=== PATIENT | male | born 1955 | race Caucasian/White ===

== ENCOUNTER 2016-06-25 13:34 | Emergency (ER) | payer MEDICAID, OTHER ==
[~2016-06-25] VITALS: Ht 162.6 cm; Wt 82.0 kg
[~2016-06-25 13:34] MED LIST: BENZ1TAB PO; BISA10SU3 RECTAL; FLEEENE3 RECTAL; LEVE500 PO; LEXA10TA PO; MAGN30S PO; METO25 PO; REST30CA PO; RISP2TAB2 PO; RISP3TAB23 PO; TRAZ50TA4 PO
[2016-06-25 13:39] VITALS: BP 120/62; PULSE 83; RESP 16; TEMP 98.2; O2SAT 96
[2016-06-25] MEDS ORDERED: TEMA30CA PO (14:02)
[2016-06-25] MEDS ORDERED: BENZ0.5T PO (14:02)
[2016-06-25] MEDS ORDERED: RISP2TAB2 PO (14:02)
[2016-06-25] MEDS ORDERED: VITATAB56 PO (14:02)
[2016-06-25] MEDS ORDERED: RISP3TAB2 PO (14:02)
[2016-06-25] MEDS ORDERED: LEXA20TA PO (14:02)
[2016-06-25] MEDS ORDERED: LEVE500 PO (14:02)
[2016-06-25] MEDS ORDERED: DIVA250T3 PO (14:02)
[2016-06-25] MEDS ORDERED: SODIUM CHLORIDE 0.9% FLUSH 10 ML FLUSH IVF PRN (14:15)
[2016-06-25] MEDS ORDERED: MECLIZINE HCL 25 MG TAB PO ONE (14:15)
[2016-06-25] MEDS ORDERED: SODIUM CHLORID 0.9% 500 ML INJ 500 ML IV ONE (14:15)
--- NOTE | 2016-06-25 14:29 | RADRPT ---
EXAM DATE/TIME: 06/25/2016 14:07 [facility] COMPARISON: No previous studies available for comparison. INDICATIONS : Chest discomfort; fall today. MEDICAL HISTORY : None. SURGICAL HISTORY : None. ENCOUNTER: Initial ACUITY: 1 day PAIN SCORE: 03/03 LOCATION: Bilateral chest FINDINGS: Portable AP view of the chest demonstrates a normal-sized cardiac silhouette. There are mild linear o pacities at the lung bases characteristic of atelectasis. No pleural effusion, airspace consolidation , or pneumothorax is visualized. There are old healed right rib fractures and there are signs of old trauma at the distal right clavicle. The bones demonstrate no acute finding. CONCLUSION: Atelectasis at the lung bases. No acute finding is identified. Reymundo Vega MD on June 25, 2016 at 14:25 Board Certified Radiologist. This report was verified electronically.
--- NOTE | 2016-06-25 14:37 | RADRPT ---
EXAM DATE/TIME: 06/25/2016 14:25 [facility] COMPARISON: CT BRAIN W/O CONTRAST, May 18, 2012, 12:04. INDICATIONS : Altered mental status. RADIATION DOSE: 33.51 CTDIvol (mGy) MEDICAL HISTORY : None SURGICAL HISTORY : Left eye surgery. ENCOUNTER: Initial ACUITY: 1 day PAIN SCALE: 0/10 LOCATION: cranial TECHNIQUE: Multiple contiguous axial images were obtained of the head. Using automated exposure control and adj ustment of the mA and/or kV according to patient size, radiation dose was kept as low as reasonably a chievable to obtain optimal diagnostic quality images. FINDINGS: Atrophy. Mild periventricular low attenuation change involving both cerebral hemispheres. Area of enc ephalomalacia involving the left frontal lobe. No hemorrhage, acute infarction, or mass. Mucosal thic kening is seen involving ethmoid air cells and maxillary sinuses bilaterally. No air-fluid levels. Ma stoid air cells are clear. CONCLUSION: 1. No acute intracranial abnormality. 2. Area of encephalomalacia involving the left frontal lobe. This can be seen in prior infarctions as well as prior trauma. 3. Chronic small vessel ischemic change. 4. Chronic paranasal sinus disease. Douglas Valera Jr., MD on June 25, 2016 at 14:32 Board Certified Radiologist. This report was verified electronically.
[2016-06-25 15:04] LABS: AUTOMATED NEUTROPHIL # 1.7 TH/MM3 (1.8-7.7); BASOPHIL % 0.2 % (0.0-2.0); EOSINOPHIL # 0.1 TH/MM3 (0-0.4); EOSINOPHIL % 3.1 % (0.0-4.0); LYMPH % 27.9 % (9.0-44.0); LYMPHOCYTE # 0.8 TH/MM3 (1.0-4.8); MEAN CELL VOLUME 87.7 FL (80.0-100.0); MEAN CORPUSCULAR HEMOGLOBIN 29.7 PG (27.0-34.0); MEAN CORPUSCULAR HGB CONC 33.9 % (32.0-36.0); MONO % 11.1 % (0.0-8.0); NEUT % 57.7 % (16.0-70.0); PLATELET COUNT 71 TH/MM3 (150-450); RED BLOOD COUNT 4.45 MIL/MM3 (4.50-5.90); RED CELL DISTRIBUTION WIDTH 13.8 % (11.6-17.2); WHITE BLOOD COUNT 2.9 TH/MM3 (4.0-11.0)
[2016-06-25 15:09] LABS: HEMO FLAGS AUTO DIFF
[2016-06-25 15:20] LABS: ALT (GPT) 18 U/L (12-78); ANION GAP 7 MEQ/L (5-15); AST (GOT) 25 U/L (15-37); BICARBONATE 31.3 MEQ/L (21.0-32.0); BLOOD UREA NITROGEN 12 MG/DL (7-18); CHLORIDE 107 MEQ/L (98-107); GLOMERULAR FILTRATION RATE 106 ML/MIN (>89); POTASSIUM 3.9 MEQ/L (3.5-5.1); SODIUM (NA) 145 MEQ/L (136-145)
[2016-06-25 15:24] LABS: ALKALINE PHOSPHATASE 82 U/L (45-117); CREATINE KINASE 173 U/L (39-308); TOTAL BILIRUBIN ADULT 0.3 MG/DL (0.2-1.0)
[2016-06-25 15:31] LABS: APTT (PATIENT) 27.4 SEC (24.3-30.1)
[2016-06-25 15:36] LABS: CKMB 1.9 NG/ML (0.5-3.6)
[2016-06-25 15:45] LABS: PLATELET ESTIMATE SMEAR LOW (NORMAL); PLATELET MORPHOLOGY NORMAL (NORMAL); SCAN/DIFF AUTO DIFF CONFIRMED
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
[2016-06-25 16:47] LABS: BLOOD, URINE NEG (NEG); COMMENT (UR) CULT NOT INDICATED; CULTURE IF INDICATED CULT NOT INDICATED; GLUCOSE,URINE NEG (NEG); KETONE, URINE NEG (NEG); NITRITE,URINE NEG (NEG); PH, URINE 6.5 (5.0-8.5); URINE COLOR YELLOW (YELLW/STRAW)
--- NOTE | 2016-06-26 15:43 | EKG ---
Date Performed: 06/25/2016 Time Performed: 14:55:58 PTAGE: 60 years EKG: Sinus rhythm LOW QRS VOLTAGE IN EXTREMITY LEADS BORDERLINE ECG PREVIOUS TRACING : 06/25/2016 14.41 DOCTOR: Carlos Caballeor Interpretating Date/Time 06/26/2016 15:36:36
--- NOTE | 2016-06-26 15:44 | EKG ---
Date Performed: 06/25/2016 Time Performed: 14:41:33 PTAGE: 60 years EKG: Sinus rhythm LOW QRS VOLTAGE IN EXTREMITY LEADS ST ELEVATION, CONSIDER INFERIOR INJURY ACUTE MA NO PREVIOUS TRACING DOCTOR: Carlos Caballero Interpretating Date/Time 06/26/2016 15:36:52
== END 2016-06-25 17:34 | disposition home or self-care (01) ==
LOC: NEPD 13:34
DX: R42 Dizziness and giddiness (principal); Z91.81 History of falling; R94.31 Abnormal electrocardiogram [ECG] [EKG]; Z72.0 Tobacco use
CPT/HCPCS: 70450; 71010; 80053; 80164; 81001; 82550; 82552; 84484; 85025; 85610; 85730; 93005; 96360; 99284; J7040

== ENCOUNTER 2016-07-09 10:34 | Emergency (ER) | payer MEDICAID, OTHER ==
[~2016-07-09] VITALS: Ht 162.6 cm; Wt 70.0 kg
[~2016-07-09 10:34] MED LIST changes: +BENZ0.5T PO; -BENZ1TAB PO; -BISA10SU3 RECTAL; +DIVA250T3 PO; -FLEEENE3 RECTAL; -LEXA10TA PO; +LEXA20TA PO; -MAGN30S PO; -METO25 PO; -REST30CA PO; +RISP3TAB2 PO; -RISP3TAB23 PO; +TEMA30CA PO; -TRAZ50TA4 PO; +VITATAB56 PO
[2016-07-09 10:37] VITALS: BP 116/70; PULSE 89; RESP 18; TEMP 97.6; O2SAT 98
[2016-07-09] MEDS ORDERED: SODIUM CHLORIDE 0.9% FLUSH 10 ML FLUSH IVF PRN (11:15)
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
--- NOTE | 2016-07-09 11:35 | RADRPT ---
EXAM DATE/TIME: 07/09/2016 11:04 [facility] COMPARISON: CHEST SINGLE AP, June 25, 2016, 14:07. INDICATIONS : Right anterior chest pain, fell MEDICAL HISTORY : None. SURGICAL HISTORY : None. ENCOUNTER: Initial ACUITY: 2 days PAIN SCORE: 8/10 LOCATION: Right chest FINDINGS: A single view of the chest demonstrates the lungs to be symmetrically aerated without evidence of mas s, infiltrate or effusion. The cardiomediastinal contours are unremarkable. Osseous structures are intact with underspurring of the lateral right clavicle. CONCLUSION: Normal examination. Luis Alberto Coy MD on July 09, 2016 at 11:33 Board Certified Radiologist. This report was verified electronically.
[2016-07-09 12:03] LABS: AUTOMATED NEUTROPHIL # 3.1 TH/MM3 (1.8-7.7); BASOPHIL % 0.5 % (0.0-2.0); EOSINOPHIL # 0.1 TH/MM3 (0-0.4); EOSINOPHIL % 1.4 % (0.0-4.0); HEMATOCRIT 39.4 % (39.0-51.0); HEMO FLAGS DIFF FINAL; LYMPH % 20.6 % (9.0-44.0); MEAN CELL VOLUME 87.6 FL (80.0-100.0); MEAN CORPUSCULAR HEMOGLOBIN 29.8 PG (27.0-34.0); MONO % 10.5 % (0.0-8.0); PLATELET COUNT 120 TH/MM3 (150-450); RED BLOOD COUNT 4.49 MIL/MM3 (4.50-5.90); RED CELL DISTRIBUTION WIDTH 13.7 % (11.6-17.2); WHITE BLOOD COUNT 4.6 TH/MM3 (4.0-11.0)
[2016-07-09 12:19] LABS: APTT (PATIENT) 25.8 SEC (24.3-30.1); INTERNATIONAL NORMALIZED RATIO 1.1 RATIO; PROTHROMBIN TIME - PATIENT 12.3 SEC (9.8-11.6)
[2016-07-09 12:23] VITALS: PULSE 62; O2SAT 96
[2016-07-09 12:32] LABS: ALT (GPT) 17 U/L (12-78); ANION GAP 7 MEQ/L (5-15); AST (GOT) 20 U/L (15-37); BICARBONATE 28.1 MEQ/L (21.0-32.0); BLOOD UREA NITROGEN 11 MG/DL (7-18); CHLORIDE 107 MEQ/L (98-107); GLOMERULAR FILTRATION RATE 110 ML/MIN (>89); SODIUM (NA) 142 MEQ/L (136-145)
[2016-07-09 12:34] LABS: ALKALINE PHOSPHATASE 110 U/L (45-117); TOTAL BILIRUBIN ADULT 0.5 MG/DL (0.2-1.0)
[2016-07-09] MEDS ORDERED: IOHEXOL 350 MG/ML 10 ML VIAL (for RAD DIAG) IV ONE (13:49)
--- NOTE | 2016-07-09 13:52 | RADRPT ---
EXAM DATE/TIME: 07/09/2016 13:16 [facility] COMPARISON: No previous studies available for comparison. INDICATIONS : Trauma, head pain. RADIATION DOSE: 56.35 CTDIvol (mGy) MEDICAL HISTORY : Arthritis. SURGICAL HISTORY : Cholecystectomy. ENCOUNTER: Initial ACUITY: 1 day PAIN SCALE: 3/10 LOCATION: cranial TECHNIQUE: Multiple contiguous axial images were obtained of the head. Using automated exposure control and adj ustment of the mA and/or kV according to patient size, radiation dose was kept as low as reasonably a chievable to obtain optimal diagnostic quality images. FINDINGS: Non-contrast head CT demonstrates there is some areas of encephalomalacia left frontal lobe. There i s diffuse atrophy. No subarachnoid or subdural hematomas identified. No large vessel stroke is noticed. Glob es are unremarkable. Sinuses are clear. Bone windows are unremarkable. 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 Diffuse atrophy. No evidence of acute hemorrhage or edema. No interval ch fran since 06/25/16. Luis Alberto Coy MD on July 09, 2016 at 13:28 Board Certified Radiologist. This report was verified electronically.
--- NOTE | 2016-07-09 14:01 | RADRPT ---
EXAM DATE/TIME: 07/09/2016 13:22 [facility] COMPARISON: CT ABDOMEN & PELVIS W CONTRAST, April 26, 2012, 20:10. INDICATIONS : Fell down stairlast night,right upper abdomen pain. IV CONTRAST: 95 cc Omnipaque 350 (iohexol) IV ; Cumulative dose for multiple exams. ORAL CONTRAST: No oral contrast ingested. RADIATION DOSE: 5.17 CTDIvol (mGy) ; Combined studies - Thorax/Abdomen/Pelvis MEDICAL HISTORY : Arthritis. SURGICAL HISTORY : Cholecystectomy. ENCOUNTER: Initial ACUITY: 1 day PAIN SCALE: 3/10 LOCATION: Abdomen TECHNIQUE: Volumetric scanning of the abdomen and pelvis was performed. Using automated exposure control and ad justment of the mA and/or kV according to patient size, radiation dose was kept as low as reasonably achievable to obtain optimal diagnostic quality images. FINDINGS: LOWER LUNGS: Minimal atelectasis in the left lung base. Lung bases are otherwise clear LIVER: Liver is small and nodular suggesting some degree of cirrhosis. Perihepatic varicosities were present previously but are more numerous on the current exam and has been interval cavernous transformation of the main portal vein with developing splenomegaly measuring 15.7 cm in greatest SI dimension. No f ocal mass lesion.. SPLEEN: Enlarged without lesion.. PANCREAS: Within normal limits. KIDNEYS: Normal in size and shape. There is no mass, stone or hydronephrosis. ADRENAL GLANDS: Within normal limits. VASCULAR: There is no aortic aneurysm. BOWEL/MESENTERY: Iverticular disease of the sigmoid colitis. Small hiatal hernia. ABDOMINAL WALL: Within normal limits. RETROPERITONEUM: There is no lymphadenopathy. BLADDER: No wall thickening or mass. REPRODUCTIVE: Prostate is prominent at 4.6 cm. INGUINAL: Small 2.7 cm left inguinal hernia which only contains fat. MUSCULOSKELETAL: Old healed right posterior 10th rib fracture. Otherwise intact. CONCLUSION: 1. CT findings characteristic of progressive cirrhosis with small nodular liver, cavernous transforma tion of the portal vein, splenomegaly and multiple varicosities emanating from the rocco hepatis. 2. Old healed rib fracture in the posterior right 10th rib. No acute injury. 3. Small hiatal hernia. Diverticular disease of the sigmoid without diverticulitis. 4. Small left inguinal hernia measuring 2.7 cm in diameter and only contains fat. Yomi Richard MD on July 09, 2016 at 13:46 Board Certified Radiologist. This report was verified electronically.
--- NOTE | 2016-07-09 14:07 | RADRPT ---
EXAM DATE/TIME: 07/09/2016 13:26 [facility] COMPARISON: No previous studies available for comparison. INDICATIONS : Abdominal pain, chest pain IV CONTRAST: 95 cc Omnipaque 350 (iohexol) IV ; Cumulative dose for multiple exams. RADIATION DOSE: 5.17 CTDIvol (mGy) ; Combined studies - Thorax/Abdomen/Pelvis MEDICAL HISTORY : Arthritis. SURGICAL HISTORY : Cholecystectomy. ENCOUNTER: Initial ACUITY: 1 day PAIN SCALE: 3/10 LOCATION: Chest TECHNIQUE: Volumetric scanning of the chest was performed. Using automated exposure control and adjustment of t he mA and/or kV according to patient size, radiation dose was kept as low as reasonably achievable to obtain optimal diagnostic quality images. FINDINGS: CT of the chest is unremarkable with clear lungs and an unremarkable mediastinum. The portal vein ho wever is clearly thrombosed. The liver is not especially cirrhotic. There is cavernous transformation of the portal vein. The adrenals glands, kidneys are unremarkable. Spleen is mildly prominent in size. Pancreas is atro phic. There is a small lymph node in the celiac axis and the portal caval region. CONCLUSION: Unusual thrombosis of the portal vein new since the 2013 exam. Lungs are clear without concerning in filtrate or mass. Small mesenteric lymph node. The portal vein thrombosis is new since 2013 exam. Luis Alberto Coy MD on July 09, 2016 at 13:52 Board Certified Radiologist. This report was verified electronically.
--- NOTE | 2016-07-09 14:08 | RADRPT ---
EXAM DATE/TIME: 07/09/2016 13:19 [facility] COMPARISON: No previous studies available for comparison. INDICATIONS : Fell down stairs last night RADIATION DOSE: 34.55 CTDIvol (mGy) MEDICAL HISTORY : Arthritis. SURGICAL HISTORY : Cholecystectomy. ENCOUNTER: Initial ACUITY: 1 day PAIN SCALE: 3/10 LOCATION: neck TECHNIQUE: Volumetric scanning of the cervical spine was performed. Multiplanar reconstructions in the sagittal, coronal and oblique axial planes were performed. Using automated exposure control and adjustment o f the mA and/or kV according to patient size, radiation dose was kept as low as reasonably achievable to obtain optimal diagnostic quality images. FINDINGS: VERTEBRAE: Normal vertebral body height. ALIGNMENT: No evidence of subluxation. C2-C3: The bony spinal canal is normal in size. No evidence of disc bulge or herniation. The neural forami na are bilaterally patent. C3-C4: The bony spinal canal is normal in size. No evidence of disc bulge or herniation. The neural forami na are bilaterally patent. C4-C5: The bony spinal canal is normal in size. No evidence of disc bulge or herniation. The neural forami na are bilaterally patent. C5-C6: The bony spinal canal is normal in size. No evidence of disc bulge or herniation. The neural forami na are bilaterally patent. C6-C7: The bony spinal canal is normal in size. No evidence of disc bulge or herniation. The neural forami na are bilaterally patent. C7-T1: The bony spinal canal is normal in size. No evidence of disc bulge or herniation. The neural forami na are bilaterally patent. CONCLUSION: Normal examination. Luis Alberto Coy MD on July 09, 2016 at 14:06 Board Certified Radiologist. This report was verified electronically.
[2016-07-09 14:34] VITALS: BP 156/70; PULSE 80; RESP 16; O2SAT 97
== END 2016-07-09 15:53 | disposition home or self-care (01) ==
LOC: NEPD 10:34 → NEDAMB 15:53
DX: I81 Portal vein thrombosis (principal); R07.81 Pleurodynia; R10.11 Right upper quadrant pain; F17.200 Nicotine dependence, unspecified, uncomplicated; Z87.39 Personal history of other diseases of the musculoskeletal system and connective tissue; W10.9XXA Fall (on) (from) unspecified stairs and steps, initial encounter
CPT/HCPCS: 70450; 71010; 71260; 72125; 74177; 80053; 80164; 80307; 85025; 85610; 85730; 99284; Q9967

== ENCOUNTER 2016-09-04 02:05 | Emergency (ER) | payer MEDICAID ==
[~2016-09-04] VITALS: Ht 167.6 cm; Wt 70.0 kg
[2016-09-04 02:23] VITALS: BP 117/69; PULSE 82; RESP 16; TEMP 98.9; O2SAT 98
--- NOTE | 2016-09-04 04:24 | PD ---
HPI Chief Complaint: Injury Time Seen by Provider: 04:22 Travel History International Travel<30 days: No Contact w/Intl Traveler<30days: No Traveled to known affect area: No History of Present Illness HPI 61-year-old white male from the [facility] presents to emergency department by EMS for evaluation of left knee pain from a fall. The patient has a gait disturbance and has frequent falls. He comes in with them planes of left knee pain. An ice pack has been applied prior to arrival. The patient also complains of an abrasion to his right palm. Patient states that he is up-to-date with immunizations. He denies any injury to his head, neck or back. He denies any chest pain or shortness of breath. No nausea vomiting. Pain is moderate. Worse with movement and palpation. PFSH Past Medical History Narrative Medical Chronic cirrhosis with varices and portal hypertension, seizure disorder, psych , arthritis, left eye injury Arthritis: Yes Cancer: No Cardiovascular Problems: No Endocrine: No Gastrointestinal Disorders: No Genitourinary: No Immune Disorder: No Implanted Vascular Access Dvce: No Musculoskeletal: No Neurologic: No Reproductive: No Respiratory: No Tetanus Vaccination: > 5 Years Past Surgical History Abdominal Surgery: Yes Cholecystectomy: Yes Eye Surgery: Yes (as child) Neurologic Surgery: No Other Surgery: Yes (Lt eye surgery) Social History Alcohol Use: No Tobacco Use: Yes (02/23/) Substance Use: No Allergies-Medications (Allergen,Severity, Reaction): Coded Allergies: [place] Flour (Verified Allergy, Mild, rash, 09/04/16) Reported Meds & Prescriptions Reported Meds & Active Scripts Active Reported Benztropine (Benztropine Mesylate) 0.5 Mg Tab 0.5 Mg PO BID Divalproex ER (Divalproex Sodium) 250 Mg Garret 125 Mg PO BID Lexapro (Escitalopram Oxalate) 20 Mg Tab 20 Mg PO DAILY Keppra (Levetiracetam) 500 Mg Tab 500 Mg PO BID Risperidone 2 Mg Tab 2 Mg PO DAILY Risperidone 3 Mg Tab 3 Mg PO HS Temazepam 30 Mg Cap 30 Mg PO HS PRN Vitamin D-400 (Cholecalciferol) 400 Unit Tab 400 Units PO DAILY Review of Systems Except as stated in HPI: all other systems reviewed are Neg General / Constitutional: No: Fever, Chills Eyes: No: Diploplia, Drainage HENT: No: Neck Stiffness, Neck Pain Cardiovascular: No: Chest Pain or Discomfort, Palpitations Respiratory: No: Cough, Shortness of Breath Gastrointestinal: No: Nausea, Vomiting Genitourinary: No: Dysuria, Hematuria Musculoskeletal: Positive: Myalgias, Arthralgias, Limited ROM, Weakness (with chronic falls), Edema, Pain Skin: Positive Rash (abrasions to the right palm, history of easy bruising) Neurologic: No: Headache, Paresthesia Physical Exam Narrative GENERAL: Well-developed, well-nourished in no apparent distress. Nontoxic appearing. HEAD: Normocephalic, atraumatic. EYES: Pupils equal round and reactive. Extraocular motions intact. No scleral icterus. No injection or drainage. ENT: Nose clear. Throat without erythema, tonsillar hypertrophy or exudate. Uvula midline. Airway patent. NECK: Trachea midline. Supple, nontender, moves head freely. No central bony tenderness or spasm. CARDIOVASCULAR: Regular rate and rhythm without murmurs, gallops, or rubs. RESPIRATORY: Clear to auscultation. Breath sounds equal bilaterally. No wheezes , rales, or rhonchi. GASTROINTESTINAL: Abdomen soft, non-tender, nondistended. No hepato-splenomegaly , or palpable masses. No guarding. EXTREMITIES: No clubbing, cyanosis. Examination of the left lower extremity reveals a large icepack is on the knee. This is removed and there is notable swelling in the knee with ecchymosis to the ER for knee and proximal lower leg. The skin is intact. Patient has soft tissue tenderness in the knee. Patient has mild medial lateral collateral ligament laxity but firm endpoint. No anterior posterior draw. No pain in the hip, ankle or foot. The right lower leg is without localizing bony tenderness or deformity. The right upper extremity has a soft tissue abrasion to the palm with mild tenderness. No pain in the fingers, wrist, elbow or shoulder. The left upper extremities unremarkable for trauma. BACK: Nontender without deformity. No flank tenderness. NEUROLOGICAL: Awake, alert and oriented x 3 .Cranial nerves grossly intact. Motor and sensory grossly within normal limits. Normal speech. Data Data Last Documented VS Vital Signs Date Time Temp Pulse Resp B/P Pulse Ox O2 Delivery O2 Flow Rate FiO2 09/04/16 04:11 18 98 09/04/16 02:23 98.9 82 117/69 Room Air Orders Knee, Complete (4vws) (09/04/16 04:18) Ice/Cold Pack (09/04/16 04:18) Acetamin-Hydrocod 325-5 Mg (Amorita 5-325 (09/04/16 04:30) MDM Medical Decision Making Medical Screen Exam Complete: Yes Emergency Medical Condition: Yes Medical Record Reviewed: Yes Interpretation(s) Left knee: Negative for fracture. Differential Diagnosis MDM: High Differential diagnoses: Fracture, sprain, strain, dislocation, contusion, neurovascular injury Narrative Course X-rays are negative for bony injury. Patient's given one Lortab 5 milligram by mouth. Delfin wrap applied. Ice pack. This is left knee and lower leg contusion, left pretibial hematoma Diagnosis Primary Impression: Contusion of left knee and lower leg Qualified Code: S80.02XA - Contusion of left knee and lower leg, initial encounter Additional Impression: Posttraumatic pretibial hematoma of left lower extremity Qualified Code: S80.12XA - Posttraumatic pretibial hematoma of left lower extremity, initial encounter Patient Instructions: General Instructions Additional Instructions: Rest. Elevation. Ice packs for the next 3 days. Delfin wrap and patient to use a walker. Limited weight-bearing as tolerated. Tylenol for pain Follow-up with an orthopedist or your doctor in one week. Return to the ER if any problems Med/Other Pt SpecificInfo: No Meds Exist/No RX given, Wound Care Disposition: 01 DISCHARGE HOME Condition: Stable Abdirizak Tan Sep 04, 2016 04:24
[2016-09-04] MEDS ORDERED: ACETAMINOPHEN/HYDROcodone 325 MG/5 MG TAB PO ONE (04:30)
--- NOTE | 2016-09-04 05:38 | RADRPT ---
EXAM DATE/TIME: 09/04/2016 05:04 [facility] COMPARISON: No previous studies available for comparison. INDICATIONS : Patient fell last night. MEDICAL HISTORY : None. SURGICAL HISTORY : None. ENCOUNTER: Initial ACUITY: 2 days PAIN SCORE: 5/10 LOCATION: Left Knee. FINDINGS: Four view examination of the left knee demonstrates no evidence of fracture or dislocation. Bony min eralization is normal. The articular surfaces are intact. The suprapatellar soft tissues have a nor mal configuration. CONCLUSION: No acute disease. Tyler Jackson MD on September 04, 2016 at 5:36 Board Certified Radiologist. This report was verified electronically.
[2016-09-04 07:35] VITALS: BP 115/74
== END 2016-09-04 07:20 | disposition home or self-care (01) ==
LOC: NEPD 02:05
DX: S80.02XA Contusion of left knee, initial encounter (principal); S80.12XA Contusion of left lower leg, initial encounter; W19.XXXA Unspecified fall, initial encounter
CPT/HCPCS: 73564; 99283

== ENCOUNTER 2016-09-07 07:19 | Emergency (ER) | payer MEDICAID ==
[~2016-09-07] VITALS: Ht 162.6 cm; Wt 75.0 kg
[2016-09-07 07:20] VITALS: BP 109/64; PULSE 84; RESP 15; TEMP 98.5; O2SAT 99
--- NOTE | 2016-09-07 08:25 | PD ---
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 Patient reports bilateral knee pain. The patient has multiple bruises over his body that are of varying ages. Patient also has a hematoma and abrasion to his right upper eyelid. The patient denies any head or face pain. He states that he has fallen multiple times. He denies any loss of consciousness. He denies any seizures or urinary incontinence. PFSH Past Medical History Arthritis: Yes Cancer: No Cardiovascular Problems: No Endocrine: No Gastrointestinal Disorders: No Genitourinary: No Immune Disorder: No Implanted Vascular Access Dvce: No Musculoskeletal: No Neurologic: No Reproductive: No Respiratory: No Seizures: Yes (Pt states he does not have seizures but is currently on keppra) Past Surgical History Abdominal Surgery: Yes Cholecystectomy: Yes Eye Surgery: Yes (as child) Neurologic Surgery: No Other Surgery: Yes (Lt eye surgery) Social History Alcohol Use: No Tobacco Use: Yes () Substance Use: No Allergies-Medications (Allergen,Severity, Reaction): Coded Allergies: [place] Flour (Verified Allergy, Mild, rash, 09/04/16) Reported Meds & Prescriptions Reported Meds & Active Scripts Active Reported Benztropine (Benztropine Mesylate) 0.5 Mg Tab 0.5 Mg PO BID Divalproex ER (Divalproex Sodium) 250 Mg Garret 125 Mg PO BID Lexapro (Escitalopram Oxalate) 20 Mg Tab 20 Mg PO DAILY Keppra (Levetiracetam) 500 Mg Tab 500 Mg PO BID Risperidone 2 Mg Tab 2 Mg PO DAILY Risperidone 3 Mg Tab 3 Mg PO HS Temazepam 30 Mg Cap 30 Mg PO HS PRN Vitamin D-400 (Cholecalciferol) 400 Unit Tab 400 Units PO DAILY Review of Systems Except as stated in HPI: all other systems reviewed are Neg Eyes: Positive: Other (bruising to the right periorbital area. Patient also has a bruise to his nasal bridge.), No: Blurred Vision, Drainage HENT: No: Headaches, Neck Pain Cardiovascular: No: Chest Pain or Discomfort, Palpitations Respiratory: No: Shortness of Breath Gastrointestinal: No: Nausea, Vomiting Genitourinary: No: Incontinence, Pelvic Pain Musculoskeletal: Positive: Edema (left knee where there is a bruise), Pain ( bilateral knee pain.), No: Weakness Neurologic: No: Weakness, Syncope, Headache, Change in Mentation, Incontinence , Seizures (none reported) Physical Exam Narrative GENERAL: Well-developed well-nourished gentleman with obvious right eye periorbital hematoma. Patient also has a bruise to the bridge of his nose. SKIN: Focused skin assessment warm/dry. HEAD: Atraumatic. Normocephalic. EYES: No scleral icterus. No injection or drainage. Right periorbital bruising. There is an abrasion to the right eye brow. No laceration noted. ENT: No nasal bleeding or discharge. The patient does have a hematoma to the bridge of his nose. Mucous membranes pink and moist. NECK: Trachea midline. Supple. No posterior spinous process tenderness. CARDIOVASCULAR: Regular rate and rhythm. No murmur appreciated. RESPIRATORY: No accessory muscle use. Clear to auscultation. Breath sounds equal bilaterally. GASTROINTESTINAL: Abdomen soft, non-tender, nondistended. No rebound or guarding. MUSCULOSKELETAL: No obvious deformities. Bilateral knees with varying ages of bruising. He does have full range of motion. There is edema to the left medial knee. Patient also has bruising to his bilateral shins. No deformity noted. NEUROLOGICAL: Awake and alert. No obvious cranial nerve deficits. Motor grossly within normal limits. Data Data Last Documented VS Vital Signs Date Time Temp Pulse Resp B/P Pulse Ox O2 Delivery O2 Flow Rate FiO2 09/07/16 07:34 78 18 98 Room Air 09/07/16 07:20 98.5 109/64 Orders Urinalysis - C+S If Indicated (09/07/16 07:38) Ct Brain W/O Iv Contrast(Rout) (09/07/16 07:38) Ct Cerv Spine W/O Contrast (09/07/16 07:38) Ct Facial Bones W/O Iv Cont (09/07/16 07:38) Knee, Ltd (1 Or 2vws) (09/07/16 07:38) Knee, Ltd (1 Or 2vws) (09/07/16 07:44) Tibia/Fibula (Ap/Lat) (09/07/16 07:44) Tibia/Fibula (Ap/Lat) (09/07/16 08:10) Case Management Consult (09/07/16 ) Labs Laboratory Tests Test 09/07/16 10:29 Urine Color YELLOW Urine Turbidity CLEAR Urine pH 7.0 Urine Specific [place] 1.013 Urine Protein NEG mg/dL Urine Glucose (UA) NEG mg/dL Urine Ketones 10 mg/dL Urine Occult Blood NEG Urine Nitrite NEG Urine Bilirubin NEG Urine Urobilinogen 4.0 MG/DL Urine Leukocyte Esterase NEG Urine RBC LESS THAN 1 /hpf Urine WBC 1 /hpf Urine Squamous Epithelial <1 /hpf Cells Urine Mucus FEW /lpf Microscopic Urinalysis Comment CULT NOT INDICATED MDM Medical Decision Making Medical Screen Exam Complete: Yes Emergency Medical Condition: Yes Differential Diagnosis Intracranial injury versus facial fracture versus knee fracture versus tib-fib fracture Narrative Course 61-year-old male sent from the [facility] for evaluation of bilateral knee pain. The patient also has ecchymosis to the right paravertebral area. He states his tetanus shot is up-to-date. The patient is able to answer questions appropriately and is in no acute distress. Urinalysis reveals no evidence of acute infection. The be [facility] back to [facility]. He' ll instructed to use ice and Motrin. Diagnosis Primary Impression: bilateral knee and lower extremity contusions. Additional Impressions: Closed head injury Facial contusion Additional Instructions: Ice 24-36 hours. Motrin as needed. Disposition: 01 DISCHARGE HOME Condition: Stable Garo Douglas MD Sep 07, 2016 08:25
--- NOTE | 2016-09-07 08:44 | RADRPT ---
EXAM DATE/TIME: 09/07/2016 08:09 [facility] COMPARISON: CT BRAIN W/O CONTRAST, July 09, 2016, 13:16. INDICATIONS : Seizue with fall RADIATION DOSE: 30.01 CTDIvol (mGy) MEDICAL HISTORY : Seizures. SURGICAL HISTORY : None. ENCOUNTER: Initial ACUITY: 1 day PAIN SCALE: 0/10 LOCATION: cranial TECHNIQUE: Multiple contiguous axial images were obtained of the head. Using automated exposure control and adj ustment of the mA and/or kV according to patient size, radiation dose was kept as low as reasonably a chievable to obtain optimal diagnostic quality images. DICOM format image data is available electro nically for review and comparison. 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 The ventricles are normal for age. No evidence of midline shift, mass lesion, hemorrhage or acute infarction. No extra-axial fluid collections are seen. POSTERIOR FOSSA: The cerebellum and brainstem are intact. The 4th ventricle is midline. The cerebellopontine angle i s unremarkable. EXTRACRANIAL: The visualized portion of the orbits is intact. SKULL: The calvaria is intact. No evidence of skull fracture. CONCLUSION: 1. Remote bifrontal infarcts. No change. 2. No acute hemorrhage or midline shift. Anderson Scherer MD on September 07, 2016 at 8:41 Board Certified Radiologist. This report was verified electronically.
--- NOTE | 2016-09-07 08:47 | RADRPT ---
EXAM DATE/TIME: 09/07/2016 08:09 [facility] COMPARISON: CT CERVICAL SPINE W/O CONTRAST, July 09, 2016, 13:19. INDICATIONS : Seizure with fall RADIATION DOSE: 20.01 CTDIvol (mGy) MEDICAL HISTORY : Seizures. SURGICAL HISTORY : None. ENCOUNTER: Initial ACUITY: 1 day PAIN SCALE: 0/10 LOCATION: neck TECHNIQUE: Volumetric scanning of the cervical spine was performed. Multiplanar reconstructions in the sagittal, coronal and oblique axial planes were performed. Using automated exposure control and adjustment o f the mA and/or kV according to patient size, radiation dose was kept as low as reasonably achievable to obtain optimal diagnostic quality images. DICOM format image data is available electronically f or review and comparison. FINDINGS: VERTEBRAE: Normal vertebral body height. No fracture. Mild degenerative changes. ALIGNMENT: No evidence of subluxation. C2-C3: The bony spinal canal is normal in size. No evidence of disc bulge or herniation. The neural forami na are bilaterally patent. C3-C4: The bony spinal canal is normal in size. No evidence of disc bulge or herniation. The neural forami na are bilaterally patent. C4-C5: The bony spinal canal is normal in size. No evidence of disc bulge or herniation. The neural forami na are bilaterally patent. C5-C6: The bony spinal canal is normal in size. No evidence of disc bulge or herniation. The neural forami na are bilaterally patent. C6-C7: The bony spinal canal is normal in size. No evidence of disc bulge or herniation. The neural forami na are bilaterally patent. C7-T1: The bony spinal canal is normal in size. No evidence of disc bulge or herniation. The neural forami na are bilaterally patent. CONCLUSION: No fracture or subluxation. Anderson Scherer MD on September 07, 2016 at 8:43 Board Certified Radiologist. This report was verified electronically.
--- NOTE | 2016-09-07 08:50 | RADRPT ---
EXAM DATE/TIME: 09/07/2016 08:09 [facility] COMPARISON: No previous studies available for comparison. INDICATIONS : Seizure with fall RADIATION DOSE: 60.48 CTDIvol (mGy) MEDICAL HISTORY : Seizures. SURGICAL HISTORY : None. ENCOUNTER: Initial ACUITY: 1 day PAIN SCORE: 0/10 LOCATION: facial TECHNIQUE: Volumetric scanning of the facial bones was performed. Using automated exposure control and adjustme nt of the mA and/or kV according to patient size, radiation dose was kept as low as reasonably achiev able to obtain optimal diagnostic quality images. DICOM format image data is available electronicall y for review and comparison. FINDINGS: ORBITS: The orbital and infraorbital osseous structures are intact. The retroconal structures have a normal configuration. No radiopaque foreign bodies are seen. NASAL BONE: The nasal bone and maxillary spine are intact ZYGOMATIC ARCHES: Symmetric without evidence of fracture. SINUSES: The maxillary, ethmoid and frontal sinuses are intact. No air-fluid levels seen. NASAL CAVITY: The nasal septum is deviated to the left. Minimal vinnie bullosa bilaterally. The lacrimal ducts are intact. SOFT TISSUES: No radiopaque foreign bodies seen. Facial soft-tissue swelling is seen, greatest in the right periorb ital region. INTRACRANIAL: No intracranial air seen. CRIBIFORM PLATE: Grossly intact. CONCLUSION: 1. No facial fractures. 2. Facial soft tissue swelling. Anderson Scherer MD on September 07, 2016 at 8:45 Board Certified Radiologist. This report was verified electronically.
--- NOTE | 2016-09-07 08:54 | RADRPT ---
EXAM DATE/TIME: 09/07/2016 07:58 [facility] COMPARISON: No previous studies available for comparison. INDICATIONS : Fall. Bilateral knee pain. MEDICAL HISTORY : Arthritis. SURGICAL HISTORY : Cholecystectomy. Right tib/fib fracture repair. ENCOUNTER: Subsequent ACUITY: 2 days PAIN SCORE: 6/10 LOCATION: Bilateral knees FINDINGS: Two view examination of the left tibia demonstrates no evidence of fracture or dislocation. Bony min eralization is normal. The soft tissue structures are intact. CONCLUSION: No fracture or subluxation. Anderson Scherer MD on September 07, 2016 at 8:52 Board Certified Radiologist. This report was verified electronically.
--- NOTE | 2016-09-07 08:56 | RADRPT ---
EXAM DATE/TIME: 09/07/2016 08:00 [facility] COMPARISON: No previous studies available for comparison. INDICATIONS : Fall. Bilateral knee pain. MEDICAL HISTORY : Arthritis. SURGICAL HISTORY : Cholecystectomy. Right tib/fib fracture repair. ENCOUNTER: Subsequent ACUITY: 2 days PAIN SCORE: 6/10 LOCATION: Bilateral knees FINDINGS: Two view examination of the right tibia demonstrates no evidence of acute fracture or dislocation. O ld fractures of the distal shaft of the tibia and fibula. Intramedullary mamta within the tibia. Bony m ineralization is normal. The soft tissue structures are intact. CONCLUSION: 1. Previous internal fixation of old tibial fracture. 2. Old fibular fracture. Anderson Scherer MD on September 07, 2016 at 8:53 Board Certified Radiologist. This report was verified electronically.
--- NOTE | 2016-09-07 08:57 | RADRPT ---
EXAM DATE/TIME: 09/07/2016 08:00 [facility] COMPARISON: No previous studies available for comparison. INDICATIONS : Fall. Bilateral knee pain. MEDICAL HISTORY : Arthritis. SURGICAL HISTORY : Cholecystectomy. Right tib/fib fracture repair. ENCOUNTER: Subsequent ACUITY: 2 days PAIN SCORE: 6/10 LOCATION: Bilateral knees FINDINGS: Two view examination of the right knee demonstrates no evidence of fracture or dislocation. Bony min eralization is normal. The suprapatellar soft tissues have a normal configuration. Soft tissue swell ing. CONCLUSION: 1. There is soft tissue swelling without fracture. Anderson Scherer MD on September 07, 2016 at 8:54 Board Certified Radiologist. This report was verified electronically.
--- NOTE | 2016-09-07 08:58 | RADRPT ---
EXAM DATE/TIME: 09/07/2016 08:00 [facility] COMPARISON: No previous studies available for comparison. INDICATIONS : Fall. Bilateral knee pain. MEDICAL HISTORY : Arthritis. SURGICAL HISTORY : Cholecystectomy. Right tib/fib fracture repair. ENCOUNTER: Subsequent ACUITY: 2 days PAIN SCORE: 6/10 LOCATION: Bilateral knees FINDINGS: Two view examination of the left knee demonstrates no evidence of fracture or dislocation. Mild osteo arthritis. Soft tissue swelling . Bony mineralization is normal. Vascular calcifications. The suprapa tellar soft tissues have a normal configuration. CONCLUSION: 1. Soft tissue swelling without fracture. Anderson Scherer MD on September 07, 2016 at 8:56 Board Certified Radiologist. This report was verified electronically.
[2016-09-07 11:00] LABS: BLOOD, URINE NEG (NEG); COMMENT (UR) CULT NOT INDICATED; CULTURE IF INDICATED CULT NOT INDICATED; GLUCOSE,URINE NEG (NEG); KETONE, URINE 10 mg/dL (NEG); MUCUS URINE FEW /lpf (OCC); NITRITE,URINE NEG (NEG); SQUAMOUS EPITHELIAL CELL URINE <1 /hpf (0-5); URINE COLOR YELLOW (YELLW/STRAW)
== END 2016-09-07 14:00 ==
LOC: NEPC 07:19
DX: S80.02XA Contusion of left knee, initial encounter (principal); S80.01XA Contusion of right knee, initial encounter; S80.12XA Contusion of left lower leg, initial encounter; S80.11XA Contusion of right lower leg, initial encounter; S00.83XA Contusion of other part of head, initial encounter; S09.90XA Unspecified injury of head, initial encounter; S00.211A Abrasion of right eyelid and periocular area, initial encounter; F17.200 Nicotine dependence, unspecified, uncomplicated; W19.XXXA Unspecified fall, initial encounter; Z91.81 History of falling; Z86.69 Personal history of other diseases of the nervous system and sense organs; Z87.39 Personal history of other diseases of the musculoskeletal system and connective tissue
CPT/HCPCS: 70450; 70486; 72125; 73560; 73590; 81001; 99285

== ENCOUNTER 2016-09-12 15:20 | Emergency (ER) | payer MEDICAID ==
[~2016-09-12] VITALS: Ht 170.2 cm; Wt 70.0 kg
[2016-09-12 15:24] VITALS: BP 135/72; PULSE 81; RESP 20; TEMP 98.3; O2SAT 98
--- NOTE | 2016-09-12 15:41 | PD ---
HPI Chief Complaint: Fall Time Seen by Provider: 15:27 Travel History International Travel<30 days: No Contact w/Intl Traveler<30days: No Traveled to known affect area: No History of Present Illness HPI 61-year-old male complains of left knee pain and right hand pain. Patient is not sure how he injured his right hand. Patient does not know how long he has pain on the right hand. Patient states that he fell today and injured his left knee. Patient has been to the emergency room recently for knee injury. X-ray of both knees recently was negative for acute fracture. Patient states that he fell again today on his left knee. Patient denies any head injury. Patient denies any headache. Patient denies any facial pain. Patient denies any neck pain. Patient denies any chest pain or shortness of breath. Patient denies abdominal pain. Patient denies any back pain. Patient states that he has sharp pain localized to left knee and right hand. PFSH Past Medical History Arthritis: Yes Cancer: No Cardiovascular Problems: No Endocrine: No Gastrointestinal Disorders: No Genitourinary: No Immune Disorder: No Implanted Vascular Access Dvce: No Musculoskeletal: No Neurologic: No Reproductive: No Respiratory: No Seizures: Yes (Pt states he does not have seizures but is currently on keppra) Past Surgical History Abdominal Surgery: Yes Cholecystectomy: Yes Eye Surgery: Yes (as child) Neurologic Surgery: No Other Surgery: Yes (Lt eye surgery) Social History Alcohol Use: No Tobacco Use: Yes () Substance Use: No Allergies-Medications (Allergen,Severity, Reaction): Coded Allergies: [place] Flour (Verified Allergy, Mild, rash, 09/12/16) Reported Meds & Prescriptions Reported Meds & Active Scripts Active Reported Benztropine (Benztropine Mesylate) 0.5 Mg Tab 0.5 Mg PO BID Divalproex ER (Divalproex Sodium) 250 Mg Garret 125 Mg PO BID Lexapro (Escitalopram Oxalate) 20 Mg Tab 20 Mg PO DAILY Keppra (Levetiracetam) 500 Mg Tab 500 Mg PO BID Risperidone 2 Mg Tab 2 Mg PO DAILY Risperidone 3 Mg Tab 3 Mg PO HS Temazepam 30 Mg Cap 30 Mg PO HS PRN Vitamin D-400 (Cholecalciferol) 400 Unit Tab 400 Units PO DAILY Review of Systems General / Constitutional: No: Fever Eyes: No: Visual changes HENT: No: Headaches Cardiovascular: No: Chest Pain or Discomfort Respiratory: No: Shortness of Breath Gastrointestinal: No: Abdominal Pain Genitourinary: No: Dysuria Musculoskeletal: Positive: Pain Skin: No Rash Neurologic: No: Weakness Psychiatric: No: Depression Endocrine: No: Polydipsia Hematologic/Lymphatic: No: Easy Bruising Physical Exam Narrative GENERAL: Well-nourished, well-developed patient. SKIN: Focused skin assessment warm/dry. HEAD: Normocephalic. EYES: No scleral icterus. No injection or drainage. NECK: Supple, trachea midline. No JVD or lymphadenopathy. CARDIOVASCULAR: Regular rate and rhythm without murmurs, gallops, or rubs. RESPIRATORY: Breath sounds equal bilaterally. No accessory muscle use. GASTROINTESTINAL: Abdomen soft, non-tender, nondistended. MUSCULOSKELETAL: No cyanosis, or edema. BACK: Nontender without obvious deformity. No CVA tenderness. Patient has ecchymosis swelling tenderness diffuse over the right hand. Full range of motion of the fingers. Patient has diffuse ecchymosis swelling tenderness over the left knee. Limited range motion of left knee. Knee joints stable. Data Data Last Documented VS Vital Signs Date Time Temp Pulse Resp B/P Pulse Ox O2 Delivery O2 Flow Rate FiO2 09/12/16 15:38 Room Air 09/12/16 15:24 98.3 81 20 135/72 98 Orders Hand, Complete ([id number]) (09/12/16 15:36) Knee, Complete (4vws) (09/12/16 15:36) Splint Or Brace Apply/Monitor (09/12/16 16:33) MDM Medical Decision Making Medical Screen Exam Complete: Yes Emergency Medical Condition: Yes Interpretation(s) Last Impressions Knee X-Ray 09/12/161535 Signed Impressions: Service Date/Time: Monday, September 12, 2016 15:45 - CONCLUSION: 1. Soft tissue swelling without fracture. Anderson Scherer MD Hand X-Ray 09/12/161535 Signed Impressions: Service Date/Time: Monday, September 12, 2016 15:50 - CONCLUSION: 1. Slightly comminuted fracture distal shaft fifth metacarpal. 2. Mildly displaced fracture with intra-articular extension of the base of the proximal phalanx fourth digit Anderson Scherer MD Differential Diagnosis Differential diagnosis including contusion, fracture, dislocation. Narrative Course 61-year-old male with right hand injury and left knee injury. Ulnar gutter splint right hand Diagnosis Primary Impression: Fracture of fifth metacarpal bone of right hand Qualified Code: S62.356A - Closed nondisplaced fracture of shaft of fifth metacarpal bone of right hand, initial encounter Additional Impressions: Fracture of finger of right hand Qualified Code: S62.644A - Closed nondisplaced fracture of proximal phalanx of right ring finger, initial encounter Contusion of left knee and lower leg Qualified Code: S80.02XA - Contusion of left knee and lower leg, initial encounter Patient Instructions: General Instructions Additional Instructions: Advil Tylenol for pain. Follow-up with hand surgeon. Med/Other Pt SpecificInfo: No Change to Meds Disposition: 01 DISCHARGE HOME Condition: Stable David Euceda MD Sep 12, 2016 15:41
--- NOTE | 2016-09-12 16:04 | RADRPT ---
EXAM DATE/TIME: 09/12/2016 15:45 [facility] COMPARISON: No previous studies available for comparison. INDICATIONS : Left knee pain after recent fall. MEDICAL HISTORY : None. SURGICAL HISTORY : None. ENCOUNTER: Initial ACUITY: 2 days PAIN SCORE: 5/10 LOCATION: Left knee. FINDINGS: Four view examination of the left knee demonstrates no evidence of fracture or dislocation. Bony min eralization is normal. The articular surfaces are intact. Soft tissue swelling. Vascular calcificati ons. CONCLUSION: 1. Soft tissue swelling without fracture. Anderson Scherer MD on September 12, 2016 at 16:02 Board Certified Radiologist. This report was verified electronically.
--- NOTE | 2016-09-12 16:05 | RADRPT ---
EXAM DATE/TIME: 09/12/2016 15:50 [facility] COMPARISON: No previous studies available for comparison. INDICATIONS : Right hand pain after recent fall. MEDICAL HISTORY : None. SURGICAL HISTORY : None. ENCOUNTER: Initial ACUITY: 2 days PAIN SCORE: 5/10 LOCATION: Right hand. FINDINGS: Three view examination of the right hand demonstrates slightly comminuted fracture distal shaft of th e fifth metacarpal. There is also fracture at the base of the proximal phalanx fourth digit with intr a-articular extension. Soft tissue swelling. Bony mineralization is normal. CONCLUSION: 1. Slightly comminuted fracture distal shaft fifth metacarpal. 2. Mildly displaced fracture with intra-articular extension of the base of the proximal phalanx fourt h digit Anderson Scherer MD on September 12, 2016 at 16:03 Board Certified Radiologist. This report was verified electronically.
[2016-09-12 18:33] VITALS: BP 125/78; PULSE 85; RESP 20; O2SAT 98
== END 2016-09-12 18:34 | disposition home or self-care (01) ==
LOC: NEPE 15:20
DX: S62.356A Nondisplaced fracture of shaft of fifth metacarpal bone, right hand, initial encounter for closed fracture (principal); S62.644A Nondisplaced fracture of proximal phalanx of right ring finger, initial encounter for closed fracture; S80.02XA Contusion of left knee, initial encounter; W19.XXXA Unspecified fall, initial encounter
CPT/HCPCS: 29125; 73130; 73564

== ENCOUNTER 2016-09-20 09:29 | Emergency (ER) | payer MEDICAID ==
[~2016-09-20] VITALS: Ht 162.6 cm; Wt 73.0 kg
[2016-09-20 09:38] VITALS: BP 115/71; PULSE 81; RESP 17; TEMP 98.1; O2SAT 97
[2016-09-20 09:45] VITALS: BP 115/71; PULSE 80; RESP 17; O2SAT 96
[2016-09-20] MEDS ORDERED: RISP1TAB2 PO ×2 (10:14)
[2016-09-20] MEDS ORDERED: DIVA250T3 PO (10:14)
[2016-09-20] MEDS ORDERED: DONE5TAB7 PO (10:14)
[2016-09-20 10:29] LABS: AUTOMATED NEUTROPHIL # 2.6 TH/MM3 (1.8-7.7); BASOPHIL % 0.8 % (0.0-2.0); EOSINOPHIL % 1.2 % (0.0-4.0); HEMATOCRIT 36.5 % (39.0-51.0); HEMO FLAGS DIFF FINAL; LYMPH % 11.4 % (9.0-44.0); LYMPHOCYTE # 0.4 TH/MM3 (1.0-4.8); MEAN CELL VOLUME 90.4 FL (80.0-100.0); MEAN CORPUSCULAR HEMOGLOBIN 29.2 PG (27.0-34.0); MEAN CORPUSCULAR HGB CONC 32.3 % (32.0-36.0); MONO % 12.2 % (0.0-8.0); NEUT % 74.4 % (16.0-70.0); PLATELET COUNT 144 TH/MM3 (150-450); RED BLOOD COUNT 4.03 MIL/MM3 (4.50-5.90); WHITE BLOOD COUNT 3.4 TH/MM3 (4.0-11.0)
--- NOTE | 2016-09-20 10:33 | PD ---
HPI Chief Complaint: Fall Time Seen by Provider: 09:56 Travel History International Travel<30 days: No Contact w/Intl Traveler<30days: No Traveled to known affect area: No History of Present Illness HPI This patient lives at an assisted living facility and is falling frequently. Reportedly fell 8 times today. He says he struck his forehead. He also hit his left knee. He complains of headache and left knee pain. Reportedly has a right hand fracture from recent fall. Symptoms severity is moderate. No alleviating factors. Duration is several weeks. Denies seizure activity or LOC. Patient does not use walker or wheelchair despite having poor gait and frequent falls for weeks. PFSH Past Medical History Arthritis: Yes Cancer: No Cardiovascular Problems: No Diminished Hearing: No Endocrine: No Gastrointestinal Disorders: No Genitourinary: No Immune Disorder: No Implanted Vascular Access Dvce: No Musculoskeletal: No Neurologic: No Psychiatric: Yes Reproductive: No Respiratory: No Seizures: Yes Past Surgical History Abdominal Surgery: Yes Cholecystectomy: Yes Eye Surgery: Yes Neurologic Surgery: No Other Surgery: Yes (Lt eye surgery) Social History Alcohol Use: No Tobacco Use: No Substance Use: No Allergies-Medications (Allergen,Severity, Reaction): Coded Allergies: [place] Flour (Verified Allergy, Mild, rash, 09/20/16) Reported Meds & Prescriptions Reported Meds & Active Scripts Active Reported Donepezil 5 Mg Tab 5 Mg PO HS Divalproex ER (Divalproex Sodium) 250 Mg Garret 250 Mg PO BID TAKE AT 8AM AND 4PM Risperidone 1 Mg Tab 1 Mg PO DAILY Risperidone 1 Mg Tab 1 Mg PO HS Benztropine (Benztropine Mesylate) 0.5 Mg Tab 0.5 Mg PO BID Lexapro (Escitalopram Oxalate) 20 Mg Tab 20 Mg PO DAILY Keppra (Levetiracetam) 500 Mg Tab 500 Mg PO BID Temazepam 30 Mg Cap 30 Mg PO HS Vitamin D-400 (Cholecalciferol) 400 Unit Tab 400 Units PO DAILY Review of Systems General / Constitutional: No: Fever Eyes: No: Visual changes HENT: Positive: Headaches Cardiovascular: No: Chest Pain or Discomfort Respiratory: No: Shortness of Breath Gastrointestinal: No: Abdominal Pain Genitourinary: No: Dysuria Musculoskeletal: Positive: Pain Skin: No Rash Neurologic: Positive: Ataxia, Headache, No: Weakness Psychiatric: No: Depression Endocrine: No: Polydipsia Hematologic/Lymphatic: No: Easy Bruising Physical Exam Narrative GENERAL: Well-nourished, well-developed patient in no apparent distress. SKIN: Focused skin assessment reveals no rash and nodules. Skin is Warm and dry. HEAD: Prior craniotomy to the right side of his skull. EYES: Pupils equal and round. No scleral icterus. No injection or drainage. ENT: No nasal bleeding or discharge. Mucous membranes pink and moist. NECK: Trachea midline. No JVD. No midline tenderness CARDIOVASCULAR: Regular rate and rhythm. No murmur appreciated. RESPIRATORY: No accessory muscle use. Clear to auscultation. Breath sounds equal bilaterally. GASTROINTESTINAL: Abdomen soft, non-tender, nondistended. Hepatic and splenic margins not palpable. MUSCULOSKELETAL: Has some tenderness and bruising at the left knee. No clubbing. No cyanosis. No edema. There are a variety of bruises throughout the extremities. NEUROLOGICAL: Awake and alert. No obvious cranial nerve deficits. Motor grossly within normal limits. Normal speech. PSYCHIATRIC: Very flat mood and affect; insight and judgment reduced . Data Data Last Documented VS Vital Signs Date Time Temp Pulse Resp B/P Pulse Ox O2 Delivery O2 Flow Rate FiO2 09/20/16 12:00 68 21 123/70 98 Room Air 09/20/16 09:38 98.1 Orders Iv Access Insert/Monitor (09/20/16 10:05) Complete Blood Count With Diff (09/20/16 10:05) Basic Metabolic Panel (Bmp) (09/20/16 10:05) Ct Brain W/O Iv Contrast(Rout) (09/20/16 ) Urinalysis - C+S If Indicated (09/20/16 10:05) Valproic Acid (Depakene) (09/20/16 10:05) Knee, Complete (4vws) (09/20/16 ) Electrocardiogram (09/20/16 09:43) Diet Regular Basic (09/20/16 Lunch) Labs Laboratory Tests Test 09/20/16 09/20/16 10:00 11:15 White Blood Count 3.4 TH/MM3 Red Blood Count 4.03 MIL/MM3 Hemoglobin 11.8 GM/DL Hematocrit 36.5 % Mean Corpuscular Volume 90.4 FL Mean Corpuscular Hemoglobin 29.2 PG Mean Corpuscular Hemoglobin 32.3 % Concent Red Cell Distribution Width 15.0 % Platelet Count 144 TH/MM3 Mean Platelet Volume 7.8 FL Neutrophils (%) (Auto) 74.4 % Lymphocytes (%) (Auto) 11.4 % Monocytes (%) (Auto) 12.2 % Eosinophils (%) (Auto) 1.2 % Basophils (%) (Auto) 0.8 % Neutrophils # (Auto) 2.6 TH/MM3 Lymphocytes # (Auto) 0.4 TH/MM3 Monocytes # (Auto) 0.4 TH/MM3 Eosinophils # (Auto) 0.0 TH/MM3 Basophils # (Auto) 0.0 TH/MM3 CBC Comment DIFF FINAL Differential Comment Sodium Level 138 MEQ/L Potassium Level 4.3 MEQ/L Chloride Level 104 MEQ/L Carbon Dioxide Level 27.4 MEQ/L Anion Gap 7 MEQ/L Blood Urea Nitrogen 12 MG/DL Creatinine 0.75 MG/DL Estimat Glomerular Filtration 106 ML/MIN Rate Random Glucose 211 MG/DL Calcium Level 8.3 MG/DL Valproic Acid (Depakene) Level 47 MCG/ML Urine Color ORANGE Urine Turbidity CLEAR Urine pH 6.5 Urine Specific [place] 1.022 Urine Protein TRACE mg/dL Urine Glucose (UA) NEG mg/dL Urine Ketones 10 mg/dL Urine Occult Blood NEG Urine Nitrite NEG Urine Bilirubin NEG Urine Urobilinogen 8.0 MG/DL Urine Leukocyte Esterase NEG Urine RBC 1 /hpf Urine WBC 1 /hpf Urine Mucus MANY /lpf Microscopic Urinalysis Comment CULT NOT INDICATED MDM Medical Decision Making Medical Screen Exam Complete: Yes Emergency Medical Condition: Yes Medical Record Reviewed: Yes Differential Diagnosis Intracranial hemorrhage, Depakote toxicity, chronic ataxia Narrative Course I have reviewed the patient's electronic medical record. Patient was here couple weeks ago and had CT and x-ray imaging firm injuries for fall IV placed CBC is normal Metabolic profile is normal Depakote level is [address] brain shows chronic changes but no acute finding I reviewed his left knee x-rays which show no fracture or dislocation ER workup here is negative. He does have chronic gait problems and falls frequently. I wanted to review this with the primary physician who is Dr. Luis Finney according to the paperwork. We been calling out for 2 full hours without response. We left multiple messages. At this point I'm not going to hold the patient here any longer. I don't think he requires acute hospitalization but I wanted to discuss walker/wheelchair/physical therapy with his physician. We will put on the instructions and send him back Diagnosis Primary Impression: Frequent falls Additional Impressions: Head injury due to trauma Qualified Code: S09.90XA - Head injury due to trauma, initial encounter Contusion of left knee and lower leg Qualified Code: S80.02XA - Contusion of left knee and lower leg, initial encounter Additional Instructions: Follow-up with primary physician Have him consider physical therapy or walker or wheelchair Med/Other Pt SpecificInfo: Other Disposition: 01 DISCHARGE HOME Condition: Stable Edmund Leal MD Sep 20, 2016 10:33
--- NOTE | 2016-09-20 10:40 | RADRPT ---
EXAM DATE/TIME: 09/20/2016 10:21 [facility] COMPARISON: CT BRAIN W/O CONTRAST, September 07, 2016, 8:09. INDICATIONS : Trauma, multiple falls today. RADIATION DOSE: 30.15 CTDIvol (mGy) MEDICAL HISTORY : Seizures. SURGICAL HISTORY : left eye surgery ENCOUNTER: Initial ACUITY: 1 day PAIN SCALE: 0/10 LOCATION: Bilateral head TECHNIQUE: Multiple contiguous axial images were obtained of the head. Using automated exposure control and adj ustment of the mA and/or kV according to patient size, radiation dose was kept as low as reasonably a chievable to obtain optimal diagnostic quality images. DICOM format image data is available electro nically for review and comparison. FINDINGS: There is bifrontal atrophy with dilatation of the ventricular and sulcal spaces. There is no parench ymal hemorrhage, mass effect or acute infarction. There are no extra-axial fluid collections appreci ated. Posterior fossa is unremarkable. CONCLUSION: 1. Bifrontal atrophic changes, negative for an acute process. Dharmesh Nunn MD FACR on September 20, 2016 at 10:38 Board Certified Radiologist. This report was verified electronically.
[2016-09-20 10:45] VITALS: BP 124/75; PULSE 74; RESP 16; O2SAT 99
[2016-09-20 10:48] LABS: BICARBONATE 27.4 MEQ/L (21.0-32.0); POTASSIUM 4.3 MEQ/L (3.5-5.1)
[2016-09-20 11:00] VITALS: BP 114/76; PULSE 76; RESP 14; O2SAT 100
--- NOTE | 2016-09-20 11:25 | RADRPT ---
EXAM DATE/TIME: 09/20/2016 10:54 [facility] COMPARISON: KNEE LEFT COMPLETE (4VWS), September 12, 2016, 15:45. INDICATIONS : Left knee pain and swelling, no injury. MEDICAL HISTORY : None. SURGICAL HISTORY : None. ENCOUNTER: Initial ACUITY: 3 days PAIN SCORE: 7/10 LOCATION: Left anterior knee FINDINGS: Four view examination of the left knee demonstrates no evidence of fracture or dislocation. Bony min eralization is normal. The articular surfaces are intact. The suprapatellar soft tissues have a nor mal configuration. CONCLUSION: Negative for acute process. Dharmesh Nunn MD FACR on September 20, 2016 at 11:23 Board Certified Radiologist. This report was verified electronically.
[2016-09-20 11:48] LABS: BLOOD, URINE NEG (NEG); COMMENT (UR) CULT NOT INDICATED; CULTURE IF INDICATED CULT NOT INDICATED; GLUCOSE,URINE NEG (NEG); KETONE, URINE 10 mg/dL (NEG); MUCUS URINE MANY /lpf (OCC); NITRITE,URINE NEG (NEG); PH, URINE 6.5 (5.0-8.5)
[2016-09-20 11:55] LABS: URINE COLOR ORANGE (YELLW/STRAW)
[2016-09-20 12:00] VITALS: BP 123/70; PULSE 68; RESP 21; O2SAT 98
--- NOTE | 2016-09-20 14:40 | EKG ---
Date Performed: 09/20/2016 Time Performed: 09:43:33 PTAGE: 61 years EKG: Slight J-point elevation, which is diffuse and most likely due to early repolarization Sinc e PREVIOUS TRACING , no significant change, except previous tracing showed some T-wave inve rsions in lead V2, which is no longer present. PREVIOUS TRACIN06/25/2016 14.55 DOCTOR: Froylan Davey Interpretating Date/Time 09/20/2016 14:40:14
== END 2016-09-20 15:45 | disposition home or self-care (01) ==
LOC: NEPC 09:29
DX: S09.90XA Unspecified injury of head, initial encounter (principal); S80.02XA Contusion of left knee, initial encounter; R29.6 Repeated falls; R56.9 Unspecified convulsions; W19.XXXA Unspecified fall, initial encounter; Y92.099 Unspecified place in other non-institutional residence as the place of occurrence of the external cause; Z79.899 Other long term (current) drug therapy
CPT/HCPCS: 70450; 73564; 80048; 80164; 81001; 85025; 93005

== ENCOUNTER 2016-09-21 15:03 | Emergency (ER) | payer MEDICAID ==
[~2016-09-21] VITALS: Ht 170.2 cm; Wt 60.0 kg
[~2016-09-21 15:03] MED LIST changes: +DONE5TAB7 PO; +RISP1TAB2 PO
[2016-09-21 15:34] VITALS: BP 102/59; PULSE 88; RESP 18; TEMP 98.4; O2SAT 98
--- NOTE | 2016-09-21 16:00 | PD ---
HPI Chief Complaint: Fall Time Seen by Provider: 15:35 Travel History International Travel<30 days: No Contact w/Intl Traveler<30days: No Traveled to known affect area: No History of Present Illness HPI Is a 61-year-old male who lives in an [facility] who presents to the emergency department having been sent due to frequent falls. The patient reports that he falls often. He doesn't use a walker or wheelchair and doesn't receive physical therapy. He was here yesterday in the emergency department with a similar complaint. He says he fell again this morning. His knee hurts a little diabetes able to walk on it. He didn't hit his head and denies any other injuries. He says he didn't want to come to the emergency department but his [facility] asked him to. I asked him if he wanted to be switched to a different facility and he said no he likes where he is. PFSH Past Medical History Arthritis: Yes Cancer: No Cardiovascular Problems: No Diminished Hearing: No Endocrine: No Gastrointestinal Disorders: No Genitourinary: No Immune Disorder: No Implanted Vascular Access Dvce: No Musculoskeletal: No Neurologic: No Psychiatric: Yes Reproductive: No Respiratory: No Seizures: Yes ?: Not Past Surgical History Abdominal Surgery: Yes Cholecystectomy: Yes Eye Surgery: Yes Neurologic Surgery: No Other Surgery: Yes (Lt eye surgery) Social History Alcohol Use: No Tobacco Use: No Substance Use: No Allergies-Medications (Allergen,Severity, Reaction): Coded Allergies: [place] Flour (Verified Allergy, Mild, rash, 09/20/16) Reported Meds & Prescriptions Reported Meds & Active Scripts Active Reported Donepezil 5 Mg Tab 5 Mg PO HS Divalproex ER (Divalproex Sodium) 250 Mg Garret 250 Mg PO BID TAKE AT 8AM AND 4PM Risperidone 1 Mg Tab 1 Mg PO DAILY Risperidone 1 Mg Tab 1 Mg PO HS Benztropine (Benztropine Mesylate) 0.5 Mg Tab 0.5 Mg PO BID Lexapro (Escitalopram Oxalate) 20 Mg Tab 20 Mg PO DAILY Keppra (Levetiracetam) 500 Mg Tab 500 Mg PO BID Temazepam 30 Mg Cap 30 Mg PO HS Vitamin D-400 (Cholecalciferol) 400 Unit Tab 400 Units PO DAILY Review of Systems Except as stated in HPI: all other systems reviewed are Neg Physical Exam Narrative GENERAL:Well appearing, no acute distress SKIN: Old ecchymoses on both knees. HEAD: Atraumatic. Normocephalic. EYES: Pupils equal and round. No injection or drainage. ENT: Moist mucous membranes NECK: Trachea midline. No cervical spine tenderness. CARDIOVASCULAR: Regular rate and rhythm. No murmur appreciated. RESPIRATORY: Clear to auscultation. Breath sounds equal bilaterally. GASTROINTESTINAL: Abdomen soft, non-tender, nondistended. MUSCULOSKELETAL: Mild effusion of the left knee, full painless range of motion of both knees NEUROLOGICAL: Awake and alert. No obvious cranial nerve deficits. Moving all extremities. PSYCHIATRIC: Somewhat confused but appears to have intact insight and judgment. Data Data Last Documented VS Vital Signs Date Time Temp Pulse Resp B/P Pulse Ox O2 Delivery O2 Flow Rate FiO2 09/21/16 15:34 98.4 88 18 102/59 98 Room Air MDM Medical Decision Making Medical Screen Exam Complete: Yes Emergency Medical Condition: Yes Interpretation(s) Afebrile, no tachycardia, normotensive Differential Diagnosis Knee contusion, and her cranial hemorrhage, cervical spine fracture Narrative Course This is a 61-year-old male who presents the emergency department with frequent falls sent by his assisted living facility. He says he fell this morning. He has a normal exam with some bruising on his left knee. I don't suspect an acute fracture based on his exam. He had labs which were done yesterday which were all reassuring including a normal urinalysis and a normal CT of the head. I don't think any additional diagnostics are warranted. This is his fifth visit to the emergency department in August in the setting of frequent falls. It seems like his D[facility] is sending him but the patient doesn't really want to be here in the patient doesn't desire any new placement. I can't keep him against his will and I don't see any reason to do any further testing. I did ask case management touch base with his DANIELLA and get more information. Otherwise the patient will be discharged back. Diagnosis Primary Impression: Frequent falls Patient Instructions: General Instructions Additional Instructions: If you develop severe worsening headache, persistent vomiting, numbness, weakness, difficulty walking or difficulty talking return to the emergency department immediately. Med/Other Pt SpecificInfo: No Change to Meds Disposition: 01 DISCHARGE HOME Condition: Stable Kim Novoa MD Sep 21, 2016 16:00
[2016-09-22] MEDS ORDERED: WALKER WHEELS/F1 MIS (21:02)
== END 2016-09-21 16:30 | disposition home or self-care (01) ==
LOC: NEPE 15:03
DX: R29.6 Repeated falls (principal); E11.9 Type 2 diabetes mellitus without complications
CPT/HCPCS: 99283

== ENCOUNTER 2016-09-22 07:54 | Emergency (ER) | payer MEDICAID ==
[~2016-09-22 07:54] MED LIST changes: -RISP2TAB2 PO; -RISP3TAB2 PO
[2016-09-22 07:58] VITALS: BP 109/61; PULSE 90; RESP 18; TEMP 97.4; O2SAT 99
[2016-09-22] MEDS ORDERED: SODIUM CHLORIDE 0.9% FLUSH 10 ML FLUSH IVF PRN (08:30)
--- NOTE | 2016-09-22 08:44 | PD ---
HPI Chief Complaint: Fall Time Seen by Provider: 08:11 Travel History International Travel<30 days: No Contact w/Intl Traveler<30days: No Traveled to known affect area: No History of Present Illness HPI Patient 61-year-old male presents emergency Department from [facility] living [facility] for evaluation of frequent falls. Patient states that he fell last night. He is coming by an aid to does not know the patient very well but states that over the past month he has been falling multiple times per day. The patient has been instructed use a walker and is not doing so. Patient states he fell last night after leaving this emergency department when he was getting out of the vehicle back to the assisted-living facility. Does not recall any single episode and denies any chest pain shortness of breath abdominal pain. Review the records shows that he does have a broken right wrist /hand from fall. He was here yesterday and had a CAT scan of his head then. Does have some dried blood at the nose. PFSH Past Medical History Arthritis: Yes Cancer: No Cardiovascular Problems: No Diminished Hearing: No Endocrine: No Gastrointestinal Disorders: No Genitourinary: No Immune Disorder: No Implanted Vascular Access Dvce: No Musculoskeletal: No Neurologic: No Psychiatric: Yes Reproductive: No Respiratory: No Seizures: Yes Past Surgical History Abdominal Surgery: Yes Cholecystectomy: Yes Eye Surgery: Yes Neurologic Surgery: No Other Surgery: Yes (Lt eye surgery) Social History Alcohol Use: No Tobacco Use: No Substance Use: No Allergies-Medications (Allergen,Severity, Reaction): Coded Allergies: [place] Flour (Verified Allergy, Mild, rash, 09/22/16) Reported Meds & Prescriptions Reported Meds & Active Scripts Active Walker with Front Wheels (Device) 1 Mis Mis 1 Ea .ROUTE DIRECTED Reported Donepezil 5 Mg Tab 5 Mg PO HS Divalproex ER (Divalproex Sodium) 250 Mg Garret 250 Mg PO BID TAKE AT 8AM AND 4PM Risperidone 1 Mg Tab 1 Mg PO DAILY Risperidone 1 Mg Tab 1 Mg PO HS Benztropine (Benztropine Mesylate) 0.5 Mg Tab 0.5 Mg PO BID Lexapro (Escitalopram Oxalate) 20 Mg Tab 20 Mg PO DAILY Keppra (Levetiracetam) 500 Mg Tab 500 Mg PO BID Temazepam 30 Mg Cap 30 Mg PO HS Vitamin D-400 (Cholecalciferol) 400 Unit Tab 400 Units PO DAILY Review of Systems Except as stated in HPI: all other systems reviewed are Neg Physical Exam Narrative GENERAL: Well-developed well-nourished, dried blood at the nares, some mild nasal swelling. No obvious distress. SKIN: Focused skin assessment warm/dry. HEAD: Atraumatic. Normocephalic. Vital signs no raccoons eyes. EYES: Pupils equal and round. No scleral icterus. No injection or drainage. ENT: No nasal bleeding or discharge. Mucous membranes pink and moist. No septal hematoma. TMs clear bilaterally. NECK: Trachea midline. No JVD. CARDIOVASCULAR: Regular rate and rhythm. No murmur appreciated. RESPIRATORY: No accessory muscle use. Clear to auscultation. Breath sounds equal bilaterally. GASTROINTESTINAL: Abdomen soft, non-tender, nondistended. Hepatic and splenic margins not palpable. MUSCULOSKELETAL: No obvious deformities. No clubbing. No cyanosis. No edema. NEUROLOGICAL: Awake and alert and oriented 4.. No obvious cranial nerve deficits. Motor grossly within normal limits. Normal speech. PSYCHIATRIC: Appropriate mood and affect; insight and judgment normal. Data Data Last Documented VS Vital Signs Date Time Temp Pulse Resp B/P Pulse Ox O2 Delivery O2 Flow Rate FiO2 09/22/16 11:02 78 15 122/69 99 09/22/16 07:58 97.4 Orders Electrocardiogram (09/22/16 08:25) Ckmb (Isoenzyme) Profile (09/22/16 08:25) Complete Blood Count With Diff (09/22/16 08:25) Comprehensive Metabolic Panel (09/22/16 08:25) Magnesium (Mg) (09/22/16 08:25) Prothrombin Time / Inr (Pt) (09/22/16 08:25) Act Partial Throm Time (Ptt) (09/22/16 08:25) Troponin I (09/22/16 08:25) Chest, Single Ap (09/22/16 08:25) Ecg Monitoring (09/22/16 08:25) Iv Access Insert/Monitor (09/22/16 08:25) Oximetry (09/22/16 08:25) Oxygen Administration (09/22/16 08:25) Sodium Chloride 0.9% Flush (Ns Flush) (09/22/16 08:30) Ct Brain W/O Iv Contrast(Rout) (09/22/16 ) Ct Cerv Spine W/O Contrast (09/22/16 ) Ct Facial Bones W/O Iv Cont (09/22/16 ) Valproic Acid (Depakene) (09/22/16 08:27) CKMB (09/22/16 09:12) CKMB% (09/22/16 09:12) Labs Laboratory Tests Test 09/22/16 09:12 White Blood Count 3.6 TH/MM3 Red Blood Count 3.84 MIL/MM3 Hemoglobin 11.6 GM/DL Hematocrit 34.0 % Mean Corpuscular Volume 88.6 FL Mean Corpuscular Hemoglobin 30.3 PG Mean Corpuscular Hemoglobin 34.2 % Concent Red Cell Distribution Width 15.1 % Platelet Count 138 TH/MM3 Mean Platelet Volume 8.1 FL Neutrophils (%) (Auto) 73.1 % Lymphocytes (%) (Auto) 12.4 % Monocytes (%) (Auto) 12.2 % Eosinophils (%) (Auto) 1.6 % Basophils (%) (Auto) 0.7 % Neutrophils # (Auto) 2.6 TH/MM3 Lymphocytes # (Auto) 0.4 TH/MM3 Monocytes # (Auto) 0.4 TH/MM3 Eosinophils # (Auto) 0.1 TH/MM3 Basophils # (Auto) 0.0 TH/MM3 CBC Comment DIFF FINAL Differential Comment Prothrombin Time 12.0 SEC Prothromb Time International 1.1 RATIO Ratio Activated Partial 25.7 SEC Thromboplast Time Sodium Level 140 MEQ/L Potassium Level 4.1 MEQ/L Chloride Level 104 MEQ/L Carbon Dioxide Level 28.2 MEQ/L Anion Gap 8 MEQ/L Blood Urea Nitrogen 12 MG/DL Creatinine 0.59 MG/DL Estimat Glomerular Filtration 140 ML/MIN Rate Random Glucose 134 MG/DL Calcium Level 8.3 MG/DL Magnesium Level 2.3 MG/DL Total Bilirubin 1.4 MG/DL Aspartate Amino Transf 55 U/L (AST/SGOT) Alanine Aminotransferase 33 U/L (ALT/SGPT) Alkaline Phosphatase 267 U/L Total Creatine Kinase 144 U/L Creatine Kinase MB 0.8 NG/ML Troponin I LESS THAN 0.02 NG/ML Total Protein 6.5 GM/DL Albumin 2.7 GM/DL Valproic Acid (Depakene) Level 37 MCG/ML MDM Medical Decision Making Medical Screen Exam Complete: Yes Emergency Medical Condition: Yes Interpretation(s) EKG shows sinus rhythm rate of 74, intervals within normal limits. Normal axis normal R-wave progression. No concerning ST segment changes. This normal EKG. Differential Diagnosis Frequent falls, closed head injury, facial fracture. Narrative Course Patient counseled, he was recommended for higher level of care i.e. SNF. he refused. He is aaox4 and understands his care. Stable for discharge otherwise there is no indication to remove his decision making capacity from him and place him against his will. Stable for discharge. Diagnosis Primary Impression: Closed head injury Qualified Code: S09.90XA - Closed head injury, initial encounter Additional Impressions: Frequent falls Nasal bone fracture Referrals: Manpreet Torres DMD Patient Instructions: Fall Prevention (DC), General Instructions Additional Instructions: use your walker at all times. Disposition: 01 DISCHARGE HOME Condition: Stable Charlie Fitzgerald MD Sep 22, 2016 08:44
--- NOTE | 2016-09-22 09:11 | RADRPT ---
EXAM DATE/TIME: 09/22/2016 08:40 [facility] COMPARISON: CT BRAIN W/O CONTRAST, September 20, 2016, 10:21. INDICATIONS : Trauma. Fell yesterday. Multiple falls. RADIATION DOSE: 56.39 CTDIvol (mGy) MEDICAL HISTORY : Seizures. SURGICAL HISTORY : None. ENCOUNTER: Initial ACUITY: 1 day PAIN SCALE: Non-responsive LOCATION: cranial TECHNIQUE: Multiple contiguous axial images were obtained of the head. Using automated exposure control and adj ustment of the mA and/or kV according to patient size, radiation dose was kept as low as reasonably a chievable to obtain optimal diagnostic quality images. DICOM format image data is available electro nically for review and comparison. FINDINGS: Compare September 20. Again seen is encephalomalacia in the frontal lobes bilaterally. White matter ischem ic changes present. No new mass, hemorrhage or midline shift. No hydrocephalus. CONCLUSION: 1. No acute findings. Stable encephalomalacia of frontal lobes. Abdirizak Martin MD on September 22, 2016 at 9:07 Board Certified Radiologist. This report was verified electronically.
--- NOTE | 2016-09-22 09:14 | RADRPT ---
EXAM DATE/TIME: 09/22/2016 08:41 [facility] COMPARISON: CT CERVICAL SPINE W/O CONTRAST, September 07, 2016, 8:09. INDICATIONS : Trauma. Fell yesterday. Multiple falls. RADIATION DOSE: 22.28 CTDIvol (mGy) MEDICAL HISTORY : Seizures. SURGICAL HISTORY : None. ENCOUNTER: Initial ACUITY: 1 day PAIN SCALE: Non-responsive LOCATION: neck TECHNIQUE: Volumetric scanning of the cervical spine was performed. Multiplanar reconstructions in the sagittal, coronal and oblique axial planes were performed. Using automated exposure control and adjustment o f the mA and/or kV according to patient size, radiation dose was kept as low as reasonably achievable to obtain optimal diagnostic quality images. DICOM format image data is available electronically f or review and comparison. FINDINGS: VERTEBRAE: Normal vertebral body height. ALIGNMENT: No evidence of subluxation. C2-C3: The bony spinal canal is normal in size. No evidence of disc bulge or herniation. The neural forami na are bilaterally patent. C3-C4: The bony spinal canal is normal in size. No evidence of disc bulge or herniation. The neural forami na are bilaterally patent. C4-C5: The bony spinal canal is normal in size. No evidence of disc bulge or herniation. The neural forami na are bilaterally patent. C5-C6: The bony spinal canal is normal in size. No evidence of disc bulge or herniation. The neural forami na are bilaterally patent. C6-C7: The bony spinal canal is normal in size. No evidence of disc bulge or herniation. The neural forami na are bilaterally patent. C7-T1: The bony spinal canal is normal in size. No evidence of disc bulge or herniation. The neural forami na are bilaterally patent. CONCLUSION: Normal examination for a patient of this age. No significant change has occurred. Abdirizak Martin MD on September 22, 2016 at 9:09 Board Certified Radiologist. This report was verified electronically.
--- NOTE | 2016-09-22 09:17 | RADRPT ---
EXAM DATE/TIME: 09/22/2016 08:42 [facility] COMPARISON: No previous studies available for comparison. INDICATIONS : Trauma. Fell yesterday. Multiple falls. RADIATION DOSE: 26.36 CTDIvol (mGy) MEDICAL HISTORY : Seizures. SURGICAL HISTORY : None. ENCOUNTER: Initial ACUITY: 1 day PAIN SCORE: Non-responsive LOCATION: facial TECHNIQUE: Volumetric scanning of the facial bones was performed. Using automated exposure control and adjustme nt of the mA and/or kV according to patient size, radiation dose was kept as low as reasonably achiev able to obtain optimal diagnostic quality images. DICOM format image data is available electronicRockwell Collins y for review and comparison. FINDINGS: There is a mildly displaced left nasal bone fracture. No other facial bone fractures are identified. Paranasal sinuses are clear. Extensive dental caries. CONCLUSION: 1. Mildly displaced left nasal bone fracture. No other facial bone fractures identified. Abdirizak Martin MD on September 22, 2016 at 9:12 Board Certified Radiologist. This report was verified electronically.
--- NOTE | 2016-09-22 09:19 | RADRPT ---
EXAM DATE/TIME: 09/22/2016 09:08 [facility] COMPARISON: CHEST SINGLE AP, July 09, 2016, 11:04. INDICATIONS : Chest pain post fall. MEDICAL HISTORY : None. SURGICAL HISTORY : None. ENCOUNTER: Initial ACUITY: 1 day PAIN SCORE: 5/10 LOCATION: Bilateral chest FINDINGS: Underinflated AP view of the chest demonstrates a normal-sized cardiac silhouette. There is atelectas is at the lung bases. No pleural effusion, airspace consolidation, or pneumothorax is visualized. Bon es and soft tissues demonstrate no acute finding. There are old healed right rib fractures and there are signs of old trauma at the distal right clavicle. CONCLUSION: Underinflation and mild atelectasis at the lung bases. Otherwise, no acute finding is identified. Reymundo Vega MD on September 22, 2016 at 9:17 Board Certified Radiologist. This report was verified electronically.
[2016-09-22 09:25] LABS: AUTOMATED NEUTROPHIL # 2.6 TH/MM3 (1.8-7.7); BASOPHIL % 0.7 % (0.0-2.0); EOSINOPHIL # 0.1 TH/MM3 (0-0.4); EOSINOPHIL % 1.6 % (0.0-4.0); HEMO FLAGS DIFF FINAL; LYMPH % 12.4 % (9.0-44.0); LYMPHOCYTE # 0.4 TH/MM3 (1.0-4.8); MEAN CELL VOLUME 88.6 FL (80.0-100.0); MEAN CORPUSCULAR HEMOGLOBIN 30.3 PG (27.0-34.0); MEAN CORPUSCULAR HGB CONC 34.2 % (32.0-36.0); MONO % 12.2 % (0.0-8.0); NEUT % 73.1 % (16.0-70.0); PLATELET COUNT 138 TH/MM3 (150-450); RED BLOOD COUNT 3.84 MIL/MM3 (4.50-5.90); RED CELL DISTRIBUTION WIDTH 15.1 % (11.6-17.2); WHITE BLOOD COUNT 3.6 TH/MM3 (4.0-11.0)
[2016-09-22 09:38] LABS: APTT (PATIENT) 25.7 SEC (24.3-30.1); INTERNATIONAL NORMALIZED RATIO 1.1 RATIO
[2016-09-22 09:57] LABS: ANION GAP 8 MEQ/L (5-15); AST (GOT) 55 U/L (15-37); BICARBONATE 28.2 MEQ/L (21.0-32.0); BLOOD UREA NITROGEN 12 MG/DL (7-18); CHLORIDE 104 MEQ/L (98-107); GLOMERULAR FILTRATION RATE 140 ML/MIN (>89); MAGNESIUM 2.3 MG/DL (1.5-2.5); POTASSIUM 4.1 MEQ/L (3.5-5.1); SODIUM (NA) 140 MEQ/L (136-145)
[2016-09-22 09:59] LABS: ALT (GPT) 33 U/L (12-78)
[2016-09-22 10:02] LABS: ALKALINE PHOSPHATASE 267 U/L (45-117); CREATINE KINASE 144 U/L (39-308); TOTAL BILIRUBIN ADULT 1.4 MG/DL (0.2-1.0)
[2016-09-22 11:02] VITALS: BP 122/69
[2016-09-22 11:03] LABS: CKMB 0.8 NG/ML (0.5-3.6)
[2016-09-22] MEDS ORDERED: WALKER WHEELS/F1 MIS (21:02)
--- NOTE | 2016-09-23 11:51 | EKG ---
Date Performed: 09/22/2016 Time Performed: 09:19:29 PTAGE: 61 years EKG: Sinus rhythm NORMAL ECG PREVIOUS TRACING : 09/20/2016 09.43 DOCTOR: Luis Alberto Pride Interpretating Date/Time 09/23/2016 11:50:12
== END 2016-09-22 11:05 | disposition home or self-care (01) ==
LOC: NEPC 07:54
DX: S09.90XA Unspecified injury of head, initial encounter (principal); S02.2XXA Fracture of nasal bones, initial encounter for closed fracture; Z91.81 History of falling; Z79.899 Other long term (current) drug therapy; Z87.39 Personal history of other diseases of the musculoskeletal system and connective tissue; Z86.59 Personal history of other mental and behavioral disorders; W19.XXXA Unspecified fall, initial encounter
CPT/HCPCS: 70450; 70486; 71010; 72125; 80053; 80164; 82550; 82552; 83735; 84484; 85025; 85610; 85730; 93005; 99285

== ENCOUNTER 2016-09-22 18:31 | Emergency (ER) | payer MEDICAID ==
[~2016-09-22] VITALS: Ht 172.7 cm; Wt 75.0 kg
[2016-09-22 18:33] VITALS: BP 113/58; PULSE 100; RESP 18; TEMP 98.4; O2SAT 96
[2016-09-22 20:36] VITALS: BP 120/61; PULSE 89; RESP 18; O2SAT 93
[2016-09-22] MEDS ORDERED: WALKER WHEELS/F1 MIS (21:02)
--- NOTE | 2016-09-22 21:17 | PD ---
HPI Chief Complaint: Fall Time Seen by Provider: 20:33 Travel History International Travel<30 days: No Contact w/Intl Traveler<30days: No Traveled to known affect area: No History of Present Illness HPI 61-year-old male was brought in by his brother for evaluation of frequent fall. Patient lives at local self-care facility. Patient has frequent fall. Patient has been to the emergency room multiple times recently for recent fall. Patient fell last name was evaluated this morning and was found to have visible fracture. Patient has history of recent fracture right hand. Patient had CTs and blood test done this morning and was discharged home. Patient was brought back his brother for evaluation for possible placement. Patient has no complaint now. Patient wants to go back to the place where he lives now. Patient does not want to be placed. PFSH Past Medical History Arthritis: Yes Cancer: No Cardiovascular Problems: No Diminished Hearing: No Endocrine: No Gastrointestinal Disorders: No Genitourinary: No Immune Disorder: No Implanted Vascular Access Dvce: No Musculoskeletal: No Neurologic: No Psychiatric: Yes Reproductive: No Respiratory: No Seizures: Yes Past Surgical History Abdominal Surgery: Yes Cholecystectomy: Yes Eye Surgery: Yes Neurologic Surgery: No Other Surgery: Yes (Lt eye surgery) Social History Alcohol Use: No Tobacco Use: Yes (1 PPD) Substance Use: No Allergies-Medications (Allergen,Severity, Reaction): Coded Allergies: [place] Flour (Verified Allergy, Mild, rash, 09/22/16) Reported Meds & Prescriptions Reported Meds & Active Scripts Active Walker with Front Wheels (Device) 1 Mis Mis 1 Ea .ROUTE DIRECTED Reported Donepezil 5 Mg Tab 5 Mg PO HS Divalproex ER (Divalproex Sodium) 250 Mg Garret 250 Mg PO BID TAKE AT 8AM AND 4PM Risperidone 1 Mg Tab 1 Mg PO DAILY Risperidone 1 Mg Tab 1 Mg PO HS Benztropine (Benztropine Mesylate) 0.5 Mg Tab 0.5 Mg PO BID Lexapro (Escitalopram Oxalate) 20 Mg Tab 20 Mg PO DAILY Keppra (Levetiracetam) 500 Mg Tab 500 Mg PO BID Temazepam 30 Mg Cap 30 Mg PO HS Vitamin D-400 (Cholecalciferol) 400 Unit Tab 400 Units PO DAILY Review of Systems General / Constitutional: No: Fever Eyes: No: Visual changes HENT: No: Headaches Cardiovascular: No: Chest Pain or Discomfort Respiratory: No: Shortness of Breath Gastrointestinal: No: Abdominal Pain Genitourinary: No: Dysuria Musculoskeletal: No: Pain Skin: No Rash Neurologic: No: Weakness Psychiatric: No: Depression Endocrine: No: Polydipsia Hematologic/Lymphatic: No: Easy Bruising Physical Exam Narrative GENERAL: Well-nourished, well-developed patient. SKIN: Focused skin assessment warm/dry. HEAD: Normocephalic. EYES: No scleral icterus. No injection or drainage. NECK: Supple, trachea midline. No JVD or lymphadenopathy. CARDIOVASCULAR: Regular rate and rhythm without murmurs, gallops, or rubs. RESPIRATORY: Breath sounds equal bilaterally. No accessory muscle use. GASTROINTESTINAL: Abdomen soft, non-tender, nondistended. MUSCULOSKELETAL: No cyanosis, or edema. Ulnar gutter splint in place right hand. Patient has multiple ecchymosis areas on extremity. BACK: Nontender without obvious deformity. No CVA tenderness. Neurologic exam: Patient is awake and lying in bed in open eyes and follow commands. Patient moves all extremity. No obvious focal neurological deficit. Data Data Last Documented VS Vital Signs Date Time Temp Pulse Resp B/P Pulse Ox O2 Delivery O2 Flow Rate FiO2 09/22/16 20:36 89 18 120/61 93 Room Air 09/22/16 18:33 98.4 MDM Medical Decision Making Medical Screen Exam Complete: Yes Emergency Medical Condition: Yes Medical Record Reviewed: Yes Differential Diagnosis Differential diagnosis including multiple contusion, right hand fracture, nasal bone fracture. Narrative Course 61-year-old male with multiple falls. Patient has history of nasal bone fracture and fracture right hand. administration manager came to see the patient. Patient refused to be placed. Patient was to go back to where he lives. Prescription given for walker. Diagnosis Primary Impression: Frequent falls Additional Impressions: Nasal bone fracture Qualified Code: S02.2XXD - Closed fracture of nasal bone with routine healing , subsequent encounter Fracture of fifth metacarpal bone of right hand Qualified Code: S62.356D - Closed nondisplaced fracture of shaft of fifth metacarpal bone of right hand with routine healing, subsequent encounter Patient Instructions: General Instructions Additional Instructions: Advised patient to use a walker. Follow-up with local physician. Return as needed. Med/Other Pt SpecificInfo: No Change to Meds Scripts Walker with Front Wheels 1 Mis Mis #1 EA .ROUTE DIRECTED Ref 0 Prov:David Euceda MD 09/22/16 Disposition: 01 DISCHARGE HOME Condition: Stable David Euceda MD Sep 22, 2016 21:17
[2016-09-23 02:31] VITALS: BP 102/64; PULSE 78; RESP 18; O2SAT 98
== END 2016-09-23 14:09 | disposition home or self-care (01) ==
LOC: NEPC 18:31 → NEDAMB 09-23 14:09
DX: S02.2XXD Fracture of nasal bones, subsequent encounter for fracture with routine healing (principal); S62.356D Nondisplaced fracture of shaft of fifth metacarpal bone, right hand, subsequent encounter for fracture with routine healing; Z91.81 History of falling; F17.200 Nicotine dependence, unspecified, uncomplicated; Z87.39 Personal history of other diseases of the musculoskeletal system and connective tissue; Z86.59 Personal history of other mental and behavioral disorders; Z86.69 Personal history of other diseases of the nervous system and sense organs; W19.XXXD Unspecified fall, subsequent encounter
CPT/HCPCS: 99283

== ENCOUNTER 2016-10-04 11:16 | Observation (INO) | payer MEDICAID ==
[~2016-10-04 11:16] MED LIST changes: +WALKER WHEELS/F1 MIS
[2016-10-04 11:19] VITALS: BP 125/64; PULSE 109; RESP 24; O2SAT 97
--- NOTE | 2016-10-04 11:30 | PD ---
HPI Chief Complaint: Fall Time Seen by Provider: 11:29 Travel History International Travel<30 days: No Contact w/Intl Traveler<30days: No Traveled to known affect area: No History of Present Illness HPI 61-year-old male with history of dementia, seizure disorder, bipolar schizoaffective disorder seen multiple times in the emergency department for falls, presents again today following a fall for evaluation a left arm pain. Patient lives at [facility]. Per report from the facility to nursing staff , he is not allowed to have a walker or cane for assistance due to potential for weapon use. Patient has been seen multiple times in the Emergency department for falls and his brother has been attempting to get him placed in another facility, however the patient states he likes it at [facility]. Patient states he did not strike his head. Denies loss of consciousness. He has been recently ill with a "cold." Denies any nausea vomiting. No abdominal pain. No acute focal deficits weakness. Patient has no other symptoms to report. PFSH Past Medical History Arthritis: Yes Cancer: No Cardiovascular Problems: No Diminished Hearing: No Endocrine: No Gastrointestinal Disorders: No Genitourinary: No Immune Disorder: No Implanted Vascular Access Dvce: No Musculoskeletal: No Neurologic: No Psychiatric: Yes Reproductive: No Respiratory: No Seizures: Yes Past Surgical History Abdominal Surgery: Yes Cholecystectomy: Yes Eye Surgery: Yes Neurologic Surgery: No Other Surgery: Yes (Lt eye surgery) Social History Alcohol Use: No Tobacco Use: Yes (1 PPD) Substance Use: No Allergies-Medications (Allergen,Severity, Reaction): Coded Allergies: [place] Flour (Verified Allergy, Mild, rash, 09/22/16) Reported Meds & Prescriptions Reported Meds & Active Scripts Active Walker with Front Wheels (Device) 1 Mis Mis 1 Ea .ROUTE DIRECTED Reported Donepezil 5 Mg Tab 5 Mg PO HS Divalproex ER (Divalproex Sodium) 250 Mg Garret 250 Mg PO BID TAKE AT 8AM AND 4PM Risperidone 1 Mg Tab 1 Mg PO DAILY Risperidone 1 Mg Tab 1 Mg PO HS Benztropine (Benztropine Mesylate) 0.5 Mg Tab 0.5 Mg PO BID Lexapro (Escitalopram Oxalate) 20 Mg Tab 20 Mg PO DAILY Keppra (Levetiracetam) 500 Mg Tab 500 Mg PO BID Temazepam 30 Mg Cap 30 Mg PO HS Vitamin D-400 (Cholecalciferol) 400 Unit Tab 400 Units PO DAILY Review of Systems ROS Limitations: Poor Historian Except as stated in HPI: all other systems reviewed are Neg Physical Exam Narrative GENERAL: Well-nourished male patient, with flat affect, lying on the stretcher, in no acute distress. SKIN: Focused skin assessment warm/dry. Multiple scattered areas of ecchymosis , varying in size and healing stage. HEAD: Normocephalic. EYES: Misshapen and misplaced left pupil, chronic following a surgical procedure. Bilateral eye drainage with crusting in the eyelashes. No scleral icterus ENT: No nasal bleeding or discharge. Mucous membranes pink and moderately dry.. NECK: Trachea midline. No JVD. CARDIOVASCULAR: Tachycardic rate and rhythm. No murmur appreciated. RESPIRATORY: No accessory muscle use. Clear to auscultation. Breath sounds equal bilaterally. GASTROINTESTINAL: Abdomen soft, non-tender, nondistended. Hepatic and splenic margins not palpable. MUSCULOSKELETAL: No obvious deformities. No clubbing. No cyanosis. Edema of the left elbow. There is bruising over the left upper extremity. No obvious deformity however patient is reluctant to move the left upper extremity. States he is unable to lift it at the shoulder. NEUROLOGICAL: Awake and alert. No obvious cranial nerve deficits. Motor grossly within normal limits. Normal speech. Data Data Last Documented VS Vital Signs Date Time Temp Pulse Resp B/P Pulse Ox O2 Delivery O2 Flow Rate FiO2 10/04/16 11:46 90 10/04/16 11:19 24 125/64 97 Room Air Orders Iv Access Insert/Monitor (10/04/16 11:34) Complete Blood Count With Diff (10/04/16 11:34) Basic Metabolic Panel (Bmp) (10/04/16 11:34) Shoulder, Limited(2vws) (10/04/16 ) Elbow, Limited (Ap&Lat) (10/04/16 ) Chest, Single Ap (10/04/16 ) Electrocardiogram (10/04/16 ) Urinalysis - C+S If Indicated (10/04/16 11:34) Polymyxin/Trimethop Opht Soln (Polytrim (10/04/16 11:45) Sodium Chlor 0.9% 1000 Ml Inj (Ns 1000 M (10/04/16 11:45) Support Splint (10/04/16 12:42) Admit Order (Ed Use Only) (10/04/16 12:50) Labs Laboratory Tests Test 10/04/16 12:00 White Blood Count 5.3 TH/MM3 Red Blood Count 3.65 MIL/MM3 Hemoglobin 10.8 GM/DL Hematocrit 32.7 % Mean Corpuscular Volume 89.5 FL Mean Corpuscular Hemoglobin 29.6 PG Mean Corpuscular Hemoglobin 33.0 % Concent Red Cell Distribution Width 15.0 % Platelet Count 109 TH/MM3 Mean Platelet Volume 8.0 FL Neutrophils (%) (Auto) 80.3 % Lymphocytes (%) (Auto) 7.7 % Monocytes (%) (Auto) 11.4 % Eosinophils (%) (Auto) 0.3 % Basophils (%) (Auto) 0.3 % Neutrophils # (Auto) 4.3 TH/MM3 Lymphocytes # (Auto) 0.4 TH/MM3 Monocytes # (Auto) 0.6 TH/MM3 Eosinophils # (Auto) 0.0 TH/MM3 Basophils # (Auto) 0.0 TH/MM3 CBC Comment DIFF FINAL Differential Comment Sodium Level 134 MEQ/L Potassium Level 3.7 MEQ/L Chloride Level 99 MEQ/L Carbon Dioxide Level 27.4 MEQ/L Anion Gap 8 MEQ/L Blood Urea Nitrogen 13 MG/DL Creatinine 0.57 MG/DL Estimat Glomerular Filtration 145 ML/MIN Rate Random Glucose 133 MG/DL Calcium Level 8.1 MG/DL MDM Medical Decision Making Medical Screen Exam Complete: Yes Emergency Medical Condition: Yes Medical Record Reviewed: Yes Differential Diagnosis Fracture versus contusion versus dislocation versus frequent fall versus electrolyte abnormality versus UTI versus medication side effect Narrative Course 61-year-old male presents to the emergency department for evaluation left arm pain following a fall. Patient has frequent falls. He also appears to have bilateral conjunctivitis. Patient has scattered ecchymosis of varying healing stages. X-ray of the left upper extremity shows an oblique proximal nondisplaced humeral fracture. Patient was placed in a sling. I discussed the patient's my attending. Due to multiple falls and no inability to use his walking device at the facility, it is in the patient's best interest to be admitted for further evaluation and possible replacement. Plan is discussed with the patient. He is in agreement with this plan of care. Diagnosis Primary Impression: Proximal humerus fracture Qualified Code: S42.295A - Other closed nondisplaced fracture of proximal end of left humerus, initial encounter Additional Impressions: Multiple falls Bilateral conjunctivitis Qualified Code: H10.9 - Conjunctivitis of both eyes, unspecified conjunctivitis type Viral syndrome Generalized weakness Admitting Information Admitting Physician Requests: Observation Condition: Stable Lakeisha Morgan Oct 04, 2016 11:30
[2016-10-04] MEDS ORDERED: POLYMYXIN/TRIMETHOPRIM OPHT SOLN 10 ML BTL EACH EYE ONE (11:45)
[2016-10-04] MEDS ORDERED: SODIUM CHLOR 0.9% 1000 ML INJ 1,000 ML IV ONE (11:45)
[2016-10-04 12:26] LABS: AUTOMATED NEUTROPHIL # 4.3 TH/MM3 (1.8-7.7); BASOPHIL % 0.3 % (0.0-2.0); EOSINOPHIL % 0.3 % (0.0-4.0); HEMATOCRIT 32.7 % (39.0-51.0); HEMO FLAGS DIFF FINAL; LYMPH % 7.7 % (9.0-44.0); LYMPHOCYTE # 0.4 TH/MM3 (1.0-4.8); MEAN CELL VOLUME 89.5 FL (80.0-100.0); MEAN CORPUSCULAR HEMOGLOBIN 29.6 PG (27.0-34.0); MONO % 11.4 % (0.0-8.0); NEUT % 80.3 % (16.0-70.0); PLATELET COUNT 109 TH/MM3 (150-450); RED BLOOD COUNT 3.65 MIL/MM3 (4.50-5.90); WHITE BLOOD COUNT 5.3 TH/MM3 (4.0-11.0)
--- NOTE | 2016-10-04 12:26 | RADRPT ---
EXAM DATE/TIME: 10/04/2016 11:40 [facility] COMPARISON: CHEST SINGLE AP, September 22, 2016, 9:08. INDICATIONS : Fall. Left sided chest pain. MEDICAL HISTORY : None. SURGICAL HISTORY : None. ENCOUNTER: Initial ACUITY: 1 day PAIN SCORE: 5/10 LOCATION: Left chest FINDINGS: A single view of the chest demonstrates the lungs to be symmetrically aerated without evidence of mas s, infiltrate or effusion. The cardiomediastinal contours are unremarkable. A nondisplaced fracture involving the left proximal humerus. CONCLUSION: 1. Nondisplaced fracture involving the left proximal humerus. 2. No acute cardiac pulmonary disease. Cas Mendez MD on October 04, 2016 at 12:22 Board Certified Radiologist. This report was verified electronically.
--- NOTE | 2016-10-04 12:27 | RADRPT ---
EXAM DATE/TIME: 10/04/2016 11:43 [facility] COMPARISON: No previous studies available for comparison. INDICATIONS : Fall. Left shoulder pain. MEDICAL HISTORY : None. SURGICAL HISTORY : None. ENCOUNTER: Initial ACUITY: 1 day PAIN SCORE: 5/10 LOCATION: Left scapular FINDINGS: AP and Y. views of the left shoulder were obtained and demonstrate a nondisplaced oblique fracture in volving the proximal left humerus. There is overlying soft tissue swelling. There is mild osteopenia. The glenohumeral joint and acromioclavicular joints are intact. CONCLUSION: Nondisplaced oblique fracture through the proximal left humerus. Cas Mendez MD on October 04, 2016 at 12:25 Board Certified Radiologist. This report was verified electronically.
--- NOTE | 2016-10-04 12:28 | RADRPT ---
EXAM DATE/TIME: 10/04/2016 11:48 [facility] COMPARISON: No previous studies available for comparison. INDICATIONS : Fall. Left elbow pain. MEDICAL HISTORY : None. SURGICAL HISTORY : None. ENCOUNTER: Initial ACUITY: 1 day PAIN SCORE: 6/10 LOCATION: Left upper extremity FINDINGS: A limited two-view examination of the left elbow was obtained and not a standard 4 view trauma series limiting the sensitivity. This demonstrates no soft tissue swelling, joint effusion, fracture or dis location. Remote postoperative changes are noted with screw plate fixation device along the mid radi us. There is mild osteopenia. CONCLUSION: Negative limited 2 view study. Cas Mendez MD on October 04, 2016 at 12:26 Board Certified Radiologist. This report was verified electronically.
[2016-10-04 12:36] LABS: BICARBONATE 27.4 MEQ/L (21.0-32.0); POTASSIUM 3.7 MEQ/L (3.5-5.1)
--- NOTE | 2016-10-04 12:44 | PD ---
Data Data Last Documented VS Vital Signs Date Time Temp Pulse Resp B/P Pulse Ox O2 Delivery O2 Flow Rate FiO2 10/04/16 11:46 90 10/04/16 11:19 24 125/64 97 Room Air Orders Iv Access Insert/Monitor (10/04/16 11:34) Complete Blood Count With Diff (10/04/16 11:34) Basic Metabolic Panel (Bmp) (10/04/16 11:34) Shoulder, Limited(2vws) (10/04/16 ) Elbow, Limited (Ap&Lat) (10/04/16 ) Chest, Single Ap (10/04/16 ) Electrocardiogram (10/04/16 ) Urinalysis - C+S If Indicated (10/04/16 11:34) Polymyxin/Trimethop Opht Soln (Polytrim (10/04/16 11:45) Sodium Chlor 0.9% 1000 Ml Inj (Ns 1000 M (10/04/16 11:45) Labs Laboratory Tests Test 10/04/16 12:00 White Blood Count 5.3 TH/MM3 Red Blood Count 3.65 MIL/MM3 Hemoglobin 10.8 GM/DL Hematocrit 32.7 % Mean Corpuscular Volume 89.5 FL Mean Corpuscular Hemoglobin 29.6 PG Mean Corpuscular Hemoglobin 33.0 % Concent Red Cell Distribution Width 15.0 % Platelet Count 109 TH/MM3 Mean Platelet Volume 8.0 FL Neutrophils (%) (Auto) 80.3 % Lymphocytes (%) (Auto) 7.7 % Monocytes (%) (Auto) 11.4 % Eosinophils (%) (Auto) 0.3 % Basophils (%) (Auto) 0.3 % Neutrophils # (Auto) 4.3 TH/MM3 Lymphocytes # (Auto) 0.4 TH/MM3 Monocytes # (Auto) 0.6 TH/MM3 Eosinophils # (Auto) 0.0 TH/MM3 Basophils # (Auto) 0.0 TH/MM3 CBC Comment DIFF FINAL Differential Comment Sodium Level 134 MEQ/L Potassium Level 3.7 MEQ/L Chloride Level 99 MEQ/L Carbon Dioxide Level 27.4 MEQ/L Anion Gap 8 MEQ/L Blood Urea Nitrogen 13 MG/DL Creatinine 0.57 MG/DL Estimat Glomerular Filtration 145 ML/MIN Rate Random Glucose 133 MG/DL Calcium Level 8.1 MG/DL [facility] Supervised Visit with FAMILIA: Yes Narrative Course The history, exam, and medical decision-making in the associated mid-level provider note were completed with my assistance. I reviewed and agree with the findings presented. I attest that I had a [id number] encounter with the patient on the same day, and personally performed and documented my assessment and findings in the medical record. *My assessment and Findings: This 61-year-old man who presents to the emergency department frequent falls. He apparently resides at [facility]. He's had a history of recent frequent falls. He was prescribed a walker recently. He apparently is not allowed to have a cane or walker because he is in a long-term mental health facility. He is followed again. Sclerae left arm pain. His a fracture in the left proximal humerus. We'll plan on admission for evaluation by physical therapy, and for better disposition planning. Luis Alberto Cuenca MD Oct 04, 2016 12:44
[2016-10-04] MEDS ORDERED: PROPOFOL 200 MG/20 ML AMP IV PUSH ONE (12:52)
[2016-10-04] MEDS ORDERED: LACTULOSE SYRUP 20 GM/30 ML CUP PO PRN (13:00)
[2016-10-04] MEDS ORDERED: ONDANSETRON HCL 4 MG/2 ML VIAL IVP PRN (13:00)
[2016-10-04] MEDS ORDERED: SODIUM CHLORIDE 0.9% FLUSH 10 ML FLUSH IV FLUSH PRN (13:00)
[2016-10-04] MEDS ORDERED: NALOXONE HCL 0.4 MG/ML AMP IV PRN (13:00)
[2016-10-04] MEDS ORDERED: SENNOSIDES 8.6 MG TAB PO PRN (13:00)
[2016-10-04] MEDS ORDERED: BISACODYL 10 MG SUPP RECTAL PRN (13:00)
[2016-10-04] MEDS ORDERED: MAGNESIUM HYDROXIDE SUSP 30 ML CUP PO PRN (13:00)
[2016-10-04] MEDS ORDERED: PILL SPLITTER OTHER PRN (13:15)
[2016-10-04] MEDS ORDERED: PROPOFOL 200 MG/20 ML AMP IV ONE (14:15)
--- NOTE | 2016-10-04 14:17 | HHI.PR ---
Objective Objective Results - Vital Signs Date Time Temp Pulse Resp B/P Pulse Ox O2 Delivery O2 Flow Rate FiO2 10/04/16 11:46 90 10/04/16 11:19 109 24 125/64 97 Room Air Result Diagram: 10/04/16 1200 10/04/16 1200 A/P Assessment and Plan [id number] lt. proximal humerous fx. Falls Bipolar schizoaffective disorder History of seizure disorder Bi lateral conjunctivitis Constanza Lucero Oct 04, 2016 14:16 gallops or rubs. LUNGS: Clear to auscultation bilaterally. [] wheeze, [] rhonchi or [] rale. No use of accessory muscles on inspiration or expiration. ABDOMEN: Soft, nontender, no organomegaly or masses. Bowel sounds are heard in all four quadrants. No rebound. No guarding. EXTREMITIES: [] edema. Pulses equal bilateral. [] cyanosis. NEUROLOGICAL: Patient mood and affect appropriate. No focal deficit SKIN:Warm and moist A/P Assessment and Plan [id number] lt. proximal humerous fx. Falls Bipolar schizoaffective disorder History of seizure disorder Bi lateral conjunctivitis Constanza Lucero Oct 04, 2016 14:16
--- NOTE | 2016-10-04 15:00 | MH ---
cc: LUIS FERNANDO ZENG MD DATE OF ADMISSION: 10/04/2016 CHIEF COMPLAINT: Fall. Fracture left humerus. TRAVEL IN THE LAST THIRTY DAYS: None. HISTORY OF PRESENT ILLNESS: This is a 61-year-old white male who currently lives at the [facility]. He states that he got dizzy and fell. He also notes that he has fallen three times this week. He started having pain in his left arm and was brought in for evaluation. The patient is noted to have dementia, bipolar, schizoaffective disorder, and has been seen, according to the record, in the emergency room for several falls in the past. The patient is a poor historian. He does give some random information. Both his eyes have drainage, serous to creamy drainage and dried and crusted areas but he states they do not hurt and do not burn. He does note that he has recently had a cold but denies any nausea or vomiting and denies any chest pain or shortness of breath. PAST MEDICAL HISTORY: His medical history includes: 1. Arthritis. 2. Seizure disorder. 3. Psychiatric disorder with noted bipolar and schizoaffective disorder. 4. Multiple falls. 5. Anxiety. PAST SURGICAL HISTORY: 1. Left eye surgery. 2. Abdominal surgery. 3. Cholecystectomy. ALLERGIES: 1. RYE FLOUR. MEDICATIONS REPORTED: 1. Donepezil. 2. Divalproex. 3. Risperidone. 4. Lexapro. 5. Keppra. 6. Temazepam. 7. Vitamin D. 8. Benztropine. 9. The patient does use a walker with wheels. SOCIAL HISTORY: Smoker approximately a pack a day. No alcohol. No other illicit drugs. He is single. He lives in an assisted living facility. REVIEW OF SYSTEMS: Limited information from the patient. Positives noted are frequent falls, both eyes draining serous and creamy drainage. Denies any pain or itch. Urticaria. He is a poor historian. Denies any nausea or vomiting. Denies any chest pain. Other systems negative or unremarkable for now. PHYSICAL EXAMINATION: VITAL SIGNS: Pulse was 109 on admission and now 90. Respirations 24 and now 20. Blood pressure 125/64. 02 saturation 97 currently on room air. GENERAL: A slim white male looks to be at least his stated age resting in the bed. His eyes are open. His speech is mildly slurred but understandable most of the time. HEAD, EYES, EARS, NOSE, THROAT: Normocephalic and atraumatic. 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 Bilateral eye drainage. Crusting in the eyelashes, serous, with some mild creaminess noted at the corner. No scleral icterus. The mucous membranes are pale-pink and dry. NECK: The neck is supple. CARDIOVASCULAR: S1 and S2. No murmurs, rubs or gallops audible. He has no edema in his lower extremities. His feet are warm to touch. RESPIRATORY: The lungs are essentially clear anteriorly and posteriorly with no wheezes or rhonchi heard. ABDOMEN: The abdomen is soft, nontender and nondistended. Bowel sounds are active. MUSCULOSKELETAL: No obvious deformities. Edema in the left elbow and bruising in the left upper extremity mild. Guarding his left arm to minimal movement. Other extremities moved with purpose. NEUROLOGICAL EXAMINATION: He is awake, alert. Speech is mildly slurred or garbled but it is understandable. He does track and follow me with his eyes. PSYCHIATRIC: Currently affect is appropriate and not anxious. DIAGNOSTIC DATA: White blood cell count 5.3, hemoglobin 10.8, hematocrit 32.7, platelet count 109,000. The differential shows elevated neutrophil count percentage at 80.3, lymphocytes 7.7, monocytes 11.4. Chemistries: Sodium 134, potassium 3.7, chloride 99, carbon dioxide 27.4, BUN 13, creatinine 0.57, random glucose 133, calcium 8.1. IMAGING STUDIES: Chest x-ray essentially clear but it does show a nondisplaced fracture in the left proximal humerus. Elbow x-ray is negative for any fractures. Shoulder x-ray shows nondisplaced oblique fracture of the proximal left humerus. ASSESSMENT: 1. Nondisplaced oblique fracture of the proximal left humerus. 2. Bilateral conjunctivitis. 3. Multiple falls. 4. History of seizure disorder. 5. History of dementia with bipolar. 6. Schizoaffective disorder. PLAN: 1. Admit inpatient status. 2. The patient was given eye drops in the emergency room, labs were reviewed, IV access was obtained as well as his x-rays. It is noted he is positive for a fracture left proximal humerus. 3. Will monitor his vital signs every four hours. 4. Out of bed activity only with assistance. 5. Will maintain him on a air sampling and monitoring. 6. Place him on a regular diet. 7. He will get PRN medications for bowel regimen, nausea, pain. 8. He will get a sling to secure his left arm. 9. Reconcile his medications. 10. The patient is also scheduled for an EEG study. To my knowledge, he is full code and full aggressive care. We will continue to monitor. Dictated by PREETI Champion. MD JESSENIA Pisano/ROSALBA /2:04 PM /2:39 PM seen, examined by myself, Dr Zeng, today Discussed with patient, he is confused, likely similar to baseline Discussed with nurse Discussed with emergency physician Admitted with left humerus fracture, recurrent falls Bilateral conjunctivitis Check orthostatics 6 PM cortisol Discussed with mid level provider The exam, history, and the medical decision-making described in the above note were completed with the assistance of the mid-level provider. I reviewed the findings presented. I attest that I had a [id number] encounter with the patient on the same day, and personally performed and documented my assessment and findings in the medical record. 35 minutes MTDD
[2016-10-04 15:05] LABS: BLOOD, URINE NEG (NEG); COMMENT (UR) CULT NOT INDICATED; CULTURE IF INDICATED CULT NOT INDICATED; GLUCOSE,URINE NEG (NEG); HYALINE CAST, URINE 2 /lpf (RARE); KETONE, URINE 10 mg/dL (NEG); MUCUS URINE FEW /lpf (OCC); NITRITE,URINE NEG (NEG); SQUAMOUS EPITHELIAL CELL URINE <1 /hpf (0-5)
[2016-10-04 15:12] LABS: URINE COLOR BROWN (YELLW/STRAW)
[2016-10-04 16:09] VITALS: BP 109/56; PULSE 89; RESP 17; TEMP 97.5; O2SAT 96
--- NOTE | 2016-10-04 18:07 | MB ---
cc: MAXWELL DA SILVA DATE OF CONSULTATION 10/04/2016 REASON FOR CONSULTATION Left humerus fracture. HISTORY OF THE PRESENT ILLNESS The patient is a 61-year-old man who lives over at [facility]. The patient has had multiple falls recently. He got dizzy and fell today. He noticed pain about the left shoulder. He was brought to [facility]. He is found to have a nondisplaced proximal humerus shaft fracture. The patient was placed in a sling and swath and he was placed I believe on observation. He does have a history of dementia, bipolar and schizoaffective disorder. PAST MEDICAL HISTORY Positive for: 1. Arthritis. 2. Seizure disorder. 3. Mental problems as above. 4. Multiple falls. 5. Anxiety. 6. Left eye surgery. 7. Abdominal surgery. 8. Cholecystectomy. ALLERGIES INCLUDE RYE FLOUR. MEDICATIONS See the chart. SOCIAL HISTORY The patient smokes approximately a pack per day. Does not drink alcohol. REVIEW OF SYSTEMS A 12 point review of systems was tried to be obtained but patient is very poor historian and so not able to get a good review of systems. PHYSICAL EXAMINATION VITAL SIGNS: The patient's vitals show temperature 97.5, pulse is 89, respirations 17, blood pressure 109/56. GENERAL: The patient is awake and alert. He is able to provide some of information but then seems to get confused at other times. HEENT: The patient's head is atraumatic. Oropharynx shows very poor dentition with dry oropharynx. Speech is somewhat slurred. Right eyelid droops. Extraocular muscles are intact. Has some drainage about the bilateral eyes. NECK: Supple. HEART: Regular rate and rhythm. LUNGS: Clear to auscultation bilaterally. ABDOMEN: Soft, nontender, nondistended. EXTREMITIES: Left upper extremity is currently in a sling. He has a little bit of swelling about the upper arm. He is able to move the fingers well on the left hand. He has brisk capillary refill distally about the fingertips. Bilateral lower extremities show no wounds. No swelling about the bilateral knees or ankles. Good active range of motion and brisk capillary refill distally. LABORATORY DATA Shows white cell count of 5.3, hematocrit 32.7, platelets of 109. Chemistries creatinine is 0.57. IMAGING X-raysm, I reviewed the report and the images of the left humerus, shows a nondisplaced proximal third humeral shaft fracture. IMPRESSION 1. Left proximal humerus shaft fracture, nondisplaced. 2. A history of schizoaffective disorder, depression and bipolar. MEDICAL DECISION-MAKING Based on the fracture pattern I have recommended nonoperative management. The patient does already have sling and swath. The patient does need to be followed closely because if the patient were to have displacement of fracture it is possible surgical management could be considered. We did start talking about healing time but the patient seemed somewhat confused about this. He should follow up in the office in approximately a week or so and we can take some further x-rays of the left humerus AP and lateral. All questions have been answered. MD ALEKSANDRA Olvera/MISTY /5:21 PM /5:52 PM
[2016-10-04] MEDS: HEPARIN SODIUM - SQ 10,000 UNITS/ML VIAL SQ SCH (18:08)
[2016-10-04] MEDS: POLYMYXIN/TRIMETHOPRIM OPHT SOLN 10 ML BTL EACH EYE SCH (18:09)
[2016-10-04 18:23] LABS: CREATINE KINASE 147 U/L (39-308)
[2016-10-04 19:21] LABS: CREATINE KINASE 124 U/L (39-308)
[2016-10-04 20:14] VITALS: BP_SYST 105; BP_SYST 109; BP_SYST 90; BP_DIAS 52; BP_DIAS 57; BP_DIAS 58; PULSE 92; RESP 18; TEMP 98.1; O2SAT 95
[2016-10-04] MEDS: DONEPEZIL HCL 5 MG TAB PO SCH (20:59)
[2016-10-04] MEDS: DOCUSATE SODIUM 50 MG/SENNA 8.6 MG TAB PO SCH (21:00)
[2016-10-04] MEDS: SODIUM CHLORIDE 0.9% FLUSH 10 ML FLUSH IV FLUSH SCH (21:00)
[2016-10-04] MEDS: BENZTROPINE MESYLATE 1 MG TAB PO SCH (21:00)
[2016-10-04] MEDS: DIVALPROEX SODIUM E.R. 250 MG TAB PO SCH (21:00)
[2016-10-04] MEDS: risperiDONE 1 MG TAB PO SCH (21:00)
[2016-10-04] MEDS: levETIRAcetam 500 MG TAB PO SCH ×2 (21:00→21:01)
[2016-10-04] MEDS: TEMAZEPAM 15 MG CAP PO SCH (21:00)
[2016-10-05] MEDS: HEPARIN SODIUM - SQ 10,000 UNITS/ML VIAL SQ SCH ×2 (04:27→14:22)
[2016-10-05] MEDS: ESCITALOPRAM OXALATE 20 MG TAB PO SCH (04:28)
[2016-10-05] MEDS: POLYMYXIN/TRIMETHOPRIM OPHT SOLN 10 ML BTL EACH EYE SCH ×5 (05:44→23:54)
--- NOTE | 2016-10-05 08:50 | HHI.PR ---
Subjective Remarks Resting in the bed able to lie flat Left arm and shoulder sling on Afebrile Affect is calm (Constanza Lucero) Objective Objective Results - Vital Signs Date Time Temp Pulse Resp B/P Pulse Ox O2 Delivery O2 Flow Rate FiO2 10/04/16 20:14 98.1 92 18 109/58 95 105/57 90/52 10/04/16 16:09 97.5 89 17 109/56 96 10/04/16 11:46 90 10/04/16 11:19 109 24 125/64 97 Room Air I/O 10/04/16 10/04/16 10/04/16 10/05/16 10/05/16 10/05/16 06:59 14:59 22:59 06:59 14:59 22:59 Intake Total 200 ml 200 ml 200 ml Balance 200 ml 200 ml 200 ml Intake Oral 200 ml 200 ml 200 ml # Voids 1 (Constanza Lucero) Result Diagram: 10/04/16 1200 10/04/16 1200 ROS General: Weakness (mild secondary to his left shoulder and left arm), Other ( 10 point ROS done positives noted) Neuro/MS: Other (new left humerus nondisplaced fracture) (Constanza Lucero ) Physical Exam Physical Exam PHYSICAL EXAMINATION GENERAL: This is a slim male who appears to be in no acute distress. He is awake HEAD: Normocephalic, bilateral conjunctivitis Facial features appear symmetric. OROPHARYNGEAL: Oropharynx clear NECK: Supple. Trachea midline without deviation. CARDIAC: Regular rhythm, regular rate, S1 and S2 are heard. LUNGS: Clear, no shortness of breath no rhonchi ABDOMEN: Soft, nontender, no organomegaly or masses. Bowel sounds are active EXTREMITIES: No LE edema. NEUROLOGICAL: Patient mood and affect appropriate. Speech is mildly slurred at times SKIN:Warm and dry, (Constanza Lucero) A/P Assessment and Plan Vital signs reviewed, BP 109/58, 90/52 orthostatics, maintain IV fluids for now Labs reviewed, anemia mild probable secondary to chronic disease Bowel regimen to be monitored 1. Nondisplaced oblique fracture of the proximal left humerus. Orthopedic consult, plan at this time for conservative management, maintain sling on, currently fracture is nondisplaced 2. Bilateral conjunctivitis. Eyedrops ordered, patient denies any itching 3. Multiple falls. Currently lives in an [facility], monitoring his orthostatic blood pressures which do show some mild difference in his systolic number 4. History of seizure disorder. Medical management monitor for any seizures 5. History of dementia with bipolar. 6. Schizoaffective disorder. Medical management monitor for any behavioral disturbances, currently patient has been calm and rested fairly well last night Discussed with nurse Discussed briefly with patient Discussed with Dr. Hill, seen on his behalf Case management consult for discharge planning in the near future when patient is deemed medically stable Physical therapy to eval for balance and mobility (Constanza Lucero) Assessment and Plan seen, examined by myself, Dr Hill, today Discussed with patient Physical therapy evaluation Discharge to rehabilitation if accepted Discussed with mid level provider The exam, history, and the medical decision-making described in the above note were completed with the assistance of the mid-level provider. I reviewed the findings presented. I attest that I had a [id number] encounter with the patient on the same day, and personally performed and documented my assessment and findings in the medical record. (Annamaria Hill MD) Constanza Lucero Oct 05, 2016 08:50 Annamaria Hill MD Oct 05, 2016 21:06
[2016-10-05 09:00] VITALS: PULSE 87
[2016-10-05] MEDS: SODIUM CHLORIDE 0.9% FLUSH 10 ML FLUSH IV FLUSH SCH ×2 (09:10→19:59)
[2016-10-05] MEDS: risperiDONE 1 MG TAB PO SCH ×2 (09:10→20:00)
[2016-10-05] MEDS: DIVALPROEX SODIUM E.R. 250 MG TAB PO SCH ×2 (09:12→19:58)
[2016-10-05] MEDS: DOCUSATE SODIUM 50 MG/SENNA 8.6 MG TAB PO SCH (09:12)
[2016-10-05] MEDS: BENZTROPINE MESYLATE 1 MG TAB PO SCH ×2 (09:12→19:55)
[2016-10-05] MEDS: CHOLECALCIFEROL (VIT D3) 400 UNIT TAB PO SCH (09:13)
[2016-10-05 10:10] VITALS: BP 112/62; PULSE 85; RESP 22; TEMP 97.4; O2SAT 93
[2016-10-05 12:29] VITALS: BP 110/59; PULSE 92; RESP 20; TEMP 97.5; O2SAT 94
[2016-10-05 12:53] LABS: BASOPHIL % 0.3 % (0.0-2.0); EOSINOPHIL % 0.9 % (0.0-4.0); HEMATOCRIT 29.2 % (39.0-51.0); LYMPH % 17.9 % (9.0-44.0); LYMPHOCYTE # 0.5 TH/MM3 (1.0-4.8); MEAN CELL VOLUME 88.6 FL (80.0-100.0); MEAN CORPUSCULAR HEMOGLOBIN 29.8 PG (27.0-34.0); MEAN CORPUSCULAR HGB CONC 33.7 % (32.0-36.0); MONO % 12.6 % (0.0-8.0); NEUT % 68.3 % (16.0-70.0); PLATELET COUNT 97 TH/MM3 (150-450); RED BLOOD COUNT 3.29 MIL/MM3 (4.50-5.90); RED CELL DISTRIBUTION WIDTH 15.1 % (11.6-17.2); WHITE BLOOD COUNT 2.9 TH/MM3 (4.0-11.0)
[2016-10-05 13:00] LABS: HEMO FLAGS AUTO DIFF
[2016-10-05 13:37] LABS: POTASSIUM 3.6 MEQ/L (3.5-5.1)
[2016-10-05 14:49] LABS: PLATELET ESTIMATE SMEAR LOW (NORMAL); PLATELET MORPHOLOGY NORMAL (NORMAL); SCAN/DIFF AUTO DIFF CONFIRMED
--- NOTE | 2016-10-05 16:18 | MG ---
cc: JOANNA VERDUGO M.D. Lab No: Date: 10/04/2016 Age: Sex: M Race: REQUESTING PHYSICIAN Dr. Sandy. INDICATION EEG was obtained on this 61-year-old patient being evaluated for seizures and dementia. DESCRIPTION The patient is described as awake. The EEG shows some 10-12 per second rhythms in the central and posterior head regions but there is some intermixed theta and delta activity when the patient appears awake. The patient drowses and there are more theta and delta rhythms at times showing a shifting type of appearance. Photic stimulation showed no significant change. INTERPRETATION Abnormal EEG because of intermittent slowing bilaterally, possibly left more than right. The findings suggest mild abnormalities with questionable focal features on the left. No epileptiform features present. Joanna Verdugo MD OFC/KK /3:45 PM /4:06 PM
--- NOTE | 2016-10-05 16:47 | EKG ---
Date Performed: 10/04/2016 Time Performed: 11:49:44 PTAGE: 61 years EKG: Sinus rhythm NORMAL ECG INTERPRETATION BASED ON A DEFAULT AGE OF 40 YEARS PREVIOUS TRACING : 09/22/2016 09.19 Compared to prior tracing no significant change DOCTOR: Deepak Paulson Interpretating Date/Time 10/05/2016 16:44:47
[2016-10-05 17:08] LABS: INDIRECT BILIRUBIN 0.4 MG/DL (0.0-0.8)
[2016-10-05 17:20] VITALS: BP 115/63; PULSE 95; RESP 22; TEMP 98.4; O2SAT 95
[2016-10-05] MEDS: TEMAZEPAM 15 MG CAP PO SCH (19:57)
[2016-10-05] MEDS: DONEPEZIL HCL 5 MG TAB PO SCH (19:58)
[2016-10-05] MEDS: levETIRAcetam 500 MG TAB PO SCH (20:01)
[2016-10-06 00:56] VITALS: BP 115/61; PULSE 88; TEMP 98.2; O2SAT 90
[2016-10-06] MEDS: HEPARIN SODIUM - SQ 10,000 UNITS/ML VIAL SQ SCH ×2 (01:16→13:14)
[2016-10-06] MEDS: POLYMYXIN/TRIMETHOPRIM OPHT SOLN 10 ML BTL EACH EYE SCH ×3 (06:00→17:57)
[2016-10-06 08:01] VITALS: BP 123/73; PULSE 87; RESP 18; TEMP 97.6; O2SAT 97
[2016-10-06] MEDS: levETIRAcetam 500 MG TAB PO SCH ×2 (09:00→21:27)
[2016-10-06] MEDS: SODIUM CHLORIDE 0.9% FLUSH 10 ML FLUSH IV FLUSH SCH ×2 (09:00→21:27)
[2016-10-06] MEDS: risperiDONE 1 MG TAB PO SCH ×2 (09:00→21:26)
[2016-10-06] MEDS: CHOLECALCIFEROL (VIT D3) 400 UNIT TAB PO SCH (09:00)
[2016-10-06] MEDS: BENZTROPINE MESYLATE 1 MG TAB PO SCH ×2 (09:00→21:26)
[2016-10-06] MEDS: DIVALPROEX SODIUM E.R. 250 MG TAB PO SCH ×2 (09:00→21:26)
[2016-10-06] MEDS: ESCITALOPRAM OXALATE 20 MG TAB PO SCH (09:00)
--- NOTE | 2016-10-06 09:42 | HHI.FF ---
Face to Face Verification Diagnosis: (1) History of seizure disorder (2) Multiple falls (3) Proximal humerus fracture (4) Bilateral conjunctivitis Home Health Nursing Order: Medical education Nursing assessment with vital signs I have seen patient Drake Jones on 10/06/16. My clinical findings support the need for the requested home health care services because: Limited ability to care for self Need for psychosocial assistance Impaired cognition/judgement I certify that my clinical findings support that this patient is homebound because: Impaired cognitive ability/safety Unsafe to leave home unassisted Need for psychosocial assistance Cynthia Chawla Oct 06, 2016 09:42 Cynthia Chawla Oct 06, 2016 09:42
--- NOTE | 2016-10-06 09:50 | HHI.PR ---
Subjective Subjective Remarks awake, oriented to self left shoulder pain inc. of urine sitter at [facility] difficult to obtain ROS Review of Systems Constitutional Constitutional Remarks unable to obtain ros Vitals/Results Intake & Output 10/05/16 10/05/16 10/06/16 15:00 23:00 07:00 Intake Total 200 ml Output Total 1 ml Balance 199 ml Intake Oral 200 ml Output Stool Total 1 ml # Voids 3 2 # Bowel Movements 2 2 Vital Signs Vital Signs Date Time Temp Pulse Resp B/P Pulse Ox O2 Delivery O2 Flow Rate FiO2 10/06/16 08:01 97.6 87 18 123/73 97 10/06/16 00:56 98.2 88 115/61 90 10/05/16 17:20 98.4 95 22 115/63 95 10/05/16 12:29 97.5 92 20 110/59 94 10/05/16 10:10 97.4 85 22 112/62 93 CBC/BMP: 10/05/16 1200 10/05/16 1200 Lab Results Laboratory Tests Test 10/05/16 12:00 White Blood Count 2.9 TH/MM3 Red Blood Count 3.29 MIL/MM3 Hemoglobin 9.8 GM/DL Hematocrit 29.2 % Mean Corpuscular Volume 88.6 FL Mean Corpuscular Hemoglobin 29.8 PG Mean Corpuscular Hemoglobin 33.7 % Concent Red Cell Distribution Width 15.1 % Platelet Count 97 TH/MM3 Mean Platelet Volume 8.3 FL Neutrophils (%) (Auto) 68.3 % Lymphocytes (%) (Auto) 17.9 % Monocytes (%) (Auto) 12.6 % Eosinophils (%) (Auto) 0.9 % Basophils (%) (Auto) 0.3 % Neutrophils # (Auto) 2.0 TH/MM3 Lymphocytes # (Auto) 0.5 TH/MM3 Monocytes # (Auto) 0.4 TH/MM3 Eosinophils # (Auto) 0.0 TH/MM3 Basophils # (Auto) 0.0 TH/MM3 CBC Comment AUTO DIFF Differential Comment AUTO DIFF CONFIRMED Platelet Estimate LOW Platelet Morphology Comment NORMAL Sodium Level 134 MEQ/L Potassium Level 3.6 MEQ/L Chloride Level 100 MEQ/L Carbon Dioxide Level 28.0 MEQ/L Anion Gap 6 MEQ/L Blood Urea Nitrogen 9 MG/DL Creatinine 0.56 MG/DL Estimat Glomerular Filtration 148 ML/MIN Rate Random Glucose 168 MG/DL Calcium Level 8.1 MG/DL Total Bilirubin 1.0 MG/DL Direct Bilirubin 0.6 MG/DL Indirect Bilirubin 0.4 MG/DL Aspartate Amino Transf 50 U/L (AST/SGOT) Alanine Aminotransferase 33 U/L (ALT/SGPT) Alkaline Phosphatase 232 U/L Total Protein 6.3 GM/DL Albumin 2.2 GM/DL Random Cortisol 22.7 MCG/DL Physical Exam General General Appearance: Well Developed, No Acute Distress, Comfortable Eyes Eye Remarks left pupil mishapen,chronic Ears & Nose Ears & Nose Exam: Nasal Mucosa [place] Throat Throat Exam: Oral Mucosa [place] & Moist Neck Neck Exam: Neck Supple, Trachea Midline Pulmonary Resp Exam: Clear Bilaterally Cardiology CV Exam: Regular, Good Perfusion Gastrointestinal/Abdomen GI Exam: Soft, Non-Tender, Bowel Sounds Present, Non-Distended Musculoskeletal MS Remarks left shoulder bruising, on sling Integumentary Skin Exam: Warm, Dry Skin Remarks bruising right knee, left arm Extremeties Extremities Exam: No Edema, Pedal Pulses Palpable Neurologic Neuro Exam: Alert, Awake, Speech Clear VTE Prophylaxis VTE Prophylaxis Meds: Heparin Assessment/Plan Problem List: (1) Multiple falls (2) Proximal humerus fracture (3) Frequent falls (4) Contusion of left knee and lower leg (5) Bilateral conjunctivitis (6) History of seizure disorder (7) Dementia without behavioral disturbance (8) Schizoaffective disorder Assessment/Plan s/p fall with Nondisplaced oblique fracture of the proximal left humerus appreciate Orthopedic consult, plan at this time for conservative management, maintain sling on, currently fracture is nondisplaced Bilateral conjunctivitis continue eye drops hx of multiple falls orthos bp neurology consult EEG results noted, focal features on left continue Keppra Hx dementia schizoaffective continue home meds PT eval sitter at [facility] CM for dc planning, arrange HHC with PT plan to dc later today F/U PCP, ortho Diet-heart healthy Activity -as tolerated, keep sling in place Discussed with nurse Discussed with Dr. Hill This patient was seen by myself and Dr Hill, this note is written on his behalf Discharge Minutes: 45 Problem Qualifiers (1) Proximal humerus fracture: Qualified Code: S42.295A - Other closed nondisplaced fracture of proximal end of left humerus, initial encounter (2) Bilateral conjunctivitis: Qualified Code: H10.9 - Conjunctivitis of both eyes, unspecified conjunctivitis type (3) Dementia without behavioral disturbance: (4) Schizoaffective disorder: Qualified Code: F25.9 - Schizoaffective disorder, unspecified type Cynthia Chawla Oct 06, 2016 09:50
[2016-10-06 11:34] VITALS: BP 121/65; PULSE 94; RESP 24; TEMP 99; O2SAT 96
--- NOTE | 2016-10-06 12:25 | HHI.DCPOC ---
Discharge Care Plan Diagnosis: (1) Proximal humerus fracture (2) History of seizure disorder (3) Multiple falls Your Health Problems Are: Anxiety Difficulty with ADL Goals to Promote Your Health * To prevent worsening of your condition and complications * To maintain your health at the optimal level Directions to Meet Your Goals Take your medications as prescribed Follow your dietary instruction Follow activity as directed Keep your appointments as scheduled Take your immunizations and boosters as scheduled If your symptoms worsen call your PCP, if no PCP go to Urgent Care Center or Emergency Room Smoking is Dangerous to Your Health. Avoid second hand smoke Call the 24-hour hour crisis hotline for domestic abuse at Cynthia Chawla [facility] Oct 06, 2016 12:25
[2016-10-06 16:04] VITALS: BP 123/69; PULSE 94; RESP 20; TEMP 98.3; O2SAT 95
[2016-10-06 19:47] VITALS: BP 108/65; PULSE 92; RESP 18; TEMP 98.4; O2SAT 96
[2016-10-06] MEDS: TEMAZEPAM 15 MG CAP PO SCH (21:26)
[2016-10-06] MEDS: DONEPEZIL HCL 5 MG TAB PO SCH (21:27)
[2016-10-07 00:10] VITALS: BP 140/66; PULSE 96; RESP 18; TEMP 98.3; O2SAT 95
[2016-10-07] MEDS: POLYMYXIN/TRIMETHOPRIM OPHT SOLN 10 ML BTL EACH EYE SCH ×5 (00:20→22:52)
[2016-10-07] MEDS: HEPARIN SODIUM - SQ 10,000 UNITS/ML VIAL SQ SCH ×3 (00:20→22:52)
[2016-10-07 03:40] VITALS: BP 139/62; PULSE 70; RESP 18; TEMP 98.5; O2SAT 95
[2016-10-07] MEDS ORDERED: POLY10O EACH EYE (07:46)
--- NOTE | 2016-10-07 07:47 | HHI.PR ---
Subjective Subjective Remarks awake, oriented to self left shoulder pain sitter at [facility] calm overnight difficult to obtain ROS Review of Systems Constitutional Constitutional Remarks unable to obtain ros Vitals/Results Intake & Output 10/06/16 10/06/16 10/07/16 15:00 23:00 07:00 Output Total 200 ml Balance -200 ml Output Urine Total 200 ml # Voids 4 # Bowel Movements 4 Vital Signs Vital Signs Date Time Temp Pulse Resp B/P Pulse Ox O2 Delivery O2 Flow Rate FiO2 10/07/16 03:40 98.5 70 18 139/62 95 10/07/16 00:10 98.3 96 18 140/66 95 10/06/16 19:47 98.4 92 18 108/65 96 10/06/16 16:04 98.3 94 20 123/69 95 10/06/16 11:34 99.0 94 24 121/65 96 10/06/16 08:01 97.6 87 18 123/73 97 CBC/BMP: 10/05/16 1200 10/05/16 1200 Physical Exam General General Appearance: Well Developed, No Acute Distress, Comfortable Eyes Eye Remarks left pupil mishapen,chronic Ears & Nose Ears & Nose Exam: Nasal Mucosa [place] Throat Throat Exam: Oral Mucosa [place] & Moist Neck Neck Exam: Neck Supple, Trachea Midline Pulmonary Resp Exam: Clear Bilaterally Cardiology CV Exam: Regular, Good Perfusion Gastrointestinal/Abdomen GI Exam: Soft, Non-Tender, Bowel Sounds Present, Non-Distended Musculoskeletal MS Remarks left shoulder bruising, on sling Integumentary Skin Exam: Warm, Dry Skin Remarks bruising right knee, left arm Extremeties Extremities Exam: No Edema, Pedal Pulses Palpable Neurologic Neuro Exam: Alert, Awake, Speech Clear VTE Prophylaxis VTE Prophylaxis Meds: Heparin Assessment/Plan Problem List: (1) Multiple falls (2) Proximal humerus fracture (3) Frequent falls (4) Contusion of left knee and lower leg (5) Bilateral conjunctivitis (6) History of seizure disorder (7) Dementia without behavioral disturbance (8) Schizoaffective disorder Assessment/Plan s/p fall with Nondisplaced oblique fracture of the proximal left humerus appreciate Orthopedic consult, plan at this time for conservative management, maintain sling on, currently fracture is nondisplaced Bilateral conjunctivitis continue eye drops hx of multiple falls orthos bp EEG results noted, focal features on left continue Keppra Hx dementia schizoaffective continue home meds PT eval [facility] today with assistance sitter at [facility] PT recommends SNF CM working on finding rehab that accepts pt's insurance Pt. is discharged when arrangements made F/U PCP, ortho Diet-heart healthy Activity -as tolerated, keep sling in place Discussed with nurse Discussed with Dr. Hill Discussed with CM This patient was seen by myself and Dr Hill, this note is written on his behalf Discharge Minutes: 45 Problem Qualifiers (1) Proximal humerus fracture: Qualified Code: S42.295A - Other closed nondisplaced fracture of proximal end of left humerus, initial encounter (2) Bilateral conjunctivitis: Qualified Code: H10.9 - Conjunctivitis of both eyes, unspecified conjunctivitis type (3) Dementia without behavioral disturbance: (4) Schizoaffective disorder: Qualified Code: F25.9 - Schizoaffective disorder, unspecified type Cynthia Chawla Oct 07, 2016 07:47
[2016-10-07] MEDS: SODIUM CHLORIDE 0.9% FLUSH 10 ML FLUSH IV FLUSH SCH ×2 (08:47→21:00)
[2016-10-07] MEDS: BENZTROPINE MESYLATE 1 MG TAB PO SCH ×2 (08:47→22:51)
[2016-10-07] MEDS: ESCITALOPRAM OXALATE 20 MG TAB PO SCH (08:48)
[2016-10-07] MEDS: CHOLECALCIFEROL (VIT D3) 400 UNIT TAB PO SCH (08:48)
[2016-10-07] MEDS: risperiDONE 1 MG TAB PO SCH ×2 (08:49→22:51)
[2016-10-07] MEDS: DIVALPROEX SODIUM E.R. 250 MG TAB PO SCH ×2 (08:49→22:50)
[2016-10-07] MEDS: levETIRAcetam 500 MG TAB PO SCH ×2 (08:49→22:51)
[2016-10-07 09:16] VITALS: BP 115/69; PULSE 89; RESP 20; TEMP 98.2; O2SAT 97
[2016-10-07 12:51] LABS: AUTOMATED NEUTROPHIL # 1.3 TH/MM3 (1.8-7.7); EOSINOPHIL # 0.1 TH/MM3 (0-0.4); EOSINOPHIL % 2.3 % (0.0-4.0); HEMATOCRIT 28.6 % (39.0-51.0); HEMO FLAGS DIFF FINAL; LYMPHOCYTE # 0.6 TH/MM3 (1.0-4.8); MEAN CELL VOLUME 87.8 FL (80.0-100.0); MEAN CORPUSCULAR HEMOGLOBIN 29.2 PG (27.0-34.0); MEAN CORPUSCULAR HGB CONC 33.3 % (32.0-36.0); MONO % 18.2 % (0.0-8.0); NEUT % 54.5 % (16.0-70.0); PLATELET COUNT 123 TH/MM3 (150-450); RED BLOOD COUNT 3.26 MIL/MM3 (4.50-5.90); WHITE BLOOD COUNT 2.4 TH/MM3 (4.0-11.0)
[2016-10-07 12:56] VITALS: BP 121/70; PULSE 88; RESP 20; TEMP 98.4; O2SAT 94
[2016-10-07 16:26] VITALS: BP 125/58; PULSE 80; RESP 20; TEMP 98.2; O2SAT 95
[2016-10-07 19:58] VITALS: BP 112/61; PULSE 85; RESP 18; TEMP 98; O2SAT 92
[2016-10-07] MEDS: TEMAZEPAM 15 MG CAP PO SCH (22:50)
[2016-10-07] MEDS: DONEPEZIL HCL 5 MG TAB PO SCH (22:51)
[2016-10-08] VITALS (7 sets, daily range): BP systolic 106–119; BP diastolic 58–71; PULSE 88–93; RESP 16–18; TEMP 97.5–98.5; O2SAT 94–98
[2016-10-08] MEDS: POLYMYXIN/TRIMETHOPRIM OPHT SOLN 10 ML BTL EACH EYE SCH ×3 (06:00→18:09)
--- NOTE | 2016-10-08 09:18 | HHI.PR ---
Subjective Remarks Resting in the bed Left arm and shoulder sling on Afebrile Affect is calm (Constanza Lucero) Objective Objective Results - Vital Signs Date Time Temp Pulse Resp B/P Pulse Ox O2 Delivery O2 Flow Rate FiO2 10/08/16 07:34 98.1 88 18 107/61 95 10/08/16 04:10 98.3 89 18 115/63 94 10/08/16 00:27 97.9 18 115/70 98 10/07/16 19:58 98.0 85 18 112/61 92 10/07/16 16:26 98.2 80 20 125/58 95 10/07/16 12:56 98.4 88 20 121/70 94 10/07/16 09:16 98.2 89 20 115/69 97 I/O 10/07/16 10/07/16 10/07/16 10/08/16 10/08/16 10/08/16 06:59 14:59 22:59 06:59 14:59 22:59 Intake Total 200 ml Balance 200 ml Intake Oral 200 ml (Constanza Lucero) Result Diagram: 10/07/16 1205 10/05/16 1200 ROS General: Weakness, Other (unable to obtain data from patient) (Constanza Lucero) Physical Exam Physical Exam PHYSICAL EXAMINATION GENERAL: This is a slim male who appears to be in no acute distress at rest HEAD: Atraumatic, normocephalic bilateral drainage from eyes improving, still has some mild erythema OROPHARYNGEAL: Clean NECK: Supple. Trachea midline without deviation. CARDIAC: Regular rhythm, regular rate, S1 and S2 are heard. LUNGS: Clear to auscultation bilaterally, no shortness of breath ABDOMEN: Flat, nontender, Bowel sounds soft EXTREMITIES: no edema. Socks on extremities warm NEUROLOGICAL: Patient mood and affect appropriate for now SKIN:Warm and dry, mild abrasions noted on knee (Constanza Lucero) A/P Assessment and Plan Vital signs reviewed, trends are normal Labs reviewed, anemia, hemoglobin 9.5 mild probable secondary to chronic disease , leukopenia 2.4 Bowel regimen monitor Urine orange clear, encourage by mouth fluids Multiple falls Physical therapy working with patient recommends rehabilitation, SNF Case management working on discharge planning, Sitter in room, monitoring patient's safety Proximal humerus fracture Medical management for now patient's left arm remains immobilized with sliding Contusion of left knee and lower leg from his multiple falls, monitor patient and any activity for his safety, sitter in room Bilateral conjunctivitis Medical management with eyedrops History of seizure disorder Dementia without behavioral disturbance Schizoaffective disorder, no active seizures noted, medical management for his dementia and schizoaffective disorder, according to bedside sitter, a rested between 10 and 6 AM without any distress. Continue to monitor his safety with discharge planning in process Discussed with nurse disussed with Dr. Sandy, seen on his behalf (Constanza Lucero) Assessment and Plan seen, examined by myself, Dr Sandy, today Discussed with patient, he is confused, discharge to fdc facility if accepted Discussed with mid level provider The exam, history, and the medical decision-making described in the above note were completed with the assistance of the mid-level provider. I reviewed the findings presented. I attest that I had a [id number] encounter with the patient on the same day, and personally performed and documented my assessment and findings in the medical record. (Annamaria Sandy MD) Constanza Lucero Oct 08, 2016 09:18 Annamaria Sandy MD Oct 08, 2016 18:53
[2016-10-08] MEDS: ESCITALOPRAM OXALATE 20 MG TAB PO SCH (09:36)
[2016-10-08] MEDS: BENZTROPINE MESYLATE 1 MG TAB PO SCH ×2 (09:36→21:30)
[2016-10-08] MEDS: CHOLECALCIFEROL (VIT D3) 400 UNIT TAB PO SCH (09:36)
[2016-10-08] MEDS: levETIRAcetam 500 MG TAB PO SCH ×2 (09:37→21:30)
[2016-10-08] MEDS: DIVALPROEX SODIUM E.R. 250 MG TAB PO SCH ×2 (09:37→21:31)
[2016-10-08] MEDS: risperiDONE 1 MG TAB PO SCH ×2 (09:37→21:31)
[2016-10-08] MEDS: SODIUM CHLORIDE 0.9% FLUSH 10 ML FLUSH IV FLUSH SCH ×2 (09:38→21:31)
[2016-10-08] MEDS: HEPARIN SODIUM - SQ 10,000 UNITS/ML VIAL SQ SCH (13:12)
[2016-10-08] MEDS: DONEPEZIL HCL 5 MG TAB PO SCH (21:30)
[2016-10-08] MEDS: TEMAZEPAM 15 MG CAP PO SCH (21:30)
[2016-10-09] MEDS: HEPARIN SODIUM - SQ 10,000 UNITS/ML VIAL SQ SCH ×2 (01:00→12:46)
[2016-10-09] MEDS: POLYMYXIN/TRIMETHOPRIM OPHT SOLN 10 ML BTL EACH EYE SCH ×4 (06:00→17:43)
[2016-10-09 06:32] VITALS: BP 118/69; PULSE 86; RESP 18; TEMP 98.2; O2SAT 96
[2016-10-09 07:46] VITALS: BP 119/69; PULSE 87; RESP 16; TEMP 98.5; O2SAT 98
--- NOTE | 2016-10-09 08:27 | HHI.PR ---
Subjective Remarks Eyes open Does groan with attempted mobility in bed Afebrile According to the notes slept well last night (Constanza Lucero) Objective Objective Results - Vital Signs Date Time Temp Pulse Resp B/P Pulse Ox O2 Delivery O2 Flow Rate FiO2 10/09/16 07:46 98.5 87 16 119/69 98 10/09/16 06:32 98.2 86 18 118/69 96 10/08/16 23:52 98.5 89 18 115/66 94 10/08/16 20:51 98.3 93 18 119/71 95 10/08/16 14:54 97.5 88 16 115/66 96 10/08/16 11:46 98.1 91 18 106/58 95 I/O 10/08/16 10/08/16 10/08/16 10/09/16 10/09/16 10/09/16 07:00 15:00 23:00 07:00 15:00 23:00 Intake Total 200 ml 200 ml Balance 200 ml 200 ml Intake Oral 200 ml 200 ml (Constanza Lucero) Result Diagram: 10/07/16 1205 10/05/16 1200 ROS General: Weakness, Other (Limited ROS, due to patient's altered mental status which is chronic) (Constanza Lucero) Physical Exam Physical Exam PHYSICAL EXAMINATION GENERAL: This is a male who appears to be in no acute distress. He is a awake, tracks with his eyes HEAD: Normocephalic , normocephalic OROPHARYNGEAL: Oropharynx with some clear secretions noted NECK: Supple. No nuchal rigidity or lymphadenopathy. Trachea midline without deviation. CARDIAC: Regular rhythm, regular rate, S1 and S2 are heard. LUNGS: Clear to auscultation bilaterally. No shortness of breath noted ABDOMEN: Soft, nontender, flat Bowel sounds soft. No rebound. No guarding. EXTREMITIES: no edema. Moves randomly with some purpose, guarding to the left shoulder and left arm, sling intact NEUROLOGICAL: Patient mood and affect without anxiety SKIN:Warm and moist (Constanza Lucero) A/P Assessment and Plan Vital signs reviewed, trends are normal Labs reviewed, anemia, secondary to chronic disease, mild leukopenia noted, recheck labs in the morning Bowel regimen monitor, BM yesterday Urine orange clear, encourage by mouth fluids Multiple falls Continue physical therapy medical management for his balance and safety Case management working on discharge planning, Sitter in room, monitoring patient's safety Proximal humerus fracture Medical management for now patient's left arm remains immobilized with sliding, patient does note some pain in his left shoulder with movement. Contusion of left knee and lower leg from his multiple falls, monitor patient and any activity for his safety, sitter in room Bilateral conjunctivitis Less medicated in secretions noted, denies any itching History of seizure disorder Dementia without behavioral disturbance Schizoaffective disorder, no active seizures noted, medical management for his dementia and schizoaffective disorder, seems to rest fairly well at night, no acute anxiety or outburst, sitter in room Continue to monitor his safety with discharge planning in process Still working on acceptance to a rehabilitation SNF , Discussed with nurse Disussed with Dr. Sandy, seen on his behalf Communicated with patient (Constanza Lucero) Assessment and Plan seen, examined by myself, Dr Sandy, today Discussed with patient, is confused, waiting for arrangements for him to go to group home facility Discussed with mid level provider The exam, history, and the medical decision-making described in the above note were completed with the assistance of the mid-level provider. I reviewed the findings presented. I attest that I had a [id number] encounter with the patient on the same day, and personally performed and documented my assessment and findings in the medical record. (Annamaria Sandy MD) Constanza Lucero Oct 09, 2016 08:27 Annamaria Sandy MD Oct 09, 2016 19:18
[2016-10-09] MEDS: ESCITALOPRAM OXALATE 20 MG TAB PO SCH (08:51)
[2016-10-09] MEDS: BENZTROPINE MESYLATE 1 MG TAB PO SCH ×2 (08:52→21:55)
[2016-10-09] MEDS: DIVALPROEX SODIUM E.R. 250 MG TAB PO SCH ×2 (08:52→21:56)
[2016-10-09] MEDS: levETIRAcetam 500 MG TAB PO SCH ×2 (08:53→21:55)
[2016-10-09] MEDS: CHOLECALCIFEROL (VIT D3) 400 UNIT TAB PO SCH (08:53)
[2016-10-09] MEDS: risperiDONE 1 MG TAB PO SCH ×2 (08:53→21:56)
[2016-10-09] MEDS: SODIUM CHLORIDE 0.9% FLUSH 10 ML FLUSH IV FLUSH SCH ×2 (08:54→21:55)
[2016-10-09 12:36] VITALS: BP 116/69; PULSE 98; RESP 16; TEMP 98.1; O2SAT 95
[2016-10-09 15:21] VITALS: BP 123/67; PULSE 94; RESP 18; TEMP 98.1; O2SAT 95
[2016-10-09 19:16] VITALS: BP 120/71; PULSE 88; RESP 16; TEMP 97.8; O2SAT 97
[2016-10-09] MEDS: DONEPEZIL HCL 5 MG TAB PO SCH (21:56)
[2016-10-09] MEDS: TEMAZEPAM 15 MG CAP PO SCH (21:56)
[2016-10-10] MEDS: HEPARIN SODIUM - SQ 10,000 UNITS/ML VIAL SQ SCH ×2 (00:30→13:34)
[2016-10-10] MEDS: POLYMYXIN/TRIMETHOPRIM OPHT SOLN 10 ML BTL EACH EYE SCH ×4 (00:31→17:24)
[2016-10-10 03:25] VITALS: BP 120/66; PULSE 94; RESP 17; TEMP 98.4; O2SAT 95
--- NOTE | 2016-10-10 08:29 | HHI.PR ---
Subjective Remarks Resting in the bed Opens eyes and responds to verbal stimuli Vital signs normal trends Left arm sore with movement Sitter in room (Constanza Lucero) Objective Objective Results - Vital Signs Date Time Temp Pulse Resp B/P Pulse Ox O2 Delivery O2 Flow Rate FiO2 10/10/16 03:25 98.4 94 17 120/66 95 10/09/16 19:16 97.8 88 16 120/71 97 10/09/16 15:21 98.1 94 18 123/67 95 10/09/16 12:36 98.1 98 16 116/69 95 I/O 10/09/16 10/09/16 10/09/16 10/10/16 10/10/16 10/10/16 07:00 15:00 23:00 07:00 15:00 23:00 Intake Total 960 ml Balance 960 ml Intake Oral 960 ml # Voids 4 # Bowel Movements 3 (Constanza Lucero) Result Diagram: 10/07/16 1205 ROS General: Weakness, Other (generalized 10 point ROS done positives noted) GI: BM (monitor regimen BM last p.m.) Neuro/MS: Confusion (altered mental status this is his baseline, due to history of psych issues) (Constanza Lucero) Physical Exam Physical Exam PHYSICAL EXAMINATION GENERAL: This is a slim male resting in the bed. He is awake and responds to verbal stimuli HEAD: Normocephalic without any lesion or mass noted. Facial features appear symmetric., Eyes have some serous clear drainage but much improved OROPHARYNGEAL: Oropharynx clean NECK: Supple. Trachea midline without deviation. CARDIAC: Regular rhythm, regular rate, S1 and S2 are heard. . LUNGS: Clear to auscultation bilaterally. No audible rhonchi, occasional cough ABDOMEN: Soft, nontender, no organomegaly or masses. Bowel sounds soft EXTREMITIES: No lower extremity edema. Studies warm to touch NEUROLOGICAL: Patient mood and affect appropriate, at this point in time, answering simple questions appropriately SKIN:Warm and dry (Constanza Lucero) A/P Assessment and Plan Vital signs reviewed, trends are normal Labs reviewed, anemia, hemoglobin mild probable secondary to chronic disease, leukopenia 2.4 Bowel regimen monitor, BM last p.m. encourage by mouth fluids Multiple falls Physical therapy working with patient recommends rehabilitation, SNF Case management working on discharge planning, Sitter in room, monitoring patient's safety Proximal humerus fracture Medical management for now patient's left arm remains immobilized with sliding, patient will grimace to movement Encouraged to turn cough and deep breathe with sitter present Contusion of left knee and lower leg from his multiple falls, monitor patient and any activity for his safety, sitter in room Bilateral conjunctivitis Medical management with eyedrops, mild improvement continues History of seizure disorder, no active seizures noted Dementia without behavioral disturbance Schizoaffective disorder, no active seizures noted, medical management for his dementia and schizoaffective disorder, according to bedside sitter, a rested between 10 and 6 AM without any distress. Continue to monitor his safety with discharge planning in process, needs snf, rehabilitation Discussed with nurse disussed with Dr. Zapata, seen on his behalf Spoke with patient's caregiver, (Constanza Lucero) Assessment and Plan pt seen and examined as above labs and rad data reivewed some of previous notes reviewed dw case management assistant about dc planning difficult to place pt in NH (Valerie Zapata MD) Constanza Lucero Oct 10, 2016 08:29 Valerie Zapata MD Oct 10, 2016 12:15
[2016-10-10 09:17] LABS: HEMATOCRIT 31.4 % (39.0-51.0); MEAN CELL VOLUME 88.5 FL (80.0-100.0); MEAN CORPUSCULAR HEMOGLOBIN 28.8 PG (27.0-34.0); MEAN CORPUSCULAR HGB CONC 32.5 % (32.0-36.0); PLATELET COUNT 155 TH/MM3 (150-450); RED BLOOD COUNT 3.55 MIL/MM3 (4.50-5.90); RED CELL DISTRIBUTION WIDTH 15.5 % (11.6-17.2); REVIEW FLAG FINAL; WHITE BLOOD COUNT 3.4 TH/MM3 (4.0-11.0)
[2016-10-10] MEDS: risperiDONE 1 MG TAB PO SCH ×2 (09:17→22:56)
[2016-10-10] MEDS: levETIRAcetam 500 MG TAB PO SCH ×2 (09:17→22:49)
[2016-10-10] MEDS: ESCITALOPRAM OXALATE 20 MG TAB PO SCH (09:17)
[2016-10-10] MEDS: CHOLECALCIFEROL (VIT D3) 400 UNIT TAB PO SCH (09:17)
[2016-10-10] MEDS: DIVALPROEX SODIUM E.R. 250 MG TAB PO SCH ×2 (09:17→22:48)
[2016-10-10] MEDS: BENZTROPINE MESYLATE 1 MG TAB PO SCH ×2 (09:17→22:49)
[2016-10-10] MEDS: SODIUM CHLORIDE 0.9% FLUSH 10 ML FLUSH IV FLUSH SCH ×2 (09:18→23:02)
[2016-10-10 09:46] LABS: BICARBONATE 27.6 MEQ/L (21.0-32.0); POTASSIUM 4.1 MEQ/L (3.5-5.1)
[2016-10-10 12:21] VITALS: BP 128/68; PULSE 70; RESP 18; TEMP 96.8; O2SAT 95
[2016-10-10 19:52] VITALS: BP 108/62; PULSE 87; RESP 18; TEMP 98.4; O2SAT 94
[2016-10-10] MEDS: DONEPEZIL HCL 5 MG TAB PO SCH (22:48)
[2016-10-10] MEDS: TEMAZEPAM 15 MG CAP PO SCH (22:56)
[2016-10-10 23:35] VITALS: BP 114/60; PULSE 83; RESP 18; TEMP 98.1; O2SAT 95
[2016-10-11] MEDS: HEPARIN SODIUM - SQ 10,000 UNITS/ML VIAL SQ SCH ×2 (01:00→13:05)
[2016-10-11] MEDS: POLYMYXIN/TRIMETHOPRIM OPHT SOLN 10 ML BTL EACH EYE SCH ×4 (01:11→18:08)
[2016-10-11 03:39] VITALS: BP 105/62; PULSE 78; RESP 18; TEMP 98.2; O2SAT 95
[2016-10-11] MEDS: SODIUM CHLORIDE 0.9% FLUSH 10 ML FLUSH IV FLUSH SCH ×2 (09:30→22:57)
[2016-10-11] MEDS: CHOLECALCIFEROL (VIT D3) 400 UNIT TAB PO SCH (09:30)
[2016-10-11] MEDS: levETIRAcetam 500 MG TAB PO SCH ×2 (09:30→22:58)
[2016-10-11] MEDS: ESCITALOPRAM OXALATE 20 MG TAB PO SCH (09:30)
[2016-10-11] MEDS: DIVALPROEX SODIUM E.R. 250 MG TAB PO SCH ×2 (09:30→22:58)
[2016-10-11] MEDS: risperiDONE 1 MG TAB PO SCH ×2 (09:30→22:57)
[2016-10-11] MEDS: BENZTROPINE MESYLATE 1 MG TAB PO SCH ×2 (09:30→22:58)
[2016-10-11 14:41] VITALS: BP 118/62; PULSE 83; RESP 20; TEMP 97.2; O2SAT 95
[2016-10-11] MEDS ORDERED: ACETAMINOPHEN 325 MG TAB PO PRN (16:45)
[2016-10-11 18:46] VITALS: BP 120/60; PULSE 80; RESP 18; TEMP 98.2; O2SAT 96
[2016-10-11 21:27] VITALS: BP_SYST 117; BP_SYST 174; BP_DIAS 62; BP_DIAS 87; PULSE 67; RESP 18; TEMP 98.1; O2SAT 97
[2016-10-11] MEDS: DONEPEZIL HCL 5 MG TAB PO SCH (22:58)
[2016-10-11] MEDS: TEMAZEPAM 15 MG CAP PO SCH (22:59)
[2016-10-11 23:31] VITALS: BP 138/61; PULSE 83; RESP 18; TEMP 97.8; O2SAT 97
[2016-10-12] MEDS: HEPARIN SODIUM - SQ 10,000 UNITS/ML VIAL SQ SCH ×2 (02:02→13:18)
[2016-10-12] MEDS: POLYMYXIN/TRIMETHOPRIM OPHT SOLN 10 ML BTL EACH EYE SCH ×4 (02:02→18:00)
[2016-10-12 07:26] VITALS: BP 128/67; PULSE 76; RESP 16; TEMP 97.1; O2SAT 92
[2016-10-12] MEDS: DIVALPROEX SODIUM E.R. 250 MG TAB PO SCH ×2 (08:35→22:57)
[2016-10-12] MEDS: SODIUM CHLORIDE 0.9% FLUSH 10 ML FLUSH IV FLUSH SCH ×2 (08:35→23:11)
[2016-10-12] MEDS: risperiDONE 1 MG TAB PO SCH ×2 (08:36→20:31)
[2016-10-12] MEDS: CHOLECALCIFEROL (VIT D3) 400 UNIT TAB PO SCH (08:36)
[2016-10-12] MEDS: BENZTROPINE MESYLATE 1 MG TAB PO SCH ×2 (08:46→20:29)
[2016-10-12] MEDS: ESCITALOPRAM OXALATE 20 MG TAB PO SCH (08:46)
[2016-10-12] MEDS: levETIRAcetam 500 MG TAB PO SCH ×2 (08:47→20:28)
--- NOTE | 2016-10-12 09:58 | HHI.PR ---
Subjective Remarks Resting in the bed Sleeping no acute distress Left arm sore with movement No sitter in room this a.m. (Constanza Lucero) Objective Objective Results - Vital Signs Date Time Temp Pulse Resp B/P (MAP) Pulse Ox O2 Delivery O2 Flow Rate FiO2 10/12/16 07:26 97.1 76 16 128/67 (87) 92 10/11/16 23:31 97.8 83 18 138/61 (86) 97 10/11/16 21:27 98.1 67 18 117/62 (80) 97 10/11/16 18:46 98.2 80 18 120/60 (80) 96 10/11/16 14:41 97.2 83 20 118/62 (80) 95 (Constanza Lucero) Result Diagram: 10/10/1615 10/10/1615 ROS General: Weakness, Other (history of falls some balance issues) Neuro/MS: Other (broken left arm) (Constanza Lucero) Physical Exam Physical Exam PHYSICAL EXAMINATION GENERAL: This is a male who appears to be in no acute distress. He responds to verbal stimuli HEAD: Normocephalic OROPHARYNGEAL: Oropharynx without erythema or edema. NECK: Supple. No nuchal rigidity or lymphadenopathy. Trachea midline without deviation. CARDIAC: Regular rhythm, regular rate, S1 and S2 are heard. LUNGS: Clear to auscultation bilaterally. No use of accessory muscles on inspiration or expiration. ABDOMEN: Soft, nontender, no organomegaly or masses. Bowel sounds are heard in all four quadrants. No rebound. No guarding. EXTREMITIES: No lower extremity edema. Pulses equal bilateral. NEUROLOGICAL: Patient mood and affect appropriate. SKIN:Warm and moist (Constanza Lucero) A/P Assessment and Plan Vital signs reviewed, trends are normal Labs reviewed, anemia, hemoglobin mild probable secondary to chronic disease, Bowel regimen monitor, BM 2 days ago encourage by mouth fluids Multiple falls Physical therapy working with patient recommends rehabilitation, SNF, discharge planning difficult Case management working on discharge planning, plan to transition to [place] when bed available Proximal humerus fracture Medical management for now patient's left arm remains immobilized with sliding, patient will grimace to movement Contusion of left knee and lower leg from his multiple falls, monitor patient and any activity for his safety, Bilateral conjunctivitis Medical management with eyedrops, mild improvement continues History of seizure disorder, no active seizures noted Dementia without behavioral disturbance Schizoaffective disorder, no active seizures noted, medical management for his dementia and schizoaffective disorder, according to bedside sitter, a rested between 10 and 6 AM without any distress. Continue to monitor his safety with discharge planning in process, but no bed available Plan to transfer to [place] when bed available Discussed with nurse disussed with Dr. Rodarte, seen on his behalf Spoke with case management (Constanza Lucero) Assessment and Plan pt is seen & examined chart reviewed placement issues/ none of the facilities are willing to accept him . d/w MARIE Turner [facility] [place] d/w constanza jay RN cont current tx will f/u (Yamila Rodarte MD) Constanza Lucero Oct 12, 2016 09:58 Yamila Rodarte MD Oct 12, 2016 11:51
[2016-10-12 16:02] VITALS: BP 121/69; PULSE 86; RESP 18; TEMP 98; O2SAT 98
[2016-10-12 20:00] VITALS: BP 148/65; PULSE 79; RESP 18; TEMP 98.6; O2SAT 96
[2016-10-12] MEDS: TEMAZEPAM 15 MG CAP PO SCH (20:30)
[2016-10-12] MEDS: DONEPEZIL HCL 5 MG TAB PO SCH (20:31)
[2016-10-13] VITALS: BP 144/65; PULSE 76; RESP 18; TEMP 98.2; O2SAT 96
[2016-10-13] MEDS: HEPARIN SODIUM - SQ 10,000 UNITS/ML VIAL SQ SCH ×2 (01:11→14:17)
[2016-10-13 04:00] VITALS: BP 142/67; PULSE 72; RESP 18; TEMP 98.3; O2SAT 96
[2016-10-13] MEDS: POLYMYXIN/TRIMETHOPRIM OPHT SOLN 10 ML BTL EACH EYE SCH ×4 (06:00→17:55)
[2016-10-13 08:00] VITALS: BP 127/75; PULSE 83; RESP 20; TEMP 97.3; O2SAT 96
[2016-10-13] MEDS: levETIRAcetam 500 MG TAB PO SCH ×2 (08:53→21:31)
[2016-10-13] MEDS: CHOLECALCIFEROL (VIT D3) 400 UNIT TAB PO SCH (08:53)
[2016-10-13] MEDS: DIVALPROEX SODIUM E.R. 250 MG TAB PO SCH ×2 (08:54→21:31)
[2016-10-13] MEDS: BENZTROPINE MESYLATE 1 MG TAB PO SCH ×2 (08:54→21:30)
[2016-10-13] MEDS: ESCITALOPRAM OXALATE 20 MG TAB PO SCH (08:55)
[2016-10-13] MEDS: risperiDONE 1 MG TAB PO SCH ×2 (08:55→21:34)
[2016-10-13] MEDS: SODIUM CHLORIDE 0.9% FLUSH 10 ML FLUSH IV FLUSH SCH ×2 (08:55→21:30)
--- NOTE | 2016-10-13 10:57 | HHI.PR ---
Subjective Subjective Remarks awake, oriented to self pleasantly confused [facility]ter at [facility] calm overnight difficult to obtain ROS (Cynthia Chawla) Review of Systems Constitutional Constitutional Remarks unable to obtain ros (Cynthia Chawla) Vitals/Results Vital Signs Vital Signs Date Time Temp Pulse Resp B/P (MAP) Pulse Ox O2 Delivery O2 Flow Rate FiO2 10/13/16 08:00 97.3 83 20 127/75 (92) 96 10/13/16 04:00 98.3 72 18 142/67 (92) 96 10/13/16 00:00 98.2 76 18 144/65 (91) 96 10/12/16 20:00 98.6 79 18 148/65 (92) 96 10/12/16 16:02 98.0 86 18 121/69 (86) 98 (Cynthia Chawla) CBC/BMP: 10/10/16 0815 10/10/16 0815 Physical Exam General General Appearance: Well Developed, No Acute Distress, Comfortable (Cynthia Chawla) Eyes Eye Remarks left pupil mishapen,chronic (Cynthia Chawla) Ears & Nose Ears & Nose Exam: Nasal Mucosa [place] (Cynthia Chawla) Throat Throat Exam: Oral Mucosa [place] & Moist (Cynthia Chawla) Neck Neck Exam: Neck Supple, Trachea Midline (Cynthia ChawlaP) Pulmonary Resp Exam: Clear Bilaterally (Cynthia Chawla) Cardiology CV Exam: Regular, Good Perfusion (Cynthia Chawla) Gastrointestinal/Abdomen GI Exam: Soft, Non-Tender, Bowel Sounds Present, Non-Distended (Cynthia ChawlaP) Musculoskeletal MS Remarks left shoulder bruising, on sling (Cynthia ChawlaP) Integumentary Skin Exam: Warm, Dry Skin Remarks bruising right knee, left arm (Cynthia Chawla) Extremeties Extremities Exam: No Edema, Pedal Pulses Palpable (Cynthia ChawlaP) Neurologic Neuro Exam: Alert, Awake, Speech Clear (Cynthia ChawlaP) VTE Prophylaxis VTE Prophylaxis Meds: Heparin (Cynthia Chawla) Assessment/Plan Problem List: (1) Multiple falls ICD Codes: R29.6 - Repeated falls Status: Acute (2) Proximal humerus fracture ICD Codes: S42.209A - Unspecified fracture of upper end of unspecified humerus , initial encounter for closed fracture Status: Acute (3) Frequent falls ICD Codes: R29.6 - Repeated falls Status: Acute (4) Contusion of left knee and lower leg ICD Codes: S80.02XA - Contusion of left knee, initial encounter; S80.12XA - Contusion of left lower leg, initial encounter Status: Acute (5) Bilateral conjunctivitis ICD Codes: H10.9 - Unspecified conjunctivitis Status: Acute (6) History of seizure disorder ICD Codes: Z86.69 - History of seizure disorder Status: Acute (7) Dementia without behavioral disturbance ICD Codes: F03.90 - Unspecified dementia without behavioral disturbance Status: Acute (8) Schizoaffective disorder ICD Codes: F25.9 - Schizoaffective disorder, unspecified Status: Acute Assessment/Plan s/p fall with Nondisplaced oblique fracture of the proximal left humerus appreciate Orthopedic consult, plan at this time for conservative management, maintain sling on, currently fracture is nondisplaced Bilateral conjunctivitis continue eye drops hx of multiple falls orthos bp ok EEG results noted, focal features on left continue Keppra Hx dementia schizoaffective continue home meds PT eval OOB today with [facility]ter at [facility] d/w RN, pt. has been kept in bed. Needs OOB at least 2x a day, sitter to remain in room. CM for dc planning, no SNF will take pt. due to insurance cont. with PT, once pt back to baseline can go back to his facility. Aggressive PT while inpatient, d/w RN, CM Pt. is discharged when arrangements made F/U PCP, ortho Diet-heart healthy Activity -as tolerated, keep sling in place Discussed with nurse Discussed with Dr. Rodarte Discussed with CM This patient was seen by myself and Dr Rodarte, this note is written on his behalf (Cynthia Chawla) Assessment/Plan pt is seen & Examined d/w Cynthia dolan w above cont current tx medically stable for d/c await [facility] acceptance will f/u (Yamila Rodarte MD) Problem Qualifiers (1) Proximal humerus fracture: (2) Bilateral conjunctivitis: (3) Dementia without behavioral disturbance: (4) Schizoaffective disorder: Cynthia Chawla Oct 13, 2016 10:57 Yamila Rodarte MD Oct 13, 2016 12:49
[2016-10-13 12:00] VITALS: BP 113/67; PULSE 83; RESP 20; TEMP 97.5; O2SAT 96
[2016-10-13 20:00] VITALS: BP 110/73; PULSE 85; RESP 18; TEMP 97.3; O2SAT 98
[2016-10-13] MEDS: DONEPEZIL HCL 5 MG TAB PO SCH (21:30)
[2016-10-13] MEDS: TEMAZEPAM 15 MG CAP PO SCH (21:34)
[2016-10-14] VITALS: BP 104/54; PULSE 91; RESP 18; TEMP 97.2; O2SAT 98
[2016-10-14] MEDS: POLYMYXIN/TRIMETHOPRIM OPHT SOLN 10 ML BTL EACH EYE SCH ×4 (00:21→18:00)
[2016-10-14] MEDS: HEPARIN SODIUM - SQ 10,000 UNITS/ML VIAL SQ SCH ×2 (00:22→14:18)
[2016-10-14 04:00] VITALS: BP 138/77; PULSE 83; RESP 18; TEMP 98.8; O2SAT 98
[2016-10-14 08:21] VITALS: BP 128/68; PULSE 80; RESP 18; TEMP 97.3; O2SAT 94
[2016-10-14] MEDS: SODIUM CHLORIDE 0.9% FLUSH 10 ML FLUSH IV FLUSH SCH ×2 (09:00→21:15)
[2016-10-14] MEDS: DIVALPROEX SODIUM E.R. 250 MG TAB PO SCH ×2 (09:00→21:16)
[2016-10-14] MEDS: ESCITALOPRAM OXALATE 20 MG TAB PO SCH (09:00)
[2016-10-14] MEDS: CHOLECALCIFEROL (VIT D3) 400 UNIT TAB PO SCH (09:35)
[2016-10-14] MEDS: risperiDONE 1 MG TAB PO SCH ×2 (09:36→21:16)
[2016-10-14] MEDS: BENZTROPINE MESYLATE 1 MG TAB PO SCH ×2 (09:36→21:16)
[2016-10-14] MEDS: levETIRAcetam 500 MG TAB PO SCH ×2 (09:36→21:16)
[2016-10-14 12:46] VITALS: BP 135/70; PULSE 100; RESP 18; TEMP 97.9; O2SAT 95
--- NOTE | 2016-10-14 13:25 | HHI.PR ---
Subjective Subjective Remarks sitting up in chair at nurse's desk per [employer], ambulated with assist in room awake, oriented to self pleasantly confused calm overnight difficult to obtain ROS Review of Systems Constitutional Constitutional Remarks unable to obtain ros Vitals/Results Vital Signs Vital Signs Date Time Temp Pulse Resp B/P (MAP) Pulse Ox O2 Delivery O2 Flow Rate FiO2 10/14/16 12:46 97.9 100 18 135/70 (91) 95 10/14/16 08:21 97.3 80 18 128/68 (88) 94 10/14/16 04:00 98.8 83 18 138/77 (97) 98 10/14/16 00:00 97.2 91 18 104/54 (71) 98 10/13/16 20:00 97.3 85 18 110/73 (85) 98 CBC/BMP: 10/10/16 0815 10/10/16 0815 Physical Exam General General Appearance: Well Developed, No Acute Distress, Comfortable Eyes Eye Remarks left pupil mishapen,chronic Ears & Nose Ears & Nose Exam: Nasal Mucosa [place] Throat Throat Exam: Oral Mucosa [place] & Moist Neck Neck Exam: Neck Supple, Trachea Midline Pulmonary Resp Exam: Clear Bilaterally Cardiology CV Exam: Regular, Good Perfusion Gastrointestinal/Abdomen GI Exam: Soft, Non-Tender, Bowel Sounds Present, Non-Distended Musculoskeletal MS Remarks left shoulder bruising, on sling Integumentary Skin Exam: Warm, Dry Skin Remarks bruising right knee, left arm Extremeties Extremities Exam: No Edema, Pedal Pulses Palpable Neurologic Neuro Exam: Alert, Awake, Speech Clear VTE Prophylaxis VTE Prophylaxis Meds: Heparin Assessment/Plan Problem List: (1) Multiple falls ICD Codes: R29.6 - Repeated falls Status: Acute (2) Proximal humerus fracture ICD Codes: S42.209A - Unspecified fracture of upper end of unspecified humerus , initial encounter for closed fracture Status: Acute (3) Frequent falls ICD Codes: R29.6 - Repeated falls Status: Acute (4) Contusion of left knee and lower leg ICD Codes: S80.02XA - Contusion of left knee, initial encounter; S80.12XA - Contusion of left lower leg, initial encounter Status: Acute (5) Bilateral conjunctivitis ICD Codes: H10.9 - Unspecified conjunctivitis Status: Acute (6) History of seizure disorder ICD Codes: Z86.69 - History of seizure disorder Status: Acute (7) Dementia without behavioral disturbance ICD Codes: F03.90 - Unspecified dementia without behavioral disturbance Status: Acute (8) Schizoaffective disorder ICD Codes: F25.9 - Schizoaffective disorder, unspecified Status: Acute Assessment/Plan s/p fall with Nondisplaced oblique fracture of the proximal left humerus appreciate Orthopedic consult, plan at this time for conservative management, maintain sling on, currently fracture is nondisplaced Bilateral conjunctivitis continue eye drops hx of multiple falls orthos bp ok EEG results noted, focal features on left continue Keppra Hx dementia schizoaffective continue home meds PT eval OOB today with [facility]ter at [facility] continue OOB 2 x a day CM for dc planning, no SNF will take pt. due to insurance cont. with PT, once pt back to baseline can go back to his facility. Aggressive PT while inpatient, d/w RN, CM Pt. is discharged when arrangements made F/U PCP, ortho Diet-heart healthy Activity -as tolerated, keep sling in place Discussed with nurse Discussed with Dr. Rodarte Discussed with CM This patient was seen by myself and Dr Rodarte, this note is written on his behalf Problem Qualifiers (1) Proximal humerus fracture: (2) Bilateral conjunctivitis: (3) Dementia without behavioral disturbance: (4) Schizoaffective disorder: Cynthia Chawla Oct 14, 2016 13:25
[2016-10-14 16:19] VITALS: BP 130/66; PULSE 87; RESP 17; TEMP 98.8; O2SAT 96
[2016-10-14] MEDS: DONEPEZIL HCL 5 MG TAB PO SCH (21:16)
[2016-10-14] MEDS: TEMAZEPAM 15 MG CAP PO SCH (21:17)
[2016-10-14 23:40] VITALS: BP 119/70; PULSE 91; RESP 18; TEMP 98.1; O2SAT 92
[2016-10-15] MEDS: HEPARIN SODIUM - SQ 10,000 UNITS/ML VIAL SQ SCH ×2 (01:23→12:29)
[2016-10-15] MEDS: POLYMYXIN/TRIMETHOPRIM OPHT SOLN 10 ML BTL EACH EYE SCH ×5 (01:23→23:45)
[2016-10-15 03:55] VITALS: BP 138/64; PULSE 78; RESP 16; TEMP 98.1; O2SAT 96
[2016-10-15 08:08] VITALS: BP 133/68; PULSE 87; RESP 18; TEMP 97.6; O2SAT 93
[2016-10-15] MEDS: ESCITALOPRAM OXALATE 20 MG TAB PO SCH (09:01)
[2016-10-15] MEDS: CHOLECALCIFEROL (VIT D3) 400 UNIT TAB PO SCH (09:01)
[2016-10-15] MEDS: levETIRAcetam 500 MG TAB PO SCH ×2 (09:01→21:15)
[2016-10-15] MEDS: DIVALPROEX SODIUM E.R. 250 MG TAB PO SCH ×2 (09:02→21:14)
[2016-10-15] MEDS: risperiDONE 1 MG TAB PO SCH ×2 (09:02→21:16)
[2016-10-15] MEDS: BENZTROPINE MESYLATE 1 MG TAB PO SCH ×2 (09:02→21:15)
[2016-10-15] MEDS: SODIUM CHLORIDE 0.9% FLUSH 10 ML FLUSH IV FLUSH SCH ×2 (09:02→21:00)
--- NOTE | 2016-10-15 11:04 | HHI.PR ---
Subjective Subjective Remarks has been out of bed no pain when asked no fever (Cynthia Chawla) Review of Systems Constitutional Constitutional Remarks unable to obtain ros (Cynthia Chawla) Vitals/Results Vital Signs Vital Signs Date Time Temp Pulse Resp B/P (MAP) Pulse Ox O2 Delivery O2 Flow Rate FiO2 10/15/16 08:08 97.6 87 18 133/68 (89) 93 10/15/16 03:55 98.1 78 16 138/64 (88) 96 10/14/16 23:40 98.1 91 18 119/70 (86) 92 10/14/16 16:19 98.8 87 17 130/66 (87) 96 10/14/16 12:46 97.9 100 18 135/70 (91) 95 (Cynthia ChawlaP) Physical Exam General General Appearance: Well Developed, No Acute Distress, Comfortable (Cynthia Chawla [employer]) Eyes Eye Remarks left pupil mishapen,chronic (Cynthia Chawla [employer]) Ears & Nose Ears & Nose Exam: Nasal Mucosa [place] (Cynthia Chawla [employer]MENT [employer]) Throat Throat Exam: Oral Mucosa [place] & Moist (Cynthia Chawla [employer]) Neck Neck Exam: Neck Supple, Trachea Midline (Cynthia Chawla [employer]) Pulmonary Resp Exam: Clear Bilaterally (Cynthia Chawla [employer]MENT T[employer]) Cardiology CV Exam: Regular, Good Perfusion (Cynthia Chawla [employer]MENT T[employer]) Gastrointestinal/Abdomen GI Exam: Soft, Non-Tender, Bowel Sounds Present, Non-Distended (Cynthia Chawla GV[employer]ile [employer]) Musculoskeletal MS Remarks left shoulder bruising, on sling (Cynthia Chawla GV[employer]ile [employer]) Integumentary Skin Exam: Warm, Dry Skin Remarks bruising right knee, left arm (Cynthia Chawla [employer]MENT [employer]) Extremeties Extremities Exam: No Edema, Pedal Pulses Palpable (Cynthia Chawla [employer]MENT [employer]) Neurologic Neuro Exam: Alert, Awake, Speech Clear (Cynthia Chawla [employer]MENT [employer]) VTE Prophylaxis VTE Prophylaxis Meds: Heparin (Cynthia Chawla [employer]) Assessment/Plan Problem List: (1) Multiple falls ICD Codes: R29.6 - Repeated falls Status: Acute (2) Proximal humerus fracture ICD Codes: S42.209A - Unspecified fracture of upper end of unspecified humerus , initial encounter for closed fracture Status: Acute (3) Frequent falls ICD Codes: R29.6 - Repeated falls Status: Acute (4) Contusion of left knee and lower leg ICD Codes: S80.02XA - Contusion of left knee, initial encounter; S80.12XA - Contusion of left lower leg, initial encounter Status: Acute (5) Bilateral conjunctivitis ICD Codes: H10.9 - Unspecified conjunctivitis Status: Acute (6) History of seizure disorder ICD Codes: Z86.69 - History of seizure disorder Status: Acute (7) Dementia without behavioral disturbance ICD Codes: F03.90 - Unspecified dementia without behavioral disturbance Status: Acute (8) Schizoaffective disorder ICD Codes: F25.9 - Schizoaffective disorder, unspecified Status: Acute Assessment/Plan s/p fall with Nondisplaced oblique fracture of the proximal left humerus appreciate Orthopedic consult, plan at this time for conservative management, maintain sling on, currently fracture is nondisplaced Bilateral conjunctivitis continue eye drops hx of multiple falls orthos bp ok EEG results noted, focal features on left continue Keppra Hx dementia schizoaffective continue home meds PT eval OOB today with [facility]ter at [facility] continue OOB 2 x a day CM for dc planning, no SNF will take pt. due to insurance cont. with PT, once pt back to baseline can go back to his facility. Daily PT ordered Pt. is discharged when arrangements made F/U PCP, ortho Diet-heart healthy Activity -as tolerated, keep sling in place Discussed with nurse Discussed with Dr. Rodarte Discussed with CM This patient was seen by myself and Dr Rodarte, this note is written on his behalf (Cynthia Chawla) Assessment/Plan p-t is seen & examined cont current tx ss for d/c planning will f/u (Yamila Rodarte MD) Problem Qualifiers (1) Proximal humerus fracture: (2) Bilateral conjunctivitis: (3) Dementia without behavioral disturbance: (4) Schizoaffective disorder: Cynthia Chawla Oct 15, 2016 11:03 Yamila Rodarte MD Oct 15, 2016 12:49
[2016-10-15 12:44] VITALS: BP 120/67; PULSE 90; RESP 18; TEMP 97.8; O2SAT 97
[2016-10-15 16:00] VITALS: BP 120/70; PULSE 90; RESP 16; TEMP 97.6; O2SAT 97
[2016-10-15 20:00] VITALS: BP 129/60; PULSE 82; RESP 18; TEMP 98; O2SAT 93
[2016-10-15] MEDS: TEMAZEPAM 15 MG CAP PO SCH (21:15)
[2016-10-15] MEDS: DONEPEZIL HCL 5 MG TAB PO SCH (21:15)
[2016-10-16] VITALS: BP 123/57; PULSE 95; RESP 18; TEMP 97.5; O2SAT 93
[2016-10-16] MEDS: HEPARIN SODIUM - SQ 10,000 UNITS/ML VIAL SQ SCH ×2 (01:11→13:52)
[2016-10-16 04:00] VITALS: BP 130/51; PULSE 70; RESP 18; TEMP 97.2; O2SAT 97
[2016-10-16] MEDS: POLYMYXIN/TRIMETHOPRIM OPHT SOLN 10 ML BTL EACH EYE SCH ×3 (05:57→18:00)
[2016-10-16 08:15] VITALS: BP 127/79; PULSE 93; RESP 20; TEMP 97.5; O2SAT 97
[2016-10-16] MEDS: ESCITALOPRAM OXALATE 20 MG TAB PO SCH (08:44)
[2016-10-16] MEDS: levETIRAcetam 500 MG TAB PO SCH ×2 (08:44→20:41)
[2016-10-16] MEDS: DIVALPROEX SODIUM E.R. 250 MG TAB PO SCH ×2 (08:45→20:45)
[2016-10-16] MEDS: BENZTROPINE MESYLATE 1 MG TAB PO SCH ×2 (08:45→20:40)
[2016-10-16] MEDS: CHOLECALCIFEROL (VIT D3) 400 UNIT TAB PO SCH (08:45)
[2016-10-16] MEDS: SODIUM CHLORIDE 0.9% FLUSH 10 ML FLUSH IV FLUSH SCH ×2 (08:46→20:45)
[2016-10-16] MEDS: risperiDONE 1 MG TAB PO SCH ×2 (08:46→20:41)
--- NOTE | 2016-10-16 09:43 | HHI.PR ---
Subjective Subjective Remarks pt. sleepy in the mornings, not participating in PT at times c/o left shoulder pain no cp no sob more alert today Review of Systems Constitutional Constitutional Remarks 12 point ros limited Vitals/Results Intake & Output 10/16/16 10/16/16 10/17/16 15:00 23:00 07:00 # Voids 1 Vital Signs Vital Signs Date Time Temp Pulse Resp B/P (MAP) Pulse Ox O2 Delivery O2 Flow Rate FiO2 10/16/16 08:15 97.5 93 20 127/79 (95) 97 10/16/16 04:00 97.2 70 18 130/51 (77) 97 10/16/16 00:00 97.5 95 18 123/57 (79) 93 10/15/16 20:00 98.0 82 18 129/60 (83) 93 10/15/16 16:00 97.6 90 16 120/70 (87) 97 10/15/16 12:44 97.8 90 18 120/67 (84) 97 Physical Exam General General Appearance: Well Developed, No Acute Distress, Comfortable Eyes Eye Remarks left pupil mishapen,chronic Ears & Nose Ears & Nose Exam: Nasal Mucosa [place] Throat Throat Exam: Oral Mucosa [place] & Moist Neck Neck Exam: Neck Supple, Trachea Midline Pulmonary Resp Exam: Clear Bilaterally Cardiology CV Exam: Regular, Good Perfusion Gastrointestinal/Abdomen GI Exam: Soft, Non-Tender, Bowel Sounds Present, Non-Distended Musculoskeletal MS Remarks left shoulder bruising, on sling Integumentary Skin Exam: Warm, Dry Skin Remarks bruising right knee, left arm Extremeties Extremities Exam: No Edema, Pedal Pulses Palpable Neurologic Neuro Exam: Alert, Awake, Speech Clear VTE Prophylaxis VTE Prophylaxis Meds: Heparin Assessment/Plan Problem List: (1) Multiple falls ICD Codes: R29.6 - Repeated falls Status: Acute (2) Proximal humerus fracture ICD Codes: S42.209A - Unspecified fracture of upper end of unspecified humerus , initial encounter for closed fracture Status: Acute (3) Frequent falls ICD Codes: R29.6 - Repeated falls Status: Acute (4) Contusion of left knee and lower leg ICD Codes: S80.02XA - Contusion of left knee, initial encounter; S80.12XA - Contusion of left lower leg, initial encounter Status: Acute (5) Bilateral conjunctivitis ICD Codes: H10.9 - Unspecified conjunctivitis Status: Acute (6) History of seizure disorder ICD Codes: Z86.69 - History of seizure disorder Status: Acute (7) Dementia without behavioral disturbance ICD Codes: F03.90 - Unspecified dementia without behavioral disturbance Status: Acute (8) Schizoaffective disorder ICD Codes: F25.9 - Schizoaffective disorder, unspecified Status: Acute Assessment/Plan s/p fall with Nondisplaced oblique fracture of the proximal left humerus appreciate Orthopedic consult, plan at this time for conservative management, maintain sling on, currently fracture is nondisplaced Bilateral conjunctivitis continue eye drops hx of multiple falls orthos bp ok EEG results noted, focal features on left continue Keppra Hx dementia schizoaffective continue home meds PT eval OOB today with [facility] sitter at [facility] continue OOB 2 x a day daily PT D/C [place] Pt. is discharged when arrangements made DC to [facility] F/U PCP, ortho Diet-heart healthy Activity -as tolerated, keep sling in place Discussed with nurse Discussed with Dr. Rodarte Discussed with CM This patient was seen by myself and Dr Rodarte, this note is written on his behalf Problem Qualifiers (1) Proximal humerus fracture: (2) Bilateral conjunctivitis: (3) Dementia without behavioral disturbance: (4) Schizoaffective disorder: Cynthia Chawla Oct 16, 2016 09:43
[2016-10-16 11:59] VITALS: BP 117/65; PULSE 94; RESP 20; TEMP 98; O2SAT 96
[2016-10-16 16:58] VITALS: BP 102/56; PULSE 86; RESP 20; TEMP 98.4; O2SAT 94
[2016-10-16 20:00] VITALS: BP 135/62; PULSE 98; RESP 20; TEMP 96.8; O2SAT 100
[2016-10-16] MEDS: DONEPEZIL HCL 5 MG TAB PO SCH (20:41)
[2016-10-17] VITALS: BP 133/72; PULSE 84; RESP 18; TEMP 97.9; O2SAT 100
[2016-10-17] MEDS ORDERED: LORazepam 2 MG/ML VIAL IV PRN (01:15)
[2016-10-17] MEDS ORDERED: risperiDONE 1 MG TAB PO ONE (01:15)
[2016-10-17] MEDS: HEPARIN SODIUM - SQ 10,000 UNITS/ML VIAL SQ SCH ×2 (02:22→12:02)
[2016-10-17 04:00] VITALS: BP 162/74; PULSE 99; RESP 18; TEMP 98; O2SAT 94
[2016-10-17] MEDS: POLYMYXIN/TRIMETHOPRIM OPHT SOLN 10 ML BTL EACH EYE SCH ×4 (06:07→18:00)
[2016-10-17 08:00] VITALS: BP 123/72; PULSE 99; RESP 15; TEMP 98.7; O2SAT 95
[2016-10-17] MEDS: CHOLECALCIFEROL (VIT D3) 400 UNIT TAB PO SCH (08:59)
[2016-10-17] MEDS: BENZTROPINE MESYLATE 1 MG TAB PO SCH ×2 (08:59→22:30)
[2016-10-17] MEDS: levETIRAcetam 500 MG TAB PO SCH ×2 (08:59→22:30)
[2016-10-17] MEDS: DIVALPROEX SODIUM E.R. 250 MG TAB PO SCH ×2 (08:59→22:33)
[2016-10-17] MEDS: SODIUM CHLORIDE 0.9% FLUSH 10 ML FLUSH IV FLUSH SCH ×2 (09:00→21:00)
[2016-10-17] MEDS: ESCITALOPRAM OXALATE 20 MG TAB PO SCH (09:00)
[2016-10-17] MEDS: risperiDONE 1 MG TAB PO SCH ×2 (09:00→22:30)
[2016-10-17 12:00] VITALS: BP 134/71; PULSE 95; RESP 16; TEMP 98.1; O2SAT 95
--- NOTE | 2016-10-17 12:34 | HHI.PR ---
Subjective History of Present Illness When can I get out of here Left shoulder pain is okay Resting in bed Appears comfortable Eating okay Offers no other complaints Vitals/Results Vital Signs Vital Signs Date Time Temp Pulse Resp B/P (MAP) Pulse Ox O2 Delivery O2 Flow Rate FiO2 10/17/16 12:00 98.1 95 16 134/71 (92) 95 10/17/16 08:00 98.7 99 15 123/72 (89) 95 10/17/16 04:00 98.0 99 18 162/74 (103) 94 10/17/16 00:00 97.9 84 18 133/72 (92) 100 10/16/16 20:00 96.8 98 20 135/62 (86) 100 10/16/16 16:58 98.4 86 20 102/56 (71) 94 Physical Exam General General Appearance: No Acute Distress, Comfortable Eyes Eye Exam: Pupils Equal, Sclera White Ears & Nose Ears & Nose Exam: Nasal Mucosa [place] Throat Throat Exam: Oral Mucosa [place] & Moist Neck Neck Exam: Neck Supple, Trachea Midline Pulmonary Resp Exam: Clear Bilaterally, Breath Sounds Equal Cardiology CV Exam: Regular, Normal Sinus Rhythm, Good Perfusion Gastrointestinal/Abdomen GI Exam: Soft, Non-Tender, Bowel Sounds Present Musculoskeletal MS Remarks Left upper extremity in sling Integumentary Skin Exam: Warm, Dry Extremeties Extremities Exam: No Edema, Pedal Pulses Palpable Neurologic Neuro Exam: Alert, Awake, Speech Clear VTE Prophylaxis VTE Prophylaxis Meds: Heparin Assessment/Plan Problem List: (1) Multiple falls ICD Codes: R29.6 - Repeated falls Status: Acute (2) Proximal humerus fracture ICD Codes: S42.209A - Unspecified fracture of upper end of unspecified humerus , initial encounter for closed fracture Status: Acute (3) Frequent falls ICD Codes: R29.6 - Repeated falls Status: Acute (4) Contusion of left knee and lower leg ICD Codes: S80.02XA - Contusion of left knee, initial encounter; S80.12XA - Contusion of left lower leg, initial encounter Status: Acute (5) Bilateral conjunctivitis ICD Codes: H10.9 - Unspecified conjunctivitis Status: Acute (6) History of seizure disorder ICD Codes: Z86.69 - History of seizure disorder Status: Acute (7) Dementia without behavioral disturbance ICD Codes: F03.90 - Unspecified dementia without behavioral disturbance Status: Acute (8) Schizoaffective disorder ICD Codes: F25.9 - Schizoaffective disorder, unspecified Status: Acute Assessment/Plan s/p fall with Nondisplaced oblique fracture of the proximal left humerus appreciate Orthopedic consult, plan at this time for conservative management, maintain sling on, currently fracture is nondisplaced Status post Bilateral conjunctivitis, resolved hx of multiple falls orthos bp ok EEG results noted, focal features on left continue Keppra Hx dementia schizoaffective continue home meds PT eval OOB today with assistance sitter at [facility] continue OOB 2 x a day daily PT Medically stable for discharge Pt. is discharged when arrangements made We'll follow Problem Qualifiers (1) Proximal humerus fracture: (2) Bilateral conjunctivitis: (3) Dementia without behavioral disturbance: (4) Schizoaffective disorder: Yamila Rodarte MD Oct 17, 2016 12:34
[2016-10-17 16:00] VITALS: BP 128/71; PULSE 92; RESP 17; TEMP 98.4; O2SAT 96
[2016-10-17 20:33] VITALS: BP 126/68; PULSE 82; RESP 18; TEMP 97.8; O2SAT 100
[2016-10-17] MEDS: DONEPEZIL HCL 5 MG TAB PO SCH (22:30)
[2016-10-17] MEDS ORDERED: TEMAZEPAM 15 MG CAP PO ONE (23:45)
[2016-10-18] MEDS: POLYMYXIN/TRIMETHOPRIM OPHT SOLN 10 ML BTL EACH EYE SCH ×4 (00:01→18:00)
[2016-10-18 00:35] VITALS: BP 129/70; PULSE 85; RESP 18; TEMP 97.8; O2SAT 100
[2016-10-18] MEDS: HEPARIN SODIUM - SQ 10,000 UNITS/ML VIAL SQ SCH ×2 (02:05→12:48)
[2016-10-18 03:58] VITALS: BP 140/58; PULSE 84; RESP 18; TEMP 97.5; O2SAT 100
[2016-10-18 08:00] VITALS: BP 113/67; PULSE 92; RESP 19; TEMP 98.7; O2SAT 97
[2016-10-18] MEDS: risperiDONE 1 MG TAB PO SCH ×2 (08:30→20:35)
[2016-10-18] MEDS: CHOLECALCIFEROL (VIT D3) 400 UNIT TAB PO SCH (08:30)
[2016-10-18] MEDS: DIVALPROEX SODIUM E.R. 250 MG TAB PO SCH ×2 (08:31→20:38)
[2016-10-18] MEDS: BENZTROPINE MESYLATE 1 MG TAB PO SCH ×2 (08:31→20:34)
[2016-10-18] MEDS: levETIRAcetam 500 MG TAB PO SCH ×2 (08:32→20:34)
[2016-10-18] MEDS: ESCITALOPRAM OXALATE 20 MG TAB PO SCH (09:00)
[2016-10-18] MEDS: SODIUM CHLORIDE 0.9% FLUSH 10 ML FLUSH IV FLUSH SCH ×2 (09:00→21:00)
[2016-10-18 12:00] VITALS: BP 115/65; PULSE 88; RESP 16; TEMP 97.9; O2SAT 95
--- NOTE | 2016-10-18 12:31 | HHI.PR ---
Subjective History of Present Illness When can I get out of here Left shoulder pain is okay Resting in bed Appears comfortable Eating okay Offers no other complaints Vitals/Results Vital Signs Vital Signs Date Time Temp Pulse Resp B/P (MAP) Pulse Ox O2 Delivery O2 Flow Rate FiO2 10/18/16 12:00 97.9 88 16 115/65 (82) 95 10/18/16 08:00 98.7 92 19 113/67 (82) 97 10/18/16 03:58 97.5 84 18 140/58 (85) 100 10/18/16 00:35 97.8 85 18 129/70 (89) 100 10/17/16 20:33 97.8 82 18 126/68 (87) 100 10/17/16 16:00 98.4 92 17 128/71 (90) 96 Physical Exam General General Appearance: No Acute Distress, Comfortable Eyes Eye Exam: Pupils Equal, Sclera [place] Ears & Nose Ears & Nose Exam: Nasal Mucosa [place] Throat Throat Exam: Oral Mucosa [place] & Moist Neck Neck Exam: Neck Supple, Trachea Midline Pulmonary Resp Exam: Clear Bilaterally, Breath Sounds Equal Cardiology CV Exam: Regular, Normal Sinus Rhythm, Good Perfusion Gastrointestinal/Abdomen GI Exam: Soft, Non-Tender, Bowel Sounds Present Musculoskeletal MS Remarks Left upper extremity in sling Integumentary Skin Exam: Warm, Dry Extremeties Extremities Exam: No Edema, Pedal Pulses Palpable Neurologic Neuro Exam: Alert, Awake, Speech Clear VTE Prophylaxis VTE Prophylaxis Meds: Heparin Assessment/Plan Problem List: (1) Multiple falls ICD Codes: R29.6 - Repeated falls Status: Acute (2) Proximal humerus fracture ICD Codes: S42.209A - Unspecified fracture of upper end of unspecified humerus , initial encounter for closed fracture Status: Acute (3) Frequent falls ICD Codes: R29.6 - Repeated falls Status: Acute (4) Contusion of left knee and lower leg ICD Codes: S80.02XA - Contusion of left knee, initial encounter; S80.12XA - Contusion of left lower leg, initial encounter Status: Acute (5) Bilateral conjunctivitis ICD Codes: H10.9 - Unspecified conjunctivitis Status: Acute (6) History of seizure disorder ICD Codes: Z86.69 - History of seizure disorder Status: Acute (7) Dementia without behavioral disturbance ICD Codes: F03.90 - Unspecified dementia without behavioral disturbance Status: Acute (8) Schizoaffective disorder ICD Codes: F25.9 - Schizoaffective disorder, unspecified Status: Acute Assessment/Plan s/p fall with Nondisplaced oblique fracture of the proximal left humerus appreciate Orthopedic consult, plan at this time for conservative management, maintain sling on, currently fracture is nondisplaced Status post Bilateral conjunctivitis, resolved hx of multiple falls orthos bp ok EEG results noted, focal features on left continue Keppra Hx dementia schizoaffective continue home meds PT eval OOB today with assistance sitter at [facility] continue OOB 2 x a day daily PT Medically stable for discharge Pt. is discharged when arrangements made We'll follow Problem Qualifiers (1) Proximal humerus fracture: (2) Bilateral conjunctivitis: (3) Dementia without behavioral disturbance: (4) Schizoaffective disorder: Yamila Rodarte MD Oct 18, 2016 12:31
[2016-10-18 16:00] VITALS: BP 126/75; PULSE 72; RESP 16; TEMP 97.5; O2SAT 95
[2016-10-18 20:31] VITALS: BP 118/67; PULSE 82; RESP 19; TEMP 98; O2SAT 96
[2016-10-18] MEDS: DONEPEZIL HCL 5 MG TAB PO SCH (20:35)
[2016-10-18] MEDS: TEMAZEPAM 15 MG CAP PO PRN (21:35)
[2016-10-19 00:32] VITALS: BP 120/64; PULSE 92; RESP 19; TEMP 98.3; O2SAT 92
[2016-10-19] MEDS: HEPARIN SODIUM - SQ 10,000 UNITS/ML VIAL SQ SCH ×2 (02:29→12:52)
[2016-10-19 04:28] VITALS: BP 111/67; PULSE 91; RESP 18; TEMP 98.4; O2SAT 93
[2016-10-19 08:00] VITALS: BP 105/65; PULSE 100; RESP 15; TEMP 98.9; O2SAT 94
[2016-10-19] MEDS: ESCITALOPRAM OXALATE 20 MG TAB PO SCH (09:07)
[2016-10-19] MEDS: BENZTROPINE MESYLATE 1 MG TAB PO SCH ×2 (09:08→21:27)
[2016-10-19] MEDS: CHOLECALCIFEROL (VIT D3) 400 UNIT TAB PO SCH (09:08)
[2016-10-19] MEDS: levETIRAcetam 500 MG TAB PO SCH ×2 (09:08→21:27)
[2016-10-19] MEDS: risperiDONE 1 MG TAB PO SCH ×2 (09:08→21:27)
[2016-10-19] MEDS: DIVALPROEX SODIUM E.R. 250 MG TAB PO SCH ×2 (09:08→21:27)
[2016-10-19] MEDS: SODIUM CHLORIDE 0.9% FLUSH 10 ML FLUSH IV FLUSH SCH ×2 (09:09→21:00)
[2016-10-19 12:00] VITALS: BP 104/60; PULSE 98; RESP 15; TEMP 98.5; O2SAT 93
--- NOTE | 2016-10-19 12:21 | HHI.PR ---
Subjective Subjective Remarks Out of a room , up in chair Carla present with him Awake, asking when he can go home (Constanza Lucero) Review of Systems Constitutional Constitutional: Weakness Constitutional Remarks 10 point ROS done balance issues (Constanza Lucero) Musculoskeletal MS: Discomfort/Pain (left arm, recent fracture from fall) (Constanza Lucero) Psychiatric Psychiatric: Normal Mood (no acute agitation) (Constanza Lucero) Vitals/Results Intake & Output 10/19/16 10/19/16 10/20/16 15:00 23:00 07:00 # Bowel Movements 1 Vital Signs Vital Signs Date Time Temp Pulse Resp B/P (MAP) Pulse Ox O2 Delivery O2 Flow Rate FiO2 10/19/16 12:00 98.5 98 15 104/60 (75) 93 10/19/16 08:00 98.9 100 15 105/65 (78) 94 10/19/16 04:28 98.4 91 18 111/67 (82) 93 10/19/16 00:32 98.3 92 19 120/64 (82) 92 10/18/16 20:31 98.0 82 19 118/67 (84) 96 10/18/16 16:00 97.5 72 16 126/75 (92) 95 (Constanza Lucero) Physical Exam General General Appearance: No Acute Distress, Comfortable (Constanza Lucero) Eyes Eye Exam: Pupils Equal, Sclera White (Constanza Lucero) Ears & Nose Ears & Nose Exam: Nasal Mucosa [place] (Constanza Lucero) Throat Throat Exam: Oral Mucosa [place] & Moist (Constanza Lucero) Neck Neck Exam: Neck Supple, Trachea Midline (Constanza Lucero) Pulmonary Resp Exam: Clear Bilaterally, Breath Sounds Equal (Constanza Lucero) Cardiology CV Exam: Regular, Normal Sinus Rhythm, Good Perfusion (Constanza Lucero) Gastrointestinal/Abdomen GI Exam: Soft, Non-Tender, Bowel Sounds Present (Constanza Lucero) Integumentary Skin Exam: Warm, Dry (Constanza Lucero) Extremeties Extremities Exam: No Edema, Pedal Pulses Palpable (Constanza Lucero) Neurologic Neuro Exam: Alert, Awake, Speech Clear (Constanza Lucero) VTE Prophylaxis VTE Prophylaxis Meds: Heparin (Constanza Lucero) Assessment/Plan Problem List: (1) Multiple falls ICD Codes: R29.6 - Repeated falls Status: Acute (2) Proximal humerus fracture ICD Codes: S42.209A - Unspecified fracture of upper end of unspecified humerus , initial encounter for closed fracture Status: Acute (3) Frequent falls ICD Codes: R29.6 - Repeated falls Status: Acute (4) Contusion of left knee and lower leg ICD Codes: S80.02XA - Contusion of left knee, initial encounter; S80.12XA - Contusion of left lower leg, initial encounter Status: Acute (5) Bilateral conjunctivitis ICD Codes: H10.9 - Unspecified conjunctivitis Status: Acute (6) History of seizure disorder ICD Codes: Z86.69 - History of seizure disorder Status: Acute (7) Dementia without behavioral disturbance ICD Codes: F03.90 - Unspecified dementia without behavioral disturbance Status: Acute (8) Schizoaffective disorder ICD Codes: F25.9 - Schizoaffective disorder, unspecified Status: Acute Assessment/Plan s/p fall with Nondisplaced oblique fracture of the proximal left humerus appreciate Orthopedic consult, plan at this time for conservative management, maintain sling on, currently fracture is nondisplaced Status post Bilateral conjunctivitis, resolved hx of multiple falls EEG results noted, focal features on left, medical management with Keppra Hx dementia schizoaffective continue home meds PT eval OOB and up in chair, sitting out of room for variety sitter daily PT Medically stable for discharge Pt. is discharged when arrangements made We'll follow Discussed with nurse Discussed with Dr. rodarte, seen on his behalf (Constanza Lucero) Assessment/Plan pt is seen & examined d/w PT d/w SW d/w Constanza cont current tx d/c when arrangments are made. (Yamila Rodarte MD) Problem Qualifiers (1) Proximal humerus fracture: (2) Bilateral conjunctivitis: (3) Dementia without behavioral disturbance: (4) Schizoaffective disorder: Constanza Lucero Oct 19, 2016 12:21 Yamila Rodarte MD Oct 19, 2016 15:22
[2016-10-19] MEDS: POLYMYXIN/TRIMETHOPRIM OPHT SOLN 10 ML BTL EACH EYE SCH ×3 (12:52→17:08)
[2016-10-19 20:34] VITALS: BP 125/74; PULSE 96; RESP 20; TEMP 97.8; O2SAT 94
[2016-10-19] MEDS: DONEPEZIL HCL 5 MG TAB PO SCH (21:28)
[2016-10-19] MEDS: TEMAZEPAM 15 MG CAP PO PRN (21:33)
[2016-10-20 01:05] VITALS: BP 113/55; PULSE 92; RESP 19; TEMP 98.7; O2SAT 93
[2016-10-20] MEDS: POLYMYXIN/TRIMETHOPRIM OPHT SOLN 10 ML BTL EACH EYE SCH ×4 (01:19→17:48)
[2016-10-20] MEDS: HEPARIN SODIUM - SQ 10,000 UNITS/ML VIAL SQ SCH ×2 (01:19→12:41)
[2016-10-20 05:36] VITALS: BP 120/70; PULSE 90; RESP 19; TEMP 99; O2SAT 95
[2016-10-20 08:01] VITALS: BP 125/76; PULSE 83; RESP 18; TEMP 97.9; O2SAT 94
[2016-10-20] MEDS: SODIUM CHLORIDE 0.9% FLUSH 10 ML FLUSH IV FLUSH SCH ×2 (09:00→21:00)
[2016-10-20] MEDS: levETIRAcetam 500 MG TAB PO SCH ×2 (09:57→21:00)
[2016-10-20] MEDS: DIVALPROEX SODIUM E.R. 250 MG TAB PO SCH ×2 (09:57→21:44)
[2016-10-20] MEDS: BENZTROPINE MESYLATE 1 MG TAB PO SCH ×2 (09:57→21:45)
[2016-10-20] MEDS: risperiDONE 1 MG TAB PO SCH ×2 (09:58→21:45)
[2016-10-20] MEDS: CHOLECALCIFEROL (VIT D3) 400 UNIT TAB PO SCH (09:58)
[2016-10-20] MEDS: ESCITALOPRAM OXALATE 20 MG TAB PO SCH (09:58)
[2016-10-20 10:51] LABS: HEMATOCRIT 33.4 % (39.0-51.0); MEAN CELL VOLUME 89.9 FL (80.0-100.0); MEAN CORPUSCULAR HEMOGLOBIN 29.5 PG (27.0-34.0); MEAN CORPUSCULAR HGB CONC 32.8 % (32.0-36.0); PLATELET COUNT 127 TH/MM3 (150-450); RED BLOOD COUNT 3.71 MIL/MM3 (4.50-5.90); REVIEW FLAG FINAL; WHITE BLOOD COUNT 3.8 TH/MM3 (4.0-11.0)
[2016-10-20 11:12] LABS: ALT (GPT) 65 U/L (12-78); ANION GAP 9 MEQ/L (5-15); AST (GOT) 58 U/L (15-37); BICARBONATE 27.9 MEQ/L (21.0-32.0); BLOOD UREA NITROGEN 12 MG/DL (7-18); CHLORIDE 99 MEQ/L (98-107); GLOMERULAR FILTRATION RATE 142 ML/MIN (>89); SODIUM (NA) 136 MEQ/L (136-145)
[2016-10-20 11:15] LABS: ALKALINE PHOSPHATASE 460 U/L (45-117); TOTAL BILIRUBIN ADULT 1.2 MG/DL (0.2-1.0)
--- NOTE | 2016-10-20 11:59 | HHI.PR ---
Subjective Subjective Remarks Out of a room , up in chair, Ambulate in the full length of hallway independently, standby assist ongoing Alert, asking appropriate questions and answering questions appropriately Afebrile (Constanza Lucero) Review of Systems Constitutional Constitutional: Weakness Constitutional Remarks 10 point ROS done No acute balance issues noted today (Constanza Lucero) Musculoskeletal MS: Discomfort/Pain (left arm, recent fracture from fall) (Constanza Lucero) Psychiatric Psychiatric: Normal Mood (no acute agitation) Psychiatric Remarks Flat affect (Constanza Lucero) Vitals/Results Vital Signs Vital Signs Date Time Temp Pulse Resp B/P (MAP) Pulse Ox O2 Delivery O2 Flow Rate FiO2 10/20/16 08:01 97.9 83 18 125/76 (92) 94 10/20/16 05:36 99.0 90 19 120/70 (87) 95 10/20/16 01:05 98.7 92 19 113/55 (74) 93 10/19/16 20:34 97.8 96 20 125/74 (91) 94 10/19/16 12:00 98.5 98 15 104/60 (75) 93 (Constanza Lucero) CBC/BMP: 10/20/16 0917 10/20/16 0917 Lab Results Laboratory Tests Test 10/20/16 09:17 White Blood Count 3.8 TH/MM3 Red Blood Count 3.71 MIL/MM3 Hemoglobin 10.9 GM/DL Hematocrit 33.4 % Mean Corpuscular Volume 89.9 FL Mean Corpuscular Hemoglobin 29.5 PG Mean Corpuscular Hemoglobin Concent 32.8 % Red Cell Distribution Width 16.0 % Platelet Count 127 TH/MM3 Mean Platelet Volume 9.1 FL Blood Urea Nitrogen 12 MG/DL Creatinine 0.58 MG/DL Random Glucose 152 MG/DL Total Protein 8.2 GM/DL Albumin 2.4 GM/DL Calcium Level 8.7 MG/DL Alkaline Phosphatase 460 U/L Aspartate Amino Transf (AST/SGOT) 58 U/L Alanine Aminotransferase (ALT/SGPT) 65 U/L Total Bilirubin 1.2 MG/DL Sodium Level 136 MEQ/L Potassium Level 4.0 MEQ/L Chloride Level 99 MEQ/L Carbon Dioxide Level 27.9 MEQ/L Anion Gap 9 MEQ/L Estimat Glomerular Filtration Rate 142 ML/MIN (NicMirandaConstanza [employer]) Physical Exam General General Appearance: No Acute Distress, Comfortable ([place],Constanza [employer]) Eyes Eye Exam: Pupils Equal, Sclera White (Nic,Constanza [employer]) Ears & Nose Ears & Nose Exam: Nasal Mucosa [place] ([place],Constanza M[employer]) Throat Throat Exam: Oral Mucosa [place] & Moist ([place],Constanza M[employer]) Neck Neck Exam: Neck Supple, Trachea Midline (NicMirandaConstanza M[employer]) Pulmonary Resp Exam: Clear Bilaterally, Breath Sounds Equal (BurlingtonMirandaConstanza M[employer]) Cardiology CV Exam: Regular, Normal Sinus Rhythm, Good Perfusion (Nic,Constanza [employer]) Gastrointestinal/Abdomen GI Exam: Soft, Non-Tender, Bowel Sounds Present (NicConstanza [employer]) Musculoskeletal MS Remarks Gait appears normal, swaying noted, will to independently ambulate, standby assist only with physical therapy for his safety ([place],Constanza [employer]) Integumentary Skin Exam: Warm, Dry (NicMirandaConstanza M[employer]) Extremeties Extremities Exam: No Edema, Pedal Pulses Palpable ([place],Constanza [employer]) Neurologic Neuro Exam: Alert, Awake, Speech Clear, Moving All Extremities (with the exception of left arm which is immobilized with sliding) (Nic,Constanza [employer]) VTE Prophylaxis VTE Prophylaxis Meds: Heparin (Nic,Susan M[employer]) Assessment/Plan Problem List: (1) Multiple falls ICD Codes: R29.6 - Repeated falls Status: Acute (2) Proximal humerus fracture ICD Codes: S42.209A - Unspecified fracture of upper end of unspecified humerus , initial encounter for closed fracture Status: Acute (3) Frequent falls ICD Codes: R29.6 - Repeated falls Status: Acute (4) Contusion of left knee and lower leg ICD Codes: S80.02XA - Contusion of left knee, initial encounter; S80.12XA - Contusion of left lower leg, initial encounter Status: Acute (5) Bilateral conjunctivitis ICD Codes: H10.9 - Unspecified conjunctivitis Status: Acute (6) History of seizure disorder ICD Codes: Z86.69 - History of seizure disorder Status: Acute (7) Dementia without behavioral disturbance ICD Codes: F03.90 - Unspecified dementia without behavioral disturbance Status: Acute (8) Schizoaffective disorder ICD Codes: F25.9 - Schizoaffective disorder, unspecified Status: Acute Assessment/Plan s/p fall with Nondisplaced oblique fracture of the proximal left humerus appreciate Orthopedic consult, plan at this time for conservative management, maintain sling on, currently fracture is nondisplaced Left arm continues to be in a sling, patient is working with PT, ambulating at least 300 feet today around the whole length of the nurses floor, standby assist only, patient had no problems with swaying, or problems with balance, not requiring a walker or cane. Discussed with physical therapy who feels that he is stable and safe with independence. Case management working with discharge planning and [facility] now it patient is stable. Plan to have re-eval from [facility] today, Possible discharge pending Status post Bilateral conjunctivitis, resolved, encouraged daily cleaning of his eyes hx of multiple falls EEG results noted, focal features on left, medical management with Keppra, stable Hx dementia schizoaffective Medical management, patient is alert and answers simple questions, affect is flat but appropriate for his disease and medications, no problems with agitation this admission Discussed with nurse Discussed with Dr. rodarte, seen on his behalf Discussed with physical therapy Status of case management, possible discharge in evaluation from [facility] Forms signed for case management (Constanza Lucero) Assessment/Plan PT IS SEEN & EXAMINED D/W PT D/W CRAIG ,He is being evaluated by his [facility] today/if they accept him , he may be able to d/c back to them D/W CONSTANZA (Yamila Rodarte MD) Problem Qualifiers (1) Proximal humerus fracture: (2) Bilateral conjunctivitis: (3) Dementia without behavioral disturbance: (4) Schizoaffective disorder: Constanza Lucero Oct 20, 2016 11:59 Yamila Rodarte MD Oct 20, 2016 12:09
[2016-10-20 12:02] VITALS: BP 109/68; PULSE 89; RESP 18; TEMP 98; O2SAT 97
[2016-10-20 16:12] VITALS: BP 131/74; PULSE 92; RESP 18; TEMP 98.2; O2SAT 98
[2016-10-20 20:00] VITALS: BP 130/73; PULSE 82; RESP 17; TEMP 97.2; O2SAT 95
[2016-10-20] MEDS: DONEPEZIL HCL 5 MG TAB PO SCH (21:45)
[2016-10-20] MEDS: TEMAZEPAM 15 MG CAP PO PRN (21:45)
[2016-10-21] VITALS: BP 145/72; PULSE 72; RESP 18; TEMP 98.1; O2SAT 98
[2016-10-21] MEDS: HEPARIN SODIUM - SQ 10,000 UNITS/ML VIAL SQ SCH ×2 (02:07→15:48)
[2016-10-21 04:00] VITALS: BP 129/69; PULSE 72; RESP 19; TEMP 98.3; O2SAT 96
[2016-10-21] MEDS: POLYMYXIN/TRIMETHOPRIM OPHT SOLN 10 ML BTL EACH EYE SCH ×4 (06:00→18:00)
[2016-10-21 08:19] VITALS: BP 139/74; PULSE 92; RESP 18; TEMP 97.5; O2SAT 97
[2016-10-21] MEDS: SODIUM CHLORIDE 0.9% FLUSH 10 ML FLUSH IV FLUSH SCH ×2 (09:00→20:21)
[2016-10-21] MEDS: DIVALPROEX SODIUM E.R. 250 MG TAB PO SCH ×2 (09:17→20:22)
[2016-10-21] MEDS: risperiDONE 1 MG TAB PO SCH ×2 (09:17→20:23)
[2016-10-21] MEDS: levETIRAcetam 500 MG TAB PO SCH ×2 (09:17→20:22)
[2016-10-21] MEDS: ESCITALOPRAM OXALATE 20 MG TAB PO SCH (09:17)
[2016-10-21] MEDS: CHOLECALCIFEROL (VIT D3) 400 UNIT TAB PO SCH (09:18)
[2016-10-21] MEDS: BENZTROPINE MESYLATE 1 MG TAB PO SCH ×2 (09:18→20:22)
[2016-10-21 12:01] VITALS: BP 118/72; PULSE 94; RESP 18; TEMP 98.3; O2SAT 98
--- NOTE | 2016-10-21 12:13 | HHI.PR ---
Subjective Subjective Remarks Awake alert, sitting out in [place] interacting with staff Color pink Working with physical therapy and seems to enjoy ambulation Afebrile (Constanza Lucero) Review of Systems Constitutional Constitutional: Weakness Constitutional Remarks 10 point ROS done No acute balance issues noted today (Constanza Lucero) Musculoskeletal MS: Discomfort/Pain (left arm, recent fracture from fall) (Constanza Lucero) Psychiatric Psychiatric: Normal Mood (no acute agitation) Psychiatric Remarks Flat affect (Constanza Lucero) Vitals/Results Intake & Output 10/21/16 10/21/16 10/22/16 15:00 23:00 07:00 Output Total 2 ml Balance -2 ml Output Urine Total 2 ml # Bowel Movements 0 Vital Signs Vital Signs Date Time Temp Pulse Resp B/P (MAP) Pulse Ox O2 Delivery O2 Flow Rate FiO2 10/21/16 12:01 98.3 94 18 118/72 (87) 98 10/21/16 08:19 97.5 92 18 139/74 (95) 97 10/21/16 04:00 98.3 72 19 129/69 (89) 96 10/21/16 00:00 98.1 72 18 145/72 (96) 98 10/20/16 20:00 97.2 82 17 130/73 (92) 95 10/20/16 16:12 98.2 92 18 131/74 (93) 98 (Constanza Lucero) CBC/BMP: 10/20/16 0917 10/20/16 0917 Current Medications Administered Medications Medications (Trade) Dose Ordered Sig/Daniel Route PRN Reason Start Time Stop Time Status Last Admin Dose Admin Benztropine Mesylate (Cogentin) 0.5 mg BID PO 10/04/16 21:00 10/21/16 09:18 Cholecalciferol (Vitamin D3) 400 units DAILY PO 10/05/16 09:00 10/21/16 09:18 Divalproex Sodium (Depakote Er) 250 mg BID PO 10/04/16 21:00 10/21/16 09:17 Donepezil HCl (Aricept) 5 mg HS PO 10/04/16 21:00 10/20/16 21:45 Escitalopram Oxalate (Lexapro) 20 mg DAILY PO 10/05/16 09:00 10/21/16 09:17 Levetriacetam (Keppra) 500 mg BID PO 10/04/16 21:00 10/21/16 09:17 Risperidone (risperDAL) 1 mg DAILY PO 10/05/16 09:00 10/21/16 09:17 Risperidone (risperDAL) 1 mg HS PO 10/04/16 21:00 10/20/16 21:45 Sodium Chloride (NS Flush) 2 ml BID IV FLUSH 10/04/16 21:00 10/21/16 09:00 Heparin Sodium (Porcine) (Heparin Inj) 5,000 units Q12H SQ 10/04/16 13:00 10/21/16 02:07 Polymyxin/ Trimethoprim Sulfate (Polytrim Opht Soln) 1 drop Q6HR EACH EYE 10/04/16 18:00 10/21/16 06:00 Temazepam (Restoril) 15 mg HS PRN PO insomnia 10/18/16 21:00 10/20/16 21:45 (Constanza Lucero) Physical Exam General General Appearance: No Acute Distress, Comfortable (Constanza LuceroP) Eyes Eye Exam: Pupils Equal, Sclera White Eye Remarks Occasional increased eye drainage, clear, no erythema (Constanza LuceroP) Ears & Nose Ears & Nose Exam: Nasal Mucosa [place] (Constanza LuceroP) Throat Throat Exam: Oral Mucosa [place] & Moist (Constanza LuceroP) Neck Neck Exam: Neck Supple, Trachea Midline (Constanza LuceroP) Pulmonary Resp Exam: Clear Bilaterally, Breath Sounds Equal (Constanza LuceroP) Cardiology CV Exam: Regular, Normal Sinus Rhythm, Good Perfusion (Constanza LuceroP) Gastrointestinal/Abdomen GI Exam: Soft, Non-Tender, Bowel Sounds Present (Constanza LuceroP) Musculoskeletal MS Remarks Gait appears normal, swaying noted, will to independently ambulate, standby assist only with physical therapy for his safety (Constanza Lucero) Integumentary Skin Exam: Warm, Dry (Constanza Lucero) Extremeties Extremities Exam: No Edema, Pedal Pulses Palpable (Constanza Lucero) Neurologic Neuro Exam: Alert, Awake, Speech Clear, Moving All Extremities (with the exception of left arm which is immobilized with sliding) (Constanza Lucero) VTE Prophylaxis VTE Prophylaxis Meds: Heparin (Constanza Lucero) Assessment/Plan Problem List: (1) Multiple falls ICD Codes: R29.6 - Repeated falls Status: Acute (2) Proximal humerus fracture ICD Codes: S42.209A - Unspecified fracture of upper end of unspecified humerus , initial encounter for closed fracture Status: Acute (3) Frequent falls ICD Codes: R29.6 - Repeated falls Status: Acute (4) Contusion of left knee and lower leg ICD Codes: S80.02XA - Contusion of left knee, initial encounter; S80.12XA - Contusion of left lower leg, initial encounter Status: Acute (5) Bilateral conjunctivitis ICD Codes: H10.9 - Unspecified conjunctivitis Status: Acute (6) History of seizure disorder ICD Codes: Z86.69 - History of seizure disorder Status: Acute (7) Dementia without behavioral disturbance ICD Codes: F03.90 - Unspecified dementia without behavioral disturbance Status: Acute (8) Schizoaffective disorder ICD Codes: F25.9 - Schizoaffective disorder, unspecified Status: Acute Assessment/Plan Labs reviewed, anemia probable secondary to chronic disease, no acute blood loss noted stable Vital signs afebrile normal trends s/p fall with Nondisplaced oblique fracture of the proximal left humerus conservative management from orthopedic standpoint, maintain sling on, Left arm continues to be in a sling, patient is working with PT, ambulating independently in [place] standby assist, balance able to stand for extended periods of time outs sway, will need to be independent with his bathing and grooming, and stair climbing. Increased physical therapy today to add occupational therapy, physical therapy and occupational therapy twice a day. Explained to patient when he can go home Status post Bilateral conjunctivitis, resolved, encouraged daily cleaning of his eyes hx of multiple falls EEG results noted, medical management with Keppra, stable Hx dementia schizoaffective Medical management, patient is alert and answers simple questions, affect is flat but appropriate responses Discussed with nurse Discussed with Dr. rodarte, seen on his behalf Discussed with case management, patient needs further training for his total independence, stairs, dressing, bathing, we will continue to evaluate (Constanza Lucero) Assessment/Plan pt is seen & Examined d/w pt d/w constanza perez current tx will f/u (Yamila Rodarte MD) Problem Qualifiers (1) Proximal humerus fracture: (2) Bilateral conjunctivitis: (3) Dementia without behavioral disturbance: (4) Schizoaffective disorder: Constanza Lucero Oct 21, 2016 12:13 Yamila Rodarte MD Oct 21, 2016 13:29
[2016-10-21 16:05] VITALS: BP 126/73; PULSE 92; RESP 18; TEMP 97.4; O2SAT 96
[2016-10-21 20:00] VITALS: BP 122/68; PULSE 92; RESP 18; TEMP 97.3; O2SAT 95
[2016-10-21] MEDS: DONEPEZIL HCL 5 MG TAB PO SCH (20:21)
[2016-10-22] VITALS (8 sets, daily range): BP systolic 117–129; BP diastolic 67–76; PULSE 69–105; RESP 15–20; TEMP 97.2–99.4; O2SAT 93–97
[2016-10-22] MEDS: POLYMYXIN/TRIMETHOPRIM OPHT SOLN 10 ML BTL EACH EYE SCH ×4 (00:15→18:00)
[2016-10-22] MEDS: HEPARIN SODIUM - SQ 10,000 UNITS/ML VIAL SQ SCH ×2 (00:15→13:19)
[2016-10-22] MEDS: TEMAZEPAM 15 MG CAP PO PRN ×2 (00:16→20:33)
--- NOTE | 2016-10-22 03:30 | RADRPT ---
EXAM DATE/TIME: 10/22/2016 02:49 [facility] COMPARISON: HAND RIGHT COMPLETE ([id number]), September 12, 2016, 15:50. INDICATIONS : Fall- Right hand pain. MEDICAL HISTORY : None. SURGICAL HISTORY : None. ENCOUNTER: Subsequent ACUITY: 1 day PAIN SCORE: Non-responsive. LOCATION: Right upper extremity Hand. FINDINGS: There is a healing slightly comminuted fracture of the distal fifth metacarpal with callus formation. No dislocation. Proximal fourth finger fracture again noted extending intra-articular. CONCLUSION: Healing fifth metacarpal fracture with callus formation that has developed since the September 12 exam. Al so again seen is an intra-articular fracture of the proximal phalanx of the fourth finger at the four th MCP. This has less callus formation. Abdirizak Martin MD on October 22, 2016 at 3:26 Board Certified Radiologist. This report was verified electronically.
[2016-10-22] MEDS: DIVALPROEX SODIUM E.R. 250 MG TAB PO SCH ×2 (08:42→20:34)
[2016-10-22] MEDS: CHOLECALCIFEROL (VIT D3) 400 UNIT TAB PO SCH (08:42)
[2016-10-22] MEDS: BENZTROPINE MESYLATE 1 MG TAB PO SCH ×2 (08:42→20:33)
[2016-10-22] MEDS: risperiDONE 1 MG TAB PO SCH ×2 (08:42→20:33)
[2016-10-22] MEDS: ESCITALOPRAM OXALATE 20 MG TAB PO SCH (08:43)
[2016-10-22] MEDS: levETIRAcetam 500 MG TAB PO SCH ×2 (08:43→20:33)
[2016-10-22] MEDS: SODIUM CHLORIDE 0.9% FLUSH 10 ML FLUSH IV FLUSH SCH ×2 (09:00→20:36)
--- NOTE | 2016-10-22 12:26 | HHI.PR ---
Subjective Subjective Remarks sitting up at nurse's desk oriented x 2 no cp no sob stable Review of Systems Constitutional Constitutional: Weakness Constitutional Remarks 12 point ros limited Musculoskeletal MS: Discomfort/Pain (left arm, recent fracture from fall) Psychiatric Psychiatric: Normal Mood (no acute agitation) Vitals/Results Vital Signs Vital Signs Date Time Temp Pulse Resp B/P (MAP) Pulse Ox O2 Delivery O2 Flow Rate FiO2 10/22/16 08:01 99.2 97 18 117/67 (84) 97 10/22/16 05:42 98.7 98 15 128/76 (93) 97 10/22/16 04:15 98.9 100 20 120/70 (87) 93 10/22/16 03:15 97.2 69 20 129/70 (89) 94 10/22/16 00:00 97.6 83 18 124/69 (87) 95 10/21/16 20:00 97.3 92 18 122/68 (86) 95 10/21/16 16:05 97.4 92 18 126/73 (90) 96 CBC/BMP: 10/20/16 0917 10/20/16 0917 Physical Exam General General Appearance: No Acute Distress, Comfortable Eyes Eye Exam: Pupils Equal, Sclera White Eye Remarks left pupil mishapen,chronic Ears & Nose Ears & Nose Exam: Nasal Mucosa [place] Throat Throat Exam: Oral Mucosa [place] & Moist Neck Neck Exam: Neck Supple, Trachea Midline Pulmonary Resp Exam: Clear Bilaterally, Breath Sounds Equal Cardiology CV Exam: Regular, Normal Sinus Rhythm, Good Perfusion Gastrointestinal/Abdomen GI Exam: Soft, Non-Tender, Bowel Sounds Present Musculoskeletal MS Remarks left shoulder bruising, on sling Integumentary Skin Exam: Warm, Dry Skin Remarks bruising right knee, left arm Extremeties Extremities Exam: No Edema, Pedal Pulses Palpable Neurologic Neuro Exam: Alert, Awake, Speech Clear, Moving All Extremities (with the exception of left arm which is immobilized with sliding) VTE Prophylaxis VTE Prophylaxis Meds: Heparin Assessment/Plan Problem List: (1) Multiple falls ICD Codes: R29.6 - Repeated falls Status: Acute (2) Proximal humerus fracture ICD Codes: S42.209A - Unspecified fracture of upper end of unspecified humerus , initial encounter for closed fracture Status: Acute (3) Frequent falls ICD Codes: R29.6 - Repeated falls Status: Acute (4) Contusion of left knee and lower leg ICD Codes: S80.02XA - Contusion of left knee, initial encounter; S80.12XA - Contusion of left lower leg, initial encounter Status: Acute (5) Bilateral conjunctivitis ICD Codes: H10.9 - Unspecified conjunctivitis Status: Acute (6) History of seizure disorder ICD Codes: Z86.69 - History of seizure disorder Status: Acute (7) Dementia without behavioral disturbance ICD Codes: F03.90 - Unspecified dementia without behavioral disturbance Status: Acute (8) Schizoaffective disorder ICD Codes: F25.9 - Schizoaffective disorder, unspecified Status: Acute Assessment/Plan s/p fall with Nondisplaced oblique fracture of the proximal left humerus appreciate Orthopedic consult, plan at this time for conservative management, maintain sling on, currently fracture is nondisplaced Reevaluated by Dr. Morales, imaging studies reviewed, healing well. Continue with non op trx Bilateral conjunctivitis continue eye drops hx of multiple falls orthos bp ok EEG results noted, focal features on left continue Keppra Hx dementia schizoaffective continue home meds Daily PT OOB today with assistance sitter at [facility] continue OOB 2 x a day Pt. is discharged when arrangements made DC to SNF -apparently they can't accept as they don't have staff to supervise. They need pt. to be more independent. F/U PCP, ortho Diet-heart healthy Activity -as tolerated, keep sling in place Discussed with nurse Discussed with Dr. Rodarte This patient was seen by myself and Dr Rodarte, this note is written on his behalf Problem Qualifiers (1) Proximal humerus fracture: (2) Bilateral conjunctivitis: (3) Dementia without behavioral disturbance: (4) Schizoaffective disorder: Cynthia Chawla Oct 22, 2016 12:26
--- NOTE | 2016-10-22 13:00 | PD.CONS ---
cc: Yair Morales Jr., MD HPI Service Orthopedic Surgeons Consult Requested By Primary Care Physician Luis Finney M.D. Admission Diagnosis L proximal humerus fx; multiple falls; generalized weakness Diagnoses: (1) Multiple falls (2) Proximal humerus fracture (3) Frequent falls (4) Contusion of left knee and lower leg (5) Bilateral conjunctivitis (6) History of seizure disorder (7) Dementia without behavioral disturbance (8) Schizoaffective disorder Diagnosis: Principal Chief Complaint: Left proximal humerus shaft fracture History of Present Illness 61-year-old male history of recurrent falls within the complicated past medical history presents after a fall 3 weeks ago on the left shoulder during which he sustained a left closed proximal humerus shaft fracture. Patient initially seen through a superolateral Dr. Kirkland who recommended nonoperative treatment. Patient readmitted for the medical issues. He has been unable to follow up outpatient with Dr. Kirkland. New X-ray taken reveal fx alignment is unchanged with progressive callus formation. He denies any new injury. Currently patient' s pain is sharp, 3 out of 10, exacerbated by any range of motion, relieved at rest and with IV pain medicine, pain is sharp nonradiating, not associated with any paresthesia and numbness to the extremity. Past Family Social History Allergies: Coded Allergies: barley (Unverified Allergy, Mild, rash, 10/06/16) Active Ordered Medications Current Medications Medications (Trade) Dose Ordered Sig/Daniel Route Start Time Stop Time Status Last Admin (Cogentin) 0.5 mg BID PO 10/04/16 21:00 10/22/16 08:42 (Vitamin D3) 400 units DAILY PO 10/05/16 09:00 10/22/16 08:42 (Depakote Er) 250 mg BID PO 10/04/16 21:00 10/22/16 08:42 (Aricept) 5 mg HS PO 10/04/16 21:00 10/21/16 20:21 (Lexapro) 20 mg DAILY PO 10/05/16 09:00 10/22/16 08:43 (Keppra) 500 mg BID PO 10/04/16 21:00 10/22/16 08:43 (risperDAL) 1 mg DAILY PO 10/05/16 09:00 10/22/16 08:42 (risperDAL) 1 mg HS PO 10/04/16 21:00 10/21/16 20:23 (NS Flush) 2 ml UNSCH PRN IV FLUSH 10/04/16 13:00 (NS Flush) 2 ml BID IV FLUSH 10/04/16 21:00 10/21/16 20:21 (Zofran Inj) 4 mg Q6H PRN IVP 10/04/16 13:00 (Heparin Inj) 5,000 units Q12H SQ 10/04/16 13:00 10/22/16 00:15 (Narcan Inj) 0.4 mg UNSCH PRN IV 10/04/16 13:00 (Milk Of Magnesia Liq) 30 ml Q12H PRN PO 10/04/16 13:00 (Senokot) 17.2 mg Q12H PRN PO 10/04/16 13:00 (Dulcolax Supp) 10 mg DAILY PRN RECTAL 10/04/16 13:00 (Lactulose Liq) 30 ml DAILY PRN PO 10/04/16 13:00 (Pill Splitter) 1 ea UNSCH PRN OTHER 10/04/16 13:15 (Polytrim Opht Soln) 1 drop Q6HR EACH EYE 10/04/16 18:00 10/22/16 05:36 (Tylenol) 325 mg QID PRN PO 10/11/16 16:45 (Restoril) 15 mg HS PRN PO 10/18/16 21:00 10/22/16 00:16 Reported Meds & Active Scripts Active Walker with Front Wheels (Device) 1 Mis Mis 1 Ea .ROUTE DIRECTED Reported Donepezil 5 Mg Tab 5 Mg PO HS Divalproex ER (Divalproex Sodium) 250 Mg Garret 250 Mg PO BID TAKE AT 8AM AND 4PM Risperidone 1 Mg Tab 1 Mg PO DAILY Risperidone 1 Mg Tab 1 Mg PO HS Benztropine (Benztropine Mesylate) 0.5 Mg Tab 0.5 Mg PO BID Lexapro (Escitalopram Oxalate) 20 Mg Tab 20 Mg PO DAILY Keppra (Levetiracetam) 500 Mg Tab 500 Mg PO BID Temazepam 30 Mg Cap 30 Mg PO HS Vitamin D-400 (Cholecalciferol) 400 Unit Tab 400 Units PO DAILY Physical Exam Vital Signs Vital Signs Date Time Temp Pulse Resp B/P (MAP) Pulse Ox O2 Delivery O2 Flow Rate FiO2 10/22/16 12:37 97.3 105 18 128/69 (88) 97 10/22/16 08:01 99.2 97 18 117/67 (84) 97 10/22/16 05:42 98.7 98 15 128/76 (93) 97 10/22/16 04:15 98.9 100 20 120/70 (87) 93 10/22/16 03:15 97.2 69 20 129/70 (89) 94 10/22/16 00:00 97.6 83 18 124/69 (87) 95 10/21/16 20:00 97.3 92 18 122/68 (86) 95 10/21/16 16:05 97.4 92 18 126/73 (90) 96 Physical Exam confused Head: NC/AT Neck: No pain with any range of motion and neck. No tenderness to palpation along posterior cervical elements. Negative [place]. Pulmonary: Normal respiratory effort. RIGHT upper extremity: No deformity. Intact sensation distally in median, ulnar , and radial nerve. Intact motor in anterior interosseous, posterior interosseous, and ulnar nerve. 2+ radial artery pulses. Good cap refill. LEFT upper extremity exam: Mild elevation of the shoulder girdle. Minimally tender to palpation around the greater tuberosity and proximal humerus shaft. Intact sensation distally in median, ulnar, and radial nerve. Intact motor in anterior interosseous, posterior interosseous, and ulnar nerve. 2+ radial artery pulses. Good cap refill. Bilateral lower extremity: Neurovascularly intact, No deformities. +EHL/FHL, + PT/DP pulses. Supple compartments. Negative Homans sign. Result Diagram: 10/20/1691610/20/16916 Imaging 2 view left humerus reveal a spiral minimally displaced fracture of the proximal humerus. Early bridging callus formation. Last 72 hours Impressions Hand X-Ray 10/22/16 0000 Signed Impressions: Service Date/Time: September 02:49 - CONCLUSION: Healing fifth metacarpal fracture with callus formation that has developed since the September 12 exam. Also again seen is an intra-articular fracture of the proximal phalanx of the fourth finger at the fourth MCP. This has less callus formation. Abdirizak Martin MD Assessment & Plan Assessment and Plan 61-year-old male with current altered mental status presented with left shoulder and arm pain. He reports an injury to the the left shoulder 3 weeks ago after a fall. On exam, he is grossly neurovascularly intact with some tenderness at the proximal humerus and difficulty with range of motion of the left shoulder. X-ray examination revealed a minimally displaced spiral fracture of the proximal humerus shaft. His fracture is healing well and stable and will be treated nonoperatively. -Humerus fracture brace -Nonweightbearing left upper extremity -PT left elbow ROM as tolerated Risks, benefits and alternatives of treatment plan discussed with the patient. All questions answered. Follow-up outpatient in 2 weeks. Yair Morales Jr., MD Oct 22, 2016 13:00
[2016-10-22] MEDS: DONEPEZIL HCL 5 MG TAB PO SCH (20:34)
[2016-10-23] VITALS: BP 143/74; PULSE 109; RESP 18; TEMP 97.4; O2SAT 93
[2016-10-23] MEDS: HEPARIN SODIUM - SQ 10,000 UNITS/ML VIAL SQ SCH ×2 (00:17→13:46)
[2016-10-23] MEDS: POLYMYXIN/TRIMETHOPRIM OPHT SOLN 10 ML BTL EACH EYE SCH ×4 (00:20→22:59)
[2016-10-23 07:47] VITALS: BP 117/67; PULSE 105; RESP 20; TEMP 98.4; O2SAT 94
--- NOTE | 2016-10-23 10:14 | HHI.PR ---
Subjective Subjective Remarks laying in bed sleepy awakes to voice oriented x 2 weak Review of Systems Constitutional Constitutional: Weakness Constitutional Remarks 12 point ros limited Musculoskeletal MS: Discomfort/Pain (left arm, recent fracture from fall) Psychiatric Psychiatric: Normal Mood (no acute agitation) Vitals/Results Intake & Output 10/23/16 10/23/16 10/24/16 15:00 23:00 07:00 Intake Total 240 ml Balance 240 ml Intake Oral 240 ml # Voids 1 Vital Signs Vital Signs Date Time Temp Pulse Resp B/P (MAP) Pulse Ox O2 Delivery O2 Flow Rate FiO2 10/23/16 07:47 98.4 105 20 117/67 (84) 94 10/23/16 00:00 97.4 109 18 143/74 (97) 93 10/22/16 20:00 98.5 96 18 129/68 (88) 96 10/22/16 16:00 99.4 95 18 128/73 (91) 95 10/22/16 12:37 97.3 105 18 128/69 (88) 97 CBC/BMP: 10/20/16 0917 10/20/16 0917 Physical Exam General General Appearance: No Acute Distress, Comfortable Appearance Remarks bitemporal muscle wasting Eyes Eye Exam: Pupils Equal, Sclera White Eye Remarks left pupil mishapen,chronic Ears & Nose Ears & Nose Exam: Nasal Mucosa [place] Throat Throat Exam: Oral Mucosa [place] & Moist Neck Neck Exam: Neck Supple, Trachea Midline Pulmonary Resp Exam: Clear Bilaterally, Breath Sounds Equal Cardiology CV Exam: Regular, Normal Sinus Rhythm, Good Perfusion Gastrointestinal/Abdomen GI Exam: Soft, Non-Tender, Bowel Sounds Present Musculoskeletal MS Remarks left shoulder bruising, on sling Integumentary Skin Exam: Warm, Dry Skin Remarks bruising right knee, left arm Extremeties Extremities Exam: No Edema, Pedal Pulses Palpable Neurologic Neuro Exam: Alert, Awake, Speech Clear, Moving All Extremities (with the exception of left arm which is immobilized with sliding) VTE Prophylaxis VTE Prophylaxis Meds: Heparin Assessment/Plan Problem List: (1) Multiple falls ICD Codes: R29.6 - Repeated falls Status: Acute (2) Proximal humerus fracture ICD Codes: S42.209A - Unspecified fracture of upper end of unspecified humerus , initial encounter for closed fracture Status: Acute (3) Frequent falls ICD Codes: R29.6 - Repeated falls Status: Acute (4) Contusion of left knee and lower leg ICD Codes: S80.02XA - Contusion of left knee, initial encounter; S80.12XA - Contusion of left lower leg, initial encounter Status: Acute (5) Bilateral conjunctivitis ICD Codes: H10.9 - Unspecified conjunctivitis Status: Acute (6) History of seizure disorder ICD Codes: Z86.69 - History of seizure disorder Status: Acute (7) Dementia without behavioral disturbance ICD Codes: F03.90 - Unspecified dementia without behavioral disturbance Status: Acute (8) Schizoaffective disorder ICD Codes: F25.9 - Schizoaffective disorder, unspecified Status: Acute (9) Physical debility ICD Codes: R53.81 - Other malaise (10) Malnourished ICD Codes: E46 - Unspecified protein-calorie malnutrition Status: Chronic (11) Generalized weakness ICD Codes: R53.1 - Weakness Status: Chronic Assessment/Plan s/p fall with Nondisplaced oblique fracture of the proximal left humerus appreciate Orthopedic consult, plan at this time for conservative management, maintain sling on, currently fracture is nondisplaced Reevaluated by Dr. Morales, imaging studies reviewed, healing well. Continue with non op trx Bilateral conjunctivitis continue eye drops hx of multiple falls orthos bp ok EEG results noted, focal features on left continue Keppra Hx dementia schizoaffective continue home meds Daily PT OOB today with assistance sitter at [facility] continue OOB 2 x a day Malnourished, bitemporal muscle wasting add Boost TID Nutrition consult Physical debility pt. appears to be declining, unable to function independently to go back to [facility] at risk for fall and further injury that may lead to fractures, brain injury pt. benefits from a more supervised environment. d/w TAIWO Erickson at length she will try to reach out to family and facility to assess financial information Pt. is discharged when arrangements made DC to [facility] -apparently they can't accept as they don't have staff to supervise. They need pt. to be more independent. Which is not likely Discussed with nurse Discussed with Dr. Rodarte Discussed with CM at length This patient was seen by myself and Dr Rodarte, this note is written on his behalf Problem Qualifiers (1) Proximal humerus fracture: (2) Bilateral conjunctivitis: (3) Dementia without behavioral disturbance: (4) Schizoaffective disorder: (5) Malnourished: Qualified Codes: E44.0 - Moderate protein-calorie malnutrition Cynthia Chawla Oct 23, 2016 10:14
[2016-10-23] MEDS: CHOLECALCIFEROL (VIT D3) 400 UNIT TAB PO SCH (10:45)
[2016-10-23] MEDS: levETIRAcetam 500 MG TAB PO SCH ×2 (10:45→22:58)
[2016-10-23] MEDS: BENZTROPINE MESYLATE 1 MG TAB PO SCH ×2 (10:45→22:57)
[2016-10-23] MEDS: risperiDONE 1 MG TAB PO SCH ×2 (10:45→22:58)
[2016-10-23] MEDS: ESCITALOPRAM OXALATE 20 MG TAB PO SCH (10:45)
[2016-10-23] MEDS: DIVALPROEX SODIUM E.R. 250 MG TAB PO SCH ×2 (10:46→22:58)
[2016-10-23 11:34] VITALS: BP 124/64; PULSE 101; RESP 20; TEMP 99.1; O2SAT 96
[2016-10-23 16:01] VITALS: BP 119/62; PULSE 100; RESP 20; TEMP 99.2; O2SAT 94
[2016-10-23 20:49] LABS: BICARBONATE 30.6 MEQ/L (21.0-32.0); POTASSIUM 3.9 MEQ/L (3.5-5.1)
[2016-10-23 21:06] VITALS: BP 122/65; PULSE 93; RESP 17; TEMP 98; O2SAT 95
[2016-10-23] MEDS: TEMAZEPAM 15 MG CAP PO PRN (22:58)
[2016-10-23] MEDS: SODIUM CHLORIDE 0.9% FLUSH 10 ML FLUSH IV FLUSH SCH (22:58)
[2016-10-23] MEDS: DONEPEZIL HCL 5 MG TAB PO SCH (22:58)
[2016-10-24] VITALS: BP 120/68; PULSE 94; RESP 20; TEMP 98.2; O2SAT 93
[2016-10-24] MEDS: SODIUM CHLORIDE 0.9% FLUSH 10 ML FLUSH IV FLUSH SCH ×3 (01:40→21:11)
[2016-10-24] MEDS: HEPARIN SODIUM - SQ 10,000 UNITS/ML VIAL SQ SCH ×2 (01:40→12:04)
[2016-10-24 05:52] VITALS: BP 115/66; PULSE 90; RESP 18; TEMP 98.3; O2SAT 95
[2016-10-24] MEDS: POLYMYXIN/TRIMETHOPRIM OPHT SOLN 10 ML BTL EACH EYE SCH ×3 (05:57→17:55)
[2016-10-24 08:00] VITALS: BP 117/66; PULSE 79; RESP 18; TEMP 98.1; O2SAT 95
[2016-10-24] MEDS: ESCITALOPRAM OXALATE 20 MG TAB PO SCH (08:09)
[2016-10-24] MEDS: levETIRAcetam 500 MG TAB PO SCH ×2 (08:09→21:10)
[2016-10-24] MEDS: risperiDONE 1 MG TAB PO SCH ×2 (08:09→21:10)
[2016-10-24] MEDS: BENZTROPINE MESYLATE 1 MG TAB PO SCH ×2 (08:09→21:51)
[2016-10-24] MEDS: CHOLECALCIFEROL (VIT D3) 400 UNIT TAB PO SCH (08:10)
[2016-10-24] MEDS: DIVALPROEX SODIUM E.R. 250 MG TAB PO SCH ×2 (08:10→21:10)
--- NOTE | 2016-10-24 10:46 | HHI.PR ---
Subjective Subjective Remarks laying in bed sleepy awakes to voice oriented x 2 weak eating okay Review of Systems Constitutional Constitutional: Weakness Constitutional Remarks 12 point ros limited Musculoskeletal MS: Discomfort/Pain (left arm, recent fracture from fall) Psychiatric Psychiatric: Normal Mood (no acute agitation) Vitals/Results Vital Signs Vital Signs Date Time Temp Pulse Resp B/P (MAP) Pulse Ox O2 Delivery O2 Flow Rate FiO2 10/24/16 08:00 98.1 79 18 117/66 (83) 95 10/24/16 05:52 98.3 90 18 115/66 (82) 95 10/24/16 00:00 98.2 94 20 120/68 (85) 93 10/23/16 21:06 98.0 93 17 122/65 (84) 95 10/23/16 16:01 99.2 100 20 119/62 (81) 94 10/23/16 11:34 99.1 101 20 124/64 (84) 96 CBC/BMP: 10/20/16 0917 10/23/16 1925 Lab Results Laboratory Tests Test 10/23/16 19:25 Blood Urea Nitrogen 15 MG/DL Creatinine 0.72 MG/DL Random Glucose 212 MG/DL Calcium Level 8.6 MG/DL Sodium Level 134 MEQ/L Potassium Level 3.9 MEQ/L Chloride Level 96 MEQ/L Carbon Dioxide Level 30.6 MEQ/L Anion Gap 7 MEQ/L Estimat Glomerular Filtration Rate 111 ML/MIN Prealbumin 7 MG/DL Physical Exam General General Appearance: No Acute Distress, Comfortable Appearance Remarks bitemporal muscle wasting Eyes Eye Exam: Pupils Equal, Sclera White Eye Remarks left pupil mishapen,chronic Ears & Nose Ears & Nose Exam: Nasal Mucosa [place] Throat Throat Exam: Oral Mucosa [place] & Moist Neck Neck Exam: Neck Supple, Trachea Midline Pulmonary Resp Exam: Clear Bilaterally, Breath Sounds Equal Cardiology CV Exam: Regular, Normal Sinus Rhythm, Good Perfusion Gastrointestinal/Abdomen GI Exam: Soft, Non-Tender, Bowel Sounds Present Musculoskeletal MS Remarks left shoulder bruising, on sling Integumentary Skin Exam: Warm, Dry Skin Remarks bruising right knee, left arm Extremeties Extremities Exam: No Edema, Pedal Pulses Palpable Neurologic Neuro Exam: Alert, Awake, Speech Clear, Moving All Extremities (with the exception of left arm which is immobilized with sliding) VTE Prophylaxis VTE Prophylaxis Meds: Heparin Assessment/Plan Problem List: (1) Multiple falls ICD Codes: R29.6 - Repeated falls Status: Acute (2) Proximal humerus fracture ICD Codes: S42.209A - Unspecified fracture of upper end of unspecified humerus , initial encounter for closed fracture Status: Acute (3) Frequent falls ICD Codes: R29.6 - Repeated falls Status: Acute (4) Contusion of left knee and lower leg ICD Codes: S80.02XA - Contusion of left knee, initial encounter; S80.12XA - Contusion of left lower leg, initial encounter Status: Acute (5) Bilateral conjunctivitis ICD Codes: H10.9 - Unspecified conjunctivitis Status: Acute (6) History of seizure disorder ICD Codes: Z86.69 - History of seizure disorder Status: Acute (7) Dementia without behavioral disturbance ICD Codes: F03.90 - Unspecified dementia without behavioral disturbance Status: Acute (8) Schizoaffective disorder ICD Codes: F25.9 - Schizoaffective disorder, unspecified Status: Acute (9) Physical debility ICD Codes: R53.81 - Other malaise (10) Malnourished ICD Codes: E46 - Unspecified protein-calorie malnutrition Status: Chronic (11) Generalized weakness ICD Codes: R53.1 - Weakness Status: Chronic Assessment/Plan s/p fall with Nondisplaced oblique fracture of the proximal left humerus appreciate Orthopedic consult, plan at this time for conservative management, maintain sling on, currently fracture is nondisplaced Reevaluated by Dr. Morales, imaging studies reviewed, healing well. Continue with non op trx Bilateral conjunctivitis continue eye drops hx of multiple falls orthos bp ok EEG results noted, focal features on left continue Keppra Hx dementia schizoaffective continue home meds Daily PT OOB today with assistance sitter at [facility] continue OOB 2 x a day Malnourished, bitemporal muscle wasting Boost TID Nutrition consult Physical debility pt. appears to be declining, unable to function independently to go back to [facility] at risk for fall and further injury that may lead to fractures, brain injury pt. benefits from a more supervised environment. d/w TAIWO Erickson at length she will try to reach out to family and facility to assess financial information Pt. is discharged when arrangements made DC to [facility] -apparently they can't accept as they don't have staff to supervise. They need pt. to be more independent. Which is not likely Discussed with nurse Discussed with Dr. Rodarte This patient was seen by myself and Dr Rodarte, this note is written on his behalf Problem Qualifiers (1) Proximal humerus fracture: (2) Bilateral conjunctivitis: (3) Dementia without behavioral disturbance: (4) Schizoaffective disorder: (5) Malnourished: Qualified Codes: E44.0 - Moderate protein-calorie malnutrition Cynthia Chawla Oct 24, 2016 10:46
[2016-10-24 12:00] VITALS: BP 108/60; PULSE 100; RESP 16; TEMP 98.3; O2SAT 95
[2016-10-24 16:00] VITALS: BP 125/61; PULSE 88; RESP 15; TEMP 97.8; O2SAT 96
[2016-10-24 20:52] VITALS: BP 126/63; PULSE 94; RESP 17; TEMP 97.4; O2SAT 93
[2016-10-24] MEDS: TEMAZEPAM 15 MG CAP PO PRN (21:10)
[2016-10-24] MEDS: DONEPEZIL HCL 5 MG TAB PO SCH (21:10)
[2016-10-25 00:04] VITALS: BP 129/60; PULSE 90; RESP 17; TEMP 97.6; O2SAT 94
[2016-10-25] MEDS: HEPARIN SODIUM - SQ 10,000 UNITS/ML VIAL SQ SCH ×2 (01:00→13:42)
[2016-10-25] MEDS: POLYMYXIN/TRIMETHOPRIM OPHT SOLN 10 ML BTL EACH EYE SCH ×4 (01:30→17:59)
[2016-10-25 04:32] VITALS: BP 134/59; PULSE 71; PULSE 86; RESP 17; TEMP 98; O2SAT 98
[2016-10-25 07:31] VITALS: BP 113/68; PULSE 85; RESP 20; TEMP 97.5; O2SAT 96
[2016-10-25] MEDS: SODIUM CHLORIDE 0.9% FLUSH 10 ML FLUSH IV FLUSH SCH ×2 (09:00→20:31)
[2016-10-25] MEDS: CHOLECALCIFEROL (VIT D3) 400 UNIT TAB PO SCH (09:48)
[2016-10-25] MEDS: ESCITALOPRAM OXALATE 20 MG TAB PO SCH (09:48)
[2016-10-25] MEDS: levETIRAcetam 500 MG TAB PO SCH ×2 (09:48→20:30)
[2016-10-25] MEDS: BENZTROPINE MESYLATE 1 MG TAB PO SCH ×2 (09:48→20:30)
[2016-10-25] MEDS: risperiDONE 1 MG TAB PO SCH ×2 (09:48→20:30)
[2016-10-25] MEDS: DIVALPROEX SODIUM E.R. 250 MG TAB PO SCH ×2 (09:48→20:30)
--- NOTE | 2016-10-25 11:24 | HHI.PR ---
Subjective Subjective Remarks sitting up at nurse's desk wants to go back to bed oriented x 2 eating okay Review of Systems Constitutional Constitutional: Weakness Constitutional Remarks 12 point ros limited Musculoskeletal MS: Discomfort/Pain (left arm, recent fracture from fall) Psychiatric Psychiatric: Normal Mood (no acute agitation) Vitals/Results Vital Signs Vital Signs Date Time Temp Pulse Resp B/P (MAP) Pulse Ox O2 Delivery O2 Flow Rate FiO2 10/25/16 07:31 97.5 85 20 113/68 (83) 96 10/25/16 04:32 98.0 86 17 134/59 (84) 98 10/25/16 00:04 97.6 90 17 129/60 (83) 94 10/24/16 20:52 97.4 94 17 126/63 (84) 93 10/24/16 16:00 97.8 88 15 125/61 (82) 96 10/24/16 12:00 98.3 100 16 108/60 (76) 95 CBC/BMP: 10/23/16 1925 Physical Exam General General Appearance: No Acute Distress, Comfortable Appearance Remarks bitemporal muscle wasting Eyes Eye Exam: Pupils Equal, Sclera White Eye Remarks left pupil mishapen,chronic Ears & Nose Ears & Nose Exam: Nasal Mucosa [place] Throat Throat Exam: Oral Mucosa [place] & Moist Neck Neck Exam: Neck Supple, Trachea Midline Pulmonary Resp Exam: Clear Bilaterally, Breath Sounds Equal Cardiology CV Exam: Regular, Normal Sinus Rhythm, Good Perfusion Gastrointestinal/Abdomen GI Exam: Soft, Non-Tender, Bowel Sounds Present Musculoskeletal MS Remarks left shoulder bruising, on sling Integumentary Skin Exam: Warm, Dry Skin Remarks bruising right knee, left arm Extremeties Extremities Exam: No Edema, Pedal Pulses Palpable Neurologic Neuro Exam: Alert, Awake, Speech Clear, Moving All Extremities (with the exception of left arm which is immobilized with sliding) VTE Prophylaxis VTE Prophylaxis Meds: Heparin Assessment/Plan Problem List: (1) Multiple falls ICD Codes: R29.6 - Repeated falls Status: Acute (2) Proximal humerus fracture ICD Codes: S42.209A - Unspecified fracture of upper end of unspecified humerus , initial encounter for closed fracture Status: Acute (3) Frequent falls ICD Codes: R29.6 - Repeated falls Status: Acute (4) Contusion of left knee and lower leg ICD Codes: S80.02XA - Contusion of left knee, initial encounter; S80.12XA - Contusion of left lower leg, initial encounter Status: Acute (5) Bilateral conjunctivitis ICD Codes: H10.9 - Unspecified conjunctivitis Status: Acute (6) History of seizure disorder ICD Codes: Z86.69 - History of seizure disorder Status: Acute (7) Dementia without behavioral disturbance ICD Codes: F03.90 - Unspecified dementia without behavioral disturbance Status: Acute (8) Schizoaffective disorder ICD Codes: F25.9 - Schizoaffective disorder, unspecified Status: Acute (9) Physical debility ICD Codes: R53.81 - Other malaise Status: Chronic (10) Malnourished ICD Codes: E46 - Unspecified protein-calorie malnutrition Status: Chronic (11) Generalized weakness ICD Codes: R53.1 - Weakness Status: Chronic Assessment/Plan s/p fall with Nondisplaced oblique fracture of the proximal left humerus appreciate Orthopedic consult, plan at this time for conservative management, maintain sling on, currently fracture is nondisplaced Reevaluated by Dr. Morales, imaging studies reviewed, healing well. Continue with non op trx Bilateral conjunctivitis continue eye drops hx of multiple falls orthos bp ok EEG results noted, focal features on left continue Keppra Hx dementia schizoaffective continue home meds Daily PT OOB today with assistance sitter at [facility] continue OOB 2 x a day Malnourished, bitemporal muscle wasting Boost TID Nutrition consult Physical debility pt. appears to be declining, unable to function independently to go back to [facility] at risk for fall and further injury that may lead to fractures, brain injury pt. benefits from a more supervised environment. d/w TAIWO Erickson at length she will try to reach out to family and facility to assess financial information Pt. is discharged when arrangements made DC to [facility] -apparently they can't accept as they don't have staff to supervise. They need pt. to be more independent. Which is not likely Discussed with nurse Discussed with Dr. Rodarte Discussed with pt. This patient was seen by myself and Dr Rodarte, this note is written on his behalf Problem Qualifiers (1) Proximal humerus fracture: (2) Bilateral conjunctivitis: (3) Dementia without behavioral disturbance: (4) Schizoaffective disorder: (5) Malnourished: Qualified Codes: E44.0 - Moderate protein-calorie malnutrition Cynthia Chawla Oct 25, 2016 11:24
[2016-10-25 12:26] VITALS: BP 116/67; PULSE 95; RESP 20; TEMP 97.5; O2SAT 96
[2016-10-25 15:21] VITALS: BP 129/68; PULSE 88; RESP 20; TEMP 98.1; O2SAT 96
[2016-10-25 20:00] VITALS: BP 119/69; PULSE 85; RESP 19; TEMP 98.2; O2SAT 96
[2016-10-25] MEDS: TEMAZEPAM 15 MG CAP PO PRN (20:30)
[2016-10-25] MEDS: DONEPEZIL HCL 5 MG TAB PO SCH (20:30)
[2016-10-26] MEDS: HEPARIN SODIUM - SQ 10,000 UNITS/ML VIAL SQ SCH ×2 (00:41→12:16)
[2016-10-26] MEDS: POLYMYXIN/TRIMETHOPRIM OPHT SOLN 10 ML BTL EACH EYE SCH ×4 (00:41→17:26)
[2016-10-26 00:58] VITALS: BP 123/58; PULSE 90; RESP 20; TEMP 98.2; O2SAT 94
[2016-10-26 05:07] VITALS: BP 124/71; PULSE 97; RESP 20; TEMP 98.5; O2SAT 94
[2016-10-26] MEDS: levETIRAcetam 500 MG TAB PO SCH ×2 (08:03→20:33)
[2016-10-26] MEDS: risperiDONE 1 MG TAB PO SCH ×2 (08:03→20:34)
[2016-10-26] MEDS: DIVALPROEX SODIUM E.R. 250 MG TAB PO SCH ×2 (08:04→20:33)
[2016-10-26] MEDS: ESCITALOPRAM OXALATE 20 MG TAB PO SCH (08:04)
[2016-10-26] MEDS: BENZTROPINE MESYLATE 1 MG TAB PO SCH ×2 (08:04→20:34)
[2016-10-26] MEDS: CHOLECALCIFEROL (VIT D3) 400 UNIT TAB PO SCH (08:05)
[2016-10-26 08:24] VITALS: BP 118/71; PULSE 98; RESP 20; TEMP 98.5; O2SAT 95
[2016-10-26] MEDS: SODIUM CHLORIDE 0.9% FLUSH 10 ML FLUSH IV FLUSH SCH ×2 (09:00→20:34)
[2016-10-26 12:14] VITALS: BP 113/69; PULSE 101; RESP 18; TEMP 98; O2SAT 95
[2016-10-26 16:29] VITALS: BP 129/61; PULSE 92; RESP 20; TEMP 98.3; O2SAT 95
[2016-10-26 20:00] VITALS: BP 128/70; PULSE 92; RESP 17; TEMP 98.6; O2SAT 94
[2016-10-26] MEDS: DONEPEZIL HCL 5 MG TAB PO SCH (20:34)
[2016-10-26] MEDS: TEMAZEPAM 15 MG CAP PO PRN (20:34)
[2016-10-27] VITALS: BP 125/68; PULSE 89; RESP 18; TEMP 97.7; O2SAT 94
[2016-10-27] MEDS: POLYMYXIN/TRIMETHOPRIM OPHT SOLN 10 ML BTL EACH EYE SCH ×4 (00:18→17:19)
[2016-10-27] MEDS: HEPARIN SODIUM - SQ 10,000 UNITS/ML VIAL SQ SCH ×2 (01:21→12:39)
[2016-10-27 04:15] VITALS: BP 120/68; PULSE 88; RESP 20; TEMP 97; O2SAT 93
[2016-10-27 08:27] VITALS: BP 122/70; PULSE 94; RESP 18; TEMP 99.6; O2SAT 94
[2016-10-27] MEDS: BENZTROPINE MESYLATE 1 MG TAB PO SCH ×2 (08:50→21:51)
[2016-10-27] MEDS: ESCITALOPRAM OXALATE 20 MG TAB PO SCH (08:50)
[2016-10-27] MEDS: CHOLECALCIFEROL (VIT D3) 400 UNIT TAB PO SCH (08:51)
[2016-10-27] MEDS: levETIRAcetam 500 MG TAB PO SCH ×2 (08:51→21:50)
[2016-10-27] MEDS: DIVALPROEX SODIUM E.R. 250 MG TAB PO SCH ×2 (08:51→21:51)
[2016-10-27] MEDS: SODIUM CHLORIDE 0.9% FLUSH 10 ML FLUSH IV FLUSH SCH ×2 (08:51→21:00)
[2016-10-27] MEDS: risperiDONE 1 MG TAB PO SCH ×2 (08:51→21:51)
--- NOTE | 2016-10-27 10:08 | HHI.PR ---
Subjective Subjective Remarks Sitting out at station with staff member Eating and drinking fair amounts of food and liquid, encouraged to eat Afebrile When sitting up in chair leans to the right (Constanza Lucero) Review of Systems Constitutional Constitutional: Weakness Constitutional Remarks 10 point ROS done , minimal simple responsiveness to questions (Constanza Lucero) Musculoskeletal MS: Weakness (Constanza Lucero) Psychiatric Psychiatric: Normal Mood (no acute agitation) Psychiatric Remarks Flat affect (Constanza Lucero) Vitals/Results Vital Signs Vital Signs Date Time Temp Pulse Resp B/P (MAP) Pulse Ox O2 Delivery O2 Flow Rate FiO2 10/27/16 08:27 99.6 94 18 122/70 (87) 94 10/27/16 04:15 97.0 88 20 120/68 (85) 93 10/27/16 00:00 97.7 89 18 125/68 (87) 94 10/26/16 20:00 98.6 92 17 128/70 (89) 94 10/26/16 16:29 98.3 92 20 129/61 (83) 95 10/26/16 12:14 98.0 101 18 113/69 (84) 95 (Constanza Lucero) CBC/BMP: 10/23/16 1925 Imaging Remarks Last Impressions Hand X-Ray 10/22/16 0000 Signed Impressions: Service Date/Time: September 02:49 - CONCLUSION: Healing fifth metacarpal fracture with callus formation that has developed since the September 12 exam. Also again seen is an intra-articular fracture of the proximal phalanx of the fourth finger at the fourth MCP. This has less callus formation. Abdirizak Martin MD Shoulder X-Ray 10/04/16 0000 Signed Impressions: Service Date/Time: Tuesday, October 04, 2016 11:43 - CONCLUSION: Nondisplaced oblique fracture through the proximal left humerus. Cas Mendez MD Elbow X-Ray 10/04/16 0000 Signed Impressions: Service Date/Time: Tuesday, October 04, 2016 11:48 - CONCLUSION: Negative limited 2 view study. Cas Mendez MD Chest X-Ray 10/04/16 0000 Signed Impressions: Service Date/Time: Tuesday, October 04, 2016 11:40 - CONCLUSION: 1. Nondisplaced fracture involving the left proximal humerus. 2. No acute cardiac pulmonary disease. Cas Mendez MD (Nic,Constanza M. LINE ERECTOR APPRENTICE) Physical Exam General General Appearance: No Acute Distress, Comfortable (Nic,Constanza M. LINE ERECTOR APPRENTICE) Eyes Eye Exam: Pupils Equal, Sclera White Eye Remarks Bilateral conjunctivitis resolved, eyes are clear no drainage noted (NicConstanza M. LINE ERECTOR APPRENTICE) Ears & Nose Ears & Nose Exam: Nasal Mucosa [place] ([place],Constanza M. LINE ERECTOR APPRENTICE) Throat Throat Exam: Oral Mucosa [place] & Moist (Nic,Constanza M. LINE ERECTOR APPRENTICE) Neck Neck Exam: Neck Supple, Trachea Midline ([place],Constanza M. LINE ERECTOR APPRENTICE) Pulmonary Resp Exam: Clear Bilaterally, Breath Sounds Equal (Nic,Constanza M. LINE ERECTOR APPRENTICE) Cardiology CV Exam: Regular, Normal Sinus Rhythm ([place],Constanza M. LINE ERECTOR APPRENTICE) Gastrointestinal/Abdomen GI Exam: Soft, Non-Tender, Bowel Sounds Present (Nic,Constanza M. LINE ERECTOR APPRENTICE) Integumentary Skin Exam: Warm, Dry (Nic,Constanza M. LINE ERECTOR APPRENTICE) Extremeties Extremities Exam: No Edema, Pedal Pulses Palpable (Nic,Constanza M. LINE ERECTOR APPRENTICE) Neurologic Neuro Exam: Alert, Awake, Speech Clear, Moving All Extremities (with the exception of left arm which is immobilized with sliding) (Nic,Constanza M. LINE ERECTOR APPRENTICE) VTE Prophylaxis VTE Prophylaxis Meds: Heparin (NicConstanza M. LINE ERECTOR APPRENTICE) Assessment/Plan Problem List: (1) Multiple falls ICD Codes: R29.6 - Repeated falls Status: Acute (2) Proximal humerus fracture ICD Codes: S42.209A - Unspecified fracture of upper end of unspecified humerus , initial encounter for closed fracture Status: Acute (3) Frequent falls ICD Codes: R29.6 - Repeated falls Status: Acute (4) Contusion of left knee and lower leg ICD Codes: S80.02XA - Contusion of left knee, initial encounter; S80.12XA - Contusion of left lower leg, initial encounter Status: Acute (5) Bilateral conjunctivitis ICD Codes: H10.9 - Unspecified conjunctivitis Status: Acute (6) History of seizure disorder ICD Codes: Z86.69 - History of seizure disorder Status: Acute (7) Dementia without behavioral disturbance ICD Codes: F03.90 - Unspecified dementia without behavioral disturbance Status: Acute (8) Schizoaffective disorder ICD Codes: F25.9 - Schizoaffective disorder, unspecified Status: Acute (9) Physical debility ICD Codes: R53.81 - Other malaise Status: Chronic (10) Malnourished ICD Codes: E46 - Unspecified protein-calorie malnutrition Status: Chronic (11) Generalized weakness ICD Codes: R53.1 - Weakness Status: Chronic Assessment/Plan Vital signs reviewed trends are normal s/p fall with Nondisplaced oblique fracture of the proximal left humerus appreciate Orthopedic consult conservative management, currently maintained in a sling Continues with generalized debility, but is able to ambulate in english standby assist Monitor bowel regimen Bilateral conjunctivitis on admission Resolved hx of multiple falls Close monitoring for his safety, currently no recent falls since hospital admission Hx dementia schizoaffective medical management Daily PT OOB sitting at nurse's station with staff member Nutrition consult, for nourishment, Stephanie added with meals d/w TAIWO Erickson at length she will try to reach out to family and facility to assess financial information Discharge planning, spoke to Georgina case management this morning, currently working on snf placement, physical therapy and occupational therapy feel patient will not be able to return to an independent state. Discussed with nurse Discussed with Dr. Zapata, seen on his behalf Monitored closely per staff for his safety (Constanza Lucero) Assessment/Plan Patient seen and examined and as above Medications reviewed Continue current management discussed with RN (Valerie Zapata MD) Problem Qualifiers (1) Proximal humerus fracture: (2) Bilateral conjunctivitis: (3) Dementia without behavioral disturbance: (4) Schizoaffective disorder: (5) Malnourished: Qualified Codes: E44.0 - Moderate protein-calorie malnutrition Constanza Lucero Oct 27, 2016 10:07 Valerie Zapata MD Oct 27, 2016 15:57
[2016-10-27 11:59] VITALS: BP 126/70; PULSE 96; RESP 16; TEMP 98.7; O2SAT 97
[2016-10-27 15:43] VITALS: BP 127/73; PULSE 102; RESP 16; TEMP 97.6; O2SAT 96
[2016-10-27 20:45] VITALS: BP 125/88; PULSE 80; RESP 19; TEMP 97.7; O2SAT 97
[2016-10-27] MEDS: DONEPEZIL HCL 5 MG TAB PO SCH (21:52)
[2016-10-27] MEDS: TEMAZEPAM 15 MG CAP PO PRN (21:53)
[2016-10-28] MEDS: HEPARIN SODIUM - SQ 10,000 UNITS/ML VIAL SQ SCH ×2 (00:19→13:08)
[2016-10-28 00:30] VITALS: BP 130/80; PULSE 80; RESP 20; TEMP 98; O2SAT 96
[2016-10-28] MEDS: POLYMYXIN/TRIMETHOPRIM OPHT SOLN 10 ML BTL EACH EYE SCH ×4 (05:09→17:23)
[2016-10-28 08:00] VITALS: BP 120/70; PULSE 92; RESP 15; TEMP 98.2; O2SAT 93
[2016-10-28] MEDS: BENZTROPINE MESYLATE 1 MG TAB PO SCH ×2 (09:30→21:18)
[2016-10-28] MEDS: ESCITALOPRAM OXALATE 20 MG TAB PO SCH (09:30)
[2016-10-28] MEDS: CHOLECALCIFEROL (VIT D3) 400 UNIT TAB PO SCH (09:30)
[2016-10-28] MEDS: levETIRAcetam 500 MG TAB PO SCH ×2 (09:30→21:17)
[2016-10-28] MEDS: SODIUM CHLORIDE 0.9% FLUSH 10 ML FLUSH IV FLUSH SCH ×2 (09:30→21:19)
[2016-10-28] MEDS: DIVALPROEX SODIUM E.R. 250 MG TAB PO SCH ×2 (09:30→21:17)
[2016-10-28] MEDS: risperiDONE 1 MG TAB PO SCH ×2 (09:30→21:18)
--- NOTE | 2016-10-28 11:03 | HHI.PR ---
Subjective Subjective Remarks Sitting out at station with staff member Nutrition and by mouth intake adequate Out of sling able to move arm without pain, but still caution with R OM (Constanza Lucero) Review of Systems Constitutional Constitutional: Weakness Constitutional Remarks 10 point ROS done , minimal simple responsiveness to questions (Constanza Lucero) Musculoskeletal MS: Weakness (Constanza Lucero) Psychiatric Psychiatric: Normal Mood (no acute agitation) Psychiatric Remarks Flat affect (Constanza Lucero) Vitals/Results Vital Signs Vital Signs Date Time Temp Pulse Resp B/P (MAP) Pulse Ox O2 Delivery O2 Flow Rate FiO2 10/28/16 08:00 98.2 92 15 120/70 (87) 93 10/28/16 00:30 98.0 80 20 130/80 (97) 96 10/27/16 20:45 97.7 80 19 125/88 (100) 97 10/27/16 15:43 97.6 102 16 127/73 (91) 96 10/27/16 11:59 98.7 96 16 126/70 (88) 97 (Constanza Lucero) Physical Exam General General Appearance: No Acute Distress, Comfortable (Constanza Lucero) Eyes Eye Exam: Pupils Equal, Sclera White Eye Remarks Bilateral conjunctivitis resolved, eyes are clear no drainage noted (Constanza Lucero) Ears & Nose Ears & Nose Exam: Nasal Mucosa [place] (Constanza Lucero) Throat Throat Exam: Oral Mucosa [place] & Moist (Constanza Lucero) Neck Neck Exam: Neck Supple, Trachea Midline (Constanza Lucero) Pulmonary Resp Exam: Clear Bilaterally, Breath Sounds Equal (Constanza Lucero) Cardiology CV Exam: Regular, Normal Sinus Rhythm (Constanza Lucero) Gastrointestinal/Abdomen GI Exam: Soft, Non-Tender, Bowel Sounds Present (Constanza Lucero) Integumentary Skin Exam: Warm, Dry (Constanza Lucero) Extremeties Extremities Exam: No Edema, Pedal Pulses Palpable (Constanza Lucero) Neurologic Neuro Exam: Alert, Awake, Speech Clear, Moving All Extremities (with the exception of left arm which is immobilized with sliding) (Constanza Lucero) VTE Prophylaxis VTE Prophylaxis Meds: Heparin (Constanza Lucero) Assessment/Plan Problem List: (1) Multiple falls ICD Codes: R29.6 - Repeated falls Status: Acute (2) Proximal humerus fracture ICD Codes: S42.209A - Unspecified fracture of upper end of unspecified humerus , initial encounter for closed fracture Status: Acute (3) Frequent falls ICD Codes: R29.6 - Repeated falls Status: Acute (4) Contusion of left knee and lower leg ICD Codes: S80.02XA - Contusion of left knee, initial encounter; S80.12XA - Contusion of left lower leg, initial encounter Status: Acute (5) Bilateral conjunctivitis ICD Codes: H10.9 - Unspecified conjunctivitis Status: Acute (6) History of seizure disorder ICD Codes: Z86.69 - History of seizure disorder Status: Acute (7) Dementia without behavioral disturbance ICD Codes: F03.90 - Unspecified dementia without behavioral disturbance Status: Acute (8) Schizoaffective disorder ICD Codes: F25.9 - Schizoaffective disorder, unspecified Status: Acute (9) Physical debility ICD Codes: R53.81 - Other malaise Status: Chronic (10) Malnourished ICD Codes: E46 - Unspecified protein-calorie malnutrition Status: Chronic (11) Generalized weakness ICD Codes: R53.1 - Weakness Status: Chronic Assessment/Plan s/p fall with Nondisplaced oblique fracture of the proximal left humerus appreciate Orthopedic consult conservative management, arm is now out of sling patient is moving with more range of motion and without pain Continues with generalized debility, but is able to ambulate in english standby assist Monitor bowel regimen Bilateral conjunctivitis on admission Resolved Hx dementia schizoaffective medical management,history of multiple falls will need a safe environment for his discharge planning case management for placement Daily PT including working with stairs OOB sitting at nurse's station with staff member, enjoys being out of room and can carry on simple conversation Nutrition consult, for nourishment, Stephanie added with meals Discussed with nurse Discussed with Dr. Zapata, seen on his behalf Monitored closely per staff for his safety case management working on placement and her team (Constanza Lucero) Assessment/Plan Patient seen and examined as above [id number] time spent with patient Discussed with lead case manager about DC planning Plan of care discussed with CEPHALOMETRIC ANALYST (Valerie Zapata MD) Problem Qualifiers (1) Proximal humerus fracture: (2) Bilateral conjunctivitis: (3) Dementia without behavioral disturbance: (4) Schizoaffective disorder: (5) Malnourished: Qualified Codes: E44.0 - Moderate protein-calorie malnutrition Constanza Lucero Oct 28, 2016 11:03 Valerie Zapata MD Oct 28, 2016 15:34
[2016-10-28 12:00] VITALS: BP 122/72; PULSE 98; RESP 15; TEMP 97.4; O2SAT 94
[2016-10-28 16:00] VITALS: BP 120/70; PULSE 97; RESP 15; TEMP 97.6; O2SAT 95
[2016-10-28 20:00] VITALS: BP 122/69; PULSE 93; RESP 20; TEMP 98.2; O2SAT 94
[2016-10-28] MEDS: DONEPEZIL HCL 5 MG TAB PO SCH (21:18)
[2016-10-29] VITALS: BP 118/65; PULSE 90; RESP 18; TEMP 98.4; O2SAT 94
[2016-10-29] MEDS: HEPARIN SODIUM - SQ 10,000 UNITS/ML VIAL SQ SCH ×2 (00:33→12:36)
[2016-10-29] MEDS: POLYMYXIN/TRIMETHOPRIM OPHT SOLN 10 ML BTL EACH EYE SCH ×4 (00:33→17:37)
[2016-10-29] MEDS: TEMAZEPAM 15 MG CAP PO PRN (00:34)
[2016-10-29 04:00] VITALS: BP 119/57; PULSE 88; RESP 20; TEMP 98.3; O2SAT 93
[2016-10-29] MEDS: levETIRAcetam 500 MG TAB PO SCH ×2 (08:04→21:39)
[2016-10-29] MEDS: risperiDONE 1 MG TAB PO SCH ×2 (08:04→21:40)
[2016-10-29] MEDS: DIVALPROEX SODIUM E.R. 250 MG TAB PO SCH ×2 (08:04→21:39)
[2016-10-29] MEDS: BENZTROPINE MESYLATE 1 MG TAB PO SCH ×2 (08:04→21:41)
[2016-10-29] MEDS: CHOLECALCIFEROL (VIT D3) 400 UNIT TAB PO SCH (08:04)
[2016-10-29] MEDS: ESCITALOPRAM OXALATE 20 MG TAB PO SCH (08:04)
[2016-10-29] MEDS: SODIUM CHLORIDE 0.9% FLUSH 10 ML FLUSH IV FLUSH SCH ×2 (08:08→21:45)
[2016-10-29 08:19] VITALS: BP 115/67; PULSE 90; RESP 18; TEMP 99; O2SAT 94
--- NOTE | 2016-10-29 11:51 | HHI.PR ---
Subjective Subjective Remarks sitting up at nurse's desk awake, oriented x 2 noticed ambulating with PT tech, needs contact guard. Can be impulsive but overall has improved has no complaints Review of Systems Constitutional Constitutional: Weakness Constitutional Remarks 12 point ros limited Musculoskeletal MS: Weakness Psychiatric Psychiatric: Normal Mood (no acute agitation) Vitals/Results Vital Signs Vital Signs Date Time Temp Pulse Resp B/P (MAP) Pulse Ox O2 Delivery O2 Flow Rate FiO2 10/29/16 08:19 99.0 90 18 115/67 (83) 94 10/29/16 04:00 98.3 88 20 119/57 (77) 93 10/29/16 00:00 98.4 90 18 118/65 (82) 94 10/28/16 20:00 98.2 93 20 122/69 (86) 94 10/28/16 16:00 97.6 97 15 120/70 (87) 95 10/28/16 12:00 97.4 98 15 122/72 (89) 94 Physical Exam General General Appearance: No Acute Distress, Comfortable Appearance Remarks bitemporal muscle wasting Eyes Eye Exam: Pupils Equal, Sclera White Eye Remarks left pupil mishapen,chronic Ears & Nose Ears & Nose Exam: Nasal Mucosa [place] Throat Throat Exam: Oral Mucosa [place] & Moist Neck Neck Exam: Neck Supple, Trachea Midline Pulmonary Resp Exam: Clear Bilaterally, Breath Sounds Equal Cardiology CV Exam: Regular, Normal Sinus Rhythm Gastrointestinal/Abdomen GI Exam: Soft, Non-Tender, Bowel Sounds Present Musculoskeletal MS Remarks left shoulder bruising, on sling Integumentary Skin Exam: Warm, Dry Skin Remarks bruising right knee, left arm Extremeties Extremities Exam: No Edema, Pedal Pulses Palpable Neurologic Neuro Exam: Alert, Awake, Speech Clear, Moving All Extremities (with the exception of left arm which is immobilized with sliding) VTE Prophylaxis VTE Prophylaxis Meds: Heparin Assessment/Plan Problem List: (1) Multiple falls ICD Codes: R29.6 - Repeated falls Status: Acute (2) Proximal humerus fracture ICD Codes: S42.209A - Unspecified fracture of upper end of unspecified humerus , initial encounter for closed fracture Status: Acute (3) Frequent falls ICD Codes: R29.6 - Repeated falls Status: Acute (4) Contusion of left knee and lower leg ICD Codes: S80.02XA - Contusion of left knee, initial encounter; S80.12XA - Contusion of left lower leg, initial encounter Status: Acute (5) Bilateral conjunctivitis ICD Codes: H10.9 - Unspecified conjunctivitis Status: Acute (6) History of seizure disorder ICD Codes: Z86.69 - History of seizure disorder Status: Acute (7) Dementia without behavioral disturbance ICD Codes: F03.90 - Unspecified dementia without behavioral disturbance Status: Acute (8) Schizoaffective disorder ICD Codes: F25.9 - Schizoaffective disorder, unspecified Status: Acute (9) Physical debility ICD Codes: R53.81 - Other malaise Status: Chronic (10) Malnourished ICD Codes: E46 - Unspecified protein-calorie malnutrition Status: Chronic (11) Generalized weakness ICD Codes: R53.1 - Weakness Status: Chronic Assessment/Plan s/p fall with Nondisplaced oblique fracture of the proximal left humerus appreciate Orthopedic consult, plan at this time for conservative management, maintain sling on, currently fracture is nondisplaced Reevaluated by Dr. Morales, imaging studies reviewed, healing well. Continue with non op trx Bilateral conjunctivitis continue eye drops hx of multiple falls orthos bp ok EEG results noted, focal features on left continue Keppra Hx dementia schizoaffective continue home meds Daily PT OOB today with assistance sitter at b[facility] continue OOB 2 x a day Malnourished, bitemporal muscle wasting Boost TID Nutrition consult Physical debility pt. appears to be declining, unable to function independently to go back to [facility] at risk for fall and further injury that may lead to fractures, brain injury pt. benefits from a more supervised environment. Pt. is discharged when arrangements made CM is looking at SNF Discussed with nurse Discussed with Discussed with pt. This patient was seen by myself and Dr Zapata, this note is written on his behalf Problem Qualifiers (1) Proximal humerus fracture: (2) Bilateral conjunctivitis: (3) Dementia without behavioral disturbance: (4) Schizoaffective disorder: (5) Malnourished: Qualified Codes: E44.0 - Moderate protein-calorie malnutrition Cynthia Chawla Oct 29, 2016 11:51
[2016-10-29 11:59] VITALS: BP 114/69; PULSE 95; RESP 18; TEMP 97.6; O2SAT 96
[2016-10-29 15:57] VITALS: BP 125/69; PULSE 95; RESP 18; TEMP 98.3; O2SAT 96
[2016-10-29 20:00] VITALS: BP 129/71; PULSE 96; RESP 20; TEMP 98.1; O2SAT 93
[2016-10-29] MEDS: DONEPEZIL HCL 5 MG TAB PO SCH (21:42)
[2016-10-30] VITALS: BP 128/71; PULSE 103; RESP 20; TEMP 98.8; O2SAT 92
[2016-10-30] MEDS: POLYMYXIN/TRIMETHOPRIM OPHT SOLN 10 ML BTL EACH EYE SCH ×4 (00:01→17:20)
[2016-10-30] MEDS: HEPARIN SODIUM - SQ 10,000 UNITS/ML VIAL SQ SCH ×2 (00:01→13:02)
[2016-10-30] MEDS: TEMAZEPAM 15 MG CAP PO PRN ×2 (00:04→20:54)
[2016-10-30 04:00] VITALS: BP 125/70; PULSE 100; RESP 20; TEMP 98.6; O2SAT 91
[2016-10-30 08:00] VITALS: BP 109/57; PULSE 97; RESP 18; TEMP 97.8; O2SAT 97
[2016-10-30] MEDS: levETIRAcetam 500 MG TAB PO SCH ×2 (08:48→20:54)
[2016-10-30] MEDS: ESCITALOPRAM OXALATE 20 MG TAB PO SCH (08:48)
[2016-10-30] MEDS: SODIUM CHLORIDE 0.9% FLUSH 10 ML FLUSH IV FLUSH SCH ×2 (08:48→20:55)
[2016-10-30] MEDS: BENZTROPINE MESYLATE 1 MG TAB PO SCH ×2 (08:49→20:55)
[2016-10-30] MEDS: CHOLECALCIFEROL (VIT D3) 400 UNIT TAB PO SCH (08:49)
[2016-10-30] MEDS: DIVALPROEX SODIUM E.R. 250 MG TAB PO SCH ×2 (08:49→20:54)
[2016-10-30] MEDS: risperiDONE 1 MG TAB PO SCH ×2 (08:49→20:54)
--- NOTE | 2016-10-30 10:12 | HHI.PR ---
Subjective Subjective Remarks sitting up, attempting to pull depends on more ambulatory, requires contact guard awake, oriented x 2 has no complaints Review of Systems Constitutional Constitutional: Weakness Constitutional Remarks 12 point ros limited Musculoskeletal MS: Weakness Psychiatric Psychiatric: Normal Mood (no acute agitation) Vitals/Results Vital Signs Vital Signs Date Time Temp Pulse Resp B/P (MAP) Pulse Ox O2 Delivery O2 Flow Rate FiO2 10/30/16 08:00 97.8 97 18 109/57 (74) 97 10/30/16 04:00 98.6 100 20 125/70 (88) 91 10/30/16 00:00 98.8 103 20 128/71 (90) 92 10/29/16 20:00 98.1 96 20 129/71 (90) 93 10/29/16 15:57 98.3 95 18 125/69 (87) 96 10/29/16 11:59 97.6 95 18 114/69 (84) 96 Physical Exam General General Appearance: No Acute Distress, Comfortable Appearance Remarks bitemporal muscle wasting Eyes Eye Exam: Pupils Equal, Sclera White Eye Remarks left pupil mishapen,chronic Ears & Nose Ears & Nose Exam: Nasal Mucosa [place] Throat Throat Exam: Oral Mucosa [place] & Moist Neck Neck Exam: Neck Supple, Trachea Midline Pulmonary Resp Exam: Clear Bilaterally, Breath Sounds Equal Cardiology CV Exam: Regular, Normal Sinus Rhythm Gastrointestinal/Abdomen GI Exam: Soft, Non-Tender, Bowel Sounds Present Musculoskeletal MS Remarks left shoulder bruising, on sling Integumentary Skin Exam: Warm, Dry Skin Remarks bruising right knee, left arm Extremeties Extremities Exam: No Edema, Pedal Pulses Palpable Neurologic Neuro Exam: Alert, Awake, Speech Clear, Moving All Extremities (with the exception of left arm which is immobilized with sliding) VTE Prophylaxis VTE Prophylaxis Meds: Heparin Assessment/Plan Problem List: (1) Multiple falls ICD Codes: R29.6 - Repeated falls Status: Acute (2) Proximal humerus fracture ICD Codes: S42.209A - Unspecified fracture of upper end of unspecified humerus , initial encounter for closed fracture Status: Acute (3) Frequent falls ICD Codes: R29.6 - Repeated falls Status: Acute (4) Contusion of left knee and lower leg ICD Codes: S80.02XA - Contusion of left knee, initial encounter; S80.12XA - Contusion of left lower leg, initial encounter Status: Acute (5) Bilateral conjunctivitis ICD Codes: H10.9 - Unspecified conjunctivitis Status: Acute (6) History of seizure disorder ICD Codes: Z86.69 - History of seizure disorder Status: Acute (7) Dementia without behavioral disturbance ICD Codes: F03.90 - Unspecified dementia without behavioral disturbance Status: Acute (8) Schizoaffective disorder ICD Codes: F25.9 - Schizoaffective disorder, unspecified Status: Acute (9) Physical debility ICD Codes: R53.81 - Other malaise Status: Chronic (10) Malnourished ICD Codes: E46 - Unspecified protein-calorie malnutrition Status: Chronic (11) Generalized weakness ICD Codes: R53.1 - Weakness Status: Chronic Assessment/Plan s/p fall with Nondisplaced oblique fracture of the proximal left humerus appreciate Orthopedic consult, plan at this time for conservative management, maintain sling on, currently fracture is nondisplaced Reevaluated by Dr. Morales, imaging studies reviewed, healing well. Continue with non op trx Bilateral conjunctivitis continue eye drops hx of multiple falls orthos bp ok EEG results noted, focal features on left continue Keppra Hx dementia schizoaffective continue home meds Daily PT OOB today with assistance sitter at [facility] continue OOB 2 x a day Malnourished, bitemporal muscle wasting Boost TID Nutrition consult Physical debility pt. appears to be declining, unable to function independently to go back to [facility] at risk for fall and further injury that may lead to fractures, brain injury pt. benefits from a more supervised environment. Pt. is discharged when arrangements made CM is looking at SNF Discussed with nurse Discussed with Discussed with pt. This patient was seen by myself and Dr Zapata, this note is written on his behalf Problem Qualifiers (1) Proximal humerus fracture: (2) Bilateral conjunctivitis: (3) Dementia without behavioral disturbance: (4) Schizoaffective disorder: (5) Malnourished: Qualified Codes: E44.0 - Moderate protein-calorie malnutrition Cynthia Chawla Oct 30, 2016 10:12
[2016-10-30 12:00] VITALS: BP 119/68; PULSE 95; RESP 16; TEMP 98.4; O2SAT 97
[2016-10-30 16:00] VITALS: BP 127/74; PULSE 107; RESP 18; TEMP 98.1; O2SAT 95
[2016-10-30] MEDS: DONEPEZIL HCL 5 MG TAB PO SCH (20:54)
[2016-10-30 21:32] VITALS: BP 118/69; PULSE 99; RESP 20; TEMP 98.6; O2SAT 94
[2016-10-31] VITALS (7 sets, daily range): BP systolic 115–140; BP diastolic 67–89; PULSE 60–99; RESP 18–21; TEMP 97.6–99.5; O2SAT 92–96
[2016-10-31] MEDS: HEPARIN SODIUM - SQ 10,000 UNITS/ML VIAL SQ SCH ×2 (01:00→12:33)
[2016-10-31] MEDS: POLYMYXIN/TRIMETHOPRIM OPHT SOLN 10 ML BTL EACH EYE SCH ×5 (06:00→23:23)
[2016-10-31] MEDS: CHOLECALCIFEROL (VIT D3) 400 UNIT TAB PO SCH (08:48)
[2016-10-31] MEDS: DIVALPROEX SODIUM E.R. 250 MG TAB PO SCH ×2 (08:48→23:23)
[2016-10-31] MEDS: risperiDONE 1 MG TAB PO SCH ×2 (08:48→20:43)
[2016-10-31] MEDS: ESCITALOPRAM OXALATE 20 MG TAB PO SCH (08:48)
[2016-10-31] MEDS: levETIRAcetam 500 MG TAB PO SCH ×2 (08:48→20:43)
[2016-10-31] MEDS: SODIUM CHLORIDE 0.9% FLUSH 10 ML FLUSH IV FLUSH SCH ×2 (08:49→20:43)
[2016-10-31] MEDS: BENZTROPINE MESYLATE 1 MG TAB PO SCH ×2 (08:49→20:43)
--- NOTE | 2016-10-31 09:47 | HHI.PR ---
Subjective Subjective Remarks Resting in the bed, Appears comfortable No shortness of breath Afebrile (Constanza Lucero) Review of Systems Constitutional Constitutional: Weakness (generalized but appears to be improving slowly) Constitutional Remarks 10 point ROS done , minimal simple responsiveness to questions (Constanza Lucero) Musculoskeletal MS: Weakness (Constanza Lucero) Psychiatric Psychiatric: Normal Mood (no acute agitation) Psychiatric Remarks Flat affect (Constanza Lucero) Vitals/Results Vital Signs Vital Signs Date Time Temp Pulse Resp B/P (MAP) Pulse Ox O2 Delivery O2 Flow Rate FiO2 10/31/16 08:00 97.9 96 19 128/74 (92) 94 10/31/16 03:32 97.6 99 18 127/67 (87) 96 10/31/16 01:17 98.3 97 18 135/72 (93) 92 10/30/16 21:32 98.6 99 20 118/69 (85) 94 10/30/16 16:00 98.1 107 18 127/74 (91) 95 10/30/16 12:00 98.4 95 16 119/68 (85) 97 (Constanza Lucero) Current Medications Administered Medications Medications (Trade) Dose Ordered Sig/Daniel Route PRN Reason Start Time Stop Time Status Last Admin Dose Admin Benztropine Mesylate (Cogentin) 0.5 mg BID PO 10/04/16 21:00 10/31/16 08:49 Cholecalciferol (Vitamin D3) 400 units DAILY PO 10/05/16 09:00 10/31/16 08:48 Divalproex Sodium (Depakote Er) 250 mg BID PO 10/04/16 21:00 10/31/16 08:48 Donepezil HCl (Aricept) 5 mg HS PO 10/04/16 21:00 10/30/16 20:54 Escitalopram Oxalate (Lexapro) 20 mg DAILY PO 10/05/16 09:00 10/31/16 08:48 Levetriacetam (Keppra) 500 mg BID PO 10/04/16 21:00 10/31/16 08:48 Risperidone (risperDAL) 1 mg DAILY PO 10/05/16 09:00 10/31/16 08:48 Risperidone (risperDAL) 1 mg HS PO 10/04/16 21:00 10/30/16 20:54 Sodium Chloride (NS Flush) 2 ml BID IV FLUSH 10/04/16 21:00 10/31/16 08:49 Heparin Sodium (Porcine) (Heparin Inj) 5,000 units Q12H SQ 10/04/16 13:00 10/30/16 13:02 Polymyxin/ Trimethoprim Sulfate (Polytrim Opht Soln) 1 drop Q6HR EACH EYE 10/04/16 18:00 10/30/16 17:20 Temazepam (Restoril) 15 mg HS PRN PO insomnia 10/18/16 21:00 10/30/16 20:54 (Constanza LuceroP) Physical Exam General General Appearance: No Acute Distress, Comfortable, Sleeping (Constanza Lucero PHOTOGRAPHER SCIENTIFIC) Eyes Eye Exam: Pupils Equal, Sclera White Eye Remarks Bilateral conjunctivitis resolved, eyes are clear no drainage noted (Constanza Lucero PHOTOGRAPHER SCIENTIFIC) Ears & Nose Ears & Nose Exam: Nasal Mucosa [place] (Constanza Lucero PHOTOGRAPHER SCIENTIFIC) Throat Throat Exam: Oral Mucosa [place] & Moist (Constanza Lucero PHOTOGRAPHER SCIENTIFIC) Neck Neck Exam: Neck Supple, Trachea Midline (Constanza Lucero. PHOTOGRAPHER SCIENTIFIC) Pulmonary Resp Exam: Clear Bilaterally, Breath Sounds Equal (Constanza Lucero. PHOTOGRAPHER SCIENTIFIC) Cardiology CV Exam: Regular, Normal Sinus Rhythm (Constanza Lucero. PHOTOGRAPHER SCIENTIFIC) Gastrointestinal/Abdomen GI Exam: Soft, Non-Tender, Bowel Sounds Present (Constanza Lucero PHOTOGRAPHER SCIENTIFIC) Integumentary Skin Exam: Warm, Dry (Constanza Lucero. PHOTOGRAPHER SCIENTIFIC) Extremeties Extremities Exam: No Edema, Pedal Pulses Palpable (Constanza Lucero. PHOTOGRAPHER SCIENTIFIC) Neurologic Neuro Exam: Alert, Awake, Speech Clear, Moving All Extremities (with the exception of left arm which is immobilized with sliding) (Constanza Lucero. PHOTOGRAPHER SCIENTIFIC) VTE Prophylaxis VTE Prophylaxis Meds: Heparin (Constanza Lucero. PHOTOGRAPHER SCIENTIFIC) Assessment/Plan Problem List: (1) Multiple falls ICD Codes: R29.6 - Repeated falls Status: Acute (2) Proximal humerus fracture ICD Codes: S42.209A - Unspecified fracture of upper end of unspecified humerus , initial encounter for closed fracture Status: Acute (3) Frequent falls ICD Codes: R29.6 - Repeated falls Status: Acute (4) Contusion of left knee and lower leg ICD Codes: S80.02XA - Contusion of left knee, initial encounter; S80.12XA - Contusion of left lower leg, initial encounter Status: Acute (5) Bilateral conjunctivitis ICD Codes: H10.9 - Unspecified conjunctivitis Status: Acute (6) History of seizure disorder ICD Codes: Z86.69 - History of seizure disorder Status: Acute (7) Dementia without behavioral disturbance ICD Codes: F03.90 - Unspecified dementia without behavioral disturbance Status: Acute (8) Schizoaffective disorder ICD Codes: F25.9 - Schizoaffective disorder, unspecified Status: Acute (9) Physical debility ICD Codes: R53.81 - Other malaise Status: Chronic (10) Malnourished ICD Codes: E46 - Unspecified protein-calorie malnutrition Status: Chronic (11) Generalized weakness ICD Codes: R53.1 - Weakness Status: Chronic Assessment/Plan Vital signs reviewed, afebrile trends are normal Monitor bowel regimen s/p fall with Nondisplaced oblique fracture of the proximal left humerus Appreciate orthopedic consultation and follow-up Reevaluated by Dr. Morales, imaging studies reviewed, healing well. Continue with non op trx hx of multiple falls, continue aggressive physical therapy and occupational therapy which includes stairclimbing Hx dementia and schizoaffective disorder Medical management currently patient's affect is calm answers questions with simple answers Daily PT and OT twice a day if possible OOB daily and encouraged his mobility Malnourished, bitemporal muscle wasting Boost TID, appreciate dietary involvement Physical debility, slow gradual improvement but questionable whether he will maintain his independence status with [facility] High risk for falls CM is looking at SNF placement Discussed with nurse Discussed with , seen on his behalf Discussed with pt. (Constanza Lucero) Assessment/Plan Patient's evaluation done as above Awaiting for placement (Valerie Zapata MD) Problem Qualifiers (1) Proximal humerus fracture: (2) Bilateral conjunctivitis: (3) Dementia without behavioral disturbance: (4) Schizoaffective disorder: (5) Malnourished: Qualified Codes: E44.0 - Moderate protein-calorie malnutrition Constanza Lucero Oct 31, 2016 09:46 Valerie Zapata MD Oct 31, 2016 14:49
[2016-10-31] MEDS: DONEPEZIL HCL 5 MG TAB PO SCH (20:43)
[2016-10-31] MEDS: TEMAZEPAM 15 MG CAP PO PRN (23:23)
[2016-11-01] VITALS: BP 130/75; PULSE 88; RESP 20; TEMP 97.9; O2SAT 95
[2016-11-01] MEDS: HEPARIN SODIUM - SQ 10,000 UNITS/ML VIAL SQ SCH ×2 (02:34→12:57)
[2016-11-01 04:00] VITALS: BP 132/78; PULSE 90; RESP 19; TEMP 97.7; O2SAT 94
[2016-11-01] MEDS: POLYMYXIN/TRIMETHOPRIM OPHT SOLN 10 ML BTL EACH EYE SCH ×3 (06:00→22:18)
[2016-11-01 08:00] VITALS: BP 119/61; PULSE 109; RESP 20; TEMP 98.1; O2SAT 93
[2016-11-01] MEDS: SODIUM CHLORIDE 0.9% FLUSH 10 ML FLUSH IV FLUSH SCH ×2 (09:56→22:17)
[2016-11-01] MEDS: ESCITALOPRAM OXALATE 20 MG TAB PO SCH (09:57)
[2016-11-01] MEDS: risperiDONE 1 MG TAB PO SCH ×2 (09:57→22:16)
[2016-11-01] MEDS: DIVALPROEX SODIUM E.R. 250 MG TAB PO SCH ×2 (09:57→22:17)
[2016-11-01] MEDS: CHOLECALCIFEROL (VIT D3) 400 UNIT TAB PO SCH (09:57)
[2016-11-01] MEDS: levETIRAcetam 500 MG TAB PO SCH ×2 (09:57→22:17)
[2016-11-01] MEDS: BENZTROPINE MESYLATE 1 MG TAB PO SCH ×2 (09:58→22:16)
--- NOTE | 2016-11-01 10:23 | HHI.PR ---
Subjective Subjective Remarks Resting in the bed, Appetite fair Masters/Herrera-colored stools, today noted per/ staff Generalized mild jaundice noted (Constanza Lucero) Review of Systems Constitutional Constitutional: Weakness (generalized but appears to be improving slowly) Constitutional Remarks 10 point ROS done , minimal simple responsiveness to questions (Constanza Lucero) GI/Abdomen GI/Abdomen Remarks Mild jaundice noted (Constanza Lucero) Musculoskeletal MS: Weakness (Constanza Lucero) Psychiatric Psychiatric: Normal Mood (no acute agitation) Psychiatric Remarks Flat affect (Constanza Lucero) Vitals/Results Vital Signs Vital Signs Date Time Temp Pulse Resp B/P (MAP) Pulse Ox O2 Delivery O2 Flow Rate FiO2 11/01/16 08:00 98.1 109 20 119/61 (80) 93 11/01/16 04:00 97.7 90 19 132/78 (96) 94 11/01/16 00:00 97.9 88 20 130/75 (93) 95 10/31/16 20:45 98.8 92 21 129/89 (102) 94 10/31/16 16:00 98.5 99 19 125/73 (90) 94 10/31/16 12:00 99.5 93 20 140/74 (96) 94 (Constanza Lucero) Imaging Remarks Last Impressions Hand X-Ray 10/22/16 0000 Signed Impressions: Service Date/Time: September 02:49 - CONCLUSION: Healing fifth metacarpal fracture with callus formation that has developed since the September 12 exam. Also again seen is an intra-articular fracture of the proximal phalanx of the fourth finger at the fourth MCP. This has less callus formation. Abdirizak Martin MD Shoulder X-Ray 10/04/16 0000 Signed Impressions: Service Date/Time: Tuesday, October 04, 2016 11:43 - CONCLUSION: Nondisplaced oblique fracture through the proximal left humerus. Cas Mendez MD Elbow X-Ray 10/04/16 0000 Signed Impressions: Service Date/Time: Tuesday, October 04, 2016 11:48 - CONCLUSION: Negative limited 2 view study. Cas Mendez MD Chest X-Ray 10/04/16 0000 Signed Impressions: Service Date/Time: Tuesday, October 04, 2016 11:40 - CONCLUSION: 1. Nondisplaced fracture involving the left proximal humerus. 2. No acute cardiac pulmonary disease. Cas Mendez MD Current Medications Administered Medications Medications (Trade) Dose Ordered Sig/Daniel Route PRN Reason Start Time Stop Time Status Last Admin Dose Admin Benztropine Mesylate (Cogentin) 0.5 mg BID PO 10/04/16 21:00 11/01/16 09:58 Cholecalciferol (Vitamin D3) 400 units DAILY PO 10/05/16 09:00 11/01/16 09:57 Divalproex Sodium (Depakote Er) 250 mg BID PO 10/04/16 21:00 11/01/16 09:57 Donepezil HCl (Aricept) 5 mg HS PO 10/04/16 21:00 10/31/16 20:43 Escitalopram Oxalate (Lexapro) 20 mg DAILY PO 10/05/16 09:00 11/01/16 09:57 Levetriacetam (Keppra) 500 mg BID PO 10/04/16 21:00 11/01/16 09:57 Risperidone (risperDAL) 1 mg DAILY PO 10/05/16 09:00 11/01/16 09:57 Risperidone (risperDAL) 1 mg HS PO 10/04/16 21:00 10/31/16 20:43 Sodium Chloride (NS Flush) 2 ml BID IV FLUSH 10/04/16 21:00 11/01/16 09:56 Heparin Sodium (Porcine) (Heparin Inj) 5,000 units Q12H SQ 10/04/16 13:00 11/01/16 02:34 Polymyxin/ Trimethoprim Sulfate (Polytrim Opht Soln) 1 drop Q6HR EACH EYE 10/04/16 18:00 10/31/16 23:23 Temazepam (Restoril) 15 mg HS PRN PO insomnia 10/18/16 21:00 10/31/16 23:23 (Constanza Lucero) Physical Exam General General Appearance: No Acute Distress, Comfortable, Sleeping (Constanza Lucero) Eyes Eye Exam: Pupils Equal, Sclera White Eye Remarks Bilateral conjunctivitis resolved, eyes are clear no drainage noted, icterus noted (Constanza Lucero. BOTTLE WASHER MACHINE) Ears & Nose Ears & Nose Exam: Nasal Mucosa [place] (Constanza Lucero. BOTTLE WASHER MACHINE) Neck Neck Exam: Neck Supple, Trachea Midline (Constanza Lucero M. BOTTLE WASHER MACHINE) Pulmonary Resp Exam: Clear Bilaterally, Breath Sounds Equal (Constanza Lucero M. BOTTLE WASHER MACHINE) Cardiology CV Exam: Regular, Normal Sinus Rhythm (Constanza Lucero. BOTTLE WASHER MACHINE) Gastrointestinal/Abdomen GI Exam: Soft, Non-Tender, Bowel Sounds Present (Constanza Luecro M. BOTTLE WASHER MACHINE) Integumentary Skin Exam: Warm, Dry Skin Remarks Mild jaundice noted (Constanza Lucero. BOTTLE WASHER MACHINE) Extremeties Extremities Exam: No Edema, Pedal Pulses Palpable (Constanza Lucero. BOTTLE WASHER MACHINE) Neurologic Neuro Exam: Alert, Awake, Speech Clear, Moving All Extremities (with the exception of left arm which is immobilized with sliding) (Constanza Lucero. BOTTLE WASHER MACHINE) VTE Prophylaxis VTE Prophylaxis Meds: Heparin (Constanza Lucero M. BOTTLE WASHER MACHINE) Assessment/Plan Problem List: (1) Multiple falls ICD Codes: R29.6 - Repeated falls Status: Acute (2) Proximal humerus fracture ICD Codes: S42.209A - Unspecified fracture of upper end of unspecified humerus , initial encounter for closed fracture Status: Acute (3) Frequent falls ICD Codes: R29.6 - Repeated falls Status: Acute (4) Contusion of left knee and lower leg ICD Codes: S80.02XA - Contusion of left knee, initial encounter; S80.12XA - Contusion of left lower leg, initial encounter Status: Acute (5) Bilateral conjunctivitis ICD Codes: H10.9 - Unspecified conjunctivitis Status: Acute (6) History of seizure disorder ICD Codes: Z86.69 - History of seizure disorder Status: Acute (7) Dementia without behavioral disturbance ICD Codes: F03.90 - Unspecified dementia without behavioral disturbance Status: Acute (8) Schizoaffective disorder ICD Codes: F25.9 - Schizoaffective disorder, unspecified Status: Acute (9) Physical debility ICD Codes: R53.81 - Other malaise Status: Chronic (10) Malnourished ICD Codes: E46 - Unspecified protein-calorie malnutrition Status: Chronic (11) Generalized weakness ICD Codes: R53.1 - Weakness Status: Chronic Assessment/Plan Vital signs reviewed, afebrile trends are normal Monitor bowel regimen, noted herrera-colored/mastres stools per staff, left approximately 1-2 a day CBC and CMP ordered for tomorrow, patient has noted jaundice with mild icteric sclera, re labs for any acute changes. s/p fall with Nondisplaced oblique fracture of the proximal left humerus Appreciate orthopedic consultation and follow-up, in [facility] physical therapy Reevaluated by Dr. Morales, imaging studies reviewed, healing well. Continue with non op trx hx of multiple falls, continue aggressive physical therapy and occupational therapy which includes stairclimbing, bed daily Hx dementia and schizoaffective disorder Medical management currently patient's affect is calm answers questions with simple answers Malnourished, bitemporal muscle wasting Boost TID, appreciate dietary involvement Physical debility, slow gradual improvement but questionable whether he will maintain his independence status with [facility] High risk for falls CM is looking at SNF placement Discussed with nurse Discussed with , seen on his behalf Discussed with pt. (Constanza Lucero) Assessment/Plan Patient seen and examined as above Medications reviewed Plan of care discussed with BOTTLE WASHER MACHINE (Valerie Zapata MD) Problem Qualifiers (1) Proximal humerus fracture: (2) Bilateral conjunctivitis: (3) Dementia without behavioral disturbance: (4) Schizoaffective disorder: (5) Malnourished: Qualified Codes: E44.0 - Moderate protein-calorie malnutrition Constanza Lucero Nov 01, 2016 10:23 Valerie Zapata MD Nov 01, 2016 14:54
[2016-11-01 12:00] VITALS: BP 115/59; PULSE 104; RESP 21; TEMP 97.6; O2SAT 94
[2016-11-01 16:00] VITALS: BP 127/71; PULSE 93; RESP 20; TEMP 98.4; O2SAT 95
[2016-11-01 20:00] VITALS: BP 127/69; PULSE 94; RESP 16; TEMP 98.2; O2SAT 95
[2016-11-01] MEDS: DONEPEZIL HCL 5 MG TAB PO SCH (22:16)
[2016-11-02] VITALS: BP 126/70; PULSE 100; RESP 18; TEMP 98.2; O2SAT 94
[2016-11-02] MEDS: HEPARIN SODIUM - SQ 10,000 UNITS/ML VIAL SQ SCH (01:32)
[2016-11-02] MEDS: TEMAZEPAM 15 MG CAP PO PRN ×2 (01:32→21:48)
[2016-11-02 04:00] VITALS: BP 103/62; PULSE 99; RESP 16; TEMP 97.9; O2SAT 94
[2016-11-02] MEDS: POLYMYXIN/TRIMETHOPRIM OPHT SOLN 10 ML BTL EACH EYE SCH ×4 (05:23→18:04)
[2016-11-02] MEDS: risperiDONE 1 MG TAB PO SCH ×2 (07:49→21:48)
[2016-11-02] MEDS: CHOLECALCIFEROL (VIT D3) 400 UNIT TAB PO SCH (07:49)
[2016-11-02] MEDS: BENZTROPINE MESYLATE 1 MG TAB PO SCH ×2 (07:49→21:49)
[2016-11-02] MEDS: levETIRAcetam 500 MG TAB PO SCH ×2 (07:50→21:49)
[2016-11-02] MEDS: ESCITALOPRAM OXALATE 20 MG TAB PO SCH (07:50)
[2016-11-02] MEDS: SODIUM CHLORIDE 0.9% FLUSH 10 ML FLUSH IV FLUSH SCH ×2 (07:50→21:00)
[2016-11-02] MEDS: DIVALPROEX SODIUM E.R. 250 MG TAB PO SCH ×2 (07:54→21:49)
[2016-11-02 08:00] VITALS: BP 123/63; PULSE 66; RESP 20; TEMP 97.8; O2SAT 93
--- NOTE | 2016-11-02 08:00 | HHI.PR ---
Subjective Subjective Remarks Requires minimal assistance to assist sitting up on side of bed Appetite fair to good, no cough when taking by mouth fluids Skin mildly icteric Continues with herrera colored stools, occult positive Afebrile (Constanza Lucero) Review of Systems Constitutional Constitutional: Weakness (generalized but appears to be improving slowly) Constitutional Remarks 10 point ROS done , answers with short simple communication (Constanza Lucero) GI/Abdomen GI/Abdomen Remarks Mild jaundice noted Herrera-colored stools (Constanza Lucero) Musculoskeletal MS: Weakness (Constanza Lucero) Psychiatric Psychiatric: Normal Mood (no acute agitation) Psychiatric Remarks Flat affect (Constanza Lucero) Vitals/Results Vital Signs Vital Signs Date Time Temp Pulse Resp B/P (MAP) Pulse Ox O2 Delivery O2 Flow Rate FiO2 11/02/16 04:00 97.9 99 16 103/62 (76) 94 11/02/16 00:00 98.2 100 18 126/70 (88) 94 11/01/16 20:00 98.2 94 16 127/69 (88) 95 11/01/16 16:00 98.4 93 20 127/71 (89) 95 11/01/16 12:00 97.6 104 21 115/59 (77) 94 (Constanza Lucero) Lab Results Laboratory Tests Test 11/02/16 07:27 White Blood Count 4.1 TH/MM3 Red Blood Count 3.40 MIL/MM3 Hemoglobin 9.9 GM/DL Hematocrit 30.3 % Mean Corpuscular Volume 89.1 FL Mean Corpuscular Hemoglobin 29.0 PG Mean Corpuscular Hemoglobin Concent 32.5 % Red Cell Distribution Width 17.1 % Platelet Count 155 TH/MM3 Mean Platelet Volume 8.6 FL Blood Urea Nitrogen 14 MG/DL Creatinine 0.48 MG/DL Random Glucose 113 MG/DL Total Protein 7.0 GM/DL Albumin 1.8 GM/DL Calcium Level 8.5 MG/DL Alkaline Phosphatase 617 U/L Aspartate Amino Transf (AST/SGOT) 139 U/L Alanine Aminotransferase (ALT/SGPT) 161 U/L Total Bilirubin 9.2 MG/DL Sodium Level 135 MEQ/L Potassium Level 4.1 MEQ/L Chloride Level 99 MEQ/L Carbon Dioxide Level 29.7 MEQ/L Anion Gap 6 MEQ/L Estimat Glomerular Filtration Rate 177 ML/MIN Microbiology Microbiology 11/01/16 Stool Occult Blood (MAIK) - Final, Complete HEMOCCULT POSITIVE Imaging Remarks Last Impressions Hand X-Ray 10/22/16 0000 Signed Impressions: Service Date/Time: September 02:49 - CONCLUSION: Healing fifth metacarpal fracture with callus formation that has developed since the September 12 exam. Also again seen is an intra-articular fracture of the proximal phalanx of the fourth finger at the fourth MCP. This has less callus formation. Abdirizak Martin MD Shoulder X-Ray 10/04/16 0000 Signed Impressions: Service Date/Time: Tuesday, October 04, 2016 11:43 - CONCLUSION: Nondisplaced oblique fracture through the proximal left humerus. Cas Mendez MD Elbow X-Ray 10/04/16 0000 Signed Impressions: Service Date/Time: Tuesday, October 04, 2016 11:48 - CONCLUSION: Negative limited 2 view study. Cas Mendez MD Chest X-Ray 10/04/16 0000 Signed Impressions: Service Date/Time: Tuesday, October 04, 2016 11:40 - CONCLUSION: 1. Nondisplaced fracture involving the left proximal humerus. 2. No acute cardiac pulmonary disease. Cas Menedz MD Current Medications Administered Medications Medications (Trade) Dose Ordered Sig/Daniel Route PRN Reason Start Time Stop Time Status Last Admin Dose Admin Benztropine Mesylate (Cogentin) 0.5 mg BID PO 10/04/16 21:00 11/02/16 07:49 Cholecalciferol (Vitamin D3) 400 units DAILY PO 10/05/16 09:00 11/02/16 07:49 Divalproex Sodium (Depakote Er) 250 mg BID PO 10/04/16 21:00 11/02/16 07:54 Donepezil HCl (Aricept) 5 mg HS PO 10/04/16 21:00 11/01/16 22:16 Escitalopram Oxalate (Lexapro) 20 mg DAILY PO 10/05/16 09:00 11/02/16 07:50 Levetriacetam (Keppra) 500 mg BID PO 10/04/16 21:00 11/02/16 07:50 Risperidone (risperDAL) 1 mg DAILY PO 10/05/16 09:00 11/02/16 07:49 Risperidone (risperDAL) 1 mg HS PO 10/04/16 21:00 11/01/16 22:16 Sodium Chloride (NS Flush) 2 ml BID IV FLUSH 10/04/16 21:00 11/02/16 07:50 Heparin Sodium (Porcine) (Heparin Inj) 5,000 units Q12H SQ 10/04/16 13:00 11/02/16 01:32 Polymyxin/ Trimethoprim Sulfate (Polytrim Opht Soln) 1 drop Q6HR EACH EYE 10/04/16 18:00 11/02/16 05:23 Temazepam (Restoril) 15 mg HS PRN PO insomnia 10/18/16 21:00 11/02/16 01:32 (Constanza Lucero) Physical Exam General General Appearance: No Acute Distress, Comfortable, Sleeping (Constanza Lucero) Eyes Eye Exam: Pupils Equal, Sclera White Eye Remarks Bilateral conjunctivitis resolved, eyes are clear no drainage noted, icterus noted (Constanza Lucero) Ears & Nose Ears & Nose Exam: Nasal Mucosa [place] (Constanza Lucero) Neck Neck Exam: Neck Supple, Trachea Midline (Constanza Lucero) Pulmonary Resp Exam: Clear Bilaterally, Breath Sounds Equal (Constanza Lucero) Cardiology CV Exam: Regular, Normal Sinus Rhythm (Constanza Lucero) Gastrointestinal/Abdomen GI Exam: Soft, Non-Tender, Bowel Sounds Present GI Remarks Positive Hemoccult (Constanza Lucero) Integumentary Skin Exam: Warm, Dry Skin Remarks Mild jaundice noted (Constanza Lucero) Extremeties Extremities Exam: No Edema, Pedal Pulses Palpable (Constanza Lucero) Neurologic Neuro Exam: Alert, Awake, Speech Clear, Moving All Extremities (with the exception of left arm which is immobilized with sliding) (Constanza Lucero) VTE Prophylaxis VTE Prophylaxis Meds: Heparin (Constanza Lucero) Assessment/Plan Problem List: (1) Multiple falls ICD Codes: R29.6 - Repeated falls Status: Acute (2) Proximal humerus fracture ICD Codes: S42.209A - Unspecified fracture of upper end of unspecified humerus , initial encounter for closed fracture Status: Acute (3) Frequent falls ICD Codes: R29.6 - Repeated falls Status: Acute (4) Contusion of left knee and lower leg ICD Codes: S80.02XA - Contusion of left knee, initial encounter; S80.12XA - Contusion of left lower leg, initial encounter Status: Acute (5) Bilateral conjunctivitis ICD Codes: H10.9 - Unspecified conjunctivitis Status: Acute (6) History of seizure disorder ICD Codes: Z86.69 - History of seizure disorder Status: Acute (7) Dementia without behavioral disturbance ICD Codes: F03.90 - Unspecified dementia without behavioral disturbance Status: Acute (8) Schizoaffective disorder ICD Codes: F25.9 - Schizoaffective disorder, unspecified Status: Acute (9) Physical debility ICD Codes: R53.81 - Other malaise Status: Chronic (10) Malnourished ICD Codes: E46 - Unspecified protein-calorie malnutrition Status: Chronic (11) Generalized weakness ICD Codes: R53.1 - Weakness Status: Chronic Assessment/Plan Vital signs reviewed, afebrile trends are normal, pulse 99 Monitor bowel regimen, hemoglobin 9.9 , up 1 to the bathroom several times last night, stools soft remained herrera-colored, stool Hemoccult positive, platelet count 155 patient has noted jaundice with mild icteric sclera, elevated liver enzymes as well as bilirubin s/p fall with Nondisplaced oblique fracture of the proximal left humerus Appreciate orthopedic consultation and follow-up, in [facility] physical therapy Reevaluated by Dr. Morales, imaging studies reviewed, healing well. Continue with non op trx hx of multiple falls, continue aggressive physical therapy and occupational therapy which includes stairclimbing, bed daily jaundice, blood labs are pending, herrera-colored stools at least 2+ a day, was up several times last night with formed herrera-colored stools. Hemoccult positive, consult GI for expert opinion and plan a care, patient placed on SCDs and TEDs, subcutaneous heparin discontinued. Bilirubin elevated as well as liver enzymes from last lab testings. Hx dementia and schizoaffective disorder Medical management currently patient's affect is calm answers questions with simple answers Malnourished, bitemporal muscle wasting Boost TID, appreciate dietary involvement, appetite fair to good Physical debility, slow gradual improvement but questionable whether he will maintain his independence status with [facility], patient required some assistance to sit up on side of bed this a.m. High risk for falls, monitor closely per staff CM is looking at SNF placement Discussed with nurse Discussed with , seen on his behalf Discussed with pt. 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
[2016-11-02 08:29] LABS: HEMATOCRIT 30.3 % (39.0-51.0); MEAN CELL VOLUME 89.1 FL (80.0-100.0); MEAN CORPUSCULAR HGB CONC 32.5 % (32.0-36.0); PLATELET COUNT 155 TH/MM3 (150-450); RED CELL DISTRIBUTION WIDTH 17.1 % (11.6-17.2); REVIEW FLAG FINAL; WHITE BLOOD COUNT 4.1 TH/MM3 (4.0-11.0)
[2016-11-02 08:56] LABS: ALT (GPT) 161 U/L (12-78); ANION GAP 6 MEQ/L (5-15); AST (GOT) 139 U/L (15-37); BICARBONATE 29.7 MEQ/L (21.0-32.0); BLOOD UREA NITROGEN 14 MG/DL (7-18); CHLORIDE 99 MEQ/L (98-107); GLOMERULAR FILTRATION RATE 177 ML/MIN (>89); POTASSIUM 4.1 MEQ/L (3.5-5.1); SODIUM (NA) 135 MEQ/L (136-145)
[2016-11-02 08:57] LABS: ALKALINE PHOSPHATASE 617 U/L (45-117); TOTAL BILIRUBIN ADULT 9.2 MG/DL (0.2-1.0)
[2016-11-02] MEDS ORDERED: CHOLESTYRAMINE 4 GM PACKET PO SCH (11:30)
[2016-11-02 12:00] VITALS: BP 115/61; PULSE 69; RESP 20; TEMP 98.2; O2SAT 97
[2016-11-02 16:00] VITALS: BP 111/60; PULSE 102; RESP 20; TEMP 98.3; O2SAT 97
[2016-11-02] MEDS ORDERED: DIATRIZOATE MEGLUM/DIATRIZOATE SOD 9 ML CUP PO ONE (19:00)
[2016-11-02 20:00] VITALS: BP 115/64; PULSE 96; RESP 18; TEMP 97.3; O2SAT 96
[2016-11-02] MEDS: DONEPEZIL HCL 5 MG TAB PO SCH (21:48)
[2016-11-03] VITALS (7 sets, daily range): BP systolic 112–126; BP diastolic 61–96; PULSE 80–97; RESP 17–20; TEMP 97.1–98.4; O2SAT 94–97
[2016-11-03] MEDS: POLYMYXIN/TRIMETHOPRIM OPHT SOLN 10 ML BTL EACH EYE SCH ×5 (05:16→23:48)
[2016-11-03] MEDS ORDERED: IOHEXOL 350 MG/ML 10 ML VIAL (for RAD DIAG) IVCONTRAST ONE (07:58)
--- NOTE | 2016-11-03 08:15 | RADRPT ---
EXAM DATE/TIME: 11/03/2016 07:53 [facility] COMPARISON: CT ABDOMEN & PELVIS W CONTRAST, July 09, 2016, 13:22. INDICATIONS : Jaundice, elevated liver function. IV CONTRAST: 70 cc Omnipaque 350 (iohexol) IV ORAL CONTRAST: Prescribed oral contrast ingested. RADIATION DOSE: 8.27 CTDIvol (mGy) MEDICAL HISTORY : None SURGICAL HISTORY : Cholecystectomy. ENCOUNTER: Initial ACUITY: 1 day PAIN SCALE: 0/10 LOCATION: abdomen TECHNIQUE: Volumetric scanning of the abdomen and pelvis was performed. Using automated exposure control and ad justment of the mA and/or kV according to patient size, radiation dose was kept as low as reasonably achievable to obtain optimal diagnostic quality images. DICOM format image data is available electro nically for review and comparison. FINDINGS: Minimal bibasilar parenchymal changes. There is compensated cardiomegaly. There is widespread apparent metastatic disease in the liver. The spleen is prominent. Extensive viscosities are seen in the abdomen with cavernous transformation of the portal vein. Pancreas is grossly unremarkable 4 cm rocco hepatis lymph node is noted. Adrenal glands unremarkable There is symmetrical renal function Large mass is seen is present in the sigmoid colon and adjacent to the bladder on the left side would be consistent with adenocarcinoma of the colon. Review of bone windows reveals only degenerative changes. CONCLUSION: Widespread metastatic disease to the liver from presumed adenocarcinoma sigmoid colon. 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 There is no ascites. Dharmesh Nunn MD FACR on November 03, 2016 at 8:05 Board Certified Radiologist. This report was verified electronically.
[2016-11-03] MEDS: CHOLECALCIFEROL (VIT D3) 400 UNIT TAB PO SCH (08:44)
[2016-11-03] MEDS: BENZTROPINE MESYLATE 1 MG TAB PO SCH ×2 (08:44→22:37)
[2016-11-03] MEDS: DIVALPROEX SODIUM E.R. 250 MG TAB PO SCH ×2 (08:44→22:37)
[2016-11-03] MEDS: levETIRAcetam 500 MG TAB PO SCH ×2 (08:45→22:37)
[2016-11-03] MEDS: SODIUM CHLORIDE 0.9% FLUSH 10 ML FLUSH IV FLUSH SCH ×2 (08:45→22:37)
[2016-11-03] MEDS: risperiDONE 1 MG TAB PO SCH ×2 (08:45→22:37)
[2016-11-03] MEDS: ESCITALOPRAM OXALATE 20 MG TAB PO SCH (08:45)
--- NOTE | 2016-11-03 11:55 | HHI.PR ---
Subjective Subjective Remarks Up in chair out in station, mostly monitor per staff Skin color and sclera icteric Alert answers questions appropriately and can recall history when questions answered Afebrile (Constanza Lucero) Review of Systems Constitutional Constitutional: Weakness (generalized but appears to be improving slowly) Constitutional Remarks 10 point ROS done , answers with short simple communication (Constanza Lucero) GI/Abdomen GI/Abdomen Remarks Mild jaundice noted Herrera-colored stools (Constanza Lucero) Musculoskeletal MS: Weakness (Constanza Lucero) Psychiatric Psychiatric: Normal Mood (no acute agitation) Psychiatric Remarks Flat affect (Constanza Lucero) Vitals/Results Vital Signs Vital Signs Date Time Temp Pulse Resp B/P (MAP) Pulse Ox O2 Delivery O2 Flow Rate FiO2 11/03/16 08:04 97.7 86 18 119/96 (104) 96 11/03/16 04:45 97.5 80 18 115/88 (97) 96 11/03/16 00:00 97.1 80 19 125/65 (85) 96 11/02/16 20:00 97.3 96 18 115/64 (81) 96 11/02/16 16:00 98.3 102 20 111/60 (77) 97 11/02/16 12:00 98.2 69 20 115/61 (79) 97 (Constanza Lucero) CBC/BMP: 11/02/16 0727 11/02/16 0727 Current Medications Administered Medications Medications (Trade) Dose Ordered Sig/Daniel Route PRN Reason Start Time Stop Time Status Last Admin Dose Admin Benztropine Mesylate (Cogentin) 0.5 mg BID PO 10/04/16 21:00 11/03/16 08:44 Cholecalciferol (Vitamin D3) 400 units DAILY PO 10/05/16 09:00 11/03/16 08:44 Divalproex Sodium (Depakote Er) 250 mg BID PO 10/04/16 21:00 11/03/16 08:44 Donepezil HCl (Aricept) 5 mg HS PO 10/04/16 21:00 11/02/16 21:48 Escitalopram Oxalate (Lexapro) 20 mg DAILY PO 10/05/16 09:00 11/03/16 08:45 Levetriacetam (Keppra) 500 mg BID PO 10/04/16 21:00 11/03/16 08:45 Risperidone (risperDAL) 1 mg DAILY PO 10/05/16 09:00 11/03/16 08:45 Risperidone (risperDAL) 1 mg HS PO 10/04/16 21:00 11/02/16 21:48 Sodium Chloride (NS Flush) 2 ml BID IV FLUSH 10/04/16 21:00 11/03/16 08:45 Polymyxin/ Trimethoprim Sulfate (Polytrim Opht Soln) 1 drop Q6HR EACH EYE 10/04/16 18:00 11/02/16 18:04 Temazepam (Restoril) 15 mg HS PRN PO insomnia 10/18/16 21:00 11/02/16 21:48 (Constanza Lucero) Physical Exam General General Appearance: No Acute Distress, Comfortable (Constanza Lucero) Eyes Eye Exam: Pupils Equal, Sclera White Eye Remarks Bilateral conjunctivitis resolved, eyes are clear no drainage noted, icterus noted (Constanza Lucero) Ears & Nose Ears & Nose Exam: Nasal Mucosa [place] (Constanza Lucero) Neck Neck Exam: Neck Supple, Trachea Midline (Constanza LuceroP) Pulmonary Resp Exam: Clear Bilaterally, Breath Sounds Equal (Constanza Lucero) Cardiology CV Exam: Regular, Normal Sinus Rhythm (Constanza Lucero) Gastrointestinal/Abdomen GI Exam: Soft, Non-Tender, Bowel Sounds Present GI Remarks Positive Hemoccult (Constanza Lucero) Integumentary Skin Exam: Warm, Dry Skin Remarks Mild jaundice noted (Constanza Lucero) Extremeties Extremities Exam: No Edema, Pedal Pulses Palpable (Constanza LuceroP) Neurologic Neuro Exam: Alert, Awake, Speech Clear, Moving All Extremities (with the exception of left arm which is immobilized with sliding) (Constanza Lucero) VTE Prophylaxis VTE Prophylaxis Meds: Heparin (Constanza Lucero) Assessment/Plan Problem List: (1) Multiple falls ICD Codes: R29.6 - Repeated falls Status: Acute (2) Proximal humerus fracture ICD Codes: S42.209A - Unspecified fracture of upper end of unspecified humerus , initial encounter for closed fracture Status: Acute (3) Frequent falls ICD Codes: R29.6 - Repeated falls Status: Acute (4) Contusion of left knee and lower leg ICD Codes: S80.02XA - Contusion of left knee, initial encounter; S80.12XA - Contusion of left lower leg, initial encounter Status: Acute (5) Bilateral conjunctivitis ICD Codes: H10.9 - Unspecified conjunctivitis Status: Acute (6) History of seizure disorder ICD Codes: Z86.69 - History of seizure disorder Status: Acute (7) Dementia without behavioral disturbance ICD Codes: F03.90 - Unspecified dementia without behavioral disturbance Status: Acute (8) Schizoaffective disorder ICD Codes: F25.9 - Schizoaffective disorder, unspecified Status: Acute (9) Physical debility ICD Codes: R53.81 - Other malaise Status: Chronic (10) Malnourished ICD Codes: E46 - Unspecified protein-calorie malnutrition Status: Chronic (11) Generalized weakness ICD Codes: R53.1 - Weakness Status: Chronic Assessment/Plan Vital signs reviewed, afebrile, other trends normal range Monitor bowel regimen, likely-colored stools 2-3 a day s/p fall with Nondisplaced oblique fracture of the proximal left humerus Appreciate orthopedic consultation and follow-up, in [facility] physical therapy Reevaluated by Dr. Morales, imaging studies reviewed, healing well. Continue with non op trx hx of multiple falls, continue aggressive physical therapy and occupational therapy which includes stairclimbing, bed daily Probable cirrhosis, patient states history of jaundice, , herrera-colored stools at least 2+ a day, was up several times last night with formed herrera-colored stools. Hemoccult positive, c, patient placed on SCDs and TEDs, subcutaneous heparin discontinued. Bilirubin elevated as well as liver enzymes from last lab testings. GI consult pending Patient was alert and cooperative today, discussed if he had ever had any problems with jaundice before, patient said yes cirrhosis due to alcohol, but states it was a long time ago Hx dementia and schizoaffective disorder Medical management currently patient's affect is calm answers questions with simple answers Malnourished, bitemporal muscle wasting Boost TID, appreciate dietary involvement, appetite fair to good Physical debility, slow gradual improvement but questionable whether he will maintain his independence status with DANIELLA, Sitting out in station in chair, tolerates without any acute distress or shortness of breath High risk for falls, continue to monitor closely per staff CM is looking at SNF placement, versus [facility] if he continues to improve Discussed with nurse Discussed with , seen on his behalf Discussed with pt. (Constanza Lucero) Assessment/Plan pt seen and examined as above labs reviewed meds reviewed Radiological data reviewed GI input appreciated CT showed patient has metastatic disease to the liver from presumed adenocarcinoma sigmoid colon. With cirrhosis. plan fo care pilar as above Discussed with patient as per patient he has cirrhosis after drinking for a long time he quit drinking when he was in [place]. Condition guarded prognosis overall looking for (Valerie Zapata MD) Problem Qualifiers (1) Proximal humerus fracture: (2) Bilateral conjunctivitis: (3) Dementia without behavioral disturbance: (4) Schizoaffective disorder: (5) Malnourished: Qualified Codes: E44.0 - Moderate protein-calorie malnutrition Constanza Lucero Nov 03, 2016 11:55 Valerie Zapata MD Nov 03, 2016 16:27
--- NOTE | 2016-11-03 15:18 | MB ---
cc: MERRY CHAPMAN M.D. DATE OF CONSULTATION: 11/02/[address] Sandy. DATE OF : 1955 REASON FOR CONSULTATION Jaundice, elevation of liver enzymes and hannah stools. HISTORY OF PRESENT ILLNESS Mr. Jones is a 61-year-old gentleman who was admitted on 10/04/2016 after a fall with a fracture of the left humerus. Since then he is admitted to the hospital and he is undergoing physical therapy. He does have a history of liver cirrhosis, most recently he was noted to be jaundiced and having hannah tarry stools. Also liver enzymes showed elevation since his admission. He is a very poor historian. He denies any nausea or vomiting, abdominal pain, constipation or diarrhea. He stated he never had this kind of problem in the past. PAST MEDICAL HISTORY 1. Liver cirrhosis. 2. Osteoarthritis. 3. Seizure disorder. 4. Psychiatric disorder. 5. Multiple falls. 6. Anxiety. PAST SURGICAL HISTORY 1. Left eye surgery. 2. Abdominal surgery. 3. Cholecystectomy. ALLERGIES ___ FLOUR. MEDICATION Medication at home: 1. Donepezil. 2. Divalproex. 3. Risperdal. 4. Lexapro. 5. Keppra. 6. Tamazopam. 7. Vitamin D. 8. Benztropine. In the hospital currently the patient is on: 1. Restoril. 2. Tylenol p.r.n. 3. Lexapro. 4. Risperidol. 5. Cogentin. 6. Depakote. 7. Aricept. 8. Ophthalmic solution. 9. Zofran. 10. Milk of magnesia. 11. Lactulose p.r.n. REVIEW OF SYSTEMS CONSTITUTIONAL: He denies any fever or chills, weight loss or weight gain. ENT: No alteration in baseline hearing or visual acuity. PULMONARY: Denies any chest pain, shortness of breath. GASTROINTESTINAL: As above. GENITOURINARY: Denies dysuria, hematuria. HEMATOLOGIC: Denies any history of anemia or bleeding disorder. PHYSICAL EXAMINATION GENERAL: On clinical exam he is sitting in bed, in no distress. Mild jaundice. HEENT: PERRLA. Jaundice. NECK: No JVD. No lymphadenopathy. CHEST: Clear to auscultation and palpation. CARDIOVASCULAR: S1, S2. No murmur. ABDOMEN: Soft, nontender. Bowel sounds are present. 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 VITAL SIGNS: His temperature is 93, pulse 102, respiration 20, blood pressure 110/60, pulse ox 97. LABORATORY DATA White count 4.1, hemoglobin 9.9, platelets 155. His chemistry suggestive today of a total bilirubin of 9.2, was 1.2 on admission, AST 139, was 58, AST is 161, was 65, alkaline phosphatase 617, was 460 in the past. His albumin is 1.2. IMAGING STUDIES No imaging of his abdomen available at this time. In the past no liver workup was performed, I am able to review, had abdominal CT back on 07/09/2016 that was suggestive of cirrhosis with small nodular liver, splenomegaly, portal hypertension, small hiatal hernia, diverticulosis. IMPRESSION Mr. Jones is a very pleasant gentleman recently noted to have jaundice, hannah tarry stool and elevation of his liver enzymes, Concern for possible biliary obstruction, elevation of the liver enzymes, new medication effect needs to be excluded too. RECOMMENDATIONS CT abdomen and pelvis with pancreatic cuts Direct and indirect bilirubin, Hepatitis profile, tumor markers including alpha-fetoprotein, CA 19-9,CEA ALBER, anti-smooth muscle antibody, antimitochondrial antibody, ferritin, iron, celiac panel will be sent Supportive care. If any indication of obstructive jaundice consider ERCP, if no indication and no etiology for the elevation found consider liver biopsy. Further recommendation will depend on the patient's clinical status and the above results. I would like to thank Dr. Sandy for referring him to our office for consultation. MD KIERRA ChiB/TLSterling /6:50 PM /2:37 PM GEORGE
[2016-11-03 16:12] LABS: BICARBONATE 29.1 MEQ/L (21.0-32.0); INDIRECT BILIRUBIN 2.3 MG/DL (0.0-0.8); POTASSIUM 4.6 MEQ/L (3.5-5.1); TOTAL BILIRUBIN ADULT 11.3 MG/DL (0.2-1.0)
--- NOTE | 2016-11-03 20:26 | HHI.GIFU ---
GI Follow-up Note Consult Follow-up Subjective: Patient laying in bed comfortably, feeling better .No nausea, vomiting . CT discussed -needs further evaluation . Never had coloscopy Objective: PHYSICAL EXAMINATION: Vitals signs stable No fever Vital Signs Date Time Temp Pulse Resp B/P (MAP) Pulse Ox O2 Delivery O2 Flow Rate FiO2 11/03/16 15:48 98.1 97 20 112/69 (83) 97 11/03/16 12:29 98.4 93 17 126/71 (89) 94 HEENT: Pupils round and reactive to light; normocephalic; atraumatic; jaundice. Throat is clear. NECK: Neck is supple, no JVD, no lymphadenopathy. CHEST: Chest is clear to auscultation and percussion. CARDIAC: Regular rate and rhythm with no murmur gallop or rubs. ABDOMEN: Soft, nondistended, nontender; no hepatosplenomegaly; bowel sounds are present in all four quadrants. EXTREMITIES: No clubbing, cyanosis, or edema. SKIN: Normal; no rash; jaundice. 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 Available Data (labs, X- Rays, Procedues) : Laboratory Tests Test 11/02/16 07:27 11/03/16 14:15 White Blood Count 4.1 TH/MM3 Red Blood Count 3.40 MIL/MM3 Hemoglobin 9.9 GM/DL Hematocrit 30.3 % Mean Corpuscular Volume 89.1 FL Mean Corpuscular Hemoglobin 29.0 PG Mean Corpuscular Hemoglobin Concent 32.5 % Red Cell Distribution Width 17.1 % Platelet Count 155 TH/MM3 Mean Platelet Volume 8.6 FL Blood Urea Nitrogen 14 MG/DL 12 MG/DL Creatinine 0.48 MG/DL 0.57 MG/DL Random Glucose 113 MG/DL 156 MG/DL Total Protein 7.0 GM/DL 8.0 GM/DL Albumin 1.8 GM/DL 2.0 GM/DL Calcium Level 8.5 MG/DL 8.8 MG/DL Alkaline Phosphatase 617 U/L 708 U/L Aspartate Amino Transf (AST/SGOT) 139 U/L 148 U/L Alanine Aminotransferase (ALT/SGPT) 161 U/L 177 U/L Total Bilirubin 9.2 MG/DL 11.3 MG/DL Sodium Level 135 MEQ/L 130 MEQ/L Potassium Level 4.1 MEQ/L 4.6 MEQ/L Chloride Level 99 MEQ/L 94 MEQ/L Carbon Dioxide Level 29.7 MEQ/L 29.1 MEQ/L Anion Gap 6 MEQ/L 7 MEQ/L Estimat Glomerular Filtration Rate 177 ML/MIN 145 ML/MIN Iron Level 40 MCG/DL Ferritin 211 NG/ML Direct Bilirubin 7.5 MG/DL 9.0 MG/DL Indirect Bilirubin 2.3 MG/DL Tumor Marker Alpha Fetoprotein 1.6 NG/ML Carcinoembryonic Antigen 15.7 NG/ML CA 19-9 Antigen 225.6 U/ML ASSESSMENT/PLAN: elevated liver enzymes-obstructive pattern, ct suggesting metastatic disease , possible primary sigmoid cancer mass in sigmoid liver cirrhosis Recommendations egd/colon in am oncology consult based on finding and lfts trend may need liver biopsy vs eus overall poor prognosis may consider palliative care consult It was a pleasure seeing Drake Jones. Thank you for this consult. Entered by: Agustina Dhaliwal MD Nov 03, 2016 20:26
[2016-11-03] MEDS ORDERED: MAGNESIUM CITRATE SOLN 300 ML BTL PO ONE (20:30)
[2016-11-03] MEDS: DONEPEZIL HCL 5 MG TAB PO SCH (22:37)
[2016-11-04 04:00] VITALS: BP 115/58; PULSE 78; RESP 18; TEMP 97.4; O2SAT 92
[2016-11-04] MEDS: POLYMYXIN/TRIMETHOPRIM OPHT SOLN 10 ML BTL EACH EYE SCH ×4 (05:32→23:32)
[2016-11-04] MEDS ORDERED: MAGNESIUM CITRATE SOLN 300 ML BTL PO ONE (06:00)
[2016-11-04 08:01] VITALS: BP 125/68; PULSE 91; RESP 18; TEMP 97.4; O2SAT 96
[2016-11-04] MEDS: risperiDONE 1 MG TAB PO SCH ×2 (09:00→22:41)
[2016-11-04] MEDS: SODIUM CHLORIDE 0.9% FLUSH 10 ML FLUSH IV FLUSH SCH ×2 (09:00→22:41)
[2016-11-04] MEDS: BENZTROPINE MESYLATE 1 MG TAB PO SCH ×2 (09:00→22:40)
[2016-11-04] MEDS: levETIRAcetam 500 MG TAB PO SCH ×2 (09:00→22:40)
[2016-11-04] MEDS: CHOLECALCIFEROL (VIT D3) 400 UNIT TAB PO SCH (09:00)
[2016-11-04] MEDS: DIVALPROEX SODIUM E.R. 250 MG TAB PO SCH ×2 (09:00→22:41)
[2016-11-04] MEDS: ESCITALOPRAM OXALATE 20 MG TAB PO SCH (09:00)
--- NOTE | 2016-11-04 09:29 | HHI.PR ---
Subjective Subjective Remarks Sitting out at station with staff Alert, asking simple questions and appears more oriented to current situation Calm affect Colonoscopy pending, initially denied any abdominal pain but states mild pain with right upper quadrant palpation (Constanza Lucero) Review of Systems Constitutional Constitutional: Weakness (generalized but appears to be improving slowly) Constitutional Remarks 10 point ROS done , answers with short simple communication (Constanza Lucero) GI/Abdomen GI/Abdomen Remarks Mild jaundice noted Herrera-colored stools Mild distention noted, right upper quadrant discomfort with palpation light (Constanza Lucero) Musculoskeletal MS: Weakness (Constanza Lucero) Psychiatric Psychiatric: Normal Mood (no acute agitation) Psychiatric Remarks Flat affect (Constanza Lucero) Vitals/Results Vital Signs Vital Signs Date Time Temp Pulse Resp B/P (MAP) Pulse Ox O2 Delivery O2 Flow Rate FiO2 11/04/16 08:01 97.4 91 18 125/68 (87) 96 11/04/16 04:00 97.4 78 18 115/58 (77) 92 11/03/16 23:53 97.6 82 18 115/61 (79) 95 11/03/16 20:59 97.8 85 18 112/63 (79) 97 11/03/16 15:48 98.1 97 20 112/69 (83) 97 11/03/16 12:29 98.4 93 17 126/71 (89) 94 (Constanza Lucero) CBC/BMP: 11/02/16 0727 11/03/16 1415 Lab Results Laboratory Tests Test 11/03/16 14:15 Blood Urea Nitrogen 12 MG/DL Creatinine 0.57 MG/DL Random Glucose 156 MG/DL Total Protein 8.0 GM/DL Albumin 2.0 GM/DL Calcium Level 8.8 MG/DL Alkaline Phosphatase 708 U/L Aspartate Amino Transf (AST/SGOT) 148 U/L Alanine Aminotransferase (ALT/SGPT) 177 U/L Total Bilirubin 11.3 MG/DL Direct Bilirubin 9.0 MG/DL Sodium Level 130 MEQ/L Potassium Level 4.6 MEQ/L Chloride Level 94 MEQ/L Carbon Dioxide Level 29.1 MEQ/L Anion Gap 7 MEQ/L Estimat Glomerular Filtration Rate 145 ML/MIN Indirect Bilirubin 2.3 MG/DL Tumor Marker Alpha Fetoprotein 1.6 NG/ML Carcinoembryonic Antigen 15.7 NG/ML CA 19-9 Antigen 225.6 U/ML Imaging Remarks Last Impressions Abdomen/Pelvis CT 11/03/16 0000 Signed Impressions: Service Date/Time: Thursday, November 03, 2016 07:53 - CONCLUSION: Widespread metastatic disease to the liver from presumed adenocarcinoma sigmoid colon. 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 There is no ascites. Dharmesh Nunn MD FACR Hand X-Ray 10/22/16 0000 Signed Impressions: Service Date/Time: September 02:49 - CONCLUSION: Healing fifth metacarpal fracture with callus formation that has developed since the September 12 exam. Also again seen is an intra-articular fracture of the proximal phalanx of the fourth finger at the fourth MCP. This has less callus formation. Abdirizak Martin MD Shoulder X-Ray 10/04/16 0000 Signed Impressions: Service Date/Time: Tuesday, October 04, 2016 11:43 - CONCLUSION: Nondisplaced oblique fracture through the proximal left humerus. Cas Mendez MD Elbow X-Ray 10/04/16 0000 Signed Impressions: Service Date/Time: Tuesday, October 04, 2016 11:48 - CONCLUSION: Negative limited 2 view study. Cas Mendez MD Chest X-Ray 10/04/16 0000 Signed Impressions: Service Date/Time: Tuesday, October 04, 2016 11:40 - CONCLUSION: 1. Nondisplaced fracture involving the left proximal humerus. 2. No acute cardiac pulmonary disease. Cas Mendez MD Current Medications Administered Medications Medications (Trade) Dose Ordered Sig/Daniel Route PRN Reason Start Time Stop Time Status Last Admin Dose Admin Benztropine Mesylate (Cogentin) 0.5 mg BID PO 10/04/16 21:00 11/03/16 22:37 Cholecalciferol (Vitamin D3) 400 units DAILY PO 10/05/16 09:00 11/03/16 08:44 Divalproex Sodium (Depakote Er) 250 mg BID PO 10/04/16 21:00 11/03/16 22:37 Donepezil HCl (Aricept) 5 mg HS PO 10/04/16 21:00 11/03/16 22:37 Escitalopram Oxalate (Lexapro) 20 mg DAILY PO 10/05/16 09:00 11/03/16 08:45 Levetriacetam (Keppra) 500 mg BID PO 10/04/16 21:00 11/03/16 22:37 Risperidone (risperDAL) 1 mg DAILY PO 10/05/16 09:00 11/03/16 08:45 Risperidone (risperDAL) 1 mg HS PO 10/04/16 21:00 11/03/16 22:37 Sodium Chloride (NS Flush) 2 ml BID IV FLUSH 10/04/16 21:00 11/03/16 22:37 Polymyxin/ Trimethoprim Sulfate (Polytrim Opht Soln) 1 drop Q6HR EACH EYE 10/04/16 18:00 11/04/16 05:32 Temazepam (Restoril) 15 mg HS PRN PO insomnia 10/18/16 21:00 11/02/16 21:48 (Constanza Lucero) Physical Exam General General Appearance: No Acute Distress, Comfortable, Pale Appearance Remarks Mild icteric skin and sclera generalized (Constanza Lucero) Eyes Eye Exam: Pupils Equal, Sclera White Eye Remarks Bilateral conjunctivitis resolved, eyes are clear no drainage noted, icterus noted (Constanza Lucero) Throat Throat Remarks Mild icterus (Constanza Lucero) Neck Neck Exam: Neck Supple, Trachea Midline (Constanza Lucero) Pulmonary Resp Exam: Clear Bilaterally, Breath Sounds Equal (Constanza LuceroP) Cardiology CV Exam: Regular, Normal Sinus Rhythm (Constanza Lucero) Gastrointestinal/Abdomen GI Exam: Soft, Bowel Sounds Present GI Remarks Positive Hemoccult, mild right upper quadrant discomfort with light palpation (Constanza Lucero) Musculoskeletal MS Exam: Joints Intact (healing right humerus) (Constanza LuceroP) Integumentary Skin Exam: Warm, Dry Skin Remarks Mild jaundice noted (Constanza Lucero) Extremeties Extremities Exam: No Edema, Pedal Pulses Palpable (Constanza Lucero) Neurologic Neuro Exam: Alert, Awake, Speech Clear, Moving All Extremities (with the exception of left arm which is immobilized with sliding) (Constanza Lucero) VTE Prophylaxis VTE Prophylaxis Meds: Heparin (Constanza Lucero) Assessment/Plan Problem List: (1) Multiple falls ICD Codes: R29.6 - Repeated falls Status: Acute (2) Proximal humerus fracture ICD Codes: S42.209A - Unspecified fracture of upper end of unspecified humerus , initial encounter for closed fracture Status: Acute (3) Frequent falls ICD Codes: R29.6 - Repeated falls Status: Acute (4) Contusion of left knee and lower leg ICD Codes: S80.02XA - Contusion of left knee, initial encounter; S80.12XA - Contusion of left lower leg, initial encounter Status: Acute (5) Bilateral conjunctivitis ICD Codes: H10.9 - Unspecified conjunctivitis Status: Acute (6) History of seizure disorder ICD Codes: Z86.69 - History of seizure disorder Status: Acute (7) Dementia without behavioral disturbance ICD Codes: F03.90 - Unspecified dementia without behavioral disturbance Status: Acute (8) Schizoaffective disorder ICD Codes: F25.9 - Schizoaffective disorder, unspecified Status: Acute (9) Physical debility ICD Codes: R53.81 - Other malaise Status: Chronic (10) Malnourished ICD Codes: E46 - Unspecified protein-calorie malnutrition Status: Chronic (11) Generalized weakness ICD Codes: R53.1 - Weakness Status: Chronic Assessment/Plan Vital signs reviewed, afebrile, BPtrends normal range bowel regimen, daily, herrera-colored Currently nothing by mouth for colonoscopy, patient hungry s/p fall with Nondisplaced oblique fracture of the proximal left humerus Appreciate orthopedic consultation and follow-up, in [facility] physical therapy Reevaluated by Dr. Morales, imaging studies reviewed, healing well. Continue with non op trx hx of multiple falls, continue aggressive physical therapy and occupational therapy which includes stairclimbing, bed daily history cirrhosis, CT scan shows metastatic disease, had no carcinoma per CT scan sigmoid colon cancer herrera-colored stools at least 1-2+ a day, Hemoccult positive, c, patient placed on SCDs and TEDs, subcutaneous heparin discontinued. Bilirubin elevated as well as liver enzymes. Appreciate GI consult and plan a care, abdomen CT scan shows widespread metastatic disease probable from colon, probable biopsy needed. , Nothing by mouth for colonoscopy today Hx dementia and schizoaffective disorder Medical management currently patient's affect is calm answers questions with simple answers Malnourished, bitemporal muscle wasting Boost TID, appreciate dietary involvement, appetite fair to good Physical debility, slow gradual improvement, DC planning on hold until GI workup complete Sitting out in station in chair, tolerates without any acute distress or shortness of breath Discussed with nurse Discussed with , seen on his behalf Discussed with pt. 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
[2016-11-04 12:33] VITALS: BP 114/61; PULSE 91; RESP 18; TEMP 98; O2SAT 97
[2016-11-04 14:23] LABS: ANA SCREEN NEG (NEG)
--- NOTE | 2016-11-04 15:40 | GIPROC ---
[facility] [address] [facility]. [facility], [address] COLONOSCOPY PROCEDURE REPORT EXAM DATE: 11/04/2016 PATIENT NAME: Drake Jones MR #: [id number] BIRTHDATE: 1955 ENDOSCOPIST: Agustina Whiting MD ORDER #: [id number] DEPARTMENT HELPER: Zoya Orellana STATUS: inpatient INDICATIONS: The patient is a 61 yr old male here for a colonoscopy due to abnormal ct , sigmoid mass PROCEDURE PERFORMED: Colonoscopy with biopsy Colonoscopy with polypectomy MEDICATIONS: None and Per Anesthesia. PREP QUALITY: fair PREP TYPE:GoLytely ESTIMATED BLOOD LOSS: None CONSENT: The patient understands the risks and benefits of the procedure and understands that these risks include, but are not limited to: sedation, allergic reaction, infection, perforation and/or bleeding. Alternative means of evaluation and treatment include, among others: physical exam, x-rays, and/or surgical intervention. The patient elects to proceed with this endoscopic procedure. medical equipment was checked for proper function. Hand hygiene and appropriate measures for infection prevention was taken. After the risks, benefits and alternatives of the procedure were thoroughly explained, Informed consent was verified, confirmed and timeout was successfully executed by the treatment team. A digital exam revealed hemorrhoids The New [id number] (Std Gastro) endoscope was introduced through the anus and advanced to the cecum, which was identified by both the appendix and ileocecal valve. The instrument was then slowly withdrawn as the colon was fully examined. COLON FINDINGS: Diverticulosis sigmoid,descending large mass in sigmoid, very fraible , bleeding easily, nearly obstructing-biopsies polyp diminutive hepatic flexure -biopsy polyp diminutive -splenic flexure-biopsy two pedunculated polyps in rectum-8 mm-hot snare polypectomy with complete removal. Retroflexed views revealed internal hemorrhoids and Retroflexed views revealed small internal hemorrhoids The scope was then completely withdrawn from the patient and the procedure terminated. PROCEDURE WITHDRAWAL TIME:6minutes ADVERSE EVENTS: There were no complications. IMPRESSIONS: 1. Diverticulosis sigmoid,descending large mass in sigmoid, very fraible , bleeding easily, nearly obstructing-biopsies polyp diminutive hepatic flexure -biopsy polyp diminutive -splenic flexure-biopsy two pedunculated polyps in rectum-8 mm-hot snare polypectomy with complete removal 2. Retroflexed views revealed internal hemorrhoids 3. Retroflexed views revealed small internal hemorrhoids 4. Revealed hemorrhoids RECOMMENDATIONS: 1. Await biopsy results. Biopsy results will not be ready for 7-10 days. If you don't hear from us in two weeks, call our office for results. 2. Probiotics from any [facility] or health food store RECALL: Colonoscopy, pending biopsy results Agustina Whiting MD eSigned: Agustina Whiting MD 11/04/2016 3:40 PM cc: PATIENT NAME: Drake Jones MR#: [id number]
[2016-11-04] MEDS ORDERED: DO NOT ADM ANY ANTICOAGULANT DRUGS PRN (15:42)
--- NOTE | 2016-11-04 15:42 | GIPROC ---
[facility] [address] [facility]. [facility], [address] EGD PROCEDURE REPORT EXAM DATE: 11/04/2016 PATIENT NAME: Drake Jones MR #: [id number] BIRTHDATE: 1955 ATTENDING: Agustina Whiting MD ORDER #: [id number] HEAT PLANT SPECIALIST: Zoya Orellana STATUS: inpatient INDICATIONS: The patient is a 61 yr old male here for an EGD due to abnormal ct, jaundice PROCEDURE PERFORMED: EGD w/ biopsy MEDICATIONS: None and Per Anesthesia. TOPICAL ANESTHETIC: none CONSENT: The patient understands the risks and benefits of the procedure and understands that these risks include, but are not limited to: sedation, allergic reaction, infection, perforation and/or bleeding. Alternative means of evaluation and treatment include, among others: physical exam, x-rays, and/or surgical intervention. The patient elects to proceed with this endoscopic procedure. medical equipment was checked for proper function. Hand hygiene and appropriate measures for infection prevention was taken. After the risks, benefits and alternatives of the procedure were thoroughly explained, Informed consent was verified, confirmed and timeout was successfully executed by the treatment team. The patient was anesthetized with topical anesthesia and the Pentax [id number]-[id number] endoscope was introduced through the mouth and advanced to the second portion of the duodenum. Retroflexed views revealed a hiatal hernia The gastroscope was then slowly withdrawn and removed. Portal gastropathy-biopsy no bile seen in duodenum. ADVERSE EVENTS: There were no complications. IMPRESSIONS: 1. Portal gastropathy-biopsy no bile seen in duodenum 2. Retroflexed views revealed a hiatal hernia RECOMMENDATIONS: 1. Await biopsy results. Biopsy results will not be ready for 7-10 days. If you don't hear from us in two weeks, call our office for biopsy results. 2. Anti-reflux regimen 3. Continue PPI 4. Ercp in am general surgery consult PATIENT CONDITION: stable DISPOSITION: Inpatient REPEAT EXAM: EGD pending biopsy results Agustina Whiting MD eSigned: Agustina Whiting MD 11/04/2016 3:42 PM cc:
[2016-11-04 16:40] VITALS: BP 138/72; PULSE 82; RESP 18; TEMP 97.8; O2SAT 98
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
[2016-11-04 20:55] VITALS: BP 126/67; PULSE 86; RESP 18; TEMP 97.6; O2SAT 95
--- NOTE | 2016-11-04 21:17 | MB ---
cc: MERRY WHITING M.D., RUBY ANNE E. M.D. DATE OF CONSULTATION 11/04/2016 DATE OF [address] Merry Whiting CHIEF COMPLAINT Dr. Whiting's requested consultation for Mr. Jones with metastatic colon cancer. HISTORY OF PRESENT ILLNESS Mr. Jones is a 61-year-old man who initially presented to the emergency room with a fall. He has a history of dementia, seizure disorder, bipolar schizoaffective disorder. He has been multiple times in the emergency room department for falls and head injuries. He lives in [facility]. He had a fall. There are no neurologic deficit. Workup showed x-ray of the left upper extremity oblique proximal nondisplaced humeral fracture. He was placed in sling. He was admitted afterwards. He was seen by Dr. Kirkland. Dr. Kirkland recommended nonoperative management. His course was complicated by a bilateral conjunctivitis which was treated. 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 He had physical debility. He was high risk for fall. He is malnourished. He was evaluated by orthopedic surgery, continued with nonoperative treatment. He continued physical therapy and occupational therapy and stair climbing was included in their workup. LABORATORY EVALUATION Significant for mild normocytic anemia. During his hospitalization, his bilirubin increased a bilirubin from 1.21 on 10/20 to a bilirubin of 9.2 on 11/02. His liver function on admission was normal and by November 02 his ALT was 161, AST 139, alkaline phosphatase was elevated at baseline and increased to 617. He was seen by gastroenterology, Dr. Whiting. A colonoscopy was performed that showed diverticulosis sigmoid colon, descending, large mass in the sigmoid which was very friable, bleeding easily and near obstructing. Biopsies were performed. Upper endoscopy shows portal gastropathy and a hiatal hernia. The pathology was pending. CT scan of the abdomen and pelvis showed widespread metastatic disease to the liver from presumed adenocarcinoma of the sigmoid colon. There was cavernous transformation of portal vein, extensive varicosities and cirrhosis. Additional finding is a 4 cm rocco hepatis lymph node. Tumor marker shows elevation in CA19.9, as well as CA alpha-fetoprotein is normal. Evidence of liver disease includes the liver function elevation, albumin of 2.0. He has had mild thrombocytopenia, mild leukopenia. Mr. Jones was speaking to his sister prior to consultation. He denies any pain. He offers no complaints. He appears to understand the diagnosis of a colon cancer that has spread to the liver. We discussed that this is likely the etiology of his jaundice. REVIEW OF SYSTEMS The rest of the review of systems is negative. PAST MEDICAL HISTORY 1. Arthritis 2. Seizure disorder 3. Psychiatric bipolar schizoaffective disorder 4. History of dementia. 5. Multiple falls 6. Anxiety 7. Nondisplaced humerus fracture. PAST SURGICAL HISTORY 1. Left eye surgery 2. Abdominal surgery 3. Cholecystectomy 4. Upper endoscopy 5. Colonoscopy ALLERGIES RYE/BARLEY SOCIAL HISTORY He smokes a pack a day. Denies any alcohol or illicit drug use. He was living in an assisted living facilities pending placement in a care home facility. FAMILY HISTORY Significant for a mother who had breast cancer in her 90s. CURRENT MEDICATIONS 1. Magnesium citrate 2. Temazepam 3. Aricept 4. Risperdal 5. Polytrim ophthalmic solution PHYSICAL EXAMINATION VITAL SIGNS: Temperature 97.8, heart rate 82, respiratory rate 18, blood pressure 138/72, saturation 98%. GENERAL: Mr. Jones is a well-developed, slender man in no acute distress. He is overtly jaundiced. HEAD, EYES, EARS, NOSE, AND THROAT: His sclerae is icteric. Oropharynx is clear. He has poor dentition with many broken teeth. NECK: Supple. LUNGS: Clear to auscultation. CARDIOVASCULAR: Exam reveals a normal rate and rhythm. ABDOMEN: Benign. EXTREMITIES: Lower extremities with no edema. NEUROLOGIC: He is awake and alert, slowly responds to discussion. He seems uncertain and asked that we call his sister. LABORATORY DATA As described above. ASSESSMENT/PLAN Mrs. Jones is a 61-year-old man with multiple medical problems. He has a history of dementia, multiple falls and schizoaffective disorder. He has been hospitalized for a long time pending placement to a care home facility. In the meantime, he is diagnosed with metastatic colorectal cancer. He has evidence of metastatic disease to liver. The final pathology from having a sigmoid biopsy is still pending. The tumor markers support a diagnosis of colorectal cancer with elevation of the CA19.9 as well as CEA. I had a discussion with Mr. Jones about the above findings. This points to a diagnosis of colorectal cancer that has metastasized. It is not clear that he understands the complete meaning of this. We discussed that the common treatment for this condition is palliative chemotherapy. I am not certain that he completely understands the nature of the chemotherapy and this was explained to him. Patient's that are helped with palliative chemotherapy commonly are strong enough to receive the chemo, as well as be able to understand the risks, benefits and toxicities associated with the treatment. I am concerned of his decompensation from the treatment. They are concerned about the exacerbation of his underlying psychiatric condition and his limited comprehension of what is being considered. To this end, he offers that I call his sister . was called at [phone]. A message to call back was left. We discussed in general terms a diagnosis of cancer and the intent of palliative therapy. He is offered a consultation. Palliative care team to determine goals of expectation with the patient and his healthcare surrogate who appears to be . We will continue to follow. The case was discussed with Dr. Whiting. He is pending a procedures tomorrow to see if that hyperbilirubinemia could be bypassed or palliated with a stent. His bilirubin unfortunately continues to increase. There is very little bile noted in the upper endoscopy, therefore bile was not passing into the small bowel. His bilirubin was 11.3. We will continue to monitor. Mr. Jones's questions were answered to his satisfaction. MD VIJAYA Mcclendon/IDALMIS /6:42 PM /8:52 PM
[2016-11-04] MEDS: TEMAZEPAM 15 MG CAP PO PRN (22:41)
[2016-11-04] MEDS: DONEPEZIL HCL 5 MG TAB PO SCH (22:41)
[2016-11-05 01:05] VITALS: BP 115/55; PULSE 85; RESP 18; TEMP 98.2; O2SAT 96
[2016-11-05 04:41] VITALS: BP 112/58; PULSE 83; RESP 16; TEMP 98; O2SAT 95
[2016-11-05] MEDS ORDERED: INSULIN HUMAN REGULAR 1,000 UNITS/10 ML VIAL SQ PRN (05:15)
[2016-11-05] MEDS ORDERED: LACTATED RINGER'S 1000 ML IV PRN (05:15)
[2016-11-05] MEDS ORDERED: POVIDONE IODINE 5% (ANTISEPSIS KIT) 4 APPLICATIONS EACH NARE PRN (05:15)
[2016-11-05] MEDS ORDERED: CHLORHEXIDINE GLUCONATE 2 % 1 PACK (2 CLOTHS) TOPICAL PRN (05:15)
[2016-11-05] MEDS ORDERED: METOPROLOL TARTRATE 25 MG TAB PO PRN (05:15)
[2016-11-05] MEDS ORDERED: SODIUM CHLORID 0.9% 500 ML IV PRN (05:15)
[2016-11-05] MEDS: POLYMYXIN/TRIMETHOPRIM OPHT SOLN 10 ML BTL EACH EYE SCH ×3 (05:36→17:18)
[2016-11-05 08:44] VITALS: BP 115/60; PULSE 89; RESP 18; TEMP 98.7; O2SAT 97
[2016-11-05] MEDS: BENZTROPINE MESYLATE 1 MG TAB PO SCH ×2 (09:26→22:14)
[2016-11-05] MEDS: DIVALPROEX SODIUM E.R. 250 MG TAB PO SCH ×2 (09:26→21:00)
[2016-11-05] MEDS: risperiDONE 1 MG TAB PO SCH ×2 (09:26→22:14)
[2016-11-05] MEDS: levETIRAcetam 500 MG TAB PO SCH ×2 (09:26→22:14)
[2016-11-05] MEDS: CHOLECALCIFEROL (VIT D3) 400 UNIT TAB PO SCH (09:26)
[2016-11-05] MEDS: ESCITALOPRAM OXALATE 20 MG TAB PO SCH (09:26)
[2016-11-05] MEDS: SODIUM CHLORIDE 0.9% FLUSH 10 ML FLUSH IV FLUSH SCH ×2 (09:26→21:00)
[2016-11-05 11:49] LABS: HEMATOCRIT 34.3 % (39.0-51.0); MEAN CELL VOLUME 89.9 FL (80.0-100.0); MEAN CORPUSCULAR HEMOGLOBIN 29.2 PG (27.0-34.0); MEAN CORPUSCULAR HGB CONC 32.5 % (32.0-36.0); PLATELET COUNT 221 TH/MM3 (150-450); RED BLOOD COUNT 3.82 MIL/MM3 (4.50-5.90); RED CELL DISTRIBUTION WIDTH 18.2 % (11.6-17.2); REVIEW FLAG FINAL; WHITE BLOOD COUNT 5.1 TH/MM3 (4.0-11.0)
[2016-11-05] MEDS ORDERED: ONDANSETRON HCL 4 MG/2 ML VIAL IV PUSH ONE (12:00)
[2016-11-05] MEDS ORDERED: IOHEXOL 300 MG/ML 100 ML BTL (for Rad CT) OTHER ONE (12:00)
[2016-11-05] MEDS ORDERED: PROPOFOL 200 MG/20 ML AMP IV ONE (12:00)
[2016-11-05 12:04] VITALS: BP 102/64; PULSE 82; RESP 18; TEMP 97.7; O2SAT 98
--- NOTE | 2016-11-05 13:55 | HHI.PR ---
Subjective Subjective Remarks back from ERCP awakes to voice, oriented x 2 sleepy has no complaints per RN, spoke to pt's siblings, brother Yuri Review of Systems Constitutional Constitutional Remarks 12 point ros limited Vitals/Results Vital Signs Vital Signs Date Time Temp Pulse Resp B/P (MAP) Pulse Ox O2 Delivery O2 Flow Rate FiO2 11/05/16 12:04 97.7 82 18 102/64 (77) 98 11/05/16 08:44 98.7 89 18 115/60 (78) 97 11/05/16 04:41 98.0 83 16 112/58 (76) 95 11/05/16 01:05 98.2 85 18 115/55 (75) 96 11/04/16 20:55 97.6 86 18 126/67 (86) 95 11/04/16 16:40 97.8 82 18 138/72 (94) 98 11/04/16 16:00 98.5 86 22 124/74 (91) 99 Nasal Cannula 2 11/04/16 15:45 80 20 125/65 (85) 100 Nasal Cannula 2 11/04/16 15:43 97.8 85 21 131/77 (95) 100 Nasal Cannula 2 CBC/BMP: 11/05/16 1019 11/05/16 1019 Lab Results Laboratory Tests Test 11/05/16 10:19 White Blood Count 5.1 TH/MM3 Red Blood Count 3.82 MIL/MM3 Hemoglobin 11.2 GM/DL Hematocrit 34.3 % Mean Corpuscular Volume 89.9 FL Mean Corpuscular Hemoglobin 29.2 PG Mean Corpuscular Hemoglobin Concent 32.5 % Red Cell Distribution Width 18.2 % Platelet Count 221 TH/MM3 Mean Platelet Volume 8.1 FL Blood Urea Nitrogen 14 MG/DL Creatinine 0.71 MG/DL Random Glucose 122 MG/DL Calcium Level 8.6 MG/DL Sodium Level 137 MEQ/L Potassium Level 4.0 MEQ/L Chloride Level 99 MEQ/L Carbon Dioxide Level 32.0 MEQ/L Anion Gap 6 MEQ/L Estimat Glomerular Filtration Rate 113 ML/MIN Physical Exam General General Appearance: No Acute Distress, Comfortable, Pale Appearance Remarks bitemporal muscle wasting Eyes Eye Exam: Pupils Equal, Sclera White, Jaundice Eye Remarks left pupil mishapen,chronic Ears & Nose Ears & Nose Exam: Nasal Mucosa [place] Throat Throat Exam: Oral Mucosa [place] & Moist Neck Neck Exam: Neck Supple, Trachea Midline Pulmonary Resp Exam: Clear Bilaterally, Breath Sounds Equal Cardiology CV Exam: Regular, Normal Sinus Rhythm Gastrointestinal/Abdomen GI Exam: Soft, Bowel Sounds Present, Distended Musculoskeletal MS Exam: Joints Intact (healing right humerus) MS Remarks left shoulder bruising, on sling Integumentary Skin Exam: Warm, Dry Skin Remarks bruising right knee, left arm Extremeties Extremities Exam: No Edema, Pedal Pulses Palpable Neurologic Neuro Exam: Awake, Speech Clear VTE Prophylaxis VTE Prophylaxis Meds: Heparin Assessment/Plan Problem List: (1) Multiple falls ICD Codes: R29.6 - Repeated falls Status: Acute (2) Proximal humerus fracture ICD Codes: S42.209A - Unspecified fracture of upper end of unspecified humerus , initial encounter for closed fracture Status: Acute (3) Frequent falls ICD Codes: R29.6 - Repeated falls Status: Acute (4) Contusion of left knee and lower leg ICD Codes: S80.02XA - Contusion of left knee, initial encounter; S80.12XA - Contusion of left lower leg, initial encounter Status: Acute (5) Bilateral conjunctivitis ICD Codes: H10.9 - Unspecified conjunctivitis Status: Acute (6) History of seizure disorder ICD Codes: Z86.69 - History of seizure disorder Status: Acute (7) Dementia without behavioral disturbance ICD Codes: F03.90 - Unspecified dementia without behavioral disturbance Status: Acute (8) Schizoaffective disorder ICD Codes: F25.9 - Schizoaffective disorder, unspecified Status: Acute (9) Physical debility ICD Codes: R53.81 - Other malaise Status: Chronic (10) Malnourished ICD Codes: E46 - Unspecified protein-calorie malnutrition Status: Chronic (11) Generalized weakness ICD Codes: R53.1 - Weakness Status: Chronic (12) Metastatic colorectal cancer ICD Codes: C78.5 - Secondary malignant neoplasm of large intestine and rectum (13) Partial bowel obstruction ICD Codes: K56.69 - Other intestinal obstruction (14) Physical deconditioning ICD Codes: R53.81 - Other malaise Assessment/Plan s/p fall with Nondisplaced oblique fracture of the proximal left humerus appreciate Orthopedic consult, plan at this time for conservative management, maintain sling on, currently fracture is nondisplaced Reevaluated by Dr. Morales, imaging studies reviewed, healing well. Continue with non op trx Bilateral conjunctivitis continue eye drops hx of multiple falls orthos bp ok EEG results noted, focal features on left continue Keppra Hx dementia schizoaffective continue home meds Malnourished, bitemporal muscle wasting Boost TID Nutrition consult Physical debility pt. appears to be declining, unable to function independently to go back to [facility] at risk for fall and further injury that may lead to fractures, brain injury pt. benefits from a more supervised environment. New findings of hannah colored stool, jaundiced. Labs on 11/02 elevated tbili GI now following, input appreciated. 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 On 11/04/16 Dr. Whiting performed colonoscopy with findings of Diverticulosis sigmoid,descending/large mass in sigmoid, very friable , bleeding easily, nearlyobstructing-biopsies/polyp diminutive hepatic flexure -biopsy/polyp diminutive -splenic flexure-biopsy/two pedunculated polyps in rectum-8 mm-hot snare polypectomy with complete removal/Retroflexed views revealed internal hemorrhoids/ Retroflexed views revealed small internal hemorrhoids/ Revealed hemorrhoids and EGD- findings of portal gastropathy General surgery, Dr. Weems consulted for evaluation of partial obstructing lesion in sigmoid colon. Treatment plan to include resection of lesion with a primary anastomosis. Oncology, Dr. Ambriz consulted on 11/04/16 for metastatic colon cancer. Patient not a candidate for palliative chemotherapy given his physical deconditioning/ multiple comorbidities. 11/05 S/P ERCP with sphincterotomy and stent placement plastic. per GI, if LFTs continue to increase, may need PTC or longer stent. Repeat labs in am Overall prognosis poor not clear if pt. can comprehend and consent for procedure, psychiatry consulted Palliative care also following to assist with defining goals of care. Discussed with nurse Discussed with Discussed with pt. This patient was seen by myself and Dr Zapata, this note is written on his behalf Problem Qualifiers (1) Proximal humerus fracture: (2) Bilateral conjunctivitis: (3) Dementia without behavioral disturbance: (4) Schizoaffective disorder: (5) Malnourished: Qualified Codes: E44.0 - Moderate protein-calorie malnutrition Cynthia Chawla. [facility] Nov 05, 2016 13:55
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
--- NOTE | 2016-11-05 14:26 | HHI.GIFU ---
Subjective Remarks Patient was seen and examined, but seems to be comfortable, severely jaundiced Objective Vitals I&O Vital Signs Date Time Temp Pulse Resp B/P (MAP) Pulse Ox O2 Delivery O2 Flow Rate FiO2 11/05/16 12:04 97.7 82 18 102/64 (77) 98 11/05/16 08:44 98.7 89 18 115/60 (78) 97 11/05/16 04:41 98.0 83 16 112/58 (76) 95 11/05/16 01:05 98.2 85 18 115/55 (75) 96 11/04/16 20:55 97.6 86 18 126/67 (86) 95 11/04/16 16:40 97.8 82 18 138/72 (94) 98 11/04/16 16:00 98.5 86 22 124/74 (91) 99 Nasal Cannula 2 11/04/16 15:45 80 20 125/65 (85) 100 Nasal Cannula 2 11/04/16 15:43 97.8 85 21 131/77 (95) 100 Nasal Cannula 2 I/O 11/04/16 11/04/16 11/04/16 11/05/16 11/05/16 11/05/16 07:00 15:00 23:00 07:00 15:00 23:00 Intake Total 920 ml Output Total 300 ml Balance 620 ml Intake Oral 220 ml Other 700 ml Output Urine Total 300 ml # Voids 4 3 3 2 # Bowel Movements 10 4 1 Laboratory Laboratory Tests Test 11/05/16 10:19 White Blood Count 5.1 Red Blood Count 3.82 Hemoglobin 11.2 Hematocrit 34.3 Mean Corpuscular Volume 89.9 Mean Corpuscular Hemoglobin 29.2 Mean Corpuscular Hemoglobin Concent 32.5 Red Cell Distribution Width 18.2 Platelet Count 221 Mean Platelet Volume 8.1 Blood Urea Nitrogen 14 Creatinine 0.71 Random Glucose 122 Calcium Level 8.6 Sodium Level 137 Potassium Level 4.0 Chloride Level 99 Carbon Dioxide Level 32.0 Anion Gap 6 Estimat Glomerular Filtration Rate 113 Date/Time Source Procedure Growth Status 11/01/16 10:55 Stool Stool Stool Occult Blood (MAIK) - Final HEMOCCULT POSITIVE Complete Physical Exam HEENT: Pupils round and reactive to light; normocephalic; atraumatic; severe jaundice. Throat is clear. NECK: Neck is supple, no JVD, no lymphadenopathy. CHEST: Chest is clear to auscultation and percussion. CARDIAC: Regular rate and rhythm with no murmur gallop or rubs. ABDOMEN: Soft, nondistended, nontender; no hepatosplenomegaly; bowel sounds are present in all four quadrants. EXTREMITIES: No clubbing, cyanosis, or edema. SKIN: Normal; no rash; jaundice. 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 Continue His Social Security number date of , [place] president, time and date Assessment and Plan Plan Severe jaundice most likely metastases from the sigmoid cancer, also cirrhosis possible, ERCP showed significant narrowing in the distal hepatic duct most likely extrinsic compression, a sphincterotomy was performed and a 12 cm x 8.5 Taiwanese stent was placed, Ancef was given during the procedure Recommendations Liver function test tomorrow If continued to have elevated liver function test may need PTC or a longer stent Nothing by mouth for now Watch for fever and white blood cells elevation Further plan by Dr. Whiting and oncology Martin Spicer MD Nov 05, 2016 14:26
--- NOTE | 2016-11-05 14:30 | PD.PROCEDR ---
GI Procedure PROCEDURE DATE: Nov 05, [address] Whiting PROCEDURE PERFORMED ERCP with sphincterotomy and stent placement plastic INDICATION FOR PROCEDURE Severe jaundice, possible obstruction PROCEDURE: The procedure, risks and benefits were discussed with Mr. Jones and informed consent was obtained. Anesthesia sedated him with Diprivan. He was placed in the left lateral decubitus position. ERCP: Patient was placed in a prone position. The Pentax videoscope was introduced through the oropharynx and advanced to the second portion of the duodenum where the ampula was identified. Cannulation was achieved without any difficulty, pancreatic duct was normal size, cholangiogram showed distal common bile duct narrowing almost complete obstruction I was able to pass the wire through that area and then I passed the sphincterotome through that area with injection which showed the bile duct consistent with complete obstruction most likely external from liver metastases. Sphincterotomy was performed and 12 cm x 8.5 Czech stent was placed without any difficulty, patient was given 1 g of Ancef during the procedure FINDINGS: Hepatic duct obstruction most likely because of metastasis from colon cancer ESTIMATED BLOOD LOSS: None SPECIMENS REMOVED: None COMPLICATIONS: None IMPRESSION: Hepatic duct obstruction, stent was placed PLAN: Recommendations Liver function test tomorrow If continued to have elevated liver function test may need PTC or a longer stent Nothing by mouth for now Watch for fever and white blood cells elevation Martin Spicer MD Nov 05, 2016 14:30
[2016-11-05] MEDS ORDERED: DO NOT ADM ANY ANTICOAGULANT DRUGS PRN ×2 (14:36)
--- NOTE | 2016-11-05 15:37 | RADRPT ---
EXAM DATE/TIME: 11/05/2016 14:09 [place] COMPARISON: No previous studies available for comparison. INDICATIONS : Obstruction, stent placement. FLUORO TIME: 3.41 minutes IMAGE COUNT: 3 CONTRAST: Instilled by Ordering Physician MEDICAL HISTORY : Smoker. SURGICAL HISTORY : Cholecystectomy. ENCOUNTER: Subsequent ACUITY: 2 months PAIN SCORE: Non-responsive. LOCATION: Abdomen. FINDINGS: An ERCP was performed by the ordering physician. The images demonstrate <excellent opacification of the common biliary duct and the pancreatic duct. B oth are unremarkable without evidence of filling defect or mass> CONCLUSION: ERCP as above. Luis Alberto Coy MD on November 05, 2016 at 15:35 Board Certified Radiologist. This report was verified electronically.
[2016-11-05] MEDS ORDERED: ceFAZolin INJ 1,000 MG VIAL IV ONE (15:59)
--- NOTE | 2016-11-05 16:10 | HHI.PR ---
cc: Abdirizak Weems MD Subjective Subjective Notes DAILY PROGRESS NOTE FOR SURGICAL ATTENDING, DR. ABDIRIZAK WEEMS Resting in bed Objective Vitals/I&O Vital Signs Date Time Temp Pulse Resp B/P (MAP) Pulse Ox O2 Delivery O2 Flow Rate FiO2 11/05/16 14:31 97.4 81 18 125/77 (93) 100 Nasal Cannula 3 Labs Laboratory Tests Test 11/05/16 10:19 White Blood Count 5.1 Red Blood Count 3.82 Hemoglobin 11.2 Hematocrit 34.3 Mean Corpuscular Volume 89.9 Mean Corpuscular Hemoglobin 29.2 Mean Corpuscular Hemoglobin Concent 32.5 Red Cell Distribution Width 18.2 Platelet Count 221 Mean Platelet Volume 8.1 Blood Urea Nitrogen 14 Creatinine 0.71 Random Glucose 122 Calcium Level 8.6 Sodium Level 137 Potassium Level 4.0 Chloride Level 99 Carbon Dioxide Level 32.0 Anion Gap 6 Estimat Glomerular Filtration Rate 113 Date/Time Source Procedure Growth Status 11/01/16 10:55 Stool Stool Stool Occult Blood (MAIK) - Final HEMOCCULT POSITIVE Complete Radiology Last Impressions GI Procedure 11/05/16 0000 Signed Impressions: Service Date/Time: October 14:09 - CONCLUSION: ERCP as above. Luis Alberto Coy MD Abdomen/Pelvis CT 11/03/16 0000 Signed Impressions: Service Date/Time: Thursday, November 03, 2016 07:53 - CONCLUSION: Widespread metastatic disease to the liver from presumed adenocarcinoma sigmoid colon. 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 There is no ascites. Dharmesh Nunn MD FACR Hand X-Ray 10/22/16 0000 Signed Impressions: Service Date/Time: September 02:49 - CONCLUSION: Healing fifth metacarpal fracture with callus formation that has developed since the September 12 exam. Also again seen is an intra-articular fracture of the proximal phalanx of the fourth finger at the fourth MCP. This has less callus formation. Abdirizak Martin MD Shoulder X-Ray 10/04/16 0000 Signed Impressions: Service Date/Time: Tuesday, October 04, 2016 11:43 - CONCLUSION: Nondisplaced oblique fracture through the proximal left humerus. Cas Mendez MD Elbow X-Ray 10/04/16 0000 Signed Impressions: Service Date/Time: Tuesday, October 04, 2016 11:48 - CONCLUSION: Negative limited 2 view study. Cas Mendez MD Chest X-Ray 10/04/16 0000 Signed Impressions: Service Date/Time: Tuesday, October 04, 2016 11:40 - CONCLUSION: 1. Nondisplaced fracture involving the left proximal humerus. 2. No acute cardiac pulmonary disease. Cas Mendez MD Cardiovascular: Regular Lungs: Clear Abdomen: Non-distended, Non-tender Extremities: No edema A/P Problem List: (1) Abnormal LFTs ICD Codes: R79.89 - Other specified abnormal findings of blood chemistry Status: Chronic (2) Liver masses ICD Codes: R16.0 - Hepatomegaly, not elsewhere classified Status: Chronic (3) Metastatic colorectal cancer ICD Codes: C78.5 - Secondary malignant neoplasm of large intestine and rectum Status: Chronic (4) Partial bowel obstruction ICD Codes: K56.69 - Other intestinal obstruction (5) Mass of colon ICD Codes: K63.9 - Disease of intestine, unspecified Status: Chronic (6) Elevated CEA ICD Codes: R97.0 - Elevated carcinoembryonic antigen [CEA] (7) Serum total bilirubin elevated ICD Codes: R17 - Unspecified jaundice (8) Anemia due to chronic blood loss ICD Codes: D50.0 - Iron deficiency anemia secondary to blood loss (chronic) Status: Chronic (9) Head injury due to trauma ICD Codes: S09.90XA - Unspecified injury of head, initial encounter Status: Acute (10) History of seizure disorder ICD Codes: Z86.69 - History of seizure disorder Status: Acute (11) Multiple falls ICD Codes: R29.6 - Repeated falls Status: Acute (12) Schizoaffective disorder ICD Codes: F25.9 - Schizoaffective disorder, unspecified Status: Acute Assessment and Plan 61 year old male with near obstructing colon mass -Family discussing with palliative care---may transition to comfort care -Surgery on hold for now -Will continue to follow Attending Statement PROGRESS NOTE FOR SURGICAL ATTENDING, DR. ABDIRIZAK WEEMS I agree with above assessment and plan. The exam, history, and the medical decision-making described in the above note were completed with the assistance of the mid-level provider. I reviewed and agree with the findings presented. I attest that I had a [id number] encounter with the patient on the same day, and personally performed and documented my assessment and findings in the medical record. I spoke with the nurse practitioner on the palliative care team. She had some discussion with the family and they want to hold off on any surgery at this point. At this time the patient is not having any symptoms so I think we do have some time for the family to explore options. I explained also this is not a curative operation but a palliative surgical procedure The following services were provided during this hospital visit: Chart data review, vital sign assessments/reviewing monitor data Review of consultations notes if present. Medication orders/review and/or management Ordering and/or reviewing lab tests Ordering and/or interpreting/reviewing x-rays and/or diagnostic studies Care of the patient and discussion of the patient with the care team Documentation time To help prompt me to consider important information that might be impacting today's encounter and assessment, information from prior notes written by myself or my colleagues may have been "brought forward/copy and pasted" into today's note. Problem Qualifiers (1) Schizoaffective disorder: Mariela Auguste Nov 05, 2016 16:10 Abdirizak Weems MD Nov 05, 2016 17:16
[2016-11-05 16:18] VITALS: BP 134/76; PULSE 79; RESP 18; TEMP 97.6; O2SAT 100
[2016-11-05] MEDS ORDERED: MAGNESIUM CITRATE SOLN 300 ML BTL PO ONE (17:00)
[2016-11-05 20:36] VITALS: BP 125/67; PULSE 101; RESP 18; TEMP 97.3; O2SAT 97
[2016-11-05] MEDS: DONEPEZIL HCL 5 MG TAB PO SCH (22:14)
[2016-11-06] VITALS (8 sets, daily range): BP systolic 100–129; BP diastolic 58–69; PULSE 77–91; RESP 18–20; TEMP 97.5–98.7; O2SAT 94–98
[2016-11-06] MEDS: POLYMYXIN/TRIMETHOPRIM OPHT SOLN 10 ML BTL EACH EYE SCH ×5 (00:30→23:34)
[2016-11-06 03:51] LABS: IGA SERUM 680 mg/dL (81-463)
[2016-11-06] MEDS: risperiDONE 1 MG TAB PO SCH ×2 (09:20→20:40)
[2016-11-06] MEDS: SODIUM CHLORIDE 0.9% FLUSH 10 ML FLUSH IV FLUSH SCH ×2 (09:21→20:40)
[2016-11-06] MEDS: levETIRAcetam 500 MG TAB PO SCH ×2 (09:21→20:40)
[2016-11-06] MEDS: DIVALPROEX SODIUM E.R. 250 MG TAB PO SCH ×2 (09:21→20:40)
[2016-11-06] MEDS: BENZTROPINE MESYLATE 1 MG TAB PO SCH ×2 (09:21→20:40)
[2016-11-06] MEDS: ESCITALOPRAM OXALATE 20 MG TAB PO SCH (09:21)
[2016-11-06] MEDS: CHOLECALCIFEROL (VIT D3) 400 UNIT TAB PO SCH (09:21)
--- NOTE | 2016-11-06 09:28 | PD.ONC.PN ---
Subjective Subjective Remarks Afebrile overnight. Patient resting in chair in common area on floor. Per nurse, two brothers do not want to be involved in his care. Patient denies pain. States he wants to go back to the facility he came from. Objective Data Date Time Temp Pulse Resp B/P (MAP) Pulse Ox O2 Delivery O2 Flow Rate FiO2 11/06/16 08:38 97.7 91 18 109/59 (76) 97 11/06/16 04:38 97.7 77 18 115/64 (81) 96 11/06/16 03:50 97 Nasal Cannula 2.00 11/06/16 00:00 98.7 86 18 129/69 (89) 97 11/05/16 20:36 97.3 101 18 125/67 (86) 97 11/05/16 16:18 97.6 79 18 134/76 (95) 100 11/05/16 15:15 81 18 126/71 (89) 97 Nasal Cannula 2 11/05/16 15:00 83 18 126/74 (91) 100 Nasal Cannula 2 11/05/16 14:45 81 18 118/69 (85) 100 Nasal Cannula 2 11/05/16 14:31 97.4 81 18 125/77 (93) 100 Nasal Cannula 3 11/05/16 12:04 97.7 82 18 102/64 (77) 98 Result Diagram: 11/05/16 1019 11/05/16 1019 Laboratory Results Laboratory Tests Test 11/05/16 10:19 White Blood Count 5.1 TH/MM3 Red Blood Count 3.82 MIL/MM3 Hemoglobin 11.2 GM/DL Hematocrit 34.3 % Mean Corpuscular Volume 89.9 FL Mean Corpuscular Hemoglobin 29.2 PG Mean Corpuscular Hemoglobin Concent 32.5 % Red Cell Distribution Width 18.2 % Platelet Count 221 TH/MM3 Mean Platelet Volume 8.1 FL Blood Urea Nitrogen 14 MG/DL Creatinine 0.71 MG/DL Random Glucose 122 MG/DL Calcium Level 8.6 MG/DL Sodium Level 137 MEQ/L Potassium Level 4.0 MEQ/L Chloride Level 99 MEQ/L Carbon Dioxide Level 32.0 MEQ/L Anion Gap 6 MEQ/L Estimat Glomerular Filtration Rate 113 ML/MIN Administered Medications Medications (Trade) Dose Ordered Sig/Daniel Route PRN Reason Start Time Stop Time Status Last Admin Dose Admin Benztropine Mesylate (Cogentin) 0.5 mg BID PO 10/04/16 21:00 11/06/16 09:21 Cholecalciferol (Vitamin D3) 400 units DAILY PO 10/05/16 09:00 11/06/16 09:21 Divalproex Sodium (Depakote Er) 250 mg BID PO 10/04/16 21:00 11/05/16 21:00 Donepezil HCl (Aricept) 5 mg HS PO 10/04/16 21:00 11/05/16 22:14 Escitalopram Oxalate (Lexapro) 20 mg DAILY PO 10/05/16 09:00 11/06/16 09:21 Levetriacetam (Keppra) 500 mg BID PO 10/04/16 21:00 11/06/16 09:21 Risperidone (risperDAL) 1 mg DAILY PO 10/05/16 09:00 11/06/16 09:20 Risperidone (risperDAL) 1 mg HS PO 10/04/16 21:00 11/05/16 22:14 Sodium Chloride (NS Flush) 2 ml BID IV FLUSH 10/04/16 21:00 11/06/16 09:21 Polymyxin/ Trimethoprim Sulfate (Polytrim Opht Soln) 1 drop Q6HR EACH EYE 10/04/16 18:00 11/06/16 06:00 Temazepam (Restoril) 15 mg HS PRN PO insomnia 10/18/16 21:00 11/04/16 22:41 Objective Remarks GENERAL: Middle aged male, jaundiced, sitting up in chair in nad. SKIN: Warm and dry. HEAD: Normocephalic. EYES: + scleral icterus. No injection or drainage. NECK: Supple, trachea midline. CARDIOVASCULAR: Regular rate and rhythm RESPIRATORY: Breath sounds equal bilaterally. No accessory muscle use. GASTROINTESTINAL: Abdomen soft, non-tender, nondistended. EXTREMITIES: No cyanosis NEUROLOGICAL: awake. oriented to time, place and self. tells me the year is 2016 , he is at nursery and his name. Assessment/Plan Problem List: (1) Metastatic colorectal cancer ICD Codes: C78.5 - Secondary malignant neoplasm of large intestine and rectum Status: Chronic Plan: --not a candidate for treatment d/t poor KPS --recommend hospice. --palliative care following Assessment 61y/o male with metastatic colon cancer. history of dementia, seizure disorder, bipolar, schizoaffective disorder. Plan 1. recommend hospice. palliative care working to obtain healthcare surrogate. psych consult pending to determine competency as well. 2. hematology/oncology will sign off. please call or reconsult for questions. Attending Statement The exam, history, and the medical decision-making described in the above note were completed with the assistance of the mid-level provider. I reviewed and agree with the findings presented. I attest that I had a [id number] encounter with the patient on the same day, and personally performed and documented my assessment and findings in the medical record. Seen and examined. Family do not seem involved. Appreciate palliative care consultation. Not likely able to make decision independently, psychiatry evaluation pending. Recommend hospice care. Will sign off. Tamie Romano Nov 06, 2016 09:28 Tiny Ambriz MD Nov 06, 2016 09:47
[2016-11-06 11:22] LABS: INDIRECT BILIRUBIN 1.5 MG/DL (0.0-0.8); TOTAL BILIRUBIN ADULT 12.7 MG/DL (0.2-1.0)
--- NOTE | 2016-11-06 12:17 | PD.PSY.CON ---
Provisional Diagnosis Admission Date Oct 04, 2016 at 12:51 Sloan I. Schizoaffective disorder, bipolar type Sloan II. Deferred History of Present Illness Service Psychiatry Consult Requested By Reason for Consult Decision-making capacity Primary Care Physician Luis Finney M.D. HPI Patient is a 61-year-old man, domiciled [facility], with psychiatric history of bipolar disorder, schizoaffective disorder, dementia, psychiatric hospitalizations, his Risperdal, benztropine, Depakote and Lexapro, with medical history of seizures, metastatic colon cancer. Consulted for decision making capacity. Patient is seen for psychiatric evaluation sitting in the data entry clerk area of the floor. She is calm, cooperative and pleasant. He provides limited information consistently very concrete. Patient reports his mood as happy, he says that he would like to go back to his residential facility. He says that He doesn't like to be in hospital. Patient denies suicidal and homicidal ideation, he denies visual and auditory hallucinations. No paranoia, no delusions, no agitation, no aggressive behavior present. Patient is partially oriented, he knows that he is at [facility], but he doesn't know the time. He does not was the president of [facility]. When he is asked about the reason of his hospitalization he says that he fell, but is unable to verbalize and list his underlying medical conditions. He says that he doesn't have any psychiatric problem and he doesn't need to take medications for mental health problem. Patient fail in expressing a clear understanding and appreciation of medical conditions. His choice is to leave the hospital and go back to [facility], but is unable to express the consequences of his actions and consequences of not following medical recommendations. Review of Systems Constitutional: DENIES: Diaphoretic episodes, Fatigue, Fever, Weight gain, Weight loss, Chills, Dizziness, Change in appetite, Night Sweats Endocrine: DENIES: Heat/cold intolerance, Polydipsia, Polyuria, Polyphagia Eyes: DENIES: Blurred vision, Diplopia, Eye inflammation, Eye pain, Vision loss , Photosensitivity, Double Vision Ears, nose, mouth, throat: DENIES: Tinnitus, Hearing loss, Vertigo, Nasal discharge, Oral lesions, Throat pain, Hoarseness, Ear Pain, Running Nose, Epistaxis, Sinus Pain, Toothache, Odynophagia Respiratory: DENIES: Apneas, Cough, Snoring, Wheezing, Hemoptysis, Sputum production, Shortness of breath Cardiovascular: DENIES: Chest pain, Palpitations, Syncope, Dyspnea on Exertion , PND, Lower Extremity Edema, Orthopnea, Claudication Gastrointestinal: DENIES: Abdominal pain, Black stools, Bloody stools, Constipation, Diarrhea, Nausea, Vomiting, Difficulty Swallowing, Anorexia Musculoskeletal: DENIES: Joint pain, Muscle aches, Stiffness, Joint Swelling, Back pain, Neck pain Integumentary: DENIES: Abnormal pigmentation, Nail changes, Pruritus, Rash Hematologic/lymphatic: DENIES: Bruising, Lymphadenopathy Immunologic/allergic: DENIES: Eczema, Urticaria Neurologic: DENIES: Abnormal gait, Headache, Localized weakness, Paresthesias, Seizures, Speech Problems, Tremor, Poor Balance Psychiatric: DENIES: Anxiety, Confusion, Mood changes, Depression, Hallucinations, Agitation, Suicidal Ideation, Homicidal Ideation, Delusions Past Family Social History Coded Allergies: barley (Unverified Allergy, Mild, rash, 10/06/16) Active Scripts Walker with Front Wheels (Walker with Front Wheels) 1 Mis Mis, 1 EA .ROUTE DIRECTED, #1 EA 0 Refills Prov:David Euceda MD 09/22/16 Reported Medications Donepezil (Donepezil) 5 Mg Tab, 5 MG PO HS for Dementia, #30 TAB 0 Refills 09/20/16 Divalproex ER (Divalproex ER) 250 Mg Garret, 250 MG PO BID for Control Seizures, #30 TAB 0 Refills TAKE AT 8AM AND 4PM 09/20/16 Risperidone (Risperidone) 1 Mg Tab, 1 MG PO DAILY, #30 TAB 0 Refills 09/20/16 Risperidone (Risperidone) 1 Mg Tab, 1 MG PO HS, #30 TAB 0 Refills 09/20/16 Benztropine (Benztropine) 0.5 Mg Tab, 0.5 MG PO BID, #60 TAB 0 Refills 06/25/16 Escitalopram (Lexapro) 20 Mg Tab, 20 MG PO DAILY, #30 TAB 0 Refills 06/25/16 Levetiracetam (Keppra) 500 Mg Tab, 500 MG PO BID for Control Seizures, #60 TAB 0 Refills 06/25/16 Temazepam (Temazepam) 30 Mg Cap, 30 MG PO HS, #30 CAP 0 Refills 06/25/16 Cholecalciferol (Vitamin D-400) 400 Unit Tab, 400 UNITS PO DAILY for Nutritional Supplement, #1 BOTTLE 0 Refills 06/25/16 Current Medications Medications (Trade) Dose Ordered Sig/Daniel Route Start Time Stop Time Status Last Admin (Cogentin) 0.5 mg BID PO 10/04/16 21:00 11/06/16 09:21 (Vitamin D3) 400 units DAILY PO 10/05/16 09:00 11/06/16 09:21 (Depakote Er) 250 mg BID PO 10/04/16 21:00 11/05/16 21:00 (Aricept) 5 mg HS PO 10/04/16 21:00 11/05/16 22:14 (Lexapro) 20 mg DAILY PO 10/05/16 09:00 11/06/16 09:21 (Keppra) 500 mg BID PO 10/04/16 21:00 11/06/16 09:21 (risperDAL) 1 mg DAILY PO 10/05/16 09:00 11/06/16 09:20 (risperDAL) 1 mg HS PO 10/04/16 21:00 11/05/16 22:14 (NS Flush) 2 ml UNSCH PRN IV FLUSH 10/04/16 13:00 (NS Flush) 2 ml BID IV FLUSH 10/04/16 21:00 11/06/16 09:21 (Zofran Inj) 4 mg Q6H PRN IVP 10/04/16 13:00 (Narcan Inj) 0.4 mg UNSCH PRN IV 10/04/16 13:00 (Milk Of Magnesia Liq) 30 ml Q12H PRN PO 10/04/16 13:00 (Senokot) 17.2 mg Q12H PRN PO 10/04/16 13:00 (Dulcolax Supp) 10 mg DAILY PRN RECTAL 10/04/16 13:00 (Lactulose Liq) 30 ml DAILY PRN PO 10/04/16 13:00 (Pill Splitter) 1 ea UNSCH PRN OTHER 10/04/16 13:15 (Polytrim Opht Soln) 1 drop Q6HR EACH EYE 10/04/16 18:00 11/06/16 06:00 (Tylenol) 325 mg QID PRN PO 10/11/16 16:45 (Restoril) 15 mg HS PRN PO 10/18/16 21:00 11/04/16 22:41 Lactated Ringer's 1,000 ml @ 30 mls/hr Q24H PRN IV 11/05/16 05:15 11/08/16 05:14 Sodium Chloride 500 ml @ 30 mls/hr [id number] PRN IV 11/05/16 05:15 11/08/16 05:14 (Lopressor) 25 mg [employer]IM W[employer]NESS ADMINISTRATOR PRN PO 11/05/16 05:15 11/08/16 05:14 (Betadine 5% Antisepsis Kit) 1 applic VI[employer]IM W[employer]NESS ADMINISTRATOR PRN EACH NARE 11/05/16 05:15 11/08/16 05:14 (Chlorhexidine 2% Cloth) 3 pack VICTIM W[employer]NESS ADMINISTRATOR PRN TOPICAL 11/05/16 05:15 11/08/16 05:14 (NovoLIN R INJ) See Protocol Table ... VICTIM WITNESS ADMINISTRATOR PRN SQ 11/05/16 05:15 11/08/16 05:14 Miscellaneous Information ALL NURSING DEPARTME... UNSCH PRN .XX 11/05/16 14:36 11/06/16 14:35 Miscellaneous Information ALL NURSING DEPARTME... UNSCH PRN .XX 11/05/16 14:36 11/06/16 14:35 Family History Patient denies family psychiatric history Social History Patient was born and raised raised in [place], he lives in [facility], single, his highest level of education is ninth grade Physical Exam Vital Signs Vital Signs Date Time Temp Pulse Resp B/P (MAP) Pulse Ox O2 Delivery O2 Flow Rate FiO2 11/06/16 12:03 97.8 87 18 100/58 (72) 97 11/06/16 03:50 Nasal Cannula 2.00 Lab Results Test 11/06/16 09:59 Total Bilirubin 12.7 MG/DL Direct Bilirubin 11.2 MG/DL Indirect Bilirubin 1.5 MG/DL Aspartate Amino Transf (AST/SGOT) 168 U/L Alanine Aminotransferase (ALT/SGPT) 164 U/L Alkaline Phosphatase 661 U/L Total Protein 6.8 GM/DL Albumin 1.8 GM/DL Date/Time Source Procedure Growth Status 11/01/16 10:55 Stool Stool Stool Occult Blood (MAIK) - Final HEMOCCULT POSITIVE Complete Mental Status Examination Appearance man, [facility], calm and cooperative Speech: Unremarkable Orientation: Person, Place Thought Process: Goal Directed, Loose Association Thought Content: Unremarkable Hallucination Type: None Attention and Concentration: Good Suicidal Ideation: No Previous Suicide Attempts: No Previous Homicide Attempts: No Judgment: Poor Affect: Good Mood: Appropriate Motor Activity: Normal gait Assessment & Plan Problem List: (1) Schizoaffective disorder ICD Codes: F25.9 - Schizoaffective disorder, unspecified Status: Acute Assessment & Plan: At the moment of this evaluation the patient does not present any acute, concerning for significant neuropsychiatric symptoms that requires an immediate psychiatric intervention. Patient denies suicidal and homicidal ideation, he denies visual and auditory hallucinations. No agitation , no aggressive behavior, no behavioral dysregulation, paranoia or delusions present. Patient seems to be compliant and is stable with current psychotropic regimen. Patient does not meet criteria for psychiatric admission at this moment. He can continue current psychotropics. Since the patient is unable to express a clear understanding and appreciation of his underlying medical conditions, unable to express a rational and consistent choice, unable to verbalize alternative treatment to questions of his actions, patient does not seems to have decision-making capacity to leave AMA or to refuse medications. Palliative care is actively working in finding a surrogate decision maker, per notes. Consult appreciated. Assessment & Plan Estimated LOS: days Problem Qualifiers (1) Schizoaffective disorder: Eric Sims MD Nov 06, 2016 12:17
--- NOTE | 2016-11-06 13:00 | HHI.PR ---
Subjective Subjective Remarks Patient standing by his room's door, asking OUTSOLE SCHEDULER to go buy him a pizza He wants to eat He has no complaints ROS difficult to obtain Review of Systems Constitutional Constitutional Remarks 12 point ros limited Vitals/Results Vital Signs Vital Signs Date Time Temp Pulse Resp B/P (MAP) Pulse Ox O2 Delivery O2 Flow Rate FiO2 11/06/16 12:03 97.8 87 18 100/58 (72) 97 11/06/16 08:38 97.7 91 18 109/59 (76) 97 11/06/16 04:38 97.7 77 18 115/64 (81) 96 11/06/16 03:50 97 Nasal Cannula 2.00 11/06/16 00:00 98.7 86 18 129/69 (89) 97 11/05/16 20:36 97.3 101 18 125/67 (86) 97 11/05/16 16:18 97.6 79 18 134/76 (95) 100 11/05/16 15:15 81 18 126/71 (89) 97 Nasal Cannula 2 11/05/16 15:00 83 18 126/74 (91) 100 Nasal Cannula 2 11/05/16 14:45 81 18 118/69 (85) 100 Nasal Cannula 2 11/05/16 14:31 97.4 81 18 125/77 (93) 100 Nasal Cannula 3 CBC/BMP: 11/05/16 1019 11/05/16 1019 Lab Results Laboratory Tests Test 11/06/16 09:59 Total Bilirubin 12.7 MG/DL Direct Bilirubin 11.2 MG/DL Indirect Bilirubin 1.5 MG/DL Aspartate Amino Transf (AST/SGOT) 168 U/L Alanine Aminotransferase (ALT/SGPT) 164 U/L Alkaline Phosphatase 661 U/L Total Protein 6.8 GM/DL Albumin 1.8 GM/DL Physical Exam General General Appearance: No Acute Distress, Comfortable, Pale Appearance Remarks bitemporal muscle wasting Eyes Eye Exam: Pupils Equal, Sclera White, Jaundice Eye Remarks left pupil mishapen,chronic Ears & Nose Ears & Nose Exam: Nasal Mucosa Montara Throat Throat Exam: Oral Mucosa Montara & Moist Neck Neck Exam: Neck Supple, Trachea Midline Pulmonary Resp Exam: Clear Bilaterally, Breath Sounds Equal Cardiology CV Exam: Regular, Normal Sinus Rhythm Gastrointestinal/Abdomen GI Exam: Soft, Bowel Sounds Present, Distended Musculoskeletal MS Exam: Joints Intact (healing right humerus) MS Remarks left shoulder bruising, on sling Integumentary Skin Exam: Warm, Dry Skin Remarks bruising right knee, left arm Extremeties Extremities Exam: No Edema, Pedal Pulses Palpable Neurologic Neuro Exam: Awake, Speech Clear VTE Prophylaxis VTE Prophylaxis Meds: Heparin Assessment/Plan Problem List: (1) Multiple falls ICD Codes: R29.6 - Repeated falls Status: Acute (2) Proximal humerus fracture ICD Codes: S42.209A - Unspecified fracture of upper end of unspecified humerus , initial encounter for closed fracture Status: Acute (3) Frequent falls ICD Codes: R29.6 - Repeated falls Status: Acute (4) Contusion of left knee and lower leg ICD Codes: S80.02XA - Contusion of left knee, initial encounter; S80.12XA - Contusion of left lower leg, initial encounter Status: Acute (5) Bilateral conjunctivitis ICD Codes: H10.9 - Unspecified conjunctivitis Status: Acute (6) History of seizure disorder ICD Codes: Z86.69 - History of seizure disorder Status: Acute (7) Dementia without behavioral disturbance ICD Codes: F03.90 - Unspecified dementia without behavioral disturbance Status: Acute (8) Schizoaffective disorder ICD Codes: F25.9 - Schizoaffective disorder, unspecified Status: Acute (9) Physical debility ICD Codes: R53.81 - Other malaise Status: Chronic (10) Malnourished ICD Codes: E46 - Unspecified protein-calorie malnutrition Status: Chronic (11) Generalized weakness ICD Codes: R53.1 - Weakness Status: Chronic (12) Metastatic colorectal cancer ICD Codes: C78.5 - Secondary malignant neoplasm of large intestine and rectum Status: Chronic (13) Partial bowel obstruction ICD Codes: K56.69 - Other intestinal obstruction Status: Acute (14) Physical deconditioning ICD Codes: R53.81 - Other malaise Status: Acute Assessment/Plan s/p fall with Nondisplaced oblique fracture of the proximal left humerus appreciate Orthopedic consult, plan at this time for conservative management, maintain sling on, currently fracture is nondisplaced Reevaluated by Dr. Morales, imaging studies reviewed, healing well. Continue with non op trx Bilateral conjunctivitis continue eye drops hx of multiple falls orthos bp ok EEG results noted, focal features on left continue Keppra Hx dementia schizoaffective continue home meds Malnourished, bitemporal muscle wasting Boost TID Nutrition consult Physical debility pt. appears to be declining, unable to function independently to [facility] at risk for fall and further injury that may lead to fractures, brain injury pt. benefits from a more supervised environment. New findings of hannah colored stool, jaundiced. Labs on 11/02 elevated tbili GI now following, input appreciated. 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 On 11/04/16 Dr. Whiting performed colonoscopy with findings of Diverticulosis sigmoid,descending/large mass in sigmoid, very friable , bleeding easily, nearlyobstructing-biopsies/polyp diminutive hepatic flexure -biopsy/polyp diminutive -splenic flexure-biopsy/two pedunculated polyps in rectum-8 mm-hot snare polypectomy with complete removal/Retroflexed views revealed internal hemorrhoids/ Retroflexed views revealed small internal hemorrhoids/ Revealed hemorrhoids and EGD- findings of portal gastropathy General surgery, Dr. Weems consulted for evaluation of partial obstructing lesion in sigmoid colon. Treatment plan to include resection of lesion with a primary anastomosis. Oncology, Dr. Ambriz consulted on 11/04/16 for metastatic colon cancer. Patient not a candidate for palliative chemotherapy given his physical deconditioning/ multiple comorbidities. 11/05 S/P ERCP with sphincterotomy and stent placement plastic. per GI, if LFTs continue to increase, may need PTC or longer stent. CMP reviewed, LFTs and T bili remain elevated Surgery on hold at this time Overall prognosis poor Appreciate psychiatric input, patient not competent to make healthcare decisions. Palliative care following, they spoke to patient's brother. Patient now DNR Patient appropriate for hospice services. We will wait for further recommendations from family. Discussed with nurse Discussed with Discussed with pt. Discussed with case management, at this time patient remains under observation criteria. We'll need to find out if he now meets inpatient so we can transition in the event that he needs to go to a long-term care facility. This patient was seen by myself and Dr Zapata, this note is written on his behalf Problem Qualifiers (1) Proximal humerus fracture: (2) Bilateral conjunctivitis: (3) Dementia without behavioral disturbance: (4) Schizoaffective disorder: (5) Malnourished: Qualified Codes: E44.0 - Moderate protein-calorie malnutrition Cynthia Chawla Nov 06, 2016 13:00
[2016-11-06 13:52] LABS: ENDOMYSIAL AB TITER ND (<1:5); TISSUE TRANSGLUTAMINASE AB 3 U/mL (0-4)
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
--- NOTE | 2016-11-06 17:59 | HHI.GIFU ---
GI Follow-up Note Consult Follow-up Subjective: Patient laying in bed comfortably denies nausea, vomiting, abdominal pain.Pathology confirmed colon cancer -discussed with patient . S/P ERCP with stent yesterday Objective: PHYSICAL EXAMINATION: Vitals signs stable No fever Vital Signs Date Time Temp Pulse Resp B/P (MAP) Pulse Ox O2 Delivery O2 Flow Rate FiO2 11/06/16 15:59 97.7 77 18 114/63 (80) 98 11/06/16 12:03 97.8 87 18 100/58 (72) 97 HEENT: Pupils round and reactive to light; normocephalic; atraumatic; jaundice. Throat is clear. NECK: Neck is supple, no JVD, no lymphadenopathy. CHEST: Chest is clear to auscultation and percussion. CARDIAC: Regular rate and rhythm with no murmur gallop or rubs. ABDOMEN: Soft, nondistended, nontender; no hepatosplenomegaly; bowel sounds are present in all four quadrants. EXTREMITIES: No clubbing, cyanosis, or edema. SKIN: Normal; no rash; jaundice. WANT AD SUPERVISOR: No focal deficits; alert and oriented times three. Available Data (labs, X- Rays, Procedues) : ASSESSMENT nearly obstructing sigmoid mass-confirmed colon cancer obstructive jaundice secondary cbd stricture, most likely secondary intrahepatic metastatic disease-s/p ercp with stent placement extensive metastatic liver disease liver cirrhosis Recommendation consider hospice surgical fu hematology fu if liver enzymes continue elle increase consider longer stent or PTC psychiatry evaluated him for competency, need to appoint a POA overall poor prognosis It was a pleasure seeing Drake Jones. Thank you for this consult. Entered by: Agustina Dhaliwal MD Nov 06, 2016 17:59
[2016-11-06] MEDS: DONEPEZIL HCL 5 MG TAB PO SCH (20:40)
[2016-11-06] MEDS: TEMAZEPAM 15 MG CAP PO PRN (20:40)
[2016-11-07] VITALS (8 sets, daily range): BP systolic 107–147; BP diastolic 58–72; PULSE 76–88; RESP 16–18; TEMP 96.5–98.8; O2SAT 92–98
[2016-11-07] MEDS: POLYMYXIN/TRIMETHOPRIM OPHT SOLN 10 ML BTL EACH EYE SCH ×3 (06:00→18:00)
[2016-11-07] MEDS: risperiDONE 1 MG TAB PO SCH ×2 (08:57→21:35)
[2016-11-07] MEDS: ESCITALOPRAM OXALATE 20 MG TAB PO SCH (08:57)
[2016-11-07] MEDS: DIVALPROEX SODIUM E.R. 250 MG TAB PO SCH ×2 (08:57→21:34)
[2016-11-07] MEDS: CHOLECALCIFEROL (VIT D3) 400 UNIT TAB PO SCH (08:57)
[2016-11-07] MEDS: levETIRAcetam 500 MG TAB PO SCH ×2 (08:57→21:34)
[2016-11-07] MEDS: BENZTROPINE MESYLATE 1 MG TAB PO SCH ×2 (08:57→21:35)
[2016-11-07] MEDS: SODIUM CHLORIDE 0.9% FLUSH 10 ML FLUSH IV FLUSH SCH ×2 (08:58→21:35)
--- NOTE | 2016-11-07 13:12 | HHI.PR ---
Subjective Remarks Patient dying on bed without any apparent distress offering no complaint Denies any He has no complaints ROS difficult to obtain Objective Objective Results - Vital Signs Date Time Temp Pulse Resp B/P (MAP) Pulse Ox O2 Delivery O2 Flow Rate FiO2 11/07/16 12:39 97.9 83 18 131/62 (85) 97 11/07/16 12:25 95 Nasal Cannula 2.00 11/07/16 08:05 96.5 83 16 110/60 (77) 95 11/07/16 04:00 97.8 76 18 108/58 (75) 94 11/07/16 03:36 98.4 82 18 107/66 (80) 92 11/06/16 23:50 98.1 90 18 105/60 (75) 94 11/06/16 19:55 97.5 81 20 118/59 (78) 95 11/06/16 15:59 97.7 77 18 114/63 (80) 98 I/O 11/06/16 11/06/16 11/06/16 11/07/16 11/07/16 11/07/16 07:00 15:00 23:00 07:00 15:00 23:00 Intake Total 360 ml Balance 360 ml Intake Oral 360 ml # Voids 3 3 # Bowel Movements 3 Result Diagram: 11/05/16 1019 11/05/16 1019 Other Results Date/Time Source Procedure Growth Status 11/01/16 10:55 Stool Stool Stool Occult Blood (MAIK) - Final HEMOCCULT POSITIVE Complete Physical Exam Physical Exam General General Appearance: No Acute Distress, Comfortable, Pale Appearance Remarks bitemporal muscle wasting Eyes Eye Exam: Pupils Equal, Sclera White, Jaundice Eye Remarks left pupil mishapen,chronic Ears & Nose Ears & Nose Exam: Nasal Mucosa [place] Throat Throat Exam: Oral Mucosa [place] & Moist Neck Neck Exam: Neck Supple, Trachea Midline Pulmonary Resp Exam: Clear Bilaterally, Breath Sounds Equal Cardiology CV Exam: Regular, Normal Sinus Rhythm Gastrointestinal/Abdomen GI Exam: Soft, Bowel Sounds Present, Distended Musculoskeletal MS Exam: Joints Intact (healing right humerus) MS Remarks left shoulder bruising, on sling Integumentary Skin Exam: Warm, Dry Skin Remarks bruising right knee, left arm Extremeties Extremities Exam: No Edema, Pedal Pulses Palpable Neurologic Neuro Exam: Awake, Speech Clear VTE Prophylaxis VTE Prophylaxis Meds: Heparin A/P Assessment and Plan (1) Multiple falls ICD Codes: R29.6 - Repeated falls Status: Acute (2) Proximal humerus fracture ICD Codes: S42.209A - Unspecified fracture of upper end of unspecified humerus , initial encounter for closed fracture Status: Acute (3) Frequent falls ICD Codes: R29.6 - Repeated falls Status: Acute (4) Contusion of left knee and lower leg ICD Codes: S80.02XA - Contusion of left knee, initial encounter; S80.12XA - Contusion of left lower leg, initial encounter Status: Acute (5) Bilateral conjunctivitis ICD Codes: H10.9 - Unspecified conjunctivitis Status: Acute (6) History of seizure disorder ICD Codes: Z86.69 - History of seizure disorder Status: Acute (7) Dementia without behavioral disturbance ICD Codes: F03.90 - Unspecified dementia without behavioral disturbance Status: Acute (8) Schizoaffective disorder ICD Codes: F25.9 - Schizoaffective disorder, unspecified Status: Acute (9) Physical debility ICD Codes: R53.81 - Other malaise Status: Chronic (10) Malnourished ICD Codes: E46 - Unspecified protein-calorie malnutrition Status: Chronic (11) Generalized weakness ICD Codes: R53.1 - Weakness Status: Chronic (12) Metastatic colorectal cancer ICD Codes: C78.5 - Secondary malignant neoplasm of large intestine and rectum Status: Chronic (13) Partial bowel obstruction ICD Codes: K56.69 - Other intestinal obstruction Status: Acute (14) Physical deconditioning ICD Codes: R53.81 - Other malaise Status: Acute Plan s/p fall with Nondisplaced oblique fracture of the proximal left humerus appreciate Orthopedic consult, plan at this time for conservative management, maintain sling on, currently fracture is nondisplaced Reevaluated by Dr. Morales, imaging studies reviewed, healing well. Continue with non op trx Bilateral conjunctivitis continue eye drops hx of multiple falls orthos bp ok EEG results noted, focal features on left continue Keppra Hx dementia schizoaffective continue home meds Malnourished, bitemporal muscle wasting Boost TID Nutrition consult Physical debility pt. appears to be declining, unable to function independently to go back to [facility] at risk for fall and further injury that may lead to fractures, brain injury pt. benefits from a more supervised environment. New findings of hannah colored stool, jaundiced. Labs on 11/02 elevated tbili GI now following, input appreciated. 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 On 11/04/16 Dr. Whiting performed colonoscopy with findings of Diverticulosis sigmoid,descending/large mass in sigmoid, very friable , bleeding easily, nearlyobstructing-biopsies/polyp diminutive hepatic flexure -biopsy/polyp diminutive -splenic flexure-biopsy/two pedunculated polyps in rectum-8 mm-hot snare polypectomy with complete removal/Retroflexed views revealed internal hemorrhoids/ Retroflexed views revealed small internal hemorrhoids/ Revealed hemorrhoids and EGD- findings of portal gastropathy General surgery, Dr. Weems consulted for evaluation of partial obstructing lesion in sigmoid colon. Treatment plan to include resection of lesion with a primary anastomosis. Oncology, Dr. Ambriz consulted on 11/04/16 for metastatic colon cancer. Patient not a candidate for palliative chemotherapy given his physical deconditioning/ multiple comorbidities. 11/05 S/P ERCP with sphincterotomy and stent placement plastic. per GI, if LFTs continue to increase, may need PTC or longer stent. CMP reviewed, LFTs and T bili remain elevated Surgery on hold at this time Overall prognosis poor Appreciate psychiatric input, patient not competent to make healthcare decisions. Palliative care following, they spoke to patient's brother. Patient now DNR Patient appropriate for hospice services. We will wait for further recommendations from palliative care/brother. Likely transfer to hospice Valerie Zapata MD Nov 07, 2016 13:12
--- NOTE | 2016-11-07 13:16 | HHI.GIFU ---
Subjective Remarks Up in chair eating lunch. Tolerating this. Denies nausea, vomiting, abdominal pain. (MylaKathy Duranalphonse ÁLVAREZ) Objective Vitals I&O Vital Signs Date Time Temp Pulse Resp B/P (MAP) Pulse Ox O2 Delivery O2 Flow Rate FiO2 11/07/16 12:39 97.9 83 18 131/62 (85) 97 11/07/16 12:25 95 Nasal Cannula 2.00 11/07/16 08:05 96.5 83 16 110/60 (77) 95 11/07/16 04:00 97.8 76 18 108/58 (75) 94 11/07/16 03:36 98.4 82 18 107/66 (80) 92 11/06/16 23:50 98.1 90 18 105/60 (75) 94 11/06/16 19:55 97.5 81 20 118/59 (78) 95 11/06/16 15:59 97.7 77 18 114/63 (80) 98 I/O 11/06/16 11/06/16 11/06/16 11/07/16 11/07/16 11/07/16 07:00 15:00 23:00 07:00 15:00 23:00 Intake Total 360 ml Balance 360 ml Intake Oral 360 ml # Voids 3 3 # Bowel Movements 3 Laboratory Date/Time Source Procedure Growth Status 11/01/16 10:55 Stool Stool Stool Occult Blood (MAIK) - Final HEMOCCULT POSITIVE Complete Imaging Last Impressions GI Procedure 11/05/16 0000 Signed Impressions: Service Date/Time: October 14:09 - CONCLUSION: ERCP as above. Luis Alberto Coy MD Abdomen/Pelvis CT 11/03/16 0000 Signed Impressions: Service Date/Time: Thursday, November 03, 2016 07:53 - CONCLUSION: Widespread metastatic disease to the liver from presumed adenocarcinoma sigmoid colon. 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 There is no ascites. Dharmesh Nunn MD FACR Hand X-Ray 10/22/16 0000 Signed Impressions: Service Date/Time: September 02:49 - CONCLUSION: Healing fifth metacarpal fracture with callus formation that has developed since the September 12 exam. Also again seen is an intra-articular fracture of the proximal phalanx of the fourth finger at the fourth MCP. This has less callus formation. Abdirizak Martin MD Shoulder X-Ray 10/04/16 0000 Signed Impressions: Service Date/Time: Tuesday, October 04, 2016 11:43 - CONCLUSION: Nondisplaced oblique fracture through the proximal left humerus. Cas Mendez MD Elbow X-Ray 10/04/16 0000 Signed Impressions: Service Date/Time: Tuesday, October 04, 2016 11:48 - CONCLUSION: Negative limited 2 view study. Cas Mendez MD Chest X-Ray 10/04/16 0000 Signed Impressions: Service Date/Time: Tuesday, October 04, 2016 11:40 - CONCLUSION: 1. Nondisplaced fracture involving the left proximal humerus. 2. No acute cardiac pulmonary disease. Cas Mendez MD Physical Exam HEENT: Normocephalic; atraumatic; severe jaundice. CHEST: Resp even/unlabored. Diminished CARDIAC: RRR ABDOMEN: Soft, moderate ascites, nontender; hepatosplenomegaly; bowel sounds are present in all four quadrants. EXTREMITIES: gen. edema. SKIN: + jaundice NEURO: alert and oriented times three. (Kathy LanzaP) Assessment and Plan Plan ASSESSMENT: - Biliary obstruction, jaundice, elevated LFTs. 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 There is no ascites. ERCP with sphincterotomy ()---> showed significant narrowing/complete obstruction in the distal hepatic duct most likely extrinsic compression, a sphincterotomy was performed and a 12 cm x 8.5 [place] stent was placed. Continues to have elevated LFTs with T. Bili 12.7, AST 168, ALT 164, Alk PHosph 661. Afebrile. WBC 5.1. Family wanting comfort measures, Hospice consulted. If they change their mind, recommend metal stent. - Nearly obstructing colon cancer. Oncology and GS following. Family discussing desires comfort measures, Hospice consulted. - Anemia. S/P EGD/Colonoscopy (11/04/16)----> 1. Portal gastropathy-biopsy no bile seen in duodenum 2. Retroflexed views revealed a hiatal hernia 1. Diverticulosis sigmoid,descending large mass in sigmoid, very fraible , bleeding easily, nearly obstructing-biopsies polyp diminutive hepatic flexure -biopsy polyp diminutive -splenic flexure-biopsy two pedunculated polyps in rectum-8 mm-hot snare polypectomy with complete removal 2. Retroflexed views revealed internal hemorrhoids 3. Retroflexed views revealed small internal hemorrhoids 4. Revealed hemorrhoids Pathology with gastric body type mucosal biopsy without significant histopathologic abnormality negative for gastritis, gastropathy, metaplasia and dysplasia, colonic mucosal biopsies with invasive moderately differentiated adenocarcinoma, colonic mucosal biopsies with adenomatous polyps, rectal hyperplastic polyp. HH 11.2/34.3. - Proximal humerus fracture, dementia, schizoaffective d/o PLAN: - HEYDI - S/P GS evaluation - Oncology following - Palliative care following - Per palliative care note, family desires comfort care, Hospice has been consulted- consult pending - Will await final decision regarding hospice. If they change mind, could consider metal stent placement - Supportive care - Further recommendations to follow based on results of above - Pt seen and examined by Dr. Ahmadi and myself and this note is written on his behalf (Kathy Lanza) Physician Comments Seen and examined with PREETI, repeat ercp with metal stent depending upon decision regarding palliative care with comfort measures only vs. aggressive therapy. (Gaby Ahmadi MD) Kathy Lanza Nov 07, 2016 13:16 Gaby Ahmadi MD Nov 07, 2016 13:46
[2016-11-07] MEDS: DONEPEZIL HCL 5 MG TAB PO SCH (21:34)
[2016-11-07] MEDS: TEMAZEPAM 15 MG CAP PO PRN (21:35)
[2016-11-08] VITALS (9 sets, daily range): BP systolic 115–140; BP diastolic 60–78; PULSE 76–98; RESP 16–18; TEMP 97.2–98.7; O2SAT 94–98
[2016-11-08] MEDS: POLYMYXIN/TRIMETHOPRIM OPHT SOLN 10 ML BTL EACH EYE SCH ×5 (02:55→23:28)
[2016-11-08 03:51] LABS: MITOCHONDRIAL ABS LESS THAN 20.0 U (<=20.0)
[2016-11-08] MEDS: levETIRAcetam 500 MG TAB PO SCH ×2 (08:42→21:35)
[2016-11-08] MEDS: DIVALPROEX SODIUM E.R. 250 MG TAB PO SCH ×2 (08:43→21:35)
[2016-11-08] MEDS: BENZTROPINE MESYLATE 1 MG TAB PO SCH ×2 (08:43→21:35)
[2016-11-08] MEDS: CHOLECALCIFEROL (VIT D3) 400 UNIT TAB PO SCH (08:43)
[2016-11-08] MEDS: ESCITALOPRAM OXALATE 20 MG TAB PO SCH (08:43)
[2016-11-08] MEDS: risperiDONE 1 MG TAB PO SCH ×2 (08:43→21:36)
[2016-11-08] MEDS: SODIUM CHLORIDE 0.9% FLUSH 10 ML FLUSH IV FLUSH SCH ×2 (08:46→21:38)
--- NOTE | 2016-11-08 10:40 | HHI.PR ---
Subjective Subjective Remarks Has no complaints Flat affect Eating okay No acute changes overnight ROS difficult to obtain Review of Systems Constitutional Constitutional Remarks 12 point ros limited Vitals/Results Vital Signs Vital Signs Date Time Temp Pulse Resp B/P (MAP) Pulse Ox O2 Delivery O2 Flow Rate FiO2 11/08/16 09:54 98 Nasal Cannula 2.00 11/08/16 08:00 98.7 92 16 120/74 (89) 95 11/08/16 04:07 97.2 91 16 140/70 (93) 95 11/08/16 01:00 98.4 88 17 138/72 (94) 96 11/07/16 20:02 97.6 88 17 147/72 (97) 96 11/07/16 17:42 98 Nasal Cannula 2.00 11/07/16 16:42 98.8 84 18 132/61 (84) 98 11/07/16 12:39 97.9 83 18 131/62 (85) 97 11/07/16 12:25 95 Nasal Cannula 2.00 CBC/BMP: 11/05/16 1019 11/05/16 1019 Physical Exam General General Appearance: No Acute Distress, Comfortable, Pale Appearance Remarks bitemporal muscle wasting Eyes Eye Exam: Pupils Equal, Sclera White, Jaundice Eye Remarks left pupil mishapen,chronic Ears & Nose Ears & Nose Exam: Nasal Mucosa [place] Throat Throat Exam: Oral Mucosa [place] & Moist Neck Neck Exam: Neck Supple, Trachea Midline Pulmonary Resp Exam: Clear Bilaterally, Breath Sounds Equal Cardiology CV Exam: Regular, Normal Sinus Rhythm Gastrointestinal/Abdomen GI Exam: Soft, Bowel Sounds Present, Distended Musculoskeletal MS Exam: Joints Intact (healing right humerus) MS Remarks left shoulder bruising, on sling Integumentary Skin Exam: Warm, Dry Skin Remarks bruising right knee, left arm Extremeties Extremities Exam: No Edema, Pedal Pulses Palpable Neurologic Neuro Exam: Awake, Speech Clear VTE Prophylaxis VTE Prophylaxis Meds: Heparin Assessment/Plan Problem List: (1) Multiple falls ICD Codes: R29.6 - Repeated falls Status: Acute (2) Proximal humerus fracture ICD Codes: S42.209A - Unspecified fracture of upper end of unspecified humerus , initial encounter for closed fracture Status: Acute (3) Frequent falls ICD Codes: R29.6 - Repeated falls Status: Acute (4) Contusion of left knee and lower leg ICD Codes: S80.02XA - Contusion of left knee, initial encounter; S80.12XA - Contusion of left lower leg, initial encounter Status: Acute (5) Bilateral conjunctivitis ICD Codes: H10.9 - Unspecified conjunctivitis Status: Acute (6) History of seizure disorder ICD Codes: Z86.69 - History of seizure disorder Status: Acute (7) Dementia without behavioral disturbance ICD Codes: F03.90 - Unspecified dementia without behavioral disturbance Status: Acute (8) Schizoaffective disorder ICD Codes: F25.9 - Schizoaffective disorder, unspecified Status: Acute (9) Physical debility ICD Codes: R53.81 - Other malaise Status: Chronic (10) Malnourished ICD Codes: E46 - Unspecified protein-calorie malnutrition Status: Chronic (11) Generalized weakness ICD Codes: R53.1 - Weakness Status: Chronic (12) Metastatic colorectal cancer ICD Codes: C78.5 - Secondary malignant neoplasm of large intestine and rectum Status: Chronic (13) Partial bowel obstruction ICD Codes: K56.69 - Other intestinal obstruction Status: Acute (14) Physical deconditioning ICD Codes: R53.81 - Other malaise Status: Acute Assessment/Plan s/p fall with Nondisplaced oblique fracture of the proximal left humerus appreciate Orthopedic consult, plan at this time for conservative management, maintain sling on, currently fracture is nondisplaced Reevaluated by Dr. Morales, imaging studies reviewed, healing well. Continue with non op trx Bilateral conjunctivitis continue eye drops hx of multiple falls orthos bp ok EEG results noted, focal features on left continue Keppra Hx dementia schizoaffective continue home meds Malnourished, bitemporal muscle wasting Boost TID Nutrition consult Physical debility pt. appears to be declining, unable to function independently to go back to [facility] at risk for fall and further injury that may lead to fractures, brain injury pt. benefits from a more supervised environment. New findings of hannah colored stool, jaundiced. Labs on 11/02 elevated tbili GI now following, input appreciated. 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 On 11/04/16 Dr. Whiting performed colonoscopy with findings of Diverticulosis sigmoid,descending/large mass in sigmoid, very friable , bleeding easily, nearlyobstructing-biopsies/polyp diminutive hepatic flexure -biopsy/polyp diminutive -splenic flexure-biopsy/two pedunculated polyps in rectum-8 mm-hot snare polypectomy with complete removal/Retroflexed views revealed internal hemorrhoids/ Retroflexed views revealed small internal hemorrhoids/ Revealed hemorrhoids and EGD- findings of portal gastropathy General surgery, Dr. Weems consulted for evaluation of partial obstructing lesion in sigmoid colon. Treatment plan to include resection of lesion with a primary anastomosis. Oncology, Dr. Ambriz consulted on 11/04/16 for metastatic colon cancer. Patient not a candidate for palliative chemotherapy given his physical deconditioning/ multiple comorbidities. 11/05 S/P ERCP with sphincterotomy and stent placement plastic. per GI, if LFTs continue to increase, may need PTC or longer stent. Surgery signed off, patient's POA who is the brother declined surgery. Overall prognosis poor Appreciate psychiatric input, patient not competent to make healthcare decisions. Palliative care following, they spoke to patient's brother. Patient now DNR Patient appropriate for hospice services. We will wait for further recommendations from family. Discussed with rn case manager hospice Sonja, apparently the brother is now considering surgery. We will wait until tomorrow to discuss with palliative care Patient not appropriate for hospice care center as he is asymptomatic. Discussed with nurse Discussed with Discussed with pt.-patient does not appear to comprehend what's going This patient was seen by myself and Dr Zapata, this note is written on his behalf Problem Qualifiers (1) Proximal humerus fracture: (2) Bilateral conjunctivitis: (3) Dementia without behavioral disturbance: (4) Schizoaffective disorder: (5) Malnourished: Qualified Codes: E44.0 - Moderate protein-calorie malnutrition Cynthia Chawla [facility] Nov 08, 2016 10:40
--- NOTE | 2016-11-08 13:47 | HHI.GIFU ---
Subjective Remarks No apparent distress. Tolerating diet. Denies abdominal pain, nausea or vomiting. (Jessica Starks) Objective Vitals I&O Vital Signs Date Time Temp Pulse Resp B/P (MAP) Pulse Ox O2 Delivery O2 Flow Rate FiO2 11/08/16 12:00 98.4 95 18 115/60 (78) 98 11/08/16 09:54 98 Nasal Cannula 2.00 11/08/16 08:00 98.7 92 16 120/74 (89) 95 11/08/16 04:07 97.2 91 16 140/70 (93) 95 11/08/16 01:00 98.4 88 17 138/72 (94) 96 11/07/16 20:02 97.6 88 17 147/72 (97) 96 11/07/16 17:42 98 Nasal Cannula 2.00 11/07/16 16:42 98.8 84 18 132/61 (84) 98 I/O 11/07/16 11/07/16 11/07/16 11/08/16 11/08/16 11/08/16 07:00 15:00 23:00 07:00 15:00 23:00 Intake Total 600 ml Balance 600 ml Intake Oral 600 ml # Voids 3 Laboratory Date/Time Source Procedure Growth Status 11/01/16 10:55 Stool Stool Stool Occult Blood (MAIK) - Final HEMOCCULT POSITIVE Complete Imaging Last Impressions GI Procedure 11/05/16 0000 Signed Impressions: Service Date/Time: October 14:09 - CONCLUSION: ERCP as above. Luis Alberto Coy MD Abdomen/Pelvis CT 11/03/16 0000 Signed Impressions: Service Date/Time: Thursday, November 03, 2016 07:53 - CONCLUSION: Widespread metastatic disease to the liver from presumed adenocarcinoma sigmoid colon. 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 There is no ascites. Dharmesh Nunn MD FACR Hand X-Ray 10/22/16 0000 Signed Impressions: Service Date/Time: September 02:49 - CONCLUSION: Healing fifth metacarpal fracture with callus formation that has developed since the September 12 exam. Also again seen is an intra-articular fracture of the proximal phalanx of the fourth finger at the fourth MCP. This has less callus formation. Abdirizak Martin MD Shoulder X-Ray 10/04/16 0000 Signed Impressions: Service Date/Time: Tuesday, October 04, 2016 11:43 - CONCLUSION: Nondisplaced oblique fracture through the proximal left humerus. Cas Mendez MD Elbow X-Ray 10/04/16 0000 Signed Impressions: Service Date/Time: Tuesday, October 04, 2016 11:48 - CONCLUSION: Negative limited 2 view study. Cas Mendez MD Chest X-Ray 10/04/16 0000 Signed Impressions: Service Date/Time: Tuesday, October 04, 2016 11:40 - CONCLUSION: 1. Nondisplaced fracture involving the left proximal humerus. 2. No acute cardiac pulmonary disease. Cas Mendez MD Physical Exam HEENT: Normocephalic; atraumatic; + jaundice. CHEST: CTA, diminished CARDIAC: RRR ABDOMEN: Soft, moderate ascites, nontender; hepatosplenomegaly; bowel sounds are present EXTREMITIES: Generalized edema SKIN: + jaundice NEURO: Alert, some confusion noted (Jessica Starks) Assessment and Plan Plan ASSESSMENT: - Biliary obstruction, jaundice, elevated LFTs. 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 There is no ascites. ERCP with sphincterotomy ()---> showed significant narrowing/complete obstruction in the distal hepatic duct most likely extrinsic compression, a sphincterotomy was performed and a 12 cm x 8.5 [place] stent was placed. Continues to have elevated LFTs with T. Bili 12.7, AST 168, ALT 164, Alk PHosph 661. Afebrile. WBC 5.1. Family wanting comfort measures, Hospice consulted. If they change their mind, recommend metal stent. - Nearly obstructing colon cancer. Oncology and GS following. Family discussing desires comfort measures, Hospice consulted. - Anemia. S/P EGD/Colonoscopy (11/04/16)----> 1. Portal gastropathy-biopsy no bile seen in duodenum 2. Retroflexed views revealed a hiatal hernia 1. Diverticulosis sigmoid,descending large mass in sigmoid, very fraible , bleeding easily, nearly obstructing-biopsies polyp diminutive hepatic flexure -biopsy polyp diminutive -splenic flexure-biopsy two pedunculated polyps in rectum-8 mm-hot snare polypectomy with complete removal 2. Retroflexed views revealed internal hemorrhoids 3. Retroflexed views revealed small internal hemorrhoids 4. Revealed hemorrhoids Pathology with gastric body type mucosal biopsy without significant histopathologic abnormality negative for gastritis, gastropathy, metaplasia and dysplasia, colonic mucosal biopsies with invasive moderately differentiated adenocarcinoma, colonic mucosal biopsies with adenomatous polyps, rectal hyperplastic polyp. HH 11.2/34.3. - Proximal humerus fracture, dementia, schizoaffective d/o 11/08/16--Patient states she is doing well. No abdominal pain, nausea or vomiting. Tolerating diet. No recent labs. Awaiting hospice care consultation. PLAN: - HEYDI - S/P GS evaluation - Oncology following - Palliative care following - Per palliative care note, family desires comfort care, Hospice has been consulted- consult pending - Will await final decision regarding hospice. If they change mind, consider ERCP with stent placement - Supportive care - Further recommendations to follow based on results of above Patient seen and examined by Dr. Ahmadi and myself and this note is written on his behalf (Jessica Starks) Physician Comments Seen and examined by PREETI< still awaiting final decision regarding further liu. ? metal biary stent next week. Dr. Edwards to follow. (Gaby Ahmadi MD) Jessica Starks Nov 08, 2016 13:47 Gaby Ahmadi MD Nov 08, 2016 14:59
[2016-11-08] MEDS: DONEPEZIL HCL 5 MG TAB PO SCH (21:35)
[2016-11-08] MEDS: TEMAZEPAM 15 MG CAP PO PRN (21:35)
[2016-11-09 04:30] VITALS: BP 114/64; PULSE 94; RESP 17; TEMP 98; O2SAT 94
[2016-11-09] MEDS: POLYMYXIN/TRIMETHOPRIM OPHT SOLN 10 ML BTL EACH EYE SCH ×4 (06:04→23:14)
--- NOTE | 2016-11-09 07:27 | HHI.PR ---
Subjective Subjective Remarks Resting in the bed Ate approximately 50% of breakfast Color pale, Responds to simple questions Denies any pain Review of Systems Constitutional Constitutional Remarks 10 point ROS done , answers with short simple communication GI/Abdomen GI/Abdomen Remarks Mild jaundice noted Psychiatric Psychiatric Remarks Flat affect Vitals/Results Vital Signs Vital Signs Date Time Temp Pulse Resp B/P (MAP) Pulse Ox O2 Delivery O2 Flow Rate FiO2 11/09/16 04:30 98.0 94 17 114/64 (81) 94 11/08/16 23:41 97.9 98 18 133/78 (96) 95 11/08/16 20:00 97.8 94 18 132/75 (94) 94 11/08/16 17:39 96 Nasal Cannula 2.00 11/08/16 16:00 98.2 76 18 138/71 (93) 96 11/08/16 12:00 98.4 95 18 115/60 (78) 98 11/08/16 09:54 98 Nasal Cannula 2.00 11/08/16 08:00 98.7 92 16 120/74 (89) 95 CBC/BMP: 11/05/16 1019 11/05/16 1019 Current Medications Administered Medications Medications (Trade) Dose Ordered Sig/Daniel Route PRN Reason Start Time Stop Time Status Last Admin Dose Admin Benztropine Mesylate (Cogentin) 0.5 mg BID PO 10/04/16 21:00 11/08/16 21:35 Cholecalciferol (Vitamin D3) 400 units DAILY PO 10/05/16 09:00 11/08/16 08:43 Divalproex Sodium (Depakote Er) 250 mg BID PO 10/04/16 21:00 11/08/16 21:35 Donepezil HCl (Aricept) 5 mg HS PO 10/04/16 21:00 11/08/16 21:35 Escitalopram Oxalate (Lexapro) 20 mg DAILY PO 10/05/16 09:00 11/08/16 08:43 Levetriacetam (Keppra) 500 mg BID PO 10/04/16 21:00 11/08/16 21:35 Risperidone (risperDAL) 1 mg DAILY PO 10/05/16 09:00 11/08/16 08:43 Risperidone (risperDAL) 1 mg HS PO 10/04/16 21:00 11/08/16 21:36 Sodium Chloride (NS Flush) 2 ml BID IV FLUSH 10/04/16 21:00 11/08/16 21:38 Polymyxin/ Trimethoprim Sulfate (Polytrim Opht Soln) 1 drop Q6HR EACH EYE 10/04/16 18:00 11/09/16 06:04 Temazepam (Restoril) 15 mg HS PRN PO insomnia 10/18/16 21:00 11/08/16 21:35 Physical Exam General General Appearance: No Acute Distress, Comfortable, Pale Appearance Remarks Mild icteric skin and sclera generalized, thin, frail Eyes Eye Exam: Pupils Equal, Sclera White, Jaundice Eye Remarks Mild icterus Ears & Nose Ears & Nose Exam: Nasal Mucosa Dry Prong Throat Throat Exam: Oral Mucosa Dry Prong & Moist Throat Remarks Mild icterus Neck Neck Exam: Neck Supple, Trachea Midline Pulmonary Resp Exam: Clear Bilaterally, Breath Sounds Equal Cardiology CV Exam: Regular, Normal Sinus Rhythm Gastrointestinal/Abdomen GI Exam: Soft, Bowel Sounds Present, Distended Musculoskeletal MS Exam: Joints Intact (healing right humerus) Integumentary Skin Exam: Warm, Dry Skin Remarks Mild jaundice noted Extremeties Extremities Exam: No Edema, Pedal Pulses Palpable Neurologic Neuro Exam: Awake, Speech Clear VTE Prophylaxis VTE Prophylaxis Meds: Heparin Assessment/Plan Problem List: (1) Multiple falls ICD Codes: R29.6 - Repeated falls Status: Acute (2) Proximal humerus fracture ICD Codes: S42.209A - Unspecified fracture of upper end of unspecified humerus , initial encounter for closed fracture Status: Acute (3) Frequent falls ICD Codes: R29.6 - Repeated falls Status: Acute (4) Contusion of left knee and lower leg ICD Codes: S80.02XA - Contusion of left knee, initial encounter; S80.12XA - Contusion of left lower leg, initial encounter Status: Acute (5) Bilateral conjunctivitis ICD Codes: H10.9 - Unspecified conjunctivitis Status: Acute (6) History of seizure disorder ICD Codes: Z86.69 - History of seizure disorder Status: Acute (7) Dementia without behavioral disturbance ICD Codes: F03.90 - Unspecified dementia without behavioral disturbance Status: Acute (8) Schizoaffective disorder ICD Codes: F25.9 - Schizoaffective disorder, unspecified Status: Acute (9) Physical debility ICD Codes: R53.81 - Other malaise Status: Chronic (10) Malnourished ICD Codes: E46 - Unspecified protein-calorie malnutrition Status: Chronic (11) Generalized weakness ICD Codes: R53.1 - Weakness Status: Chronic (12) Metastatic colorectal cancer ICD Codes: C78.5 - Secondary malignant neoplasm of large intestine and rectum Status: Chronic (13) Partial bowel obstruction ICD Codes: K56.69 - Other intestinal obstruction Status: Acute (14) Physical deconditioning ICD Codes: R53.81 - Other malaise Status: Acute Assessment/Plan Vital signs reviewed, trends are normal range s/p fall with Nondisplaced oblique fracture of the proximal left humerus, medical management non-surgical Reevaluated by Dr. Morales, physical therapy and occupational therapy Hx dementia schizoaffective stable medical management for now New findings of hannah colored stool, jaundiced. Labs on 11/02 elevated tbili GI now following, input appreciated. 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 On 11/04/16 Dr. Whiting performed colonoscopy with findings of Diverticulosis sigmoid,descending/large mass in sigmoid, very friable , bleeding easily, nearlyobstructing-biopsies/polyp diminutive hepatic flexure -biopsy/polyp diminutive -splenic flexure-biopsy/two pedunculated polyps in rectum-8 mm-hot snare polypectomy with complete removal/Retroflexed views revealed internal hemorrhoids/ Retroflexed views revealed small internal hemorrhoids/ Revealed hemorrhoids and EGD- findings of portal gastropathy General surgery, Dr. Weems consulted for evaluation of partial obstructing lesion in sigmoid colon. Treatment plan to include resection of lesion with a primary anastomosis. Oncology, Dr. Ambriz consulted on 11/04/16 for metastatic colon cancer. Patient not a candidate for palliative chemotherapy 11/05 S/P ERCP with sphincterotomy and stent placement plastic. Surgical options initially declined by brother Overall prognosis poor Appreciate psychiatric input, patient not competent to make healthcare decisions. Palliative care following as well as hospice will evaluate wishes of brother who is making healthcare decisions for patient, they spoke to patient's brother. Patient now DNR Discussed with case management today, we'll continue to work with discharge planning and plan of care based on brother's wishes Discussed with nurse Discussed with Dr. Sandy, seen on his behalf Problem Qualifiers (1) Proximal humerus fracture: (2) Bilateral conjunctivitis: (3) Dementia without behavioral disturbance: (4) Schizoaffective disorder: (5) Malnourished: Qualified Codes: E44.0 - Moderate protein-calorie malnutrition Constanza Lucero Nov 09, 2016 07:27
[2016-11-09 08:07] VITALS: BP 131/73; PULSE 92; RESP 18; TEMP 97.4; O2SAT 98
[2016-11-09] MEDS: CHOLECALCIFEROL (VIT D3) 400 UNIT TAB PO SCH (09:12)
[2016-11-09] MEDS: DIVALPROEX SODIUM E.R. 250 MG TAB PO SCH ×2 (09:12→22:29)
[2016-11-09] MEDS: ESCITALOPRAM OXALATE 20 MG TAB PO SCH (09:13)
[2016-11-09] MEDS: risperiDONE 1 MG TAB PO SCH ×2 (09:13→22:25)
[2016-11-09] MEDS: BENZTROPINE MESYLATE 1 MG TAB PO SCH ×2 (09:13→22:25)
[2016-11-09] MEDS: levETIRAcetam 500 MG TAB PO SCH ×2 (09:13→22:25)
[2016-11-09] MEDS: SODIUM CHLORIDE 0.9% FLUSH 10 ML FLUSH IV FLUSH SCH ×2 (09:14→22:26)
--- NOTE | 2016-11-09 11:05 | HHI.GIFU ---
Subjective Remarks Pt very lethargic. Denies nausea/vomiting. Denies abdominal pain. Hospice met with family over the weekend and opted for aggressive measures- but palliative care is meeting with family today and state that they were requesting comfort measures before. (Kathy Lanza) Objective Vitals I&O Vital Signs Date Time Temp Pulse Resp B/P (MAP) Pulse Ox O2 Delivery O2 Flow Rate FiO2 11/09/16 10:36 2.00 11/09/16 08:07 97.4 92 18 131/73 (92) 98 11/09/16 04:30 98.0 94 17 114/64 (81) 94 11/08/16 23:41 97.9 98 18 133/78 (96) 95 11/08/16 20:00 97.8 94 18 132/75 (94) 94 11/08/16 17:39 96 Nasal Cannula 2.00 11/08/16 16:00 98.2 76 18 138/71 (93) 96 11/08/16 12:00 98.4 95 18 115/60 (78) 98 I/O 11/08/16 11/08/16 11/08/16 11/09/16 11/09/16 11/09/16 07:00 15:00 23:00 07:00 15:00 23:00 Intake Total 960 ml 360 ml Balance 960 ml 360 ml Intake Oral 960 ml 360 ml # Voids 6 8 4 # Bowel Movements 4 3 Laboratory Date/Time Source Procedure Growth Status 11/01/16 10:55 Stool Stool Stool Occult Blood (MAIK) - Final HEMOCCULT POSITIVE Complete Imaging Last Impressions GI Procedure 11/05/16 0000 Signed Impressions: Service Date/Time: October 14:09 - CONCLUSION: ERCP as above. Luis Alberto Coy MD Abdomen/Pelvis CT 11/03/16 0000 Signed Impressions: Service Date/Time: Thursday, November 03, 2016 07:53 - CONCLUSION: Widespread metastatic disease to the liver from presumed adenocarcinoma sigmoid colon. 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 There is no ascites. Dharmesh Nunn MD FACR Hand X-Ray 10/22/16 0000 Signed Impressions: Service Date/Time: September 02:49 - CONCLUSION: Healing fifth metacarpal fracture with callus formation that has developed since the September 12 exam. Also again seen is an intra-articular fracture of the proximal phalanx of the fourth finger at the fourth MCP. This has less callus formation. Abdirizak Martin MD Shoulder X-Ray 10/04/16 0000 Signed Impressions: Service Date/Time: Tuesday, October 04, 2016 11:43 - CONCLUSION: Nondisplaced oblique fracture through the proximal left humerus. Cas Mendez MD Elbow X-Ray 10/04/16 0000 Signed Impressions: Service Date/Time: Tuesday, October 04, 2016 11:48 - CONCLUSION: Negative limited 2 view study. Cas Mendez MD Chest X-Ray 10/04/16 0000 Signed Impressions: Service Date/Time: Tuesday, October 04, 2016 11:40 - CONCLUSION: 1. Nondisplaced fracture involving the left proximal humerus. 2. No acute cardiac pulmonary disease. Cas Mendez MD Physical Exam HEENT: Normocephalic; atraumatic; + jaundice. CHEST: CTA, diminished CARDIAC: RRR ABDOMEN: Soft, moderate ascites, nontender; hepatosplenomegaly; bowel sounds are present EXTREMITIES: Generalized edema SKIN: + jaundice NEURO: Lethargic and confused (Kathy Lanza) Assessment and Plan Plan ASSESSMENT: - Biliary obstruction, jaundice, elevated LFTs. 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 There is no ascites. ERCP with sphincterotomy ()---> showed significant narrowing/complete obstruction in the distal hepatic duct most likely extrinsic compression, a sphincterotomy was performed and a 12 cm x 8.5 Yoruba stent was placed. Continues to have elevated LFTs with T. Bili 12.7, AST 168, ALT 164, Alk PHosph 661 on 11/06. Afebrile. Will await for palliative care meeting today- if they want aggressive treatment, will plan for ERCP with stent exchange with longer stent in am. - Nearly obstructing colon cancer. Oncology and GS following. Palliative care following. - Anemia. S/P EGD/Colonoscopy (11/04/16)----> 1. Portal gastropathy-biopsy no bile seen in duodenum 2. Retroflexed views revealed a hiatal hernia 1. Diverticulosis sigmoid,descending large mass in sigmoid, very fraible , bleeding easily, nearly obstructing-biopsies polyp diminutive hepatic flexure -biopsy polyp diminutive -splenic flexure-biopsy two pedunculated polyps in rectum-8 mm-hot snare polypectomy with complete removal 2. Retroflexed views revealed internal hemorrhoids 3. Retroflexed views revealed small internal hemorrhoids 4. Revealed hemorrhoids Pathology with gastric body type mucosal biopsy without significant histopathologic abnormality negative for gastritis, gastropathy, metaplasia and dysplasia, colonic mucosal biopsies with invasive moderately differentiated adenocarcinoma, colonic mucosal biopsies with adenomatous polyps, rectal hyperplastic polyp. HH 11.2/34.3. - Proximal humerus fracture, dementia, schizoaffective d/o PLAN: - HEYDI - NPO after MN, until family decides about hospice/comfort care - CBC, CMP, PT/INR - S/P GS evaluation - Supportive care - Oncology following - Palliative care following, to speak to family today regarding clarification of goals - If family wants aggressive treatment, will plan for ERCP with stent placement in am (longer stent) - Further recommendations to follow based on results of above - Patient seen and examined by Dr. Edwards and myself and this note is written on his behalf (Kathy Lanza) Physician Comments Patient seen and examined Agree with above Monitor labs Continue with current supportive care Possible ERCP tomorrow (Pedro Edwards MD) Kathy Lanza Nov 09, 2016 11:05 Pedro Edwards MD Nov 09, 2016 22:17
[2016-11-09 12:04] VITALS: BP 148/75; PULSE 90; RESP 18; TEMP 98.5; O2SAT 96
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
[2016-11-09] MEDS ORDERED: CHLORHEXIDINE GLUCONATE 2 % 1 PACK (2 CLOTHS) TOPICAL PRN (15:15)
[2016-11-09] MEDS ORDERED: INSULIN HUMAN REGULAR 1,000 UNITS/10 ML VIAL SQ PRN (15:15)
[2016-11-09] MEDS ORDERED: LACTATED RINGER'S 1000 ML IV PRN (15:15)
[2016-11-09] MEDS ORDERED: POVIDONE IODINE 5% (ANTISEPSIS KIT) 4 APPLICATIONS EACH NARE PRN (15:15)
[2016-11-09] MEDS ORDERED: SODIUM CHLORID 0.9% 500 ML IV PRN (15:15)
[2016-11-09] MEDS ORDERED: METOPROLOL TARTRATE 25 MG TAB PO PRN (15:15)
[2016-11-09 16:01] VITALS: BP 130/74; PULSE 98; RESP 18; TEMP 97.4; O2SAT 97
[2016-11-09 20:00] VITALS: BP 123/61; PULSE 101; RESP 18; TEMP 98.1; O2SAT 93
[2016-11-09] MEDS: DONEPEZIL HCL 5 MG TAB PO SCH (22:25)
[2016-11-09] MEDS: TEMAZEPAM 15 MG CAP PO PRN (22:25)
[2016-11-10] VITALS: BP 125/69; PULSE 101; RESP 22; TEMP 99; O2SAT 92
[2016-11-10 04:00] VITALS: BP 127/72; PULSE 103; RESP 18; TEMP 98.3; O2SAT 95
[2016-11-10] MEDS: POLYMYXIN/TRIMETHOPRIM OPHT SOLN 10 ML BTL EACH EYE SCH ×3 (06:19→17:43)
[2016-11-10 08:01] VITALS: BP 129/64; PULSE 119; RESP 18; TEMP 98.1; O2SAT 94
[2016-11-10] MEDS: BENZTROPINE MESYLATE 1 MG TAB PO SCH ×2 (08:29→21:29)
[2016-11-10] MEDS: levETIRAcetam 500 MG TAB PO SCH ×2 (08:30→21:29)
[2016-11-10] MEDS: risperiDONE 1 MG TAB PO SCH ×2 (08:31→21:29)
[2016-11-10] MEDS: CHOLECALCIFEROL (VIT D3) 400 UNIT TAB PO SCH (08:31)
[2016-11-10] MEDS: ESCITALOPRAM OXALATE 20 MG TAB PO SCH (08:31)
[2016-11-10] MEDS: DIVALPROEX SODIUM E.R. 250 MG TAB PO SCH ×2 (08:31→21:29)
[2016-11-10] MEDS: SODIUM CHLORIDE 0.9% FLUSH 10 ML FLUSH IV FLUSH SCH ×2 (08:32→21:29)
--- NOTE | 2016-11-10 08:49 | HHI.PR ---
Subjective Subjective Remarks Sitting at a nurse's station, Responds weakly to verbal stimuli but appears lethargic Nothing by mouth for ERCP Review of Systems Constitutional Constitutional Remarks 10 point ROS done , answers with short simple communication GI/Abdomen GI/Abdomen Remarks jaundice continues skin and sclera Psychiatric Psychiatric Remarks Flat affect Vitals/Results Vital Signs Vital Signs Date Time Temp Pulse Resp B/P (MAP) Pulse Ox O2 Delivery O2 Flow Rate FiO2 11/10/16 08:01 98.1 119 18 129/64 (85) 94 11/10/16 04:00 98.3 103 18 127/72 (90) 95 11/10/16 00:00 99.0 101 22 125/69 (87) 92 11/09/16 20:10 21 11/09/16 20:00 98.1 101 18 123/61 (81) 93 11/09/16 16:01 97.4 98 18 130/74 (92) 97 11/09/16 12:04 98.5 90 18 148/75 (99) 96 11/09/16 10:36 2.00 Current Medications Administered Medications Medications (Trade) Dose Ordered Sig/Daniel Route PRN Reason Start Time Stop Time Status Last Admin Dose Admin Benztropine Mesylate (Cogentin) 0.5 mg BID PO 10/04/16 21:00 11/10/16 08:29 Cholecalciferol (Vitamin D3) 400 units DAILY PO 10/05/16 09:00 11/10/16 08:31 Divalproex Sodium (Depakote Er) 250 mg BID PO 10/04/16 21:00 11/10/16 08:31 Donepezil HCl (Aricept) 5 mg HS PO 10/04/16 21:00 11/09/16 22:25 Escitalopram Oxalate (Lexapro) 20 mg DAILY PO 10/05/16 09:00 11/10/16 08:31 Levetriacetam (Keppra) 500 mg BID PO 10/04/16 21:00 11/10/16 08:30 Risperidone (risperDAL) 1 mg DAILY PO 10/05/16 09:00 11/10/16 08:31 Risperidone (risperDAL) 1 mg HS PO 10/04/16 21:00 11/09/16 22:25 Sodium Chloride (NS Flush) 2 ml BID IV FLUSH 10/04/16 21:00 11/10/16 08:32 Polymyxin/ Trimethoprim Sulfate (Polytrim Opht Soln) 1 drop Q6HR EACH EYE 10/04/16 18:00 11/10/16 06:19 Temazepam (Restoril) 15 mg HS PRN PO insomnia 10/18/16 21:00 11/09/16 22:25 Physical Exam General General Appearance: No Acute Distress, Pale Appearance Remarks Mild icteric skin and sclera generalized, thin, frail Gradual lethargy noted Eyes Eye Exam: Pupils Equal, Sclera White, Jaundice Eye Remarks Mild icterus Ears & Nose Ears & Nose Exam: Nasal Mucosa [place] Throat Throat Exam: Oral Mucosa [place] & Moist Throat Remarks icterus Neck Neck Exam: Neck Supple, Trachea Midline Pulmonary Resp Exam: Breath Sounds Equal, Diminished Breath Sounds Resp Remarks Low volumes at rest Cardiology CV Exam: Regular, Normal Sinus Rhythm Gastrointestinal/Abdomen GI Exam: Soft, Bowel Sounds Present, Distended Musculoskeletal MS Exam: Joints Intact (healing right humerus) Integumentary Skin Exam: Warm, Dry Skin Remarks Mild jaundice noted Extremeties Extremities Exam: No Edema, Pedal Pulses Palpable Neurologic Neuro Exam: Awake, Speech Clear VTE Prophylaxis VTE Prophylaxis Meds: Heparin Assessment/Plan Problem List: (1) Multiple falls ICD Codes: R29.6 - Repeated falls Status: Acute (2) Proximal humerus fracture ICD Codes: S42.209A - Unspecified fracture of upper end of unspecified humerus , initial encounter for closed fracture Status: Acute (3) Frequent falls ICD Codes: R29.6 - Repeated falls Status: Acute (4) Contusion of left knee and lower leg ICD Codes: S80.02XA - Contusion of left knee, initial encounter; S80.12XA - Contusion of left lower leg, initial encounter Status: Acute (5) Bilateral conjunctivitis ICD Codes: H10.9 - Unspecified conjunctivitis Status: Acute (6) History of seizure disorder ICD Codes: Z86.69 - History of seizure disorder Status: Acute (7) Dementia without behavioral disturbance ICD Codes: F03.90 - Unspecified dementia without behavioral disturbance Status: Acute (8) Schizoaffective disorder ICD Codes: F25.9 - Schizoaffective disorder, unspecified Status: Acute (9) Physical debility ICD Codes: R53.81 - Other malaise Status: Chronic (10) Malnourished ICD Codes: E46 - Unspecified protein-calorie malnutrition Status: Chronic (11) Generalized weakness ICD Codes: R53.1 - Weakness Status: Chronic (12) Metastatic colorectal cancer ICD Codes: C78.5 - Secondary malignant neoplasm of large intestine and rectum Status: Chronic (13) Partial bowel obstruction ICD Codes: K56.69 - Other intestinal obstruction Status: Acute (14) Physical deconditioning ICD Codes: R53.81 - Other malaise Status: Acute Assessment/Plan Vital signs reviewed, trends are normal range s/p fall with Nondisplaced oblique fracture of the proximal left humerus, medical management non-surgical, healing nicely Reevaluated by Dr. Morales, physical therapy and occupational therapy Hx dementia schizoaffective stable medical management for now New findings of hannah colored stool, jaundiced. Labs on 11/02 elevated tbili GI now following, input appreciated. 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 On 11/04/16 Dr. Whiting performed colonoscopy with findings of Diverticulosis sigmoid,descending/large mass in sigmoid, very friable , bleeding easily, nearlyobstructing-biopsies/polyp diminutive hepatic flexure -biopsy/polyp diminutive -splenic flexure-biopsy/two pedunculated polyps in rectum-8 mm-hot snare polypectomy with complete removal/Retroflexed views revealed internal hemorrhoids/ Retroflexed views revealed small internal hemorrhoids/ Revealed hemorrhoids and EGD- findings of portal gastropathy General surgery, Dr. Weems consulted for evaluation of partial obstructing lesion in sigmoid colon. Treatment plan to include resection of lesion with a primary anastomosis. Oncology, Dr. Ambriz consulted on 11/04/16 for metastatic colon cancer. Patient not a candidate for palliative chemotherapy 11/05 S/P ERCP with sphincterotomy and stent placement plastic. 11/10, nothing by mouth for ERCP today, nurse spoke with brother on the phone who agreed to the procedure Overall prognosis poor Appreciate psychiatric input, patient not competent to make healthcare decisions. Palliative care following , at this time moving forward with ERCP procedure today . Patient now DNR Patient's general condition continues to decline Discussed with nurse Discussed with Dr. Sandy, seen on his behalf Problem Qualifiers (1) Proximal humerus fracture: (2) Bilateral conjunctivitis: (3) Dementia without behavioral disturbance: (4) Schizoaffective disorder: (5) Malnourished: Qualified Codes: E44.0 - Moderate protein-calorie malnutrition Constanza Lucero Nov 10, 2016 08:49
[2016-11-10 09:48] LABS: AUTOMATED NEUTROPHIL # 7.2 TH/MM3 (1.8-7.7); BASOPHIL % 0.6 % (0.0-2.0); EOSINOPHIL % 0.2 % (0.0-4.0); HEMATOCRIT 33.3 % (39.0-51.0); HEMO FLAGS DIFF FINAL; LYMPH % 4.1 % (9.0-44.0); LYMPHOCYTE # 0.3 TH/MM3 (1.0-4.8); MEAN CELL VOLUME 88.1 FL (80.0-100.0); MEAN CORPUSCULAR HEMOGLOBIN 29.7 PG (27.0-34.0); MEAN CORPUSCULAR HGB CONC 33.7 % (32.0-36.0); NEUT % 86.1 % (16.0-70.0); PLATELET COUNT 134 TH/MM3 (150-450); RED BLOOD COUNT 3.78 MIL/MM3 (4.50-5.90); RED CELL DISTRIBUTION WIDTH 19.7 % (11.6-17.2); WHITE BLOOD COUNT 8.3 TH/MM3 (4.0-11.0)
[2016-11-10 09:51] LABS: INTERNATIONAL NORMALIZED RATIO 2.1 RATIO; PROTHROMBIN TIME - PATIENT 24.3 SEC (9.8-11.6)
[2016-11-10 10:10] LABS: ANION GAP 7 MEQ/L (5-15); AST (GOT) 266 U/L (15-37); BICARBONATE 28.3 MEQ/L (21.0-32.0); BLOOD UREA NITROGEN 15 MG/DL (7-18); CHLORIDE 97 MEQ/L (98-107); GLOMERULAR FILTRATION RATE 134 ML/MIN (>89); SODIUM (NA) 132 MEQ/L (136-145)
[2016-11-10 10:14] LABS: ALKALINE PHOSPHATASE 920 U/L (45-117); ALT (GPT) 215 U/L (12-78); TOTAL BILIRUBIN ADULT 15.9 MG/DL (0.2-1.0)
[2016-11-10] MEDS ORDERED: PHENYLEPH/NS 1000 MCG/10 ML SYR IV ONE (12:00)
[2016-11-10 12:02] VITALS: BP 108/63; PULSE 109; RESP 18; TEMP 97.4; O2SAT 96
[2016-11-10] MEDS ORDERED: IOHEXOL 350 MG/ML 50 ML BTL (for RAD DIAG) OTHER ONE (14:57)
[2016-11-10] MEDS ORDERED: GLUCAGON 1 MG/ML VIAL IV ONE (15:03)
[2016-11-10] MEDS ORDERED: PROPOFOL 200 MG/20 ML AMP IV PUSH ONE (15:22)
--- NOTE | 2016-11-10 15:53 | RADRPT ---
EXAM DATE/TIME: 11/10/2016 15:16 [facility] COMPARISON: No previous studies available for comparison. INDICATIONS : Obstruction. FLUORO TIME: 17.50 minutes IMAGE COUNT: 2 CONTRAST: Instilled by Ordering Physician MEDICAL HISTORY : None. SURGICAL HISTORY : Cholecystectomy. ENCOUNTER: Initial ACUITY: 1 day PAIN SCORE: Non-responsive. LOCATION: abdomen. FINDINGS: An ERCP was performed by the ordering physician. The images demonstrate a biliary stent present in common bile duct with mild hepatic biliary ductal d ilatation. No definite filling defects. CONCLUSION: ERCP as above. Abdirizak Martin MD on November 10, 2016 at 15:43 Board Certified Radiologist. This report was verified electronically.
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
[2016-11-10 17:15] VITALS: BP 116/67; PULSE 100; RESP 20; TEMP 97.9; O2SAT 95
--- NOTE | 2016-11-10 17:22 | PD.PROCEDR ---
GI Procedure REFERRING PHYSICIAN Dr. Sandy PROCEDURE PERFORMED ERCP with stent removal and biliary dilatation and stent placement INDICATION FOR PROCEDURE Persistent jaundice, biliary obstruction PROCEDURE: The procedure, risks and benefits were discussed with Mr. Jones's brother and informed consent was obtained. Anesthesia sedated him with Diprivan. He was placed in the left lateral decubitus position. ERCP: Patient was placed in a prone position. The Pentax videoscope was introduced through the oropharynx and advanced to the second portion of the duodenum where the ampula was identified. FINDINGS: The ampulla was identified a stent was noted protruding through it this was removed using a snare the scope was then repositioned and we were able to obtain easy cannulation of the common bile duct, initial cannulation though was of the pancreatic duct appeared to be normal once we obtain cannulation of the common bile duct it was noted that the patient had a long tight stricture of the common bile duct and probably of the bifurcation I barely was able to opacify the right biliary system I was unable to cannulate the left biliary system but there was some contrast that filled it partially the stricture was noted to be long and very tight and so using the Soehendra dilator from 6-9 was used to dilate and then an 8.5 Urdu 15 cm stent was placed and in spite of that it barely reached the edge of the stricture and unfortunately we do not have any longer stents to provide for better drainage although this one was noted to be draining some. Again multiple attempts were performed to try and obtain cannulation of the left hepatic system all to no avail and as such the procedure was then terminated ESTIMATED BLOOD LOSS: None SPECIMENS REMOVED: None COMPLICATIONS: None IMPRESSION: Severe biliary stricture etiology unclear PLAN: Monitor labs Consider PTC if jaundice does not improve with this stent Pedro Edwards MD Nov 10, 2016 17:22
[2016-11-10] MEDS ORDERED: PHYTONADIONE 10 MG/ML VIAL SQ ONE (17:30)
[2016-11-10] MEDS ORDERED: DO NOT ADM ANY ANTICOAGULANT DRUGS PRN (18:00)
[2016-11-10 20:30] VITALS: BP 110/63; PULSE 98; RESP 17; TEMP 98.8; O2SAT 97
[2016-11-10] MEDS: DONEPEZIL HCL 5 MG TAB PO SCH (21:29)
[2016-11-11] VITALS (7 sets, daily range): BP systolic 106–120; BP diastolic 58–65; PULSE 96–108; RESP 17–22; TEMP 97.7–99.4; O2SAT 93–97
[2016-11-11] MEDS: POLYMYXIN/TRIMETHOPRIM OPHT SOLN 10 ML BTL EACH EYE SCH ×4 (00:16→18:00)
[2016-11-11] MEDS: SODIUM CHLORIDE 0.9% FLUSH 10 ML FLUSH IV FLUSH SCH ×2 (09:00→21:05)
[2016-11-11 09:42] LABS: INTERNATIONAL NORMALIZED RATIO 1.3 RATIO; PROTHROMBIN TIME - PATIENT 14.7 SEC (9.8-11.6)
[2016-11-11 09:46] LABS: HEMATOCRIT 31.8 % (39.0-51.0); MEAN CELL VOLUME 90.5 FL (80.0-100.0); MEAN CORPUSCULAR HEMOGLOBIN 29.5 PG (27.0-34.0); MEAN CORPUSCULAR HGB CONC 32.6 % (32.0-36.0); PLATELET COUNT 115 TH/MM3 (150-450); RED BLOOD COUNT 3.52 MIL/MM3 (4.50-5.90); REVIEW FLAG FINAL; WHITE BLOOD COUNT 6.9 TH/MM3 (4.0-11.0)
[2016-11-11] MEDS: DIVALPROEX SODIUM E.R. 250 MG TAB PO SCH ×2 (10:05→21:03)
[2016-11-11] MEDS: levETIRAcetam 500 MG TAB PO SCH ×2 (10:05→21:03)
[2016-11-11] MEDS: CHOLECALCIFEROL (VIT D3) 400 UNIT TAB PO SCH (10:06)
[2016-11-11] MEDS: BENZTROPINE MESYLATE 1 MG TAB PO SCH ×2 (10:06→21:03)
[2016-11-11] MEDS: risperiDONE 1 MG TAB PO SCH ×2 (10:06→21:03)
[2016-11-11] MEDS: ESCITALOPRAM OXALATE 20 MG TAB PO SCH (10:06)
[2016-11-11 10:30] LABS: ALKALINE PHOSPHATASE 738 U/L (45-117); ALT (GPT) 169 U/L (12-78); ANION GAP 8 MEQ/L (5-15); AST (GOT) 151 U/L (15-37); BICARBONATE 26.7 MEQ/L (21.0-32.0); BLOOD UREA NITROGEN 17 MG/DL (7-18); CHLORIDE 96 MEQ/L (98-107); GLOMERULAR FILTRATION RATE 94 ML/MIN (>89); POTASSIUM 4.1 MEQ/L (3.5-5.1); SODIUM (NA) 131 MEQ/L (136-145)
[2016-11-11 10:35] LABS: TOTAL BILIRUBIN ADULT 20.2 MG/DL (0.2-1.0)
--- NOTE | 2016-11-11 10:47 | HHI.PR ---
Subjective Subjective Remarks Has no complaints Flat affect Eating okay No acute changes overnight ROS difficult to obtain Review of Systems Constitutional Constitutional Remarks 12 point ros limited Vitals/Results Vital Signs Vital Signs Date Time Temp Pulse Resp B/P (MAP) Pulse Ox O2 Delivery O2 Flow Rate FiO2 11/11/16 09:20 97 Nasal Cannula 2.00 11/11/16 08:01 97.7 96 18 106/61 (76) 95 11/11/16 04:00 98.5 102 22 111/60 (77) 95 11/10/16 21:57 Nasal Cannula 2.00 11/10/16 20:30 98.8 98 17 110/63 (79) 97 11/10/16 17:15 97.9 100 20 116/67 (83) 95 11/10/16 16:30 99 16 106/64 (78) 97 Nasal Cannula 2 11/10/16 16:15 104 16 127/83 (98) 97 Nasal Cannula 2 11/10/16 16:00 99 16 111/66 (81) 98 Nasal Cannula 2 11/10/16 15:42 98.1 99 16 120/73 (89) 98 Nasal Cannula 2 11/10/16 12:02 97.4 109 18 108/63 (78) 96 CBC/BMP: 11/11/16 0855 11/11/16 0855 Lab Results Laboratory Tests Test 11/11/16 08:55 White Blood Count 6.9 TH/MM3 Red Blood Count 3.52 MIL/MM3 Hemoglobin 10.4 GM/DL Hematocrit 31.8 % Mean Corpuscular Volume 90.5 FL Mean Corpuscular Hemoglobin 29.5 PG Mean Corpuscular Hemoglobin Concent 32.6 % Red Cell Distribution Width 20.0 % Platelet Count 115 TH/MM3 Mean Platelet Volume 8.7 FL Prothrombin Time 14.7 SEC Prothromb Time International Ratio 1.3 RATIO Blood Urea Nitrogen 17 MG/DL Creatinine 0.83 MG/DL Random Glucose 183 MG/DL Total Protein 6.7 GM/DL Albumin 1.7 GM/DL Calcium Level 8.3 MG/DL Alkaline Phosphatase 738 U/L Aspartate Amino Transf (AST/SGOT) 151 U/L Alanine Aminotransferase (ALT/SGPT) 169 U/L Total Bilirubin 20.2 MG/DL Sodium Level 131 MEQ/L Potassium Level 4.1 MEQ/L Chloride Level 96 MEQ/L Carbon Dioxide Level 26.7 MEQ/L Anion Gap 8 MEQ/L Estimat Glomerular Filtration Rate 94 ML/MIN Microbiology Microbiology 11/11/16 Stool Occult Blood (MAIK) - Final, Complete HEMOCCULT POSITIVE Physical Exam General General Appearance: No Acute Distress, Pale Appearance Remarks bitemporal muscle wasting Eyes Eye Exam: Pupils Equal, Sclera White, Jaundice Eye Remarks left pupil mishapen,chronic Ears & Nose Ears & Nose Exam: Nasal Mucosa [place] Throat Throat Exam: Oral Mucosa [place] & Moist Neck Neck Exam: Neck Supple, Trachea Midline Pulmonary Resp Exam: Breath Sounds Equal, Diminished Breath Sounds Cardiology CV Exam: Regular, Normal Sinus Rhythm Gastrointestinal/Abdomen GI Exam: Soft, Bowel Sounds Present, Distended Musculoskeletal MS Exam: Joints Intact (healing right humerus) MS Remarks left shoulder bruising, on sling Integumentary Skin Exam: Warm, Dry Skin Remarks bruising right knee, left arm Extremeties Extremities Exam: No Edema, Pedal Pulses Palpable Neurologic Neuro Exam: Awake, Speech Clear VTE Prophylaxis VTE Prophylaxis Meds: Heparin Assessment/Plan Problem List: (1) Multiple falls ICD Codes: R29.6 - Repeated falls Status: Acute (2) Proximal humerus fracture ICD Codes: S42.209A - Unspecified fracture of upper end of unspecified humerus , initial encounter for closed fracture Status: Acute (3) Frequent falls ICD Codes: R29.6 - Repeated falls Status: Acute (4) Contusion of left knee and lower leg ICD Codes: S80.02XA - Contusion of left knee, initial encounter; S80.12XA - Contusion of left lower leg, initial encounter Status: Acute (5) Bilateral conjunctivitis ICD Codes: H10.9 - Unspecified conjunctivitis Status: Acute (6) History of seizure disorder ICD Codes: Z86.69 - History of seizure disorder Status: Acute (7) Dementia without behavioral disturbance ICD Codes: F03.90 - Unspecified dementia without behavioral disturbance Status: Acute (8) Schizoaffective disorder ICD Codes: F25.9 - Schizoaffective disorder, unspecified Status: Acute (9) Physical debility ICD Codes: R53.81 - Other malaise Status: Chronic (10) Malnourished ICD Codes: E46 - Unspecified protein-calorie malnutrition Status: Chronic (11) Generalized weakness ICD Codes: R53.1 - Weakness Status: Chronic (12) Metastatic colorectal cancer ICD Codes: C78.5 - Secondary malignant neoplasm of large intestine and rectum Status: Chronic (13) Partial bowel obstruction ICD Codes: K56.69 - Other intestinal obstruction Status: Acute (14) Physical deconditioning ICD Codes: R53.81 - Other malaise Status: Acute Assessment/Plan s/p fall with Nondisplaced oblique fracture of the proximal left humerus appreciate Orthopedic consult, plan at this time for conservative management, maintain sling on, currently fracture is nondisplaced Reevaluated by Dr. Morales, imaging studies reviewed, healing well. Continue with non op trx Bilateral conjunctivitis continue eye drops hx of multiple falls orthos bp ok EEG results noted, focal features on left continue Keppra Hx dementia schizoaffective continue home meds Malnourished, bitemporal muscle wasting Boost TID Nutrition consult Physical debility pt. appears to be declining, unable to function independently to go back to [facility] at risk for fall and further injury that may lead to fractures, brain injury pt. benefits from a more supervised environment. New findings of hannah colored stool, jaundiced. Labs on 11/02 elevated tbili GI now following, input appreciated. 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 On 11/04/16 Dr. Whiting performed colonoscopy with findings of Diverticulosis sigmoid,descending/large mass in sigmoid, very friable , bleeding easily, nearlyobstructing-biopsies/polyp diminutive hepatic flexure -biopsy/polyp diminutive -splenic flexure-biopsy/two pedunculated polyps in rectum-8 mm-hot snare polypectomy with complete removal/Retroflexed views revealed internal hemorrhoids/ Retroflexed views revealed small internal hemorrhoids/ Revealed hemorrhoids and EGD- findings of portal gastropathy General surgery, Dr. Weems consulted for evaluation of partial obstructing lesion in sigmoid colon. Treatment plan to include resection of lesion with a primary anastomosis. Surgery signed off, patient's POA who is the brother declined surgery. Oncology, Dr. Ambriz consulted on 11/04/16 for metastatic colon cancer. Patient not a candidate for palliative chemotherapy given his physical deconditioning/ multiple comorbidities. 11/05 S/P ERCP with sphincterotomy and stent placement plastic. Indices increasing, GI re-evaluated, recommended repeat ERCP with longer stent. 11/10 S/P ERCP with stent removal and biliary dilatation and stent placement Tolerated procedure well T bili 20.2 Overall prognosis poor Appreciate psychiatric input, patient not competent to make healthcare decisions. Palliative care following, they spoke to patient's brother. Patient now DNR Hospice met with patient's brother, he has opted for transition to comfort care. [facility] Discussed with nurse Discussed with Dr. Sandy Discussed with pt.-patient does not appear to comprehend what's going Discussed with CM This patient was seen by myself and Dr Sandy, this note is written on his behalf Problem Qualifiers (1) Proximal humerus fracture: (2) Bilateral conjunctivitis: (3) Dementia without behavioral disturbance: (4) Schizoaffective disorder: (5) Malnourished: Qualified Codes: E44.0 - Moderate protein-calorie malnutrition Cynthia Chawla Nov 11, 2016 10:47
--- NOTE | 2016-11-11 11:58 | HHI.GIFU ---
Subjective Remarks Lethargic, confused, does not appear to be in any discomfort. (Kathy Lanza) Objective Vitals I&O Vital Signs Date Time Temp Pulse Resp B/P (MAP) Pulse Ox O2 Delivery O2 Flow Rate FiO2 11/11/16 09:20 97 Nasal Cannula 2.00 11/11/16 08:01 97.7 96 18 106/61 (76) 95 11/11/16 04:00 98.5 102 22 111/60 (77) 95 11/10/16 21:57 Nasal Cannula 2.00 11/10/16 20:30 98.8 98 17 110/63 (79) 97 11/10/16 17:15 97.9 100 20 116/67 (83) 95 11/10/16 16:30 99 16 106/64 (78) 97 Nasal Cannula 2 11/10/16 16:15 104 16 127/83 (98) 97 Nasal Cannula 2 11/10/16 16:00 99 16 111/66 (81) 98 Nasal Cannula 2 11/10/16 15:42 98.1 99 16 120/73 (89) 98 Nasal Cannula 2 11/10/16 12:02 97.4 109 18 108/63 (78) 96 I/O 11/10/16 11/10/16 11/10/16 11/11/16 11/11/16 11/11/16 07:00 15:00 23:00 07:00 15:00 23:00 Intake Total 838 ml 238 ml Balance 838 ml 238 ml Intake Oral 238 ml 238 ml Other 600 ml # Voids 3 2 1 3 # Bowel Movements 0 2 1 2 Laboratory Laboratory Tests Test 11/11/16 08:55 White Blood Count 6.9 Red Blood Count 3.52 Hemoglobin 10.4 Hematocrit 31.8 Mean Corpuscular Volume 90.5 Mean Corpuscular Hemoglobin 29.5 Mean Corpuscular Hemoglobin Concent 32.6 Red Cell Distribution Width 20.0 Platelet Count 115 Mean Platelet Volume 8.7 Prothrombin Time 14.7 Prothromb Time International Ratio 1.3 Blood Urea Nitrogen 17 Creatinine 0.83 Random Glucose 183 Total Protein 6.7 Albumin 1.7 Calcium Level 8.3 Alkaline Phosphatase 738 Aspartate Amino Transf (AST/SGOT) 151 Alanine Aminotransferase (ALT/SGPT) 169 Total Bilirubin 20.2 Sodium Level 131 Potassium Level 4.1 Chloride Level 96 Carbon Dioxide Level 26.7 Anion Gap 8 Estimat Glomerular Filtration Rate 94 Date/Time Source Procedure Growth Status 11/11/16 03:21 Stool Stool Stool Occult Blood (MAIK) - Final HEMOCCULT POSITIVE Complete Imaging Last Impressions GI Procedure 11/10/16 0000 Signed Impressions: Service Date/Time: Thursday, November 10, 2016 15:16 - CONCLUSION: ERCP as above. Abdirizak Martin MD Abdomen/Pelvis CT 11/03/16 0000 Signed Impressions: Service Date/Time: Thursday, November 03, 2016 07:53 - CONCLUSION: Widespread metastatic disease to the liver from presumed adenocarcinoma sigmoid colon. 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 There is no ascites. Dharmesh Nunn MD FACR Hand X-Ray 10/22/16 0000 Signed Impressions: Service Date/Time: September 02:49 - CONCLUSION: Healing fifth metacarpal fracture with callus formation that has developed since the September 12 exam. Also again seen is an intra-articular fracture of the proximal phalanx of the fourth finger at the fourth MCP. This has less callus formation. Abdirizak Martin MD Shoulder X-Ray 10/04/16 0000 Signed Impressions: Service Date/Time: Tuesday, October 04, 2016 11:43 - CONCLUSION: Nondisplaced oblique fracture through the proximal left humerus. Cas Mendez MD Elbow X-Ray 10/04/16 0000 Signed Impressions: Service Date/Time: Tuesday, October 04, 2016 11:48 - CONCLUSION: Negative limited 2 view study. Cas Mendez MD Chest X-Ray 10/04/16 0000 Signed Impressions: Service Date/Time: Tuesday, October 04, 2016 11:40 - CONCLUSION: 1. Nondisplaced fracture involving the left proximal humerus. 2. No acute cardiac pulmonary disease. Cas Mendez MD Physical Exam HEENT: Normocephalic; atraumatic; + jaundice. CHEST: CTA, diminished CARDIAC: RRR ABDOMEN: Soft, moderate ascites, nontender; hepatosplenomegaly; bowel sounds are present EXTREMITIES: Generalized edema SKIN: + jaundice NEURO: Lethargic and confused (Kathy Lanza) Assessment and Plan Plan ASSESSMENT: - Biliary obstruction, jaundice, elevated LFTs. 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 There is no ascites. ERCP with sphincterotomy ()---> showed significant narrowing/complete obstruction in the distal hepatic duct most likely extrinsic compression, a sphincterotomy was performed and a 12 cm x 8.5 Maced[place] stent was placed. Continues to have elevated LFTs and therefore had repeat ERCP with 8.5 danish x 15 cm stent was placed (11/10/16)-----> Severe biliary stricture etiology unclear. T. Bili 20.2, AST 151, ALT 169, Alk Phosph 738. Could consider PTC if jaundice does not improve, but family considering transition to comfort measures and is to meet with Hospice today. - Nearly obstructing colon cancer. Oncology and GS following. Palliative care following. - Anemia. S/P EGD/Colonoscopy (11/04/16)----> 1. Portal gastropathy-biopsy no bile seen in duodenum 2. Retroflexed views revealed a hiatal hernia 1. Diverticulosis sigmoid,descending large mass in sigmoid, very fraible , bleeding easily, nearly obstructing-biopsies polyp diminutive hepatic flexure -biopsy polyp diminutive -splenic flexure-biopsy two pedunculated polyps in rectum-8 mm-hot snare polypectomy with complete removal 2. Retroflexed views revealed internal hemorrhoids 3. Retroflexed views revealed small internal hemorrhoids 4. Revealed hemorrhoids Pathology with gastric body type mucosal biopsy without significant histopathologic abnormality negative for gastritis, gastropathy, metaplasia and dysplasia, colonic mucosal biopsies with invasive moderately differentiated adenocarcinoma, colonic mucosal biopsies with adenomatous polyps, rectal hyperplastic polyp. 10.4/31.8 - Proximal humerus fracture, dementia, schizoaffective d/o PLAN: - HEYDI - Monitor labs - S/P GS evaluation - Oncology following - Palliative care following - Hospice following, to meet with family - Further recommendations to follow based on results of above - Patient seen and examined by Dr. Edwards and myself and this note is written on his behalf (Kathy Lanza) Physician Comments Patient seen and examined Agree with above Continue with current supportive care Monitor labs No stent does not appear to be working apparently even this the longest stent we have is not long enough to allow for drainage therefore we will ask IR to obtain drainage through PTC (Pedro Edwards MD) Kathy Lanza Nov 11, 2016 11:58 Pedro Edwards MD Nov 11, 2016 20:35
[2016-11-11] MEDS ORDERED: PHYTONADIONE 10 MG/ML VIAL SQ ONE (20:45)
[2016-11-11] MEDS: DONEPEZIL HCL 5 MG TAB PO SCH (21:03)
--- NOTE | 2016-11-12 18:09 | HHI.DS ---
Discharge Summary Admission Date Oct 04, 2016 at 12:51 Discharge Date: Nov 11, 2016 Admitting Diagnosis L proximal humerus fx; multiple falls; generalized weakness (1) Proximal humerus fracture ICD Codes: S42.209A - Unspecified fracture of upper end of unspecified humerus , initial encounter for closed fracture Status: Acute (2) History of seizure disorder ICD Codes: Z86.69 - History of seizure disorder Status: Acute (3) Multiple falls ICD Codes: R29.6 - Repeated falls Status: Acute (4) Schizoaffective disorder ICD Codes: F25.9 - Schizoaffective disorder, unspecified Status: Acute (5) Bilateral conjunctivitis ICD Codes: H10.9 - Unspecified conjunctivitis Status: Acute (6) Dementia without behavioral disturbance ICD Codes: F03.90 - Unspecified dementia without behavioral disturbance Status: Acute (7) Malnourished ICD Codes: E46 - Unspecified protein-calorie malnutrition Status: Chronic (8) Generalized weakness ICD Codes: R53.1 - Weakness Status: Chronic (9) Physical debility ICD Codes: R53.81 - Other malaise Status: Chronic (10) Serum total bilirubin elevated ICD Codes: R17 - Unspecified jaundice (11) Liver masses ICD Codes: R16.0 - Hepatomegaly, not elsewhere classified Status: Chronic (12) Elevated CEA ICD Codes: R97.0 - Elevated carcinoembryonic antigen [CEA] (13) Anemia due to chronic blood loss ICD Codes: D50.0 - Iron deficiency anemia secondary to blood loss (chronic) Status: Chronic (14) Abnormal LFTs ICD Codes: R79.89 - Other specified abnormal findings of blood chemistry Status: Chronic (15) Mass of colon ICD Codes: K63.9 - Disease of intestine, unspecified Status: Chronic (16) Metastatic colorectal cancer ICD Codes: C78.5 - Secondary malignant neoplasm of large intestine and rectum Status: Chronic (17) Physical deconditioning ICD Codes: R53.81 - Other malaise Status: Acute (18) Partial bowel obstruction ICD Codes: K56.69 - Other intestinal obstruction Status: Acute Procedures On 11/04/16 Dr. Whiting performed colonoscopy with findings of Diverticulosis sigmoid,descending/large mass in sigmoid, very friable , bleeding easily, nearlyobstructing-biopsies/polyp diminutive hepatic flexure -biopsy/polyp diminutive -splenic flexure-biopsy/two pedunculated polyps in rectum-8 mm-hot snare polypectomy with complete removal/Retroflexed views revealed internal hemorrhoids/ Retroflexed views revealed small internal hemorrhoids/ Revealed hemorrhoids and EGD- findings of portal gastropathy 11/05 S/P ERCP with sphincterotomy and stent placement plastic. 11/10 S/P ERCP with stent removal and biliary dilatation and stent placement CBC/BMP: 11/11/16 0855 11/11/16 0855 Significant Findings Laboratory Tests Test 11/10/16 08:37 11/11/16 08:55 Red Blood Count 3.78 MIL/MM3 (4.50-5.90) 3.52 MIL/MM3 (4.50-5.90) Hemoglobin 11.2 GM/DL (13.0-17.0) 10.4 GM/DL (13.0-17.0) Hematocrit 33.3 % (39.0-51.0) 31.8 % (39.0-51.0) Red Cell Distribution Width 19.7 % (11.6-17.2) 20.0 % (11.6-17.2) Platelet Count 134 TH/MM3 (150-450) 115 TH/MM3 (150-450) Neutrophils (%) (Auto) 86.1 % (16.0-70.0) Lymphocytes (%) (Auto) 4.1 % (9.0-44.0) Monocytes (%) (Auto) 9.0 % (0.0-8.0) Lymphocytes # (Auto) 0.3 TH/MM3 (1.0-4.8) Prothrombin Time 24.3 SEC (9.8-11.6) 14.7 SEC (9.8-11.6) Random Glucose 138 MG/DL (74-106) 183 MG/DL (74-106) Albumin 1.9 GM/DL (3.4-5.0) 1.7 GM/DL (3.4-5.0) Alkaline Phosphatase 920 U/L (45-117) 738 U/L (45-117) Aspartate Amino Transf (AST/SGOT) 266 U/L (15-37) 151 U/L (15-37) Alanine Aminotransferase (ALT/SGPT) 215 U/L (12-78) 169 U/L (12-78) Total Bilirubin 15.9 MG/DL (0.2-1.0) 20.2 MG/DL (0.2-1.0) Sodium Level 132 MEQ/L (136-145) 131 MEQ/L (136-145) Chloride Level 97 MEQ/L (98-107) 96 MEQ/L (98-107) Calcium Level 8.3 MG/DL (8.5-10.1) Imaging Last Impressions GI Procedure 11/10/16 0000 Signed Impressions: Service Date/Time: Thursday, November 10, 2016 15:16 - CONCLUSION: ERCP as above. Abdirizak Martin MD Abdomen/Pelvis CT 11/03/16 0000 Signed Impressions: Service Date/Time: Thursday, November 03, 2016 07:53 - CONCLUSION: Widespread metastatic disease to the liver from presumed adenocarcinoma sigmoid colon. 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 There is no ascites. Dharmesh Nunn MD FACR Hand X-Ray 10/22/16 0000 Signed Impressions: Service Date/Time: September 02:49 - CONCLUSION: Healing fifth metacarpal fracture with callus formation that has developed since the September 12 exam. Also again seen is an intra-articular fracture of the proximal phalanx of the fourth finger at the fourth MCP. This has less callus formation. Abdirizak Martin MD Shoulder X-Ray 10/04/16 0000 Signed Impressions: Service Date/Time: Tuesday, October 04, 2016 11:43 - CONCLUSION: Nondisplaced oblique fracture through the proximal left humerus. Cas Mendez MD Elbow X-Ray 10/04/16 0000 Signed Impressions: Service Date/Time: Tuesday, October 04, 2016 11:48 - CONCLUSION: Negative limited 2 view study. Cas Mendez MD Chest X-Ray 10/04/16 0000 Signed Impressions: Service Date/Time: Tuesday, October 04, 2016 11:40 - CONCLUSION: 1. Nondisplaced fracture involving the left proximal humerus. 2. No acute cardiac pulmonary disease. Cas Mendez MD Hospital Course This is a 61-year-old white male who was residing at the [facility]. He stated that he got dizzy and fell. He also notes that he has fallen three times this week. He started having pain in his left arm and was brought in for evaluation. The patient was noted to have dementia, bipolar, schizoaffective disorder, and has been seen, according to the record, in the emergency room for several falls in the past. The patient is a poor historian. He does give some random information. Both his eyes have drainage, serous to creamy drainage and dried and crusted areas but he states they do not hurt and do not burn. He does note that he has recently had a cold but denies any nausea or vomiting and denies any chest pain or shortness of breath. Patient was evaluated in emergency room DIAGNOSTIC DATA: White blood cell count 5.3, hemoglobin 10.8, hematocrit 32.7, platelet count 109,000. The differential shows elevated neutrophil count percentage at 80.3, lymphocytes 7.7, monocytes 11.4. Chemistries: Sodium 134, potassium 3.7, chloride 99, carbon dioxide 27.4, BUN 13, creatinine 0.57, random glucose 133, calcium 8.1. IMAGING STUDIES: Chest x-ray essentially clear but it does show a nondisplaced fracture in the left proximal humerus. Elbow x-ray is negative for any fractures. Shoulder x-ray shows nondisplaced oblique fracture of the proximal left humerus. Patient was admitted to the hospital, had a prolonged hospitalization. During the course of the hospitalization, the following took place Patient initially admitted after s/p fall with Nondisplaced oblique fracture of the proximal left humerus Consult orthopedics. They evaluated patient, recommended conservative management, maintain sling on, currently fracture was nondisplaced Since the patient remained in the hospital for a prolonged period of time, we' ve re-consulted orthopedics for evaluation. Follow-up imaging studies were done , it appears the patient was healing well. He was continue with nonoperative treatment. He was treated for Bilateral conjunctivitis with antibiotic eyedrops. Symptoms improved Because of history of multiple falls Orthostatics were checked, they were okay. EEG was done, focal features on the left. Patient was continued on Keppra Patient was continued on home medications to treat meningitis schizoaffective disorder Patient was at times agitated and he became extremely debilitated. Physical therapy was consulted. Case management consulted for discharge planning. 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 Family was also contacted. During hospitalization, patient was noted with hannah colored stool, and he was noted jaundiced. Labs were ordered on 11/02 and was found with elevated tbili Gastroenterology was consulted. Further diagnostics were recommended. 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 Colonoscopy and EGD was recommended On 11/04/16 Dr. Whiting performed colonoscopy with findings of Diverticulosis sigmoid,descending/large mass in sigmoid, very friable , bleeding easily, nearly obstructing-biopsies/polyp diminutive hepatic flexure -biopsy/polyp diminutive -splenic flexure-biopsy/two pedunculated polyps in rectum-8 mm-hot snare polypectomy with complete removal/Retroflexed views revealed internal hemorrhoids/ Retroflexed views revealed small internal hemorrhoids/ Revealed hemorrhoids and EGD- findings of portal gastropathy General surgery, Dr. Weems consulted for evaluation of partial obstructing lesion in sigmoid colon. Treatment plan to include resection of lesion with a primary anastomosis. After discussing with patient's POA, he declined surgery. Also consulted oncology.Patient not a candidate for palliative chemotherapy given his physical deconditioning/multiple comorbidities. Oncology discussed with family as well Patient's laboratory workup continued to increase, noted with increased T bili. His abdomen was noted distended. He remained jaundiced. GI continued to follow and recommended ERCP. 11/05 S/P ERCP with sphincterotomy and stent placement plastic. Indices increasing, GI re-evaluated, recommended repeat ERCP with longer stent. 11/10 S/P ERCP with stent removal and biliary dilatation and stent placement Tolerated procedure well T bili remained elevated 20.2 Because of patient's overall poor prognosis, palliative care was consulted to assist patient's family with clarifying goals of care. Psychiatry was also consulted to assess patient's competency level. Appreciated psychiatric input, patient not competent to make healthcare decisions. Palliative care continue to follow. They spoke to patient's brother. Patient was made DNR Hospice was consulted. Hospice met with patient's brother, he opted for transition to comfort care. Patient discharged to hospice care center in stable condition Pt Condition on Discharge: Stable Discharge Disposition: Hospice/Med Facility Discharge Instructions DIET: Follow Instructions for: Heart Healthy Diet Activities you can perform: Weight Bearing as Naheed Other Activity Instructions: FALL PRECAUTIONS Follow up Referrals: Orthopedics with Sylvain Kirkland MD PCP Follow-up - 1 Week New Medications: Polymyxin B-Trimethoprim Opth Drops (Polytrim Opth Drops) 10,000-0.1 Unit/Ml-% Soln 1 DROP EACH EYE Q6HR for Infection, #1 ML Continued Medications: Benztropine (Benztropine) 0.5 Mg Tab 0.5 MG PO BID, #60 TAB 0 Refills Cholecalciferol (Vitamin D-400) 400 Unit Tab 400 UNITS PO DAILY for Nutritional Supplement, #1 BOTTLE 0 Refills Divalproex ER (Divalproex ER) 250 Mg Garret 250 MG PO BID for Control Seizures, #30 TAB 0 Refills TAKE AT 8AM AND 4PM Donepezil (Donepezil) 5 Mg Tab 5 MG PO HS for Dementia, #30 TAB 0 Refills Escitalopram (Lexapro) 20 Mg Tab 20 MG PO DAILY, #30 TAB 0 Refills Levetiracetam (Keppra) 500 Mg Tab 500 MG PO BID for Control Seizures, #60 TAB 0 Refills Risperidone (Risperidone) 1 Mg Tab 1 MG PO HS, #30 TAB 0 Refills Risperidone (Risperidone) 1 Mg Tab 1 MG PO DAILY, #30 TAB 0 Refills Discontinued Medications: Temazepam (Temazepam) 30 Mg Cap 30 MG PO HS, #30 CAP 0 Refills Cynthia Chawla Nov 12, 2016 18:09
== END 2016-11-11 22:50 | disposition hospice, inpatient (51) ==
LOC: NEPE 11:16 → NEDA 12:51 → NEPHCDU 16:00 → NEPGCP 10-09 20:55 → N05A 10-12 19:22 → N05B 10-13 17:15
PROVIDERS: ADMIT Specialist; ATTEND Specialist
DX: C18.7 Malignant neoplasm of sigmoid colon (principal); C18.5 Malignant neoplasm of splenic flexure; K83.1 Obstruction of bile duct; K44.9 Diaphragmatic hernia without obstruction or gangrene; K29.70 Gastritis, unspecified, without bleeding; K64.8 Other hemorrhoids; K62.1 Rectal polyp; K64.4 Residual hemorrhoidal skin tags; S42.295A Other nondisplaced fracture of upper end of left humerus, initial encounter for closed fracture; K57.30 Diverticulosis of large intestine without perforation or abscess without bleeding; W19.XXXA Unspecified fall, initial encounter; R29.6 Repeated falls; H10.89 Other conjunctivitis; R53.1 Weakness; F17.210 Nicotine dependence, cigarettes, uncomplicated; M19.90 Unspecified osteoarthritis, unspecified site; R56.9 Unspecified convulsions; F25.0 Schizoaffective disorder, bipolar type; F03.90 Unspecified dementia, unspecified severity, without behavioral disturbance, psychotic disturbance, mood disturbance, and anxiety; M79.602 Pain in left arm; R17 Unspecified jaundice; C78.89 Secondary malignant neoplasm of other digestive organs; R93.8 Abnormal findings on diagnostic imaging of other specified body structures
CPT/HCPCS: 00740; 43239; 43274; 43276; 45380; 45385; 71010; 73030; 73070; 73130; 74177; 74330; 76937; 80048; 80053; 80074; 80076; 81001; 82105; 82248; 82272; 82378; 82390; 82533; 82550; 82728; 82784; 82977; 83516; 83520; 83540; 84134; 84484; 85025; 85027; 85610; 86038; 86255; 86301; 88305; 93005; 95819; 96361; 96372; 96374; 96375; 97110; 97116; 97163; 97167; 97530; 97535; 99285; C1769; C2625; G0378; G8987; G8988; J0690; J1610; J1644; J2060; J2370; J2405; J3430; J7030; L3980; Q9963; Q9967